=== PATIENT | male | born 1955 | race Caucasian/White ===

== ENCOUNTER 2017-05-16 15:41 | Inpatient (IN) | payer MEDICAID ==
[2017-05-16] MEDS ORDERED: Sodium Chloride 0.9% 1,000 ML IV ONE (16:08)
[2017-05-16] MEDS ORDERED: Enalaprilat 2.5 MG/2 ML IV ONE ×2 (16:10→17:12)
--- NOTE | 2017-05-16 16:18 | C.PDOC ---
History Of Present Illness 61-year-old male, PMHx includes Hypertension, presents to the emergency department with complaints of shortness of breath, cough, dizziness, generalized malaise and chest tightness for the past five days. Patient did not take any medication today. Denies fever, nausea/vomiting, symptoms, change in bowel habits or any other associated symptoms. No other complaints at this time. Time Seen by Provider: 05/16/17 15:48 Chief Complaint (Nursing): Flu-like Symptoms History Per: Patient History/Exam Limitations: no limitations Onset/Duration Of Symptoms: Days Current Symptoms Are (Timing): Still Present Past Medical History Reviewed: Historical Data, Nursing Documentation, Vital Signs Vital Signs: Last Vital Signs Temp 99.7 F H 05/16/17 15:57 Pulse 104 H 05/16/17 15:57 Resp 25 H 05/16/17 15:57 BP 229/132 H 05/16/17 15:57 Pulse Ox 93 L 05/16/17 17:05 - Medical History PMH: HTN - [facility] FOR SUBSTANCE [facility]BUSE TREATMENT (02/21/15) [facility] SUBSTANCE [facility]BUSE [facility]REAT[facility], METHADONE MAINT (02/21/15) Family History: States: No Known Family Hx - Social History Hx Tobacco Use: No Hx Alcohol Use: No Hx Substance Use: Yes (also on methadone) - Immunization History Hx Tetanus Toxoid Vaccination: No Hx Influenza Vaccination: Yes Hx Pneumococcal Vaccination: No Review Of Systems Except As Marked, All Systems Reviewed And Found Negative. Constitutional: Positive for: Malaise. Negative for: Fever, Chills Cardiovascular: Negative for: Chest Pain, Palpitations Respiratory: Positive for: Cough, Shortness of Breath Gastrointestinal: Negative for: Nausea, Vomiting, Abdominal Pain, Diarrhea Musculoskeletal: Negative for: Back Pain Neurological: Positive for: Dizziness. Negative for: Weakness, Numbness Physical Exam - Physical Exam Appears: Toxic (mild), Other (Mild respiratory distress) Skin: Warm, Dry, No Rash Head: Atraumatic, Normacephalic Eye(s): bilateral: Normal Inspection, PERRL Nose: Normal Oral Mucosa: Moist Lips: Normal Appearing Neck: Normal ROM Chest: Symmetrical Cardiovascular: Rhythm Regular (Tachycardic) Respiratory: No Accessory Muscle Use, Wheezing (occasional expiratory) Extremity: Normal ROM Neurological/Psych: Oriented x3, Normal Speech ED Course And Treatment - Laboratory Results Result Diagrams: 05/16/17 16:40 05/16/17 16:40 ECG: Interpreted By Me, Viewed By Me ECG Rhythm: Sinus Rhythm, Atrial Flutter (new, compared 2014) Rate From EC O2 Sat by Pulse Oximetry: 93 (2L O2) Pulse Ox Interpretation: Normal Progress - Re-Evaluation Re-evaluation Note: 05/16/17 17:10 92% RA. NO SIG CHANGE SINCE PRIOR EXAM. PMD DR CORADO 05/16/17 17:13 D/W DR PITTS [employer] AWARE OF ER FINDINGS WILL ADMIT. CONSULT YONATHAN ANNA 05/16/17 17:14 ADVISED BY RN CONNIE CASTILLO AVAILABLE IN HOSPITAL - Data Reviewed Data Reviewed: Lab, Diagnostic imaging, EKG, Old records - Critical Care Citical Care: Excluding Proc Time Critical Care Time: 90 minutes - Continuity of Care Discussed patient case with:: On-call PMD-pt unassigned Disposition Counseled Patient/Family Regarding: Studies Performed, Diagnosis, Need For Followup - Disposition Disposition: HOSPITALIZED Disposition Time: 17:15 Condition: STABLE Forms: [facility] ([place]) - POA Present On Arrival: None - Clinical Impression Clinical Impression: Uncontrolled hypertension, Pneumonia, Hypoxia - Scribe Statement The provider has reviewed the documentation as recorded by the Scribe (Gianna Palacios) All medical record entries made by the Scribe were at my direction and personally dictated by me. I have reviewed the chart and agree that the record accurately reflects my personal performance of the history, physical exam, medical decision making, and the department course for this patient. I have also personally directed, reviewed, and agree with the discharge instructions and disposition. Decision To Admit - Pt Status Changed To: Hospital Disposition Of: Inpatient - Admit Certification Admit to Inpatient:: After my assessment, the patient will require hospitalization for at least two midnights. This is because of the severity of symptoms shown, intensity of services needed, and/or the medical risk in this patient being treated as an outpatient. - InPatient: Physician Admission Certification: I certify that this patient requires 2 or more midnights of care for the following reason:: SEE NOTE - . Bed Request Type: Telemetry Admitting Physician: Kristina Pitts Patient Diagnosis: Uncontrolled hypertension, Pneumonia, Hypoxia
[2017-05-16 16:45] LABS: BASO % 0.2 % (0.0-2.0); EOS % 0.1 % (0.0-4.0); HEMOGLOBIN 14.4 g/dL (12.0-18.0); LYMPH # 1.2 K/uL (1.0-4.3); LYMPH % 5.4 % (20.0-40.0); MEAN CORPUSCULAR HEMOGLOBIN 23.3 pg (27.0-31.0); MEAN CORPUSCULAR HGB CONC 32.4 g/dL (33.0-37.0); MEAN PLATELET VOLUME 10.1 fL (7.2-11.7); MONO % 9.1 % (0.0-10.0); NEUT # 18.8 K/uL (1.8-7.0); NEUT % 85.2 % (50.0-75.0); NRBC % 0.2 % (0.0-2.0); PLATELET COUNT 282 K/uL (130-400); RBC 6.19 Mil/uL (4.40-5.90); RED CELL DISTRIBUTION WIDTH 18.2 % (11.5-14.5)
[2017-05-16 16:53] LABS: VENOUS BLOOD GAS BASE EXCESS 9.2 mmol/L (0.0-2.0); VENOUS BLOOD GAS PCO2 50 mmHg (40-60); VENOUS BLOOD GAS PO2 35 mm/Hg (30-55); VENOUS BLOOD PH 7.45 (7.32-7.43)
[2017-05-16 16:55] LABS: CALCIUM 8.9 mg/dl (8.6-10.4); GFR AFRICAN-AMERICAN > 60; GFR NON-AFRICAN AMERICAN > 60
[2017-05-16 16:58] LABS: ALB/GLOB RATIO 0.8 (1.0-2.1); ALBUMIN 3.8 g/dL (3.5-5.0); ALT/SGPT 51 U/L (21-72); AST/SGOT 69 U/L (17-59); BLOOD UREA NITROGEN 29 mg/dL (9-20)
[2017-05-16] MEDS ORDERED: Sodium Chloride 0.9% 1,000 ML ONE (17:01)
[2017-05-16] MEDS ORDERED: Azithromycin 500 MG in Sodium Chloride 0.9% 250 ML IV STA (17:06)
[2017-05-16] MEDS ORDERED: cefTRIAXone IV 1 gm in Dextros 50 ML IV STA (17:06)
[2017-05-16 17:08] LABS: BANDS 1 % (0-2); LYMPHOCYTE 7 % (20-40); MONOCYTE 8 % (0-10); NEUTROPHIL 84 % (50-75); PLATELET ESTIMATE NORMAL (NORMAL); TOTAL CELLS COUNTED 100
[2017-05-16 17:09] LABS: ANISOCYTOSIS SLIGHT; LARGE PLATELETS PRESENT; OVALOCYTES SLIGHT; POIKILOCYTOSIS SLIGHT
[2017-05-16] MEDS ORDERED: Albuterol-Ipratrop 3 mg / 0.5 (3 ml) UD ONE (17:13)
[2017-05-16] MEDS: Albuterol-Ipratrop 3 mg / 0.5 (3 ml) UD IH SCH (17:16)
[2017-05-16 20:05] LABS: VENOUS BLOOD GAS BASE EXCESS -0.5 mmol/L (0.0-2.0); VENOUS BLOOD GAS PCO2 39 mmHg (40-60); VENOUS BLOOD GAS PO2 36 mm/Hg (30-55)
[2017-05-16 20:43] LABS: BLOOD UREA NITROGEN 33 mg/dL (9-20); CALCIUM 8.4 mg/dl (8.6-10.4); GFR AFRICAN-AMERICAN > 60; GFR NON-AFRICAN AMERICAN > 60
[2017-05-16] MEDS: Piperacill/Tazo 3.375gm in Dex 3.375 GM/50 ML BAG IVPB SCH (22:21)
[2017-05-16] MEDS ORDERED: Piperacillin/Tazobact 3.375 GM in Sodium Chloride 100 ML IVPB SCH (22:45)
[2017-05-16] MEDS: Vancomycin 1 gm/NS 200 ml 1 GM/200 ML BAG IVPB SCH (23:45)
[2017-05-17] MEDS: Albuterol-Ipratrop 3 mg / 0.5 (3 ml) UD IH SCH ×4 (02:37→19:20)
[2017-05-17] MEDS: Piperacill/Tazo 3.375gm in Dex 3.375 GM/50 ML BAG IVPB SCH ×3 (05:21→22:12)
[2017-05-17 06:08] LABS: SQUAMOUS EPITHIAL < 1 /hpf (0-5)
[2017-05-17 06:09] LABS: URINE BILIRUBIN SMALL (NEGATIVE); URINE CLARITY Clear (Clear); URINE COLOR YELLOW (YELLOW); URINE GLUCOSE (UA) NEGATIVE (Normal)
[2017-05-17 06:10] LABS: URINE BLOOD TRACE (NEGATIVE); URINE LEUKOCYTE ESTERASE TRACE Leu/uL (Negative); URINE NITRATE NEGATIVE (NEGATIVE); URINE PROTEIN > 300 mg/dL (NEGATIVE)
--- NOTE | 2017-05-17 08:40 | RAD ---
PROCEDURE: CHEST RADIOGRAPH, 1 VIEW HISTORY: SOB COMPARISON: 02/21/2015 FINDINGS: LUNGS: Clear. PLEURA: No pneumothorax or pleural fluid seen. CARDIOVASCULAR: Normal. OSSEOUS STRUCTURES: No significant abnormalities. VISUALIZED UPPER ABDOMEN: Normal. OTHER FINDINGS: None. IMPRESSION: No active disease.
[2017-05-17] MEDS ORDERED: GlipiZIDE 2.5 mg Tab PO SCH (10:00)
[2017-05-17] MEDS: Enoxaparin 40 mg Syringe SC SCH (10:07)
[2017-05-17] MEDS: Vancomycin 1 gm/NS 200 ml 1 GM/200 ML BAG IVPB SCH ×2 (10:07→23:03)
[2017-05-17] MEDS: Methadone 40 mg Tab PO SCH (10:14)
--- NOTE | 2017-05-17 12:42 | CP.PCM.CON ---
History of Present Illness - History of Present Illness History of Present Illness: infectious disease consultation; Consult dictated. Dictation number. # [id number]. See order sheet and reports. Past Patient History - Past Medical History & Family History Past Medical History?: Yes - Past Social History Smoking Status: Heavy Smoker > 10 Cigarettes Daily - CARDIAC Hx Hypertension: Yes - PULMONARY Hx Respiratory Disorders: No - NEUROLOGICAL Hx Neurological Disorder: No - HEENT Hx HEENT Problems: No - RENAL Hx Chronic Kidney Disease: No - ENDOCRINE/METABOLIC Hx Endocrine Disorders: No - HEMATOLOGICAL/ONCOLOGICAL Hx Blood Disorders: No - INTEGUMENTARY Hx Dermatological Problems: No - MUSCULOSKELETAL/RHEUMATOLOGICAL Hx Falls: No - GASTROINTESTINAL Hx Nausea: Yes - GENITOURINARY/GYNECOLOGICAL Hx Genitourinary Disorders: No - PSYCHIATRIC Hx Substance Use: Yes (heroin) - SURGICAL HISTORY Hx Surgeries: No - ANESTHESIA Hx Anesthesia: No Hx Anesthesia Reactions: No Meds Allergies/Adverse Reactions: Allergies Allergy/AdvReac Type Severity Reaction Status Date / Time No Known Allergies Allergy Verified 05/16/17 16:02 - Medications Medications: Current Medications Albuterol/Ipratropium (Duoneb 3 Mg/0.5 Mg (3 Ml) Ud) 3 ml IH RQ6 [facility] Last Admin: 05/17/17 08:56 Dose: Not Given Aspirin (Aspirin Chewable) 81 mg PO DAILY [facility] Last Admin: 05/17/17 10:08 Dose: 81 mg Enoxaparin Sodium (Lovenox) 40 mg SC DAILY [facility] Last Admin: 05/17/17 10:07 Dose: 40 mg Glipizide (Glucotrol) 10 mg PO DAILY [facility] Last Admin: 05/17/17 11:00 Dose: 10 mg Hydralazine HCl (Apresoline) 10 mg IVP STAT [facility] Hydralazine HCl (Apresoline) 25 mg PO Q8 [facility] Last Admin: 05/17/17 10:06 Dose: 25 mg Piperacillin Sod/Tazobactam Sod (Zosyn 3.375 Gm Iv Premix) 3.375 gm in 50 mls @ 100 mls/hr IVPB Q8H [facility] Last Admin: 05/17/17 12:06 Dose: 100 mls/hr Vancomycin/Sodium Chloride (Vancomycin 1 Gm/Ns 200 Ml) 1 gm in 200 mls @ 133 mls/hr IVPB Q12H [facility] Stop: 05/21/17 21:01 Last Admin: 05/17/17 10:07 Dose: 133 mls/hr Methadone HCl (Methadose) 40 mg PO DAILY [facility] Last Admin: 05/17/17 10:14 Dose: 40 mg Nifedipine (Procardia) 10 mg PO DAILY [facility] Last Admin: 05/17/17 10:13 Dose: 10 mg Terazosin HCl (Hytrin) 2 mg PO [facility] Results - Vital Signs Recent Vital Signs: Last Vital Signs Temp 98.1 F 05/17/17 08:05 Pulse 78 05/17/17 08:05 Resp 20 05/17/17 08:05 BP 170/90 H 05/17/17 08:05 Pulse Ox 96 05/17/17 08:05 - Labs Result Diagrams: 05/16/17 16:40 05/16/17 20:19 Labs: Laboratory Results - last 24 hr 05/16/17 05/16/17 05/16/17 16:08 16:40 16:40 WBC 22.0 H D RBC 6.19 H Hgb 14.4 Hct 44.6 MCV 72.0 L D MCH 23.3 L MCHC 32.4 L RDW 18.2 H Plt Count 282 MPV 10.1 Neut % (Auto) 85.2 H Lymph % (Auto) 5.4 L [place] % (Auto) 9.1 Eos % (Auto) 0.1 Baso % (Auto) 0.2 Neut # (Auto) 18.8 H Lymph # (Auto) 1.2 [place] # (Auto) 2.0 H Eos # (Auto) 0.0 Baso # (Auto) 0.0 Neutrophils % (Manual) 84 H Band Neutrophils % 1 Lymphocytes % (Manual) 7 L Monocytes % (Manual) 8 Platelet Estimate Normal Large Platelets Present Poikilocytosis (manual Slight Anisocytosis (manual) Slight Ovalocytes Slight pO2 VBG pH VBG pCO2 VBG HCO3 VBG Total CO2 VBG O2 Sat (Calc) VBG Base Excess VBG Potassium Glucose Lactate FiO2 Crit Value Called To Crit Value Called By Crit Value Read Back Blood Gas Notified Time Sodium 133 Potassium 5.1 Chloride 93 L Carbon Dioxide 26 Anion Gap 18 BUN 29 H Creatinine 1.1 Est GFR ( Amer) > 60 Est GFR (Non-Af Amer) > 60 POC Glucose (mg/dL) Random Glucose 121 H Calcium 8.9 Total Bilirubin 1.7 H AST 69 H ALT 51 Alkaline Phosphatase 140 H Total Protein 8.3 Albumin 3.8 Globulin 4.6 H Albumin/Globulin Ratio 0.8 L Venous Blood Potassium Urine Color Urine Clarity Urine pH Ur Specific [place] Urine Protein Urine Glucose (UA) Urine Ketones Urine Blood Urine Nitrate Urine Bilirubin Urine Urobilinogen Ur Leukocyte Esterase Urine WBC (Auto) Urine RBC (Auto) Ur Squamous Epith Cells Hyaline Casts Influenza Typ A,B (EIA) Negative for flu a/b 05/16/17 05/16/17 05/16/17 16:48 20:00 20:19 WBC RBC Hgb Hct MCV MCH MCHC RDW Plt Count MPV Neut % (Auto) Lymph % (Auto) [place] % (Auto) Eos % (Auto) Baso % (Auto) Neut # (Auto) Lymph # (Auto) [place] # (Auto) Eos # (Auto) Baso # (Auto) Neutrophils % (Manual) Band Neutrophils % Lymphocytes % (Manual) Monocytes % (Manual) Platelet Estimate Large Platelets Poikilocytosis (manual Anisocytosis (manual) Ovalocytes pO2 35 36 VBG pH 7.45 H 7.40 VBG pCO2 50 39 L VBG HCO3 31.4 23.8 VBG Total CO2 36.3 H 25.4 VBG O2 Sat (Calc) 69.9 H 70.1 H VBG Base Excess 9.2 H -0.5 L VBG Potassium 4.1 9.8 H* Glucose 122 H 117 H Lactate 2.0 1.7 FiO2 21.0 Crit Value Called To Dr olguin Crit Value Called By [facility] Crit Value Read Back Y Blood Gas Notified Time 2004 Sodium 139.0 137.0 136 Potassium 3.7 Chloride 102.0 111.0 H 94 L Carbon Dioxide 30 Anion Gap 16 BUN 33 H Creatinine 1.2 Est GFR ( Amer) > 60 Est GFR (Non-Af Amer) > 60 POC Glucose (mg/dL) Random Glucose 131 H Calcium 8.4 L Total Bilirubin AST ALT Alkaline Phosphatase Total Protein Albumin Globulin Albumin/Globulin Ratio Venous Blood Potassium 4.1 9.8 H* Urine Color Urine Clarity Urine pH Ur Specific [place] Urine Protein Urine Glucose (UA) Urine Ketones Urine Blood Urine Nitrate Urine Bilirubin Urine Urobilinogen Ur Leukocyte Esterase Urine WBC (Auto) Urine RBC (Auto) Ur Squamous Epith Cells Hyaline Casts Influenza Typ A,B (EIA) 05/17/17 05/17/17 05:39 10:05 WBC RBC Hgb Hct MCV MCH MCHC RDW Plt Count MPV Neut % (Auto) Lymph % (Auto) [place] % (Auto) Eos % (Auto) Baso % (Auto) Neut # (Auto) Lymph # (Auto) [place] # (Auto) Eos # (Auto) Baso # (Auto) Neutrophils % (Manual) Band Neutrophils % Lymphocytes % (Manual) Monocytes % (Manual) Platelet Estimate Large Platelets Poikilocytosis (manual Anisocytosis (manual) Ovalocytes pO2 VBG pH VBG pCO2 VBG HCO3 VBG Total CO2 VBG O2 Sat (Calc) VBG Base Excess VBG Potassium Glucose Lactate FiO2 Crit Value Called To Crit Value Called By Crit Value Read Back Blood Gas Notified Time Sodium Potassium Chloride Carbon Dioxide Anion Gap BUN Creatinine Est GFR ( Amer) Est GFR (Non-Af Amer) POC Glucose (mg/dL) 152 H Random Glucose Calcium Total Bilirubin AST ALT Alkaline Phosphatase Total Protein Albumin Globulin Albumin/Globulin Ratio Venous Blood Potassium Urine Color Yellow Urine Clarity Clear Urine pH 6.0 Ur Specific [place] 1.030 Urine Protein > 300 Urine Glucose (UA) Negative Urine Ketones Negative Urine Blood Trace Urine Nitrate Negative Urine Bilirubin Small Urine Urobilinogen 1.0 Ur Leukocyte Esterase Trace H Urine WBC (Auto) 8 H Urine RBC (Auto) 4 H Ur Squamous Epith Cells < 1 Hyaline Casts 6-10 H Influenza Typ A,B (EIA)
--- NOTE | 2017-05-17 13:10 | CP.PCM.CON ---
<Phillip Larios - Last Filed: 05/17/17 13:26> History of Present Illness - History of Present Illness History of Present Illness: 61 y/o M with PMHx of hypertension and heroin use presents after 5 days of worsening shortness of breath and fevers. He also reports a non-productive cough, fevers, and chest tightness. Patient reports smoking a half pack daily for 15 years. The patient reports relief with breathing treatments. He reports using heroin 8 days ago. Patient was seen and examined while lying in bed, resting comfortably. He reports his breathing has slightly improved but remained diaphoretic and fatigued. Past Patient History - Past Medical History & Family History Past Medical History?: Yes - Past Social History Smoking Status: Heavy Smoker > 10 Cigarettes Daily - CARDIAC Hx Hypertension: Yes - PULMONARY Hx Respiratory Disorders: No - NEUROLOGICAL Hx Neurological Disorder: No - HEENT Hx HEENT Problems: No - RENAL Hx Chronic Kidney Disease: No - ENDOCRINE/METABOLIC Hx Endocrine Disorders: No - HEMATOLOGICAL/ONCOLOGICAL Hx Blood Disorders: No - INTEGUMENTARY Hx Dermatological Problems: No - MUSCULOSKELETAL/RHEUMATOLOGICAL Hx Falls: No - GASTROINTESTINAL Hx Nausea: Yes - GENITOURINARY/GYNECOLOGICAL Hx Genitourinary Disorders: No - PSYCHIATRIC Hx Substance Use: Yes (heroin) - SURGICAL HISTORY Hx Surgeries: No - ANESTHESIA Hx Anesthesia: No Hx Anesthesia Reactions: No Meds Allergies/Adverse Reactions: Allergies Allergy/AdvReac Type Severity Reaction Status Date / Time No Known Allergies Allergy Verified 05/16/17 16:02 - Medications Medications: Current Medications Albuterol/Ipratropium (Duoneb 3 Mg/0.5 Mg (3 Ml) Ud) 3 ml IH RQ6 [facility] Last Admin: 05/17/17 08:56 Dose: Not Given Aspirin (Aspirin Chewable) 81 mg PO DAILY [facility] Last Admin: 05/17/17 10:08 Dose: 81 mg Enoxaparin Sodium (Lovenox) 40 mg SC DAILY [facility] Last Admin: 05/17/17 10:07 Dose: 40 mg Glipizide (Glucotrol) 10 mg PO DAILY [facility] Last Admin: 05/17/17 11:00 Dose: 10 mg Hydralazine HCl (Apresoline) 10 mg IVP STAT [facility] Hydralazine HCl (Apresoline) 25 mg PO Q8 [facility] Last Admin: 05/17/17 10:06 Dose: 25 mg Piperacillin Sod/Tazobactam Sod (Zosyn 3.375 Gm Iv Premix) 3.375 gm in 50 mls @ 100 mls/hr IVPB Q8H [facility] Last Admin: 05/17/17 12:06 Dose: 100 mls/hr Vancomycin/Sodium Chloride (Vancomycin 1 Gm/Ns 200 Ml) 1 gm in 200 mls @ 133 mls/hr IVPB Q12H [facility] Stop: 05/21/17 21:01 Last Admin: 05/17/17 10:07 Dose: 133 mls/hr Methadone HCl (Methadose) 40 mg PO DAILY [facility] Last Admin: 05/17/17 10:14 Dose: 40 mg Nifedipine (Procardia) 10 mg PO DAILY [facility] Last Admin: 05/17/17 10:13 Dose: 10 mg Terazosin HCl (Hytrin) 2 mg PO [facility] Physical Exam - Head Exam Head Exam: ATRAUMATIC, NORMOCEPHALIC - Eye Exam Eye Exam: Normal appearance - ENT Exam ENT Exam: Mucous Membranes Moist - Neck Exam Neck exam: Positive for: Normal Inspection - Respiratory Exam Respiratory Exam: Clear to Auscultation Bilateral Results - Vital Signs Recent Vital Signs: Last Vital Signs Temp 98.1 F 05/17/17 08:05 Pulse 78 05/17/17 08:05 Resp 20 05/17/17 08:05 BP 170/90 H 05/17/17 08:05 Pulse Ox 96 05/17/17 08:05 - Labs Result Diagrams: 05/16/17 16:40 05/16/17 20:19 Labs: Laboratory Results - last 24 hr 05/16/17 05/16/17 05/16/17 16:08 16:40 16:40 WBC 22.0 H D RBC 6.19 H Hgb 14.4 Hct 44.6 MCV 72.0 L D MCH 23.3 L MCHC 32.4 L RDW 18.2 H Plt Count 282 MPV 10.1 Neut % (Auto) 85.2 H Lymph % (Auto) 5.4 L [place] % (Auto) 9.1 Eos % (Auto) 0.1 Baso % (Auto) 0.2 Neut # (Auto) 18.8 H Lymph # (Auto) 1.2 [place] # (Auto) 2.0 H Eos # (Auto) 0.0 Baso # (Auto) 0.0 Neutrophils % (Manual) 84 H Band Neutrophils % 1 Lymphocytes % (Manual) 7 L Monocytes % (Manual) 8 Platelet Estimate Normal Large Platelets Present Poikilocytosis (manual Slight Anisocytosis (manual) Slight Ovalocytes Slight pO2 VBG pH VBG pCO2 VBG HCO3 VBG Total CO2 VBG O2 Sat (Calc) VBG Base Excess VBG Potassium Glucose Lactate FiO2 Crit Value Called To Crit Value Called By Crit Value Read Back Blood Gas Notified Time Sodium 133 Potassium 5.1 Chloride 93 L Carbon Dioxide 26 Anion Gap 18 BUN 29 H Creatinine 1.1 Est GFR ( Amer) > 60 Est GFR (Non-Af Amer) > 60 POC Glucose (mg/dL) Random Glucose 121 H Calcium 8.9 Total Bilirubin 1.7 H AST 69 H ALT 51 Alkaline Phosphatase 140 H Total Protein 8.3 Albumin 3.8 Globulin 4.6 H Albumin/Globulin Ratio 0.8 L Venous Blood Potassium Urine Color Urine Clarity Urine pH Ur Specific [place] Urine Protein Urine Glucose (UA) Urine Ketones Urine Blood Urine Nitrate Urine Bilirubin Urine Urobilinogen Ur Leukocyte Esterase Urine WBC (Auto) Urine RBC (Auto) Ur Squamous Epith Cells Hyaline Casts Influenza Typ A,B (EIA) Negative for flu a/b 05/16/17 05/16/17 05/16/17 16:48 20:00 20:19 WBC RBC Hgb Hct MCV MCH MCHC RDW Plt Count MPV Neut % (Auto) Lymph % (Auto) [place] % (Auto) Eos % (Auto) Baso % (Auto) Neut # (Auto) Lymph # (Auto) [place] # (Auto) Eos # (Auto) Baso # (Auto) Neutrophils % (Manual) Band Neutrophils % Lymphocytes % (Manual) Monocytes % (Manual) Platelet Estimate Large Platelets Poikilocytosis (manual Anisocytosis (manual) Ovalocytes pO2 35 36 VBG pH 7.45 H 7.40 VBG pCO2 50 39 L VBG HCO3 31.4 23.8 VBG Total CO2 36.3 H 25.4 VBG O2 Sat (Calc) 69.9 H 70.1 H VBG Base Excess 9.2 H -0.5 L VBG Potassium 4.1 9.8 H* Glucose 122 H 117 H Lactate 2.0 1.7 FiO2 21.0 Crit Value Called To Dr olguin Crit Value Called By [facility] Crit Value Read Back Y Blood Gas Notified Time 2004 Sodium 139.0 137.0 136 Potassium 3.7 Chloride 102.0 111.0 H 94 L Carbon Dioxide 30 Anion Gap 16 BUN 33 H Creatinine 1.2 Est GFR ( Amer) > 60 Est GFR (Non-Af Amer) > 60 POC Glucose (mg/dL) Random Glucose 131 H Calcium 8.4 L Total Bilirubin AST ALT Alkaline Phosphatase Total Protein Albumin Globulin Albumin/Globulin Ratio Venous Blood Potassium 4.1 9.8 H* Urine Color Urine Clarity Urine pH Ur Specific [place] Urine Protein Urine Glucose (UA) Urine Ketones Urine Blood Urine Nitrate Urine Bilirubin Urine Urobilinogen Ur Leukocyte Esterase Urine WBC (Auto) Urine RBC (Auto) Ur Squamous Epith Cells Hyaline Casts Influenza Typ A,B (EIA) 05/17/17 05/17/17 05/17/17 05:39 10:05 12:09 WBC RBC Hgb Hct MCV MCH MCHC RDW Plt Count MPV Neut % (Auto) Lymph % (Auto) [place] % (Auto) Eos % (Auto) Baso % (Auto) Neut # (Auto) Lymph # (Auto) [place] # (Auto) Eos # (Auto) Baso # (Auto) Neutrophils % (Manual) Band Neutrophils % Lymphocytes % (Manual) Monocytes % (Manual) Platelet Estimate Large Platelets Poikilocytosis (manual Anisocytosis (manual) Ovalocytes pO2 VBG pH VBG pCO2 VBG HCO3 VBG Total CO2 VBG O2 Sat (Calc) VBG Base Excess VBG Potassium Glucose Lactate FiO2 Crit Value Called To Crit Value Called By Crit Value Read Back Blood Gas Notified Time Sodium Potassium Chloride Carbon Dioxide Anion Gap BUN Creatinine Est GFR ( Amer) Est GFR (Non-Af Amer) POC Glucose (mg/dL) 152 H 91 Random Glucose Calcium Total Bilirubin AST ALT Alkaline Phosphatase Total Protein Albumin Globulin Albumin/Globulin Ratio Venous Blood Potassium Urine Color Yellow Urine Clarity Clear Urine pH 6.0 Ur Specific [place] 1.030 Urine Protein > 300 Urine Glucose (UA) Negative Urine Ketones Negative Urine Blood Trace Urine Nitrate Negative Urine Bilirubin Small Urine Urobilinogen 1.0 Ur Leukocyte Esterase Trace H Urine WBC (Auto) 8 H Urine RBC (Auto) 4 H Ur Squamous Epith Cells < 1 Hyaline Casts 6-10 H Influenza Typ A,B (EIA) Assessment & Plan (1) Dyspnea Status: Acute Comment: 61-year-old male with long history of smoking presented with shortness of breath.. Chest x-ray showed no infiltrate. Elevated white count. Check pro calcitonin level. d dimer. patient very comfortable in no respiratory distress. On antibiotics as per infectious disease. nebulizers treatment <Khloe Tuttlemichelle Judith - Last Filed: 05/17/17 20:53> Meds - Medications Medications: Current Medications Albuterol/Ipratropium (Duoneb 3 Mg/0.5 Mg (3 Ml) Ud) 3 ml IH RQ6 [facility] Last Admin: 05/17/17 19:20 Dose: Not Given Aspirin (Aspirin Chewable) 81 mg PO DAILY [facility] Last Admin: 05/17/17 10:08 Dose: 81 mg Enoxaparin Sodium (Lovenox) 40 mg SC DAILY [facility] Last Admin: 05/17/17 10:07 Dose: 40 mg Glipizide (Glucotrol) 10 mg PO DAILY [facility] Last Admin: 05/17/17 11:00 Dose: 10 mg Hydralazine HCl (Apresoline) 10 mg IVP STAT [facility] Hydralazine HCl (Apresoline) 25 mg PO Q8 [facility] Last Admin: 05/17/17 13:42 Dose: 25 mg Piperacillin Sod/Tazobactam Sod (Zosyn 3.375 Gm Iv Premix) 3.375 gm in 50 mls @ 100 mls/hr IVPB Q8H [facility] Last Admin: 05/17/17 12:06 Dose: 100 mls/hr Vancomycin/Sodium Chloride (Vancomycin 1 Gm/Ns 200 Ml) 1 gm in 200 mls @ 133 mls/hr IVPB Q12H [facility] Stop: 05/21/17 21:01 Last Admin: 05/17/17 10:07 Dose: 133 mls/hr Methadone HCl (Methadose) 40 mg PO DAILY [facility] Last Admin: 05/17/17 10:14 Dose: 40 mg Metoprolol Tartrate (Lopressor) 25 mg PO BID [facility] Nifedipine (Procardia) 10 mg PO DAILY [facility] Last Admin: 05/17/17 10:13 Dose: 10 mg Terazosin HCl (Hytrin) 2 mg PO HS [facility] Results - Vital Signs Recent Vital Signs: Last Vital Signs Temp 98.5 F 05/17/17 15:20 Pulse 88 05/17/17 15:20 Resp 20 05/17/17 15:20 BP 177/91 H 05/17/17 15:20 Pulse Ox 95 05/17/17 15:20 - Labs Result Diagrams: 05/16/17 16:40 05/16/17 20:19 Labs: Laboratory Results - last 24 hr 05/17/17 05/17/17 05/17/17 05:39 10:05 12:09 POC Glucose (mg/dL) 152 H 91 Urine Color Yellow Urine Clarity Clear Urine pH 6.0 Ur Specific [place] 1.030 Urine Protein > 300 Urine Glucose (UA) Negative Urine Ketones Negative Urine Blood Trace Urine Nitrate Negative Urine Bilirubin Small Urine Urobilinogen 1.0 Ur Leukocyte Esterase Trace H Urine WBC (Auto) 8 H Urine RBC (Auto) 4 H Ur Squamous Epith Cells < 1 Hyaline Casts 6-10 H 05/17/17 16:42 POC Glucose (mg/dL) 102 Urine Color Urine Clarity Urine pH Ur Specific [place] Urine Protein Urine Glucose (UA) Urine Ketones Urine Blood Urine Nitrate Urine Bilirubin Urine Urobilinogen Ur Leukocyte Esterase Urine WBC (Auto) Urine RBC (Auto) Ur Squamous Epith Cells Hyaline Casts
--- NOTE | 2017-05-17 17:05 | CP.PCM.CON ---
<Nir Coelho - Last Filed: 05/17/17 18:20> History of Present Illness - History of Present Illness History of Present Illness: Cardiology Consult Note for Dr. Carranza CC: CP and SOB Pt is a 61 yo M with PMH of HTN and heroin abuse presents to for shortness of breath and chest pain for the past 5 days. Pt states that chest pain was midsternal and felt as if it was pulsating. Pt denies any radiation or reproducible chest pain. Pt states that exertion and deep inspiration worsens the pain. Pt states that the pain remained constant and worsened over the past 5 days. Pt states that SOB coincided with his CP. Pt admits to a dry cough and increased shortness of breath on exertion. Pt states that he has been in close contact with his sister who was diagnosed with the flu. Pt admits to sniffing and injecting heroin, last use was 2 weeks ago. Overall, patient has been using heroin for over 15 years, but is currently on Methadone provided by [facility]. Pt denies n/v/d, abdominal pain, palpitations, fever, chills, MACIAS, dizziness, or LE extremity pain/swelling. Of note, pt had echocardiogram on 02/21 that showed EF 50-55%, moderate LVH, mild hypokinesis, mild to moderate MR/ TR, and severe pulmonary HTN. PMH: HTN Surg: Denied All: NKDA FHx: Father side (OK, CAD), Mother side (unspecified CA) SH: Admits to 6-8 cig/day for 15 yrs, Heroin use (sniff/inject for 15 yrs); Denied EtOH use Review of Systems - Review of Systems Review of Systems: 12 point ROS reviewed and is negative other than what is stated in HPI. Past Patient History - Past Medical History & Family History Past Medical History?: Yes - Past Social History Smoking Status: Heavy Smoker > 10 Cigarettes Daily - CARDIAC Hx Hypertension: Yes - PULMONARY Hx Respiratory Disorders: No - NEUROLOGICAL Hx Neurological Disorder: No - HEENT Hx HEENT Problems: No - RENAL Hx Chronic Kidney Disease: No - ENDOCRINE/METABOLIC Hx Endocrine Disorders: No - HEMATOLOGICAL/ONCOLOGICAL Hx Blood Disorders: No - INTEGUMENTARY Hx Dermatological Problems: No - MUSCULOSKELETAL/RHEUMATOLOGICAL Hx Falls: No - GASTROINTESTINAL Hx Nausea: Yes - GENITOURINARY/GYNECOLOGICAL Hx Genitourinary Disorders: No - PSYCHIATRIC Hx Substance Use: Yes (heroin) - SURGICAL HISTORY Hx Surgeries: No - ANESTHESIA Hx Anesthesia: No Hx Anesthesia Reactions: No Meds Allergies/Adverse Reactions: Allergies Allergy/AdvReac Type Severity Reaction Status Date / Time No Known Allergies Allergy Verified 05/16/17 16:02 - Medications Medications: Current Medications Albuterol/Ipratropium (Duoneb 3 Mg/0.5 Mg (3 Ml) Ud) 3 ml IH RQ6 [facility] Last Admin: 05/17/17 14:15 Dose: Not Given Aspirin (Aspirin Chewable) 81 mg PO DAILY [facility] Last Admin: 05/17/17 10:08 Dose: 81 mg Enoxaparin Sodium (Lovenox) 40 mg SC DAILY [facility] Last Admin: 05/17/17 10:07 Dose: 40 mg Glipizide (Glucotrol) 10 mg PO DAILY [facility] Last Admin: 05/17/17 11:00 Dose: 10 mg Hydralazine HCl (Apresoline) 10 mg IVP STAT [facility] Hydralazine HCl (Apresoline) 25 mg PO Q8 [facility] Last Admin: 05/17/17 13:42 Dose: 25 mg Piperacillin Sod/Tazobactam Sod (Zosyn 3.375 Gm Iv Premix) 3.375 gm in 50 mls @ 100 mls/hr IVPB Q8H [facility] Last Admin: 05/17/17 12:06 Dose: 100 mls/hr Vancomycin/Sodium Chloride (Vancomycin 1 Gm/Ns 200 Ml) 1 gm in 200 mls @ 133 mls/hr IVPB Q12H [facility] Stop: 05/21/17 21:01 Last Admin: 05/17/17 10:07 Dose: 133 mls/hr Methadone HCl (Methadose) 40 mg PO DAILY [facility] Last Admin: 05/17/17 10:14 Dose: 40 mg Nifedipine (Procardia) 10 mg PO DAILY [facility] Last Admin: 05/17/17 10:13 Dose: 10 mg Terazosin HCl (Hytrin) 2 mg PO [facility] Physical Exam - Head Exam Head Exam: NORMAL INSPECTION - Eye Exam Eye Exam: Normal appearance - ENT Exam ENT Exam: Normal Exam - Neck Exam Neck exam: Positive for: Normal Inspection - Respiratory Exam Respiratory Exam: Wheezes (b/l expiratory). absent: Accessory Muscle Use, Rales , Rhonchi, Respiratory Distress - Cardiovascular Exam Cardiovascular Exam: Irregular Rhythm, +S1, +S2. absent: Clicks, Diastolic murmur, Gallop, Rubs, Systolic Murmur - GI/Abdominal Exam GI & Abdominal Exam: Soft. absent: Distended, Guarding, Rebound, Tenderness - Extremities Exam Extremities exam: Positive for: normal inspection - Neurological Exam Neurological exam: Alert - Skin Additional comments: healing wound on right forearm Results - Vital Signs Recent Vital Signs: Last Vital Signs Temp 98.5 F 05/17/17 15:20 Pulse 88 05/17/17 15:20 Resp 20 05/17/17 15:20 BP 177/91 H 05/17/17 15:20 Pulse Ox 95 05/17/17 15:20 - Labs Result Diagrams: 05/16/17 16:40 05/16/17 20:19 Labs: Laboratory Results - last 24 hr 05/16/17 05/16/17 05/16/17 16:08 16:40 16:40 Neutrophils % (Manual) 84 H Band Neutrophils % 1 Lymphocytes % (Manual) 7 L Monocytes % (Manual) 8 Platelet Estimate Normal Large Platelets Present Poikilocytosis (manual Slight Anisocytosis (manual) Slight Ovalocytes Slight pO2 VBG pH VBG pCO2 VBG HCO3 VBG Total CO2 VBG O2 Sat (Calc) VBG Base Excess VBG Potassium Glucose Lactate FiO2 Crit Value Called To Crit Value Called By Crit Value Read Back Blood Gas Notified Time Sodium 133 Potassium 5.1 Chloride 93 L Carbon Dioxide 26 Anion Gap 18 BUN 29 H Creatinine 1.1 Est GFR ( Amer) > 60 Est GFR (Non-Af Amer) > 60 POC Glucose (mg/dL) Random Glucose 121 H Calcium 8.9 Total Bilirubin 1.7 H AST 69 H ALT 51 Alkaline Phosphatase 140 H Total Protein 8.3 Albumin 3.8 Globulin 4.6 H Albumin/Globulin Ratio 0.8 L Venous Blood Potassium Urine Color Urine Clarity Urine pH Ur Specific [place] Urine Protein Urine Glucose (UA) Urine Ketones Urine Blood Urine Nitrate Urine Bilirubin Urine Urobilinogen Ur Leukocyte Esterase Urine WBC (Auto) Urine RBC (Auto) Ur Squamous Epith Cells Hyaline Casts Influenza Typ A,B (EIA) Negative for flu a/b 05/16/17 05/16/17 05/17/17 20:00 20:19 05:39 Neutrophils % (Manual) Band Neutrophils % Lymphocytes % (Manual) Monocytes % (Manual) Platelet Estimate Large Platelets Poikilocytosis (manual Anisocytosis (manual) Ovalocytes pO2 36 VBG pH 7.40 VBG pCO2 39 L VBG HCO3 23.8 VBG Total CO2 25.4 VBG O2 Sat (Calc) 70.1 H VBG Base Excess -0.5 L VBG Potassium 9.8 H* Glucose 117 H Lactate 1.7 FiO2 21.0 Crit Value Called To Dr olguin Crit Value Called By [facility] Crit Value Read Back Y Blood Gas Notified Time 2004 Sodium 137.0 136 Potassium 3.7 Chloride 111.0 H 94 L Carbon Dioxide 30 Anion Gap 16 BUN 33 H Creatinine 1.2 Est GFR ( Amer) > 60 Est GFR (Non-Af Amer) > 60 POC Glucose (mg/dL) Random Glucose 131 H Calcium 8.4 L Total Bilirubin AST ALT Alkaline Phosphatase Total Protein Albumin Globulin Albumin/Globulin Ratio Venous Blood Potassium 9.8 H* Urine Color Yellow Urine Clarity Clear Urine pH 6.0 Ur Specific [place] 1.030 Urine Protein > 300 Urine Glucose (UA) Negative Urine Ketones Negative Urine Blood Trace Urine Nitrate Negative Urine Bilirubin Small Urine Urobilinogen 1.0 Ur Leukocyte Esterase Trace H Urine WBC (Auto) 8 H Urine RBC (Auto) 4 H Ur Squamous Epith Cells < 1 Hyaline Casts 6-10 H Influenza Typ A,B (EIA) 05/17/17 05/17/17 05/17/17 10:05 12:09 16:42 Neutrophils % (Manual) Band Neutrophils % Lymphocytes % (Manual) Monocytes % (Manual) Platelet Estimate Large Platelets Poikilocytosis (manual Anisocytosis (manual) Ovalocytes pO2 VBG pH VBG pCO2 VBG HCO3 VBG Total CO2 VBG O2 Sat (Calc) VBG Base Excess VBG Potassium Glucose Lactate FiO2 Crit Value Called To Crit Value Called By Crit Value Read Back Blood Gas Notified Time Sodium Potassium Chloride Carbon Dioxide Anion Gap BUN Creatinine Est GFR ( Amer) Est GFR (Non-Af Amer) POC Glucose (mg/dL) 152 H 91 102 Random Glucose Calcium Total Bilirubin AST ALT Alkaline Phosphatase Total Protein Albumin Globulin Albumin/Globulin Ratio Venous Blood Potassium Urine Color Urine Clarity Urine pH Ur Specific [place] Urine Protein Urine Glucose (UA) Urine Ketones Urine Blood Urine Nitrate Urine Bilirubin Urine Urobilinogen Ur Leukocyte Esterase Urine WBC (Auto) Urine RBC (Auto) Ur Squamous Epith Cells Hyaline Casts Influenza Typ A,B (EIA) Assessment & Plan - Assessment and Plan (Free Text) Assessment: 61 yo M with PMH of HTN and heroin abuse presents with CP and SOB. Cardiology consulted due to new-onset a-fib. Plan: 1. New-onset Atrial Fibrillation - EKG showed sinus rhythm with AV dissociation and junctional rhythm, LVH - CHADSVASC 1 - F/u lipid panel, A1C, TSH - F/u Echo - Lopressor 25 mg PO BID - Plan for stress test 2. Dyspnea - Possibly 2/2 pneumonia - CXR negative - Leukocytosis, febrile - Flu negative - Vanc/Zosyn - Duoneb - F/u procal, d-dimer, cultures - Management per primary 3. HTN - Cont Nifedipine, Hydralazine 4. H/o Heroin Abuse - Management per primary GI/DVT PPx - Per primary Pt seen and discussed in detail with Dr. Carranza. Bernard Coelho, PGY1 <Gabi Tuttle - Last Filed: 05/17/17 22:48> Meds - Medications Medications: Current Medications Albuterol/Ipratropium (Duoneb 3 Mg/0.5 Mg (3 Ml) Ud) 3 ml IH RQ6 [facility] Last Admin: 05/17/17 19:20 Dose: Not Given Amlodipine Besylate (Norvasc) 10 mg PO DAILY [facility] Aspirin (Aspirin Chewable) 81 mg PO DAILY [facility] Last Admin: 05/17/17 10:08 Dose: 81 mg Enalapril Maleate (Vasotec) 20 mg PO DAILY [facility] Enoxaparin Sodium (Lovenox) 40 mg SC DAILY [facility] Last Admin: 05/17/17 10:07 Dose: 40 mg Glipizide (Glucotrol) 10 mg PO DAILY [facility] Last Admin: 05/17/17 11:00 Dose: 10 mg Hydralazine HCl (Apresoline) 10 mg IVP STAT [facility] Hydralazine HCl (Apresoline) 25 mg PO Q8 [facility] Last Admin: 05/17/17 22:12 Dose: 25 mg Piperacillin Sod/Tazobactam Sod (Zosyn 3.375 Gm Iv Premix) 3.375 gm in 50 mls @ 100 mls/hr IVPB Q8H [facility] Last Admin: 05/17/17 22:12 Dose: 100 mls/hr Vancomycin/Sodium Chloride (Vancomycin 1 Gm/Ns 200 Ml) 1 gm in 200 mls @ 133 mls/hr IVPB Q12H [facility] Stop: 05/21/17 21:01 Last Admin: 05/17/17 10:07 Dose: 133 mls/hr Methadone HCl (Methadose) 40 mg PO DAILY [facility] Last Admin: 05/17/17 10:14 Dose: 40 mg Metoprolol Tartrate (Lopressor) 25 mg PO BID [facility] Terazosin HCl (Hytrin) 2 mg PO HS [facility] Last Admin: 05/17/17 22:18 Dose: 2 mg Results - Vital Signs Recent Vital Signs: Last Vital Signs Temp 98.5 F 05/17/17 15:20 Pulse 88 05/17/17 15:20 Resp 20 05/17/17 15:20 BP 177/91 H 05/17/17 15:20 Pulse Ox 95 05/17/17 15:20 - Labs Result Diagrams: 05/16/17 16:40 05/16/17 20:19 Labs: Laboratory Results - last 24 hr 05/17/17 05/17/17 05/17/17 05:39 10:05 12:09 POC Glucose (mg/dL) 152 H 91 Urine Color Yellow Urine Clarity Clear Urine pH 6.0 Ur Specific [place] 1.030 Urine Protein > 300 Urine Glucose (UA) Negative Urine Ketones Negative Urine Blood Trace Urine Nitrate Negative Urine Bilirubin Small Urine Urobilinogen 1.0 Ur Leukocyte Esterase Trace H Urine WBC (Auto) 8 H Urine RBC (Auto) 4 H Ur Squamous Epith Cells < 1 Hyaline Casts 6-10 H 05/17/17 05/17/17 05/17/17 16:42 21:20 21:24 POC Glucose (mg/dL) 102 67 72 Urine Color Urine Clarity Urine pH Ur Specific [place] Urine Protein Urine Glucose (UA) Urine Ketones Urine Blood Urine Nitrate Urine Bilirubin Urine Urobilinogen Ur Leukocyte Esterase Urine WBC (Auto) Urine RBC (Auto) Ur Squamous Epith Cells Hyaline Casts <Jakob Carranza - Last Filed: 05/17/17 23:57> Meds - Medications Medications: Current Medications Albuterol/Ipratropium (Duoneb 3 Mg/0.5 Mg (3 Ml) Ud) 3 ml IH RQ6 [facility] Last Admin: 05/17/17 19:20 Dose: Not Given Amlodipine Besylate (Norvasc) 10 mg PO DAILY [facility] Aspirin (Aspirin Chewable) 81 mg PO DAILY [facility] Last Admin: 05/17/17 10:08 Dose: 81 mg Enalapril Maleate (Vasotec) 20 mg PO DAILY [facility] Enoxaparin Sodium (Lovenox) 40 mg SC DAILY [facility] Last Admin: 05/17/17 10:07 Dose: 40 mg Glipizide (Glucotrol) 10 mg PO DAILY [facility] Last Admin: 05/17/17 11:00 Dose: 10 mg Hydralazine HCl (Apresoline) 10 mg IVP STAT [facility] Hydralazine HCl (Apresoline) 25 mg PO Q8 [facility] Last Admin: 05/17/17 22:12 Dose: 25 mg Piperacillin Sod/Tazobactam Sod (Zosyn 3.375 Gm Iv Premix) 3.375 gm in 50 mls @ 100 mls/hr IVPB Q8H [facility] Last Admin: 05/17/17 22:12 Dose: 100 mls/hr Vancomycin/Sodium Chloride (Vancomycin 1 Gm/Ns 200 Ml) 1 gm in 200 mls @ 133 mls/hr IVPB Q12H [facility] Stop: 05/21/17 21:01 Last Admin: 05/17/17 23:03 Dose: 133 mls/hr Methadone HCl (Methadose) 40 mg PO DAILY [facility] Last Admin: 05/17/17 10:14 Dose: 40 mg Metoprolol Tartrate (Lopressor) 25 mg PO BID [facility] Oseltamivir Phosphate (Tamiflu Cap) 75 mg PO BID [facility] Stop: 05/22/17 22:51 Terazosin HCl (Hytrin) 2 mg PO HS [facility] Last Admin: 05/17/17 22:18 Dose: 2 mg Results - Vital Signs Recent Vital Signs: Last Vital Signs Temp 98.5 F 05/17/17 15:20 Pulse 88 05/17/17 15:20 Resp 20 05/17/17 15:20 BP 177/91 H 05/17/17 15:20 Pulse Ox 95 05/17/17 15:20 - Labs Result Diagrams: 05/16/17 16:40 05/16/17 20:19 Labs: Laboratory Results - last 24 hr 05/17/17 05/17/17 05/17/17 05:39 10:05 12:09 POC Glucose (mg/dL) 152 H 91 Urine Color Yellow Urine Clarity Clear Urine pH 6.0 Ur Specific [place] 1.030 Urine Protein > 300 Urine Glucose (UA) Negative Urine Ketones Negative Urine Blood Trace Urine Nitrate Negative Urine Bilirubin Small Urine Urobilinogen 1.0 Ur Leukocyte Esterase Trace H Urine WBC (Auto) 8 H Urine RBC (Auto) 4 H Ur Squamous Epith Cells < 1 Hyaline Casts 6-10 H 05/17/17 05/17/17 05/17/17 16:42 21:20 21:24 POC Glucose (mg/dL) 102 67 72 Urine Color Urine Clarity Urine pH Ur Specific [place] Urine Protein Urine Glucose (UA) Urine Ketones Urine Blood Urine Nitrate Urine Bilirubin Urine Urobilinogen Ur Leukocyte Esterase Urine WBC (Auto) Urine RBC (Auto) Ur Squamous Epith Cells Hyaline Casts Attending/Attestation - Attestation I have personally seen and examined this patient.: Yes I have fully participated in the care of the patient.: Yes I have reviewed all pertinent clinical information: Yes Notes (Text): 05/17/17 23:57 plan for stress test on saturday
--- NOTE | 2017-05-17 19:23 | CARD ---
APPROVED REPORT EKG Measurement Heart [id number] <Conclusion> Atrial fibrilation with occasional premature ventricular complexes, or abbarancy Minimal voltage criteria for LVH, may be normal variant ST & T wave abnormality, consider lateral ischemia Abnormal ECG
[2017-05-18] MEDS: Albuterol-Ipratrop 3 mg / 0.5 (3 ml) UD IH SCH ×4 (01:19→19:28)
[2017-05-18] MEDS: Piperacill/Tazo 3.375gm in Dex 3.375 GM/50 ML BAG IVPB SCH ×3 (05:38→21:38)
--- NOTE | 2017-05-18 06:34 | CON ---
DATE: INFECTIOUS DISEASE CONSULTATION REQUESTED BY: Dr. Maguire DICTATION DONE BY: Dr. Gabi Tuttle REASON FOR CONSULTATION: Pneumonia, hypoxia, and uncontrolled hypertension. HISTORY OF PRESENT ILLNESS: The patient is a 61-year-old male with past medical history of hypertension, heroin abuse, who presented to [facility] ER for shortness of breath and chest pain for the past 5 days. The patient also has been complaining of a productive cough and increased shortness of breath on exertion. The patient also states he was in close contact with his sister who was diagnosed with a flu. The patient is a known IV heroin drug abuser, presently on methadone program, 40 mg daily by clinic, who admits that he has been injecting heroin, last use was about 2 to 3 weeks ago as reported by him. The patient also states he has been using heroin for over 15 years, and he has currently multiple ulcerations on the right hand with multiple needle stephenson on both the upper extremities. The patient presently denies any nausea, vomiting or diarrhea. Denies any abdominal pain. Denies any lower extremity pain or swelling. Infectious Disease consultation was requested because the patient was found to have elevated WBC count of 22,000. Chest x-ray on admission was reported to be unremarkable with no active disease. The patient denies any history of hemoptysis or seizure disorder. Denies any previous history of HIV, hepatitis C, or hepatitis B. He states he was tested about 6 months ago and he was negative. PAST MEDICAL HISTORY: As above, history of hypertension. SURGICAL HISTORY: Denies any surgical history. ALLERGIES: NONE KNOWN. FAMILY HISTORY: History of AR and coronary artery disease on the father's side. Mother's side, unspecified CA. SOCIAL HISTORY: He admits to smoking 6 to 8 cigarettes a day for 15 years, heroin use sniffing and injecting for the past 15 years. Last shot of heroin about 2 to 3 days ago as reported by the patient. Denies alcohol use. REVIEW OF SYSTEMS: As above, twelve points reviewed and is negative other than what is stated in the history of present illness. MEDICATIONS: As per chart reviewed. See MARS. PHYSICAL EXAMINATION: GENERAL: The patient is awake, alert, not in any acute distress.. VITAL SIGNS: On admission, patient was afebrile, blood pressure was elevated to 177/91, respirations 20, pulse ox presently 95%. On admission, ABG done on room air showed pH of 7.40, pCO2 of 31, pO2 of 36, and oxygen saturation FiO2 of 21%. Infectious Disease consultation requested as above. HEENT: Pupils equal and reactive to light and accommodation. Extraocular movements full. Fundus negative. Sclerae nonicteric. Conjunctivae normal. JVP not elevated. NECK: Appears to be supple. LUNGS: Fair air entry. CARDIOVASCULAR SYSTEM: S1, S2. No murmur or gallop. ABDOMEN: Soft. Bowel sounds are present. EXTREMITIES: Bilateral tattoo stephenson on both upper extremities noted. The patient has multiple ulcerations, some of which are open on the right upper forearm with areas of erythema and redness around them. Serosanguineous drainage also noted, but mainly dry ulcers, also multiple needle stephenson noted on both upper extremities. No cyanosis, clubbing, or edema. No calf tenderness. No Kate's sign. CENTRAL NERVOUS SYSTEM: Awake and alert. Moves all extremities. LABORATORY DATA: WBC is 22.0, H and H of 14.4 and 44.6, platelets 282, creatinine 1.2, BUN of 33. Urinalysis was wbc's 8, rbc's 4, hyaline casts 6 to 10. Liver function tests total bilirubin 1.7, AST of 69, ALT is normal, alkaline phosphatase 140. Influenza A and B was initially done, which was negative. IMPRESSION: 1. Leukocytosis with dyspnea, hypoxia, rule out atypical pneumonia versus flu-like syndrome. 2. Elevated hypertension, on admission. 3. History of heroin use, rule out endocarditis. 4. Oral thrush noted, rule out immunodeficiency syndrome. 5. New onset of atrial fibrillation. PLAN: Suggest blanchard cultures. The patient was started on IV Zosyn 3.375 q.6 hourly and vancomycin 1 gm q.12 hourly empirically to rule out septicemia while awaiting cultures. We will add Tamiflu 75 mg p.o. b.i.d. for 5 days for now as recent history of contacted a flu patient. Consider V/Q scan, rule out PE. We will also check for HIV-1 and 2 antigen antibody fourth generation test, and HIV, RNA PCR quantitative levels, sputum gram stain and culture, 2D echo to rule out any vegetations. We will also get sed rate and C-reactive proteins. We will follow along with you and make recommendations as needed. Thank you very much for allowing me to participate in the care of your patient. We will follow. Gabi Tuttle MD
--- NOTE | 2017-05-18 07:00 | HP ---
CHIEF COMPLAINT: Flu-like symptoms. HISTORY OF PRESENT ILLNESS: Mr. Raymundo Rowland is a 61-year-old male with past medical history of hypertension, came to the emergency department with complaints of shortness of breath, coughing, dizziness, generalized malaise and chest tightness for the past five days with coughing. The patient did not take any medications. He denies any nausea, vomiting, diarrhea, hematuria or hematochezia, but having flu-like symptoms. PAST MEDICAL HISTORY: Hypertension. FAMILY HISTORY: Father and mother, noncontributory. HABITS: Smoking, no. Alcohol, no. Substance abuse, yes. Also on methadone. ALLERGIES: THE PATIENT IS NOT ALLERGIC WITH ANY MEDICATIONS. HOME MEDICATIONS: Aspirin, Procardia, methadone, glipizide, REVIEW OF SYSTEMS: The patient is seen and examined at the bedside, looking comfortable. No nausea, vomiting, or diarrhea. No hematuria or hematochezia.. No headache or dizziness. No chest pain. No palpitations, but still coughing. Having shortness of breath. No fever. No chills. PHYSICAL EXAMINATION: VITAL SIGNS: Temperature 98.5, pulse 88, blood pressure 177/91, respiratory rate 20. HEENT: Head, normocephalic and atraumatic. Eyes: PERRLA. Extraocular muscles intact. Conjunctivae clear. Nose patent. NECK: Supple. No carotid bruit. No JVD or thyromegaly. CHEST: Bilaterally symmetrical. HEART: S1 and S2 positive. LUNGS: Clear to auscultation. ABDOMEN: Soft. Bowel sounds positive. No organomegaly. EXTREMITIES: No edema. No cyanosis. NEUROLOGICAL: The patient is awake, alert, moving all four extremities. No focal deficits. LABORATORY DATA: White blood cell 23, hemoglobin 14.4, hematocrit 44.6, and platelets 282. Sodium 136, potassium 3.4, BUN 33, creatinine 1.2, glucose 152, calcium 8.4 ASSESSMENT AND PLAN: Mr. Raymundo Rowland is a 61-year-old male with a leukocytosis, hypochloremia, increased BUN, dehydrated, hyperglycemia, hypocalcemia, urinary tract infection, influenza type A and B is negative, came in with flu-like symptoms, history of hypertension and heroin use, now on methadone. Chest x-ray done showed no active disease. Infectious Disease and Pulmonary are on the case. history of heroin abuse, Cardiology consult was called also. The patient had new onset atrial fibrillation. EKG shows sinus rhythm with atrioventricular dissociation and junctional rhythm and left ventricular hypertrophy. Lopressor started b.i.d. Dyspnea. Chest x-ray negative. The patient started on vancomycin and Zosyn from Infectious Disease. Hypertension, continue felodipine and hydralazine. Gastrointestinal and deep venous thrombosis prophylaxes. Repeat labs. Kristina Maguire MD MTDD
--- NOTE | 2017-05-18 07:53 | CP.PCM.PN ---
<Nir Coelho - Last Filed: 05/18/17 07:51> Subjective - Date & Time of Evaluation Date of Evaluation: 05/18/17 Time of Evaluation: 07:51 - Subjective Subjective: Cardiology Progress Note for Dr. Carranza Pt seen and examined at bedside. No acute overnight events. Pt states that CP and SOB are improving. Pt denied n/v/d, abdominal pain, palpitations, fever, chills, MACIAS, or dizziness. Objective - Vital Signs/Intake and Output Vital Signs (last 24 hours): Temp Pulse Resp BP Pulse Ox 98.4 F 90 20 138/77 95 05/17/17 23:45 05/17/17 23:45 05/17/17 23:45 05/17/17 23:45 05/17/17 23:45 - Medications Medications: Current Medications Albuterol/Ipratropium (Duoneb 3 Mg/0.5 Mg (3 Ml) Ud) 3 ml IH RQ6 [facility] Last Admin: 05/18/17 01:19 Dose: Not Given Amlodipine Besylate (Norvasc) 10 mg PO DAILY [facility] Aspirin (Aspirin Chewable) 81 mg PO DAILY [facility] Last Admin: 05/17/17 10:08 Dose: 81 mg Enalapril Maleate (Vasotec) 20 mg PO DAILY [facility] Enoxaparin Sodium (Lovenox) 40 mg SC DAILY [facility] Last Admin: 05/17/17 10:07 Dose: 40 mg Glipizide (Glucotrol) 10 mg PO DAILY [facility] Last Admin: 05/17/17 11:00 Dose: 10 mg Hydralazine HCl (Apresoline) 10 mg IVP STAT [facility] Hydralazine HCl (Apresoline) 25 mg PO Q8 [facility] Last Admin: 05/18/17 05:38 Dose: 25 mg Piperacillin Sod/Tazobactam Sod (Zosyn 3.375 Gm Iv Premix) 3.375 gm in 50 mls @ 100 mls/hr IVPB Q8H [facility] Last Admin: 05/18/17 05:38 Dose: 100 mls/hr Vancomycin/Sodium Chloride (Vancomycin 1 Gm/Ns 200 Ml) 1 gm in 200 mls @ 133 mls/hr IVPB Q12H [facility] Stop: 05/21/17 21:01 Last Admin: 05/17/17 23:03 Dose: 133 mls/hr Methadone HCl (Methadose) 40 mg PO DAILY [facility] Last Admin: 05/17/17 10:14 Dose: 40 mg Metoprolol Tartrate (Lopressor) 25 mg PO BID [facility] Oseltamivir Phosphate (Tamiflu Cap) 75 mg PO BID [facility] Stop: 05/22/17 22:51 Last Admin: 05/18/17 00:30 Dose: 75 mg Terazosin HCl (Hytrin) 2 mg PO HS [facility] Last Admin: 05/17/17 22:18 Dose: 2 mg - Labs Labs: 05/16/17 16:40 05/16/17 20:19 - Constitutional Appears: No Acute Distress - Head Exam Head Exam: NORMAL INSPECTION - Eye Exam Eye Exam: Normal appearance - ENT Exam ENT Exam: Normal Exam - Neck Exam Neck Exam: Normal Inspection - Respiratory Exam Respiratory Exam: Wheezes (b/l). absent: Accessory Muscle Use, Rales, Rhonchi, Respiratory Distress - Cardiovascular Exam Cardiovascular Exam: Irregular Rhythm, +S1, +S2. absent: Clicks, Diastolic murmur, Rubs, Murmur - GI/Abdominal Exam GI & Abdominal Exam: Soft. absent: Distended, Guarding, Tenderness, Rebound - Extremities Exam Extremities Exam: Normal Inspection - Back Exam Back Exam: NORMAL INSPECTION - Neurological Exam Neurological Exam: Alert, Awake, Oriented x3 - Skin Skin Exam: Dry, Intact, Normal Color, Warm Assessment and Plan - Assessment and Plan (Free Text) Assessment: 61 yo M with PMH of HTN and heroin abuse presents with CP and SOB. Cardiology consulted due to new-onset a-fib. Plan: 1. New-onset Atrial Fibrillation - EKG showed sinus rhythm with AV dissociation and junctional rhythm, LVH - CHADSVASC 1 - F/u lipid panel, A1C, TSH - F/u Echo - Lopressor 25 mg PO BID - Plan for stress test on Saturday 2. Dyspnea - Possibly 2/2 pneumonia - CXR negative - Leukocytosis, febrile - Flu negative - Vanc/Zosyn, Tamiflu - Duoneb - F/u procal, d-dimer, cultures, flu, HIV - Management per primary 3. HTN - Cont Nifedipine, Enalapril, Hydralazine 4. H/o Heroin Abuse - Management per primary GI/DVT PPx - Per primary Pt seen and discussed in detail with Dr. Carranza. Bernard Coeloh, PGY1 <Jakob Carranza - Last Filed: 05/18/17 10:43> Objective - Vital Signs/Intake and Output Vital Signs (last 24 hours): Temp Pulse Resp BP Pulse Ox 98.2 F 109 H 20 178/92 H 98 05/18/17 07:00 05/18/17 07:00 05/18/17 07:00 05/18/17 09:07 05/18/17 07:00 - Medications Medications: Current Medications Albuterol/Ipratropium (Duoneb 3 Mg/0.5 Mg (3 Ml) Ud) 3 ml IH RQ6 [facility] Last Admin: 05/18/17 08:34 Dose: 3 ml Amlodipine Besylate (Norvasc) 10 mg PO DAILY [facility] Last Admin: 05/18/17 09:07 Dose: 10 mg Aspirin (Aspirin Chewable) 81 mg PO DAILY [facility] Last Admin: 05/18/17 09:00 Dose: 81 mg Enalapril Maleate (Vasotec) 20 mg PO DAILY [facility] Last Admin: 05/18/17 09:07 Dose: 20 mg Enoxaparin Sodium (Lovenox) 40 mg SC DAILY [facility] Last Admin: 05/18/17 09:01 Dose: 40 mg Glipizide (Glucotrol) 10 mg PO DAILY [facility] Last Admin: 05/18/17 09:00 Dose: 10 mg Hydralazine HCl (Apresoline) 10 mg IVP STAT [facility] Hydralazine HCl (Apresoline) 25 mg PO Q8 [facility] Last Admin: 05/18/17 05:38 Dose: 25 mg Piperacillin Sod/Tazobactam Sod (Zosyn 3.375 Gm Iv Premix) 3.375 gm in 50 mls @ 100 mls/hr IVPB Q8H [facility] Last Admin: 05/18/17 05:38 Dose: 100 mls/hr Vancomycin/Sodium Chloride (Vancomycin 1 Gm/Ns 200 Ml) 1 gm in 200 mls @ 133 mls/hr IVPB Q12H [facility] Stop: 05/21/17 21:01 Last Admin: 05/18/17 09:08 Dose: 133 mls/hr Methadone HCl (Methadose) 40 mg PO DAILY [facility] Last Admin: 05/18/17 09:01 Dose: 40 mg Metoprolol Tartrate (Lopressor) 25 mg PO BID [facility] Last Admin: 05/18/17 08:56 Dose: 25 mg Oseltamivir Phosphate (Tamiflu Cap) 75 mg PO BID [facility] Stop: 05/22/17 22:51 Last Admin: 05/18/17 09:01 Dose: 75 mg Terazosin HCl (Hytrin) 2 mg PO [facility] Last Admin: 05/17/17 22:18 Dose: 2 mg - Labs Labs: 05/16/17 16:40 05/16/17 20:19 Attending/Attestation - Attestation I have personally seen and examined this patient.: Yes I have fully participated in the care of the patient.: Yes I have reviewed all pertinent clinical information, including history, physical exam and plan: Yes
[2017-05-18] MEDS: Methadone 40 mg Tab PO SCH (09:01)
[2017-05-18] MEDS: Enoxaparin 40 mg Syringe SC SCH (09:01)
[2017-05-18] MEDS: Vancomycin 1 gm/NS 200 ml 1 GM/200 ML BAG IVPB SCH ×2 (09:08→21:38)
[2017-05-18] MEDS ORDERED: Pneumococcal 23-Valent Vaccine IM ONE (10:00)
[2017-05-18 11:57] LABS: BASO # 0.2 K/uL (0.0-0.2); BASO % 0.9 % (0.0-2.0); EOS # 0.1 K/uL (0.0-0.7); EOS % 0.4 % (0.0-4.0); HEMOGLOBIN 13.1 g/dL (12.0-18.0); LYMPH # 2.2 K/uL (1.0-4.3); LYMPH % 11.3 % (20.0-40.0); MEAN CELL VOLUME 71.7 fL (80.0-94.0); MEAN CORPUSCULAR HEMOGLOBIN 24.2 pg (27.0-31.0); MEAN CORPUSCULAR HGB CONC 33.8 g/dL (33.0-37.0); MEAN PLATELET VOLUME 10.1 fL (7.2-11.7); MONO # 2.4 K/uL (0.0-0.8); MONO % 12.2 % (0.0-10.0); NEUT # 14.5 K/uL (1.8-7.0); NEUT % 75.2 % (50.0-75.0); RBC 5.4 Mil/uL (4.40-5.90); RED CELL DISTRIBUTION WIDTH 17.9 % (11.5-14.5); WHITE BLOOD COUNT 19.3 K/uL (4.8-10.8)
[2017-05-18] MEDS ORDERED: Influenza Vaccine 60 mcg/0.5 mL SYR (4YR UP) IM ONE (12:00)
[2017-05-18 12:25] LABS: ALB/GLOB RATIO 0.8 (1.0-2.1); ALBUMIN 3.3 g/dL (3.5-5.0); BILIRUBIN,DIRECT 0.6 mg/dL (0.0-0.4)
[2017-05-18 12:41] LABS: ALB/GLOB RATIO 0.8 (1.0-2.1); ALBUMIN 3.3 g/dL (3.5-5.0); ALT/SGPT 56 U/L (21-72); AST/SGOT 51 U/L (17-59); BLOOD UREA NITROGEN 22 mg/dL (9-20); CALCIUM 8.6 mg/dl (8.6-10.4); GFR AFRICAN-AMERICAN > 60; GFR NON-AFRICAN AMERICAN 57
--- NOTE | 2017-05-18 23:05 | PN ---
DATE: SUBJECTIVE: The patient was seen and examined on the bedside, looking comfortable, cough is better, shortness of breath is better. No chest pain. No nausea, vomiting, or diarrhea. No hematuria. No hematochezia. No swelling of the leg. No headache. No dizziness. No acute event overnight happened. PHYSICAL EXAMINATION VITAL SIGNS: Temperature 98.4, pulse 90, respiratory rate 20, blood pressure 138/77, and pulse oximetry 95%. HEENT: Head: Normocephalic, atraumatic. Eyes: PERRLA, extraocular muscles intact, conjunctivae clear. Nose patent. Mucous membranes moist. NECK: Supple. No carotid bruits. No JVD or thyromegaly. CHEST: Bilaterally symmetrical. HEART: S1 and S2 positive. LUNGS: Clear to auscultation. ABDOMEN: Soft. Bowel sounds positive. No organomegaly. EXTREMITIES: No edema, no cyanosis. NEUROLOGIC: The patient is awake, alert, moving all four extremities. No focal deficit. MEDICATIONS: Albuterol, Norvasc, aspirin, Vasotec, Lovenox, Glucotrol, hydralazine, Zosyn, vancomycin, methadone, Lopressor, Tamiflu, Hytrin. LABORATORY DATA: White blood cell 22.0, hemoglobin 14.4, hematocrit 44.6, and platelets 282. Sodium 136, potassium 3.7, BUN 33, creatinine 1.2, glucose 131. ASSESSMENT AND PLAN: Mr. Raymundo Rowland is a 61-year-old male with leukocytosis, improving; hyperglycemia, past medical history of hypertension and heroin abuse. He came with chest pain and shortness of breath. Cardiology consulted due to new onset atrial fibrillation. EKG shows sinus rhythm with atrioventricular dissociation and junctional rhythm and left ventricular hypertrophy. Followup echo, Lopressor started. Plan for stress test on Saturday as per Cardiology. This is not possibly due to pneumonia. Chest x-ray negative. The patient had leukocytosis, improving, on Zosyn, Tamiflu, and vancomycin. For hypertension, patient is getting nifedipine, enalapril, and hydralazine. Gastrointestinal and deep venous thrombosis prophylaxes. Seen by Dr. Parag Ashley, infectious disease; demand inspector ____ HIV PCR quantitative level, sputum gram-stain and culture. Ordered 2D echo to rule out vegetation. Repeat labs. We will follow up. Kristina Maguire MD [facility] # [id number]
[2017-05-19] MEDS: Albuterol-Ipratrop 3 mg / 0.5 (3 ml) UD IH SCH ×4 (02:03→19:39)
--- NOTE | 2017-05-19 02:23 | CP.PCM.PN ---
Subjective - Date & Time of Evaluation Date of Evaluation: 05/18/17 Time of Evaluation: 20:40 - Subjective Subjective: CHIEF COMPLAINTS TODAY : 05/18/17 AFEBRILE, Comfortable, states SOB /CHEST PAIN IMPROVING. ROS. HEENT : N. Resp : No cough, wheezing ,pleuritic CP ,or hemoptysis Cardio : +VE CP, -VE PND, orthopnea, palpitation GI : No abd.pain, n/v ,diarrhea or GI bleeding . [employer]ER : No headache, vertigo, focal deficit. Musculoskel : No joint swelling , Derm : No rash Psych : Normal affect. Ext : No swelling ,calf pain PE. Pt. is alert awake in no distress. V.S As noted in the chart Head ,ear nose,throat and eyes : Normal. Neck : Supple with normal carotids. Lungs: B/L EXPIRATORY WHEEZE Heart : S1 & S2 IRREGULAR. NO S4. No murmur. Abd : Soft non tender with normal bowel sounds. Neuro : Moves all ext. with no localized deficit. Ext : B/L UPPER EXT .TATTOO/AND NEEDLE CHERY+VE WITH SUPERFICIAL ULCERATIONS ON RT FOREARM SEC. TO NEEDLE PUNCTURES/AND ERYTHEMA. Non tender calves Derm : No rashes or decubitus ulcer. LABS/RADIOLOGY: REVIEWED. HEPATITIS C +VE IN FEB 2017. (PT MADE AWARE ) Objective - Vital Signs/Intake and Output Vital Signs (last 24 hours): Temp Pulse Resp BP Pulse Ox 98.3 F 77 20 172/93 H 97 05/18/17 15:00 05/19/17 00:00 05/18/17 15:00 05/18/17 21:37 05/18/17 15:00 Intake and Output: 05/18/17 05/19/17 18:59 06:59 Output Total 400 Balance -400 - Medications Medications: Current Medications Albuterol/Ipratropium (Duoneb 3 Mg/0.5 Mg (3 Ml) Ud) 3 ml IH RQ6 [facility] Last Admin: 05/19/17 02:03 Dose: Not Given Amlodipine Besylate (Norvasc) 10 mg PO DAILY [facility] Last Admin: 05/18/17 09:07 Dose: 10 mg Aspirin (Aspirin Chewable) 81 mg PO DAILY [facility] Last Admin: 05/18/17 09:00 Dose: 81 mg Enalapril Maleate (Vasotec) 20 mg PO DAILY [facility] Last Admin: 05/18/17 09:07 Dose: 20 mg Enoxaparin Sodium (Lovenox) 40 mg SC DAILY [facility] Last Admin: 05/18/17 09:01 Dose: 40 mg Glipizide (Glucotrol) 10 mg PO DAILY [facility] Last Admin: 05/18/17 09:00 Dose: 10 mg Hydralazine HCl (Apresoline) 10 mg IVP STAT [facility] Hydralazine HCl (Apresoline) 25 mg PO Q8 [facility] Last Admin: 05/18/17 21:37 Dose: 25 mg Piperacillin Sod/Tazobactam Sod (Zosyn 3.375 Gm Iv Premix) 3.375 gm in 50 mls @ 100 mls/hr IVPB Q8H [facility] Last Admin: 05/18/17 21:38 Dose: 100 mls/hr Vancomycin/Sodium Chloride (Vancomycin 1 Gm/Ns 200 Ml) 1 gm in 200 mls @ 133 mls/hr IVPB Q12H [facility] Stop: 05/21/17 21:01 Last Admin: 05/18/17 21:38 Dose: 133 mls/hr Methadone HCl (Methadose) 40 mg PO DAILY [facility] Last Admin: 05/18/17 09:01 Dose: 40 mg Metoprolol Tartrate (Lopressor) 25 mg PO BID [facility] Last Admin: 05/18/17 17:41 Dose: 25 mg Oseltamivir Phosphate (Tamiflu Cap) 75 mg PO BID [facility] Stop: 05/22/17 22:51 Last Admin: 05/18/17 17:42 Dose: 75 mg Terazosin HCl (Hytrin) 2 mg PO [facility] Last Admin: 05/18/17 21:37 Dose: 2 mg - Labs Labs: 05/18/17 11:45 05/18/17 11:45 Assessment and Plan (1) Leukocytosis Status: Acute (2) Dyspnea Status: Acute (3) Hypoxia Status: Acute (4) Uncontrolled hypertension Status: Acute (5) Cellulitis Status: Acute (6) Chest pain Status: Acute (7) IV drug abuse Status: Acute (8) Hepatitis C Status: Acute - Assessment and Plan (Free Text) Plan: IMPRESSION; -LEUKOCYTOSIS R/O SEPSIS -DYSPNEA/HYPOXIA R/O INFLUENZA VS ATYPICAL PNEUMONIA -CHEST PAIN R/O IHD. - NEW ONSET OF ATRIAL FIBRILLATION. -ACCELERATED HYPERTENSION. - ORAL THRUSH R/O HIV -HX IV HEROIN USE. - HX HEPATITIS C +VE FEB 2017. -CELLULITIS RT. FOREARM WITH ULCERATIONS /AND NEEDLE CHERY. -HX OF [place] B/L UE. PLAN; CONTINUE iv zOSYN 3.375-6 HOURLY 05/16/17. cONTINUE iv VANCOMYCIN 1 G EVERY 12 HOURLY 05/16/17. ON PO tAMIFLU 75 MG TWICE A DAY. 05/17/17. HIV 1/2 AG/AB -FOURTH-GENERATION TEST PENDING pATIENT MADE AWARE OF HEP C AND ENCOURAGED TO ABSTAIN FROM HEROIN ABUSE aND TO FOLLOW-UP AT HEPATOLOGY CLINIC FOR FURTHER MANAGEMENT. F/U VANC-TROUGH LEVEL AND KEEP BETWEEN 10 AND 20. fOLLOW-UP CULTURES TO ADJUST ANTIBIOTICS.. cARDIOLOGY WORKUP IN PROGRESS.
[2017-05-19] MEDS: Piperacill/Tazo 3.375gm in Dex 3.375 GM/50 ML BAG IVPB SCH ×2 (05:16→06:00)
[2017-05-19] MEDS ORDERED: Piperacillin/Tazobact 3.375 GM in Sodium Chloride 0.9% 100 ML IVPB SCH (08:45)
[2017-05-19] MEDS ORDERED: Amoxicillin-Clav 875-125 mg Tab PO SCH (09:30)
[2017-05-19] MEDS: Vancomycin 1 gm/NS 200 ml 1 GM/200 ML BAG IVPB SCH ×2 (09:56→21:01)
[2017-05-19] MEDS: Methadone 40 mg Tab PO SCH (10:13)
[2017-05-19] MEDS: Enoxaparin 40 mg Syringe SC SCH (10:14)
[2017-05-19] MEDS: Amoxicillin-Clav 875-125 mg Tab PO SCH ×2 (10:27→21:00)
[2017-05-19] MEDS: Piperacillin/Tazobact 3.375 GM in Sodium Chloride 0.9% 100 ML IVPB SCH ×2 (12:14→21:01)
[2017-05-20] MEDS: Albuterol-Ipratrop 3 mg / 0.5 (3 ml) UD IH SCH ×4 (01:30→20:41)
[2017-05-20] MEDS: Piperacillin/Tazobact 3.375 GM in Sodium Chloride 0.9% 100 ML IVPB SCH ×3 (05:38→21:34)
[2017-05-20] MEDS: MethylPREDNISolone 40 mg Vial IVP SCH ×4 (08:22→21:33)
--- NOTE | 2017-05-20 09:22 | PN ---
DATE: 05/19/2017 SUBJECTIVE: The patient was seen and examined at the bedside, looking comfortable. Cough is better. Shortness of breath is better. No nausea, vomiting, or diarrhea. No hematuria or hematochezia. No swelling of the legs. Still has track stephenson of drug abuse on the extremities but as per the patient, now he is not doing IV drug abuse. He is sniffing heroin. PHYSICAL EXAMINATION: VITAL SIGNS: Temperature 98.3, pulse 77, respiratory rate 20, blood pressure 172/93, pulse oximetry 97%. HEENT: Head, normocephalic and atraumatic. Eyes, PERRLA. Extraocular muscles intact. Conjunctivae clear. Nose patent. NECK: Supple. No carotid bruit, JVD, or thyromegaly. CHEST: Bilaterally symmetrical. HEART: S1 and S2 positive. LUNGS: Clear to auscultation. ABDOMEN: Soft. Bowel sounds present. No organomegaly. EXTREMITIES: No edema. No cyanosis. Has track stephenson. NEUROLOGIC: Awake, alert. Moving all four extremities. No focal deficits. MEDICATIONS: DuoNeb, Norvasc, aspirin, Vasotec, Lovenox, Glucotrol, hydralazine, Zosyn, vancomycin, methadone, Lopressor, Tamiflu, Hytrin. LABORATORY DATA: White blood cell is 19.3, hemoglobin 13.1, hematocrit 38.7, platelets 285. Sodium 137, potassium 3.0, BUN 22, creatinine 1.3, glucose 75. ASSESSMENT AND PLAN: Mr. Raymundo Rowland is a 61-year-old male with leukocytosis; hypokalemia, replaced; hypochloremia; increased BUN; dyspnea, improving; hypoxemia; uncontrolled hypertension, getting better; cellulitis; chest pain; IV drug abuser, now as per the patient, he is sniffing heroin; hepatitis C positive; rule out sepsis, rule out flu or atypical pneumonia; new onset atrial fibrillation; accelerated hypertension; oral thrush; rule out human immunodeficiency virus; history of IV heroin use; hepatitis C , positive on 02/2017; needle stephenson on the extremities; history of tattoos to bilateral upper extremities. We will continue Zosyn, vancomycin, Tamiflu. HIV test ordered. Results are pending. Gastrointestinal and deep venous thrombosis prophylaxis. Repeat labs. We will follow. Kristina Maguire MD [facility] # [id number] [facility]
[2017-05-20] MEDS: Methadone 40 mg Tab PO SCH (10:07)
[2017-05-20] MEDS: Enoxaparin 40 mg Syringe SC SCH (10:07)
[2017-05-20] MEDS: Amoxicillin-Clav 875-125 mg Tab PO SCH (10:10)
[2017-05-20 10:15] LABS: HEPATITIS B SURFACE AG Negative (NEGATIVE)
[2017-05-20 10:21] LABS: HEPATITIS A IGM NEGATIVE (NEGATIVE); HEPATITIS B CORE AB NEGATIVE (NEGATIVE)
[2017-05-20] MEDS: Vancomycin 1 gm/NS 200 ml 1 GM/200 ML BAG IVPB SCH ×2 (11:07→21:35)
--- NOTE | 2017-05-20 11:33 | CP.PCM.PN ---
<LaquitaNir - Last Filed: 05/20/17 16:19> Subjective - Date & Time of Evaluation Date of Evaluation: 05/20/17 Time of Evaluation: 11:30 - Subjective Subjective: Cardiology Progress Note for Dr. Carranza Pt seen and examined at bedside. No acute overnight events. Pt states that he feels more short of breath today and does not think he will be able to do exercise stress test. Pt denied CP, n/v/d, abdominal pain, fever, chills, MACIAS, or dizziness. Objective - Vital Signs/Intake and Output Vital Signs (last 24 hours): Temp Pulse Resp BP Pulse Ox 98.1 F 74 18 193/104 H 97 05/20/17 07:55 05/20/17 07:55 05/20/17 07:55 05/20/17 10:09 05/20/17 07:55 Intake and Output: 05/20/17 05/20/17 06:59 18:59 Intake Total 50 Balance 50 - Medications Medications: Current Medications Albuterol/Ipratropium (Duoneb 3 Mg/0.5 Mg (3 Ml) Ud) 3 ml IH RQ6 [facility] Last Admin: 05/20/17 07:15 Dose: 3 ml Amlodipine Besylate (Norvasc) 10 mg PO DAILY [facility] Last Admin: 05/20/17 11:07 Dose: 10 mg Aspirin (Aspirin Chewable) 81 mg PO DAILY [facility] Last Admin: 05/20/17 10:07 Dose: 81 mg Budesonide (Pulmicort Respules) 0.25 mg INH RQ12 [facility] Enalapril Maleate (Vasotec) 20 mg PO DAILY [facility] Last Admin: 05/20/17 10:09 Dose: 20 mg Enoxaparin Sodium (Lovenox) 40 mg SC DAILY [facility] Last Admin: 05/20/17 10:07 Dose: 40 mg Glipizide (Glucotrol) 10 mg PO DAILY [facility] Last Admin: 05/20/17 10:07 Dose: 10 mg Hydralazine HCl (Apresoline) 10 mg IVP STAT [facility] Hydralazine HCl (Apresoline) 50 mg PO Q8 [facility] Last Admin: 05/20/17 05:58 Dose: 50 mg Vancomycin/Sodium Chloride (Vancomycin 1 Gm/Ns 200 Ml) 1 gm in 200 mls @ 133 mls/hr IVPB Q12H [facility] Stop: 05/21/17 21:01 Last Admin: 05/20/17 11:07 Dose: 133 mls/hr Piperacillin Sod/Tazobactam (Sod 3.375 gm/ Sodium Chloride) 100 mls @ 100 mls/ hr IVPB Q8H [facility] Last Admin: 05/20/17 05:38 Dose: Not Given Methadone HCl (Methadose) 40 mg PO DAILY [facility] Last Admin: 05/20/17 10:07 Dose: 40 mg Methylprednisolone (Solu-Medrol) 40 mg IVP Q6H [facility] Last Admin: 05/20/17 11:03 Dose: Not Given Metoprolol Tartrate (Lopressor) 25 mg PO BID [facility] Last Admin: 05/20/17 10:09 Dose: 25 mg Oseltamivir Phosphate (Tamiflu Cap) 75 mg PO BID [facility] Stop: 05/22/17 22:51 Last Admin: 05/20/17 10:07 Dose: 75 mg Terazosin HCl (Hytrin) 2 mg PO HS [facility] Last Admin: 05/19/17 21:00 Dose: 2 mg - Labs Labs: 05/18/17 11:45 05/18/17 11:45 - Constitutional Appears: No Acute Distress - Head Exam Head Exam: NORMAL INSPECTION - Eye Exam Eye Exam: Normal appearance - ENT Exam ENT Exam: Normal Exam - Neck Exam Neck Exam: Normal Inspection - Respiratory Exam Respiratory Exam: Clear to Ausculation Bilateral, Wheezes (b/l). absent: Accessory Muscle Use, Rales, Rhonchi, Respiratory Distress - Cardiovascular Exam Cardiovascular Exam: RRR, +S1, +S2. absent: Clicks, Gallop, Rubs, Murmur - GI/Abdominal Exam GI & Abdominal Exam: Soft. absent: Distended, Guarding, Tenderness, Rebound - Extremities Exam Extremities Exam: Normal Capillary Refill - Back Exam Back Exam: NORMAL INSPECTION - Neurological Exam Neurological Exam: Alert, Awake, Oriented x3 - Skin Skin Exam: Dry, Intact, Normal Color, Warm Assessment and Plan - Assessment and Plan (Free Text) Assessment: 61 yo M with PMH of HTN and heroin abuse presents with CP and SOB. Cardiology consulted due to new-onset a-fib. Plan: 1. New-onset Atrial Fibrillation - EKG showed sinus rhythm with AV dissociation and junctional rhythm, LVH - CHADSVASC 1 - TSH low, f/u free T4 - F/u lipid panel, A1C - F/u Echo - Lopressor 25 mg PO BID - Plan for pharmacologic stress test due to SOB in AM NPO after midnight 2. Dyspnea - Possibly 2/2 pneumonia - CXR negative - Leukocytosis, febrile - Flu negative - Vanc/Zosyn, Tamiflu, Duoneb - Elevated d-dimer - F/u procal, cultures, flu, HIV - Management per primary 3. HTN - Cont Nifedipine, Enalapril, Hydralazine 4. H/o Heroin Abuse - Management per primary 5. Hypokalemia - KCl 40 mEQ PO given - Cont to monitor, replete as needed GI/DVT PPx - Per primary Pt seen and discussed in detail with Dr. Carranza. Bernard Coelho, PGY1 <Jakob Carranza - Last Filed: 05/22/17 01:45> Objective - Vital Signs/Intake and Output Vital Signs (last 24 hours): Temp Pulse Resp BP Pulse Ox 97.3 F L 74 20 129/69 98 05/21/17 23:45 05/21/17 23:45 05/21/17 23:45 05/21/17 23:45 05/21/17 23:45 Intake and Output: 05/21/17 05/22/17 18:59 06:59 Output Total 200 Balance -200 - Medications Medications: Current Medications Albuterol/Ipratropium (Duoneb 3 Mg/0.5 Mg (3 Ml) Ud) 3 ml IH RQ6 [facility] Last Admin: 05/22/17 01:18 Dose: 3 ml Amlodipine Besylate (Norvasc) 10 mg PO DAILY [facility] Last Admin: 05/21/17 11:50 Dose: 10 mg Aspirin (Aspirin Chewable) 81 mg PO DAILY [facility] Last Admin: 05/21/17 11:51 Dose: 81 mg Budesonide (Pulmicort Respules) 0.25 mg INH RQ12 [facility] Last Admin: 05/21/17 20:45 Dose: 0.25 mg Enalapril Maleate (Vasotec) 20 mg PO DAILY [facility] Last Admin: 05/21/17 11:50 Dose: 20 mg Enoxaparin Sodium (Lovenox) 40 mg SC DAILY [facility] Last Admin: 05/21/17 11:49 Dose: 40 mg Glipizide (Glucotrol) 10 mg PO DAILY [facility] Last Admin: 05/21/17 11:50 Dose: 10 mg Hydralazine HCl (Apresoline) 50 mg PO Q8 [facility] Last Admin: 05/21/17 21:45 Dose: 50 mg Piperacillin Sod/Tazobactam (Sod 3.375 gm/ Sodium Chloride) 100 mls @ 100 mls/ hr IVPB Q8H [facility] Last Admin: 05/21/17 21:47 Dose: 100 mls/hr Methadone HCl (Methadose) 40 mg PO DAILY [facility] Last Admin: 05/21/17 11:49 Dose: 40 mg Methylprednisolone (Solu-Medrol) 30 mg IVP Q6H [facility] Last Admin: 05/22/17 01:07 Dose: 30 mg Metoprolol Tartrate (Lopressor) 25 mg PO BID [facility] Last Admin: 05/21/17 18:53 Dose: 25 mg Nystatin (Nystatin Oral Susp) 5 ml PO QID [facility] Last Admin: 05/21/17 21:45 Dose: 5 ml Oseltamivir Phosphate (Tamiflu Cap) 75 mg PO BID [facility] Stop: 05/22/17 22:51 Last Admin: 05/21/17 18:54 Dose: 75 mg Terazosin HCl (Hytrin) 2 mg PO HS [facility] Last Admin: 05/21/17 21:45 Dose: 2 mg - Labs Labs: 05/22/17 01:17 05/20/17 11:37 Attending/Attestation - Attestation I have personally seen and examined this patient.: Yes I have fully participated in the care of the patient.: Yes I have reviewed all pertinent clinical information, including history, physical exam and plan: Yes
[2017-05-20 11:50] LABS: HEMOGLOBIN 12.6 g/dL (12.0-18.0); MEAN CELL VOLUME 72.3 fL (80.0-94.0); MEAN CORPUSCULAR HEMOGLOBIN 24.2 pg (27.0-31.0); MEAN CORPUSCULAR HGB CONC 33.4 g/dL (33.0-37.0); MEAN PLATELET VOLUME 9.8 fL (7.2-11.7); RBC 5.22 Mil/uL (4.40-5.90); RED CELL DISTRIBUTION WIDTH 17.7 % (11.5-14.5); WHITE BLOOD COUNT 15.9 K/uL (4.8-10.8)
[2017-05-20 12:07] LABS: HEPATITIS C ANTIBODY REACTIVE (NEGATIVE)
[2017-05-20 12:33] LABS: BLOOD UREA NITROGEN 14 mg/dL (9-20); CALCIUM 8.7 mg/dl (8.6-10.4); GFR AFRICAN-AMERICAN > 60; GFR NON-AFRICAN AMERICAN > 60
[2017-05-20] MEDS ORDERED: Potassium Chloride 20 mEq ER Tab PO ONE (12:37)
--- NOTE | 2017-05-20 14:17 | CP.PCM.PN ---
Subjective - Date & Time of Evaluation Date of Evaluation: 05/20/17 Time of Evaluation: 14:16 - Subjective Subjective: CHIEF COMPLAINTS TODAY : 05/20/17 AFEBRILE, Comfortable, DENIES SOB/CHEST PAIN +VE ERYTHEMA AND PUNCUTURE CHERY B/L UPPER EXT. S/P MIDLINE LT.ARM 05/20/17 ON IV ABX NOW ROS. HEENT : N. Resp : No cough, wheezing ,pleuritic CP ,or hemoptysis Cardio : +VE CP, -VE PND, orthopnea, palpitation GI : No abd.pain, n/v ,diarrhea or GI bleeding . 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 Musculoskel : No joint swelling , Derm : No rash Psych : Normal affect. Ext : No swelling ,calf pain PE. Pt. is alert awake in no distress. V.S As noted in the chart Head ,ear nose,throat and eyes : Normal. Neck : Supple with normal carotids. Lungs: B/L EXPIRATORY WHEEZE Heart : S1 & S2 IRREGULAR. NO S4. No murmur. Abd : Soft non tender with normal bowel sounds. Neuro : Moves all ext. with no localized deficit. Ext : B/L UPPER EXT .TATTOO/AND NEEDLE CHERY+VE WITH SUPERFICIAL ULCERATIONS ON RT FOREARM SEC. TO NEEDLE PUNCTURES/AND ERYTHEMA. Non tender calves Derm : No rashes or decubitus ulcer. LABS/RADIOLOGY: REVIEWED. creatinine 1.2/BUN 14 k 3.0 low WBC 15.9 improving HEPATITIS C +VE IN FEB 2017. (PT MADE AWARE ) Repeat hepatitis C reactive. Objective - Vital Signs/Intake and Output Vital Signs (last 24 hours): Temp Pulse Resp BP Pulse Ox 98.1 F 76 18 165/79 H 97 05/20/17 07:55 05/20/17 13:17 05/20/17 07:55 05/20/17 12:56 05/20/17 07:55 Intake and Output: 05/20/17 05/20/17 06:59 18:59 Intake Total 50 Balance 50 - Medications Medications: Current Medications Albuterol/Ipratropium (Duoneb 3 Mg/0.5 Mg (3 Ml) Ud) 3 ml IH RQ6 [facility] Last Admin: 05/20/17 07:15 Dose: 3 ml Amlodipine Besylate (Norvasc) 10 mg PO DAILY [facility] Last Admin: 05/20/17 11:07 Dose: 10 mg Aspirin (Aspirin Chewable) 81 mg PO DAILY [facility] Last Admin: 05/20/17 10:07 Dose: 81 mg Budesonide (Pulmicort Respules) 0.25 mg INH RQ12 [facility] Enalapril Maleate (Vasotec) 20 mg PO DAILY [facility] Last Admin: 05/20/17 10:09 Dose: 20 mg Enoxaparin Sodium (Lovenox) 40 mg SC DAILY [facility] Last Admin: 05/20/17 10:07 Dose: 40 mg Glipizide (Glucotrol) 10 mg PO DAILY [facility] Last Admin: 05/20/17 10:07 Dose: 10 mg Hydralazine HCl (Apresoline) 10 mg IVP STAT [facility] Hydralazine HCl (Apresoline) 50 mg PO Q8 [facility] Last Admin: 05/20/17 13:43 Dose: 50 mg Vancomycin/Sodium Chloride (Vancomycin 1 Gm/Ns 200 Ml) 1 gm in 200 mls @ 133 mls/hr IVPB Q12H [facility] Stop: 05/21/17 21:01 Last Admin: 05/20/17 11:07 Dose: 133 mls/hr Piperacillin Sod/Tazobactam (Sod 3.375 gm/ Sodium Chloride) 100 mls @ 100 mls/ hr IVPB Q8H [facility] Last Admin: 05/20/17 12:48 Dose: 100 mls/hr Methadone HCl (Methadose) 40 mg PO DAILY [facility] Last Admin: 05/20/17 10:07 Dose: 40 mg Methylprednisolone (Solu-Medrol) 40 mg IVP Q6H [facility] Last Admin: 05/20/17 13:43 Dose: 40 mg Metoprolol Tartrate (Lopressor) 25 mg PO BID [facility] Last Admin: 05/20/17 10:09 Dose: 25 mg Nystatin (Nystatin Oral Susp) 5 ml PO QID [facility] Oseltamivir Phosphate (Tamiflu Cap) 75 mg PO BID [facility] Stop: 05/22/17 22:51 Last Admin: 05/20/17 10:07 Dose: 75 mg Terazosin HCl (Hytrin) 2 mg PO HS [facility] - Labs Labs: 05/20/17 11:37 05/20/17 11:37 Assessment and Plan (1) Leukocytosis Status: Acute (2) Dyspnea Status: Acute (3) Hypoxia Status: Acute (4) Uncontrolled hypertension Status: Acute (5) Cellulitis Status: Acute (6) Chest pain Status: Acute (7) IV drug abuse Status: Acute (8) Hepatitis C Status: Acute - Assessment and Plan (Free Text) Assessment: IMPRESSION; -LEUKOCYTOSIS R/O SEPSIS -DYSPNEA/HYPOXIA R/O INFLUENZA VS ATYPICAL PNEUMONIA -CHEST PAIN R/O IHD. - NEW ONSET OF ATRIAL FIBRILLATION. -ACCELERATED HYPERTENSION. - ORAL THRUSH R/O HIV -HX IV HEROIN USE. - HX HEPATITIS C +VE FEB 2017. -CELLULITIS RT. FOREARM WITH ULCERATIONS /AND NEEDLE CHERY. -HX OF [place] B/L UE. PLAN; CONTINUE iv zOSYN 3.375-6 HOURLY 05/16/17. cONTINUE iv VANCOMYCIN 1 G EVERY 12 HOURLY 05/16/17. ON PO tAMIFLU 75 MG TWICE A DAY. 05/17/17. HIV 1/2 AG/AB -FOURTH-GENERATION TEST PENDING pATIENT MADE AWARE OF HEP C AND ENCOURAGED TO ABSTAIN FROM HEROIN ABUSE aND TO FOLLOW-UP AT HEPATOLOGY CLINIC FOR FURTHER MANAGEMENT. F/U VANC-TROUGH LEVEL AND KEEP BETWEEN 10 AND 20. K -SUPPLEMENTATION PER pmd CARDIOLOGYO BOARD FOR NEW ONSET ATRIAL FIBRILLATION.
[2017-05-20] MEDS: Budesonide 0.25 mg/2 ml Inhal Susp UD INH SCH ×2 (14:18→20:41)
[2017-05-20] MEDS: Nystatin 100,000 Units/ml Oral Susp 5 ml UD PO SCH ×2 (18:39→21:40)
--- NOTE | 2017-05-20 20:03 | CARD ---
APPROVED REPORT EXAM: Two-dimensional and M-mode echocardiogram with Doppler and color Doppler. Other Information Quality : GoodRhythm : INDICATION Dyspnea Chest Pain DRUG ABUSE, NEW ONSET AF RISK FACTORS Hypertension M-Mode DIMENSIONS RVDd1.99 (2.1-3.2cm)Left Atrium (MM)4.37 (2.5-4.0cm) IVSd1.51 (0.7-1.1cm)Aortic Root3.46 (2.2-3.7cm) LVDd5.02 (4.0-5.6cm)Aortic Cusp Exc.1.81 (1.5-2.0cm) PWd1.33 (0.7-1.1cm)FS (%) 29 % LVDs3.58 (2.0-3.8cm)LVEF (%)55 (>50%) Mitral Valve MV E Bdmewiky59.3cm/sMV A Cvlwbolh47.3cm/sE/A ratio3.9 TDI E/Lateral E'0.0E/Medial E'0.0 Tricuspid Valve TR Peak Jomwwddm227qw/sTR Peak Gr.[id number] LEFT VENTRICLE The left ventricle is normal size. There is mild to moderate concentric left ventricular hypertrophy. The left ventricular function is normal. The left ventricular ejection fraction is within the normal range. No regional wall motion abnormalities noted. No left ventricle thrombus noted on this study. There is no ventricular septal defect visualized. There is no left ventricular aneurysm. There is no mass noted in the left ventricle. RIGHT VENTRICLE The right ventricle is normal size. There is normal right ventricular wall thickness. The right ventricular systolic function is normal. ATRIA The left atrium is mildly dilated. The right atrium size is normal. The interatrial septum is intact with no evidence for an atrial septal defect. AORTIC VALVE The aortic valve is normal in structure and function. No aortic regurgitation is present. There is no aortic valvular stenosis. There is no aortic valvular vegetation. MITRAL VALVE The mitral valve is normal in structure and function. There is no evidence of mitral valve prolapse. There is no mitral valve stenosis. Mitral regurgitation is mild. TRICUSPID VALVE The tricuspid valve is normal in structure and function. There is moderate tricuspid regurgitation. Right ventricular systolic pressure is estimated at 40-50 mmHg. There is no tricuspid valve prolapse or vegetation. There is no tricuspid valve stenosis. PULMONIC VALVE The pulmonary valve is normal in structure and function. There is no pulmonic valvular regurgitation. There is no pulmonic valvular stenosis. GREAT VESSELS The aortic root is normal in size. The ascending aorta is normal in size. The pulmonary artery is normal. The IVC is normal in size and collapses >50% with inspiration. PERICARDIAL EFFUSION The pericardium appears normal. There is no pleural effusion. <Conclusion> There is mild to moderate concentric left ventricular hypertrophy. The left ventricular function is normal. The left ventricular ejection fraction is within the normal range. No regional wall motion abnormalities noted. The left atrium is mildly dilated. Mitral regurgitation is mild. There is moderate tricuspid regurgitation. Right ventricular systolic pressure is estimated at 40-50 mmHg.
[2017-05-21] MEDS: Albuterol-Ipratrop 3 mg / 0.5 (3 ml) UD IH SCH ×4 (01:17→20:45)
--- NOTE | 2017-05-21 02:26 | PN ---
DATE: SUBJECTIVE: The patient is seen and examined at the bedside looking comfortable except that according to the patient is still coughing, having shortness of breath, and he is supposed to do physical therapy and he is supposed to go for stress test, but according to him, he is thinking he is not able to do exercise stress test, but no chest pain. No nausea, vomiting, diarrhea. No abdominal pain. No fever, chills, headache or dizziness. PHYSICAL EXAMINATION: VITAL SIGNS: Temperature 98.1, pulse 74, respiratory 18, blood pressure 192/104, pulse oximetry 97. HEENT: Head normocephalic, atraumatic. Eyes, PERRLA. Extraocular muscles intact. Conjunctivae clear. Nose patent. Mucous membrane moist. NECK: Supple. No carotid bruit, JVD or thyromegaly. CHEST: Bilaterally symmetrical. HEART: S1 and S2 positive. LUNGS: Clear to auscultation. ABDOMEN: Soft. Bowel sounds positive. No organomegaly. EXTREMITIES: No edema. No cyanosis. NEUROLOGIC: The patient is awake and alert. Moving all 4 extremities. No focal deficit. MEDICATIONS: DuoNeb, Norvasc, aspirin, Pulmicort, Vasotec, Lovenox, Glucotrol, hydralazine, vancomycin, piperacillin, methadone, metoprolol, Tamiflu, Hytrin. LABORATORY DATA: White blood cell is 19.3, hemoglobin 13.1, hematocrit 38.7, platelets 285. Sodium 137, potassium 3.0, BUN 22, creatinine 1.3, glucose 75. ASSESSMENT AND PLAN: Mr. Raymundo Rowland is a 61-year-old male with leukocytosis, hypokalemia replaced; hypochloremia; increased BUN, history of hypertension, heroin abuse; came with chest pain, shortness of breath. Cardiac consult was called. New onset of atrial fibrillation with atrioventricular dissociation and junctional rhythm and left ventricular hypertrophy. Checking of the labs especially TSH need echo. Lopressor started. Need pharmaceutical stress test due to shortness of breath in a.m., n.p.o. after midnight. Dyspnea, possibly pneumonia. Chest x-ray. Leukocytosis, patient is afebrile. Flu negative. Elevated D-dimers. Hypertension, continue nifedipine, enalapril, hydralazine. History of heroin abuse. Hypokalemia, replaced. Gastrointestinal and deep venous thrombosis prophylaxis. Repeat labs. We will follow up. Kristina Maguire MD [facility]
[2017-05-21] MEDS: MethylPREDNISolone 40 mg Vial IVP SCH ×4 (03:05→21:46)
[2017-05-21] MEDS: Piperacillin/Tazobact 3.375 GM in Sodium Chloride 0.9% 100 ML IVPB SCH ×3 (04:56→21:47)
[2017-05-21] MEDS: Budesonide 0.25 mg/2 ml Inhal Susp UD INH SCH ×2 (07:00→20:45)
[2017-05-21] MEDS ORDERED: Aminophylline 25 mg/ml Inj ONE (07:52)
--- NOTE | 2017-05-21 09:52 | CP.PCM.PN ---
<Nir Coelho - Last Filed: 05/21/17 10:40> Subjective - Date & Time of Evaluation Date of Evaluation: 05/21/17 Time of Evaluation: 09:50 - Subjective Subjective: Cardiology Progress Note for Dr. Carranza Pt seen and examined at bedside. No acute overnight events. Pt going for stress test today. Pt states CP is improving. Pt complaining of SOB. Pt denied n/v/d, abdominal pain, fever, chills, MACIAS, or dizziness. Objective - Vital Signs/Intake and Output Vital Signs (last 24 hours): Temp Pulse Resp BP Pulse Ox 98.4 F 66 20 108/72 100 05/21/17 07:35 05/21/17 08:00 05/21/17 07:35 05/21/17 07:35 05/21/17 07:35 Intake and Output: 05/21/17 05/21/17 06:59 18:59 Intake Total 100 Balance 100 - Medications Medications: Current Medications Albuterol/Ipratropium (Duoneb 3 Mg/0.5 Mg (3 Ml) Ud) 3 ml IH RQ6 [facility] Last Admin: 05/21/17 07:00 Dose: 3 ml Amlodipine Besylate (Norvasc) 10 mg PO DAILY [facility] Last Admin: 05/20/17 11:07 Dose: 10 mg Aspirin (Aspirin Chewable) 81 mg PO DAILY [facility] Last Admin: 05/20/17 10:07 Dose: 81 mg Budesonide (Pulmicort Respules) 0.25 mg INH RQ12 [facility] Last Admin: 05/21/17 07:00 Dose: 0.25 mg Enalapril Maleate (Vasotec) 20 mg PO DAILY [facility] Last Admin: 05/20/17 10:09 Dose: 20 mg Enoxaparin Sodium (Lovenox) 40 mg SC DAILY [facility] Last Admin: 05/20/17 10:07 Dose: 40 mg Glipizide (Glucotrol) 10 mg PO DAILY [facility] Last Admin: 05/20/17 10:07 Dose: 10 mg Hydralazine HCl (Apresoline) 10 mg IVP STAT [facility] Hydralazine HCl (Apresoline) 50 mg PO Q8 [facility] Last Admin: 05/21/17 06:21 Dose: 50 mg Vancomycin/Sodium Chloride (Vancomycin 1 Gm/Ns 200 Ml) 1 gm in 200 mls @ 133 mls/hr IVPB Q12H [facility] Stop: 05/21/17 21:01 Last Admin: 05/20/17 21:35 Dose: 133 mls/hr Piperacillin Sod/Tazobactam (Sod 3.375 gm/ Sodium Chloride) 100 mls @ 100 mls/ hr IVPB Q8H [facility] Last Admin: 05/21/17 04:56 Dose: 100 mls/hr Methadone HCl (Methadose) 40 mg PO DAILY [facility] Last Admin: 05/20/17 10:07 Dose: 40 mg Methylprednisolone (Solu-Medrol) 40 mg IVP Q6H [facility] Last Admin: 05/21/17 08:01 Dose: 40 mg Metoprolol Tartrate (Lopressor) 25 mg PO BID [facility] Last Admin: 05/20/17 18:39 Dose: 25 mg Nystatin (Nystatin Oral Susp) 5 ml PO QID [facility] Last Admin: 05/20/17 21:40 Dose: 5 ml Oseltamivir Phosphate (Tamiflu Cap) 75 mg PO BID [facility] Stop: 05/22/17 22:51 Last Admin: 05/20/17 21:34 Dose: 75 mg Terazosin HCl (Hytrin) 2 mg PO HS [facility] Last Admin: 05/20/17 21:33 Dose: 2 mg - Labs Labs: 05/20/17 11:37 05/20/17 11:37 - Constitutional Appears: No Acute Distress - Head Exam Head Exam: NORMAL INSPECTION - Eye Exam Eye Exam: Normal appearance - ENT Exam ENT Exam: Normal Exam - Neck Exam Neck Exam: Normal Inspection - Respiratory Exam Respiratory Exam: Wheezes. absent: Accessory Muscle Use, Rales, Rhonchi, Respiratory Distress - Cardiovascular Exam Cardiovascular Exam: RRR, +S1, +S2. absent: Gallop, Rubs, Murmur - GI/Abdominal Exam GI & Abdominal Exam: Soft. absent: Distended, Guarding, Tenderness, Rebound - Extremities Exam Additional comments: track stephenson b/l arms, right forearm with healing cellulitic lesion - Back Exam Back Exam: NORMAL INSPECTION - Neurological Exam Neurological Exam: Alert, Awake, Oriented x3 - Skin Skin Exam: Dry, Intact, Normal Color, Warm Assessment and Plan - Assessment and Plan (Free Text) Assessment: 61 yo M with PMH of HTN and heroin abuse presents with CP and SOB. Cardiology consulted due to new-onset a-fib. Plan: 1. New-onset Atrial Fibrillation - EKG showed sinus rhythm with AV dissociation and junctional rhythm, LVH - CHADSVASC 1 - TSH low, f/u free T4 - F/u lipid panel, A1C - F/u Echo - Lopressor 25 mg PO BID - Pharmacologic stress test today, will f/u results 2. Dyspnea - Possibly 2/2 pneumonia - CXR negative - Leukocytosis, febrile - Flu negative - Vanc/Zosyn, Tamiflu, Duoneb - Elevated d-dimer - F/u procal, cultures, flu, HIV - Management per primary 3. HTN - Cont Nifedipine, Enalapril, Hydralazine 4. H/o Heroin Abuse - Management per primary 5. Hypokalemia - KCl 40 mEQ PO given - Cont to monitor, replete as needed GI/DVT PPx - Per primary Pt seen and discussed in detail with Dr. Carranza. Bernard Coelho, PGY1 <Jakob Carranza - Last Filed: 05/22/17 01:45> Objective - Vital Signs/Intake and Output Vital Signs (last 24 hours): Temp Pulse Resp BP Pulse Ox 97.3 F L 74 20 129/69 98 05/21/17 23:45 05/21/17 23:45 05/21/17 23:45 05/21/17 23:45 05/21/17 23:45 Intake and Output: 05/21/17 05/22/17 18:59 06:59 Output Total 200 Balance -200 - Medications Medications: Current Medications Albuterol/Ipratropium (Duoneb 3 Mg/0.5 Mg (3 Ml) Ud) 3 ml IH RQ6 [facility] Last Admin: 05/22/17 01:18 Dose: 3 ml Amlodipine Besylate (Norvasc) 10 mg PO DAILY [facility] Last Admin: 05/21/17 11:50 Dose: 10 mg Aspirin (Aspirin Chewable) 81 mg PO DAILY [facility] Last Admin: 05/21/17 11:51 Dose: 81 mg Budesonide (Pulmicort Respules) 0.25 mg INH RQ12 [facility] Last Admin: 05/21/17 20:45 Dose: 0.25 mg Enalapril Maleate (Vasotec) 20 mg PO DAILY [facility] Last Admin: 05/21/17 11:50 Dose: 20 mg Enoxaparin Sodium (Lovenox) 40 mg SC DAILY [facility] Last Admin: 05/21/17 11:49 Dose: 40 mg Glipizide (Glucotrol) 10 mg PO DAILY [facility] Last Admin: 05/21/17 11:50 Dose: 10 mg Hydralazine HCl (Apresoline) 50 mg PO Q8 [facility] Last Admin: 05/21/17 21:45 Dose: 50 mg Piperacillin Sod/Tazobactam (Sod 3.375 gm/ Sodium Chloride) 100 mls @ 100 mls/ hr IVPB Q8H [facility] Last Admin: 05/21/17 21:47 Dose: 100 mls/hr Methadone HCl (Methadose) 40 mg PO DAILY [facility] Last Admin: 05/21/17 11:49 Dose: 40 mg Methylprednisolone (Solu-Medrol) 30 mg IVP Q6H [facility] Last Admin: 05/22/17 01:07 Dose: 30 mg Metoprolol Tartrate (Lopressor) 25 mg PO BID [facility] Last Admin: 05/21/17 18:53 Dose: 25 mg Nystatin (Nystatin Oral Susp) 5 ml PO QID [facility] Last Admin: 05/21/17 21:45 Dose: 5 ml Oseltamivir Phosphate (Tamiflu Cap) 75 mg PO BID [facility] Stop: 05/22/17 22:51 Last Admin: 05/21/17 18:54 Dose: 75 mg Terazosin HCl (Hytrin) 2 mg PO HS [facility] Last Admin: 05/21/17 21:45 Dose: 2 mg - Labs Labs: 05/22/17 01:17 05/20/17 11:37 Attending/Attestation - Attestation I have personally seen and examined this patient.: Yes I have fully participated in the care of the patient.: Yes I have reviewed all pertinent clinical information, including history, physical exam and plan: Yes Notes (Text): 05/22/17 01:45 s/p stress test further titration based on results of stress testing
[2017-05-21] MEDS: Methadone 40 mg Tab PO SCH (11:49)
[2017-05-21] MEDS: Enoxaparin 40 mg Syringe SC SCH (11:49)
[2017-05-21] MEDS: Nystatin 100,000 Units/ml Oral Susp 5 ml UD PO SCH ×4 (11:49→21:45)
[2017-05-21] MEDS: Vancomycin 1 gm/NS 200 ml 1 GM/200 ML BAG IVPB SCH (11:51)
[2017-05-21 12:38] LABS: % CD4 (T HELPER CELL) 35 Percent (30-61); % CD8 (SUPPRESSOR T CELL) 24 Percent (12-42); ABSOLUTE CD4 CELLS 958 Cells/mcL (490-1740); ABSOLUTE CD8 CELLS 654 Cells/mcL (180-1170); ABSOLUTE LYMPHOCYTES 2732 Cells/mcL (850-3900); HELPER/SUPPRESSOR RATIO 1.46 Ratio (0.86-5.00)
--- NOTE | 2017-05-21 17:19 | CP.PCM.PN ---
Subjective - Date & Time of Evaluation Date of Evaluation: 05/21/17 Time of Evaluation: 13:30 - Subjective Subjective: Patient seen and examined at bedside; patient was recieving a nebulizer treatment. Patient reports that his chest pain has resolved and his shortness of breath is improving. Patient denies nausea, vomiting, fevers and chills. Objective - Vital Signs/Intake and Output Vital Signs (last 24 hours): Temp Pulse Resp BP Pulse Ox 98.0 F 70 20 172/81 H 96 05/21/17 07:35 05/21/17 14:18 05/21/17 07:35 05/21/17 11:57 05/21/17 07:35 Intake and Output: 05/21/17 05/21/17 06:59 18:59 Intake Total 100 Balance 100 - Medications Medications: Current Medications Albuterol/Ipratropium (Duoneb 3 Mg/0.5 Mg (3 Ml) Ud) 3 ml IH RQ6 [facility] Last Admin: 05/21/17 14:02 Dose: 3 ml Amlodipine Besylate (Norvasc) 10 mg PO DAILY [facility] Last Admin: 05/21/17 11:50 Dose: 10 mg Aspirin (Aspirin Chewable) 81 mg PO DAILY [facility] Last Admin: 05/21/17 11:51 Dose: 81 mg Budesonide (Pulmicort Respules) 0.25 mg INH RQ12 [facility] Last Admin: 05/21/17 07:00 Dose: 0.25 mg Enalapril Maleate (Vasotec) 20 mg PO DAILY [facility] Last Admin: 05/21/17 11:50 Dose: 20 mg Enoxaparin Sodium (Lovenox) 40 mg SC DAILY [facility] Last Admin: 05/21/17 11:49 Dose: 40 mg Glipizide (Glucotrol) 10 mg PO DAILY [facility] Last Admin: 05/21/17 11:50 Dose: 10 mg Hydralazine HCl (Apresoline) 50 mg PO Q8 [facility] Last Admin: 05/21/17 13:53 Dose: 50 mg Piperacillin Sod/Tazobactam (Sod 3.375 gm/ Sodium Chloride) 100 mls @ 100 mls/ hr IVPB Q8H [facility] Last Admin: 05/21/17 13:39 Dose: 100 mls/hr Vancomycin HCl 1 gm/ Sodium (Chloride) 250 mls @ 166.667 mls/hr IVPB Q12H [facility] Stop: 05/21/17 21:01 Methadone HCl (Methadose) 40 mg PO DAILY [facility] Last Admin: 05/21/17 11:49 Dose: 40 mg Methylprednisolone (Solu-Medrol) 40 mg IVP Q6H [facility] Last Admin: 05/21/17 13:53 Dose: 40 mg Metoprolol Tartrate (Lopressor) 25 mg PO BID [facility] Last Admin: 05/21/17 11:57 Dose: 25 mg Nystatin (Nystatin Oral Susp) 5 ml PO QID [facility] Last Admin: 05/21/17 13:53 Dose: 5 ml Oseltamivir Phosphate (Tamiflu Cap) 75 mg PO BID [facility] Stop: 05/22/17 22:51 Last Admin: 05/21/17 11:51 Dose: 75 mg Terazosin HCl (Hytrin) 2 mg PO HS [facility] Last Admin: 05/20/17 21:33 Dose: 2 mg - Labs Labs: 05/20/17 11:37 05/20/17 11:37 - Head Exam Head Exam: ATRAUMATIC, NORMOCEPHALIC - Eye Exam Eye Exam: Normal appearance - ENT Exam ENT Exam: Mucous Membranes Moist - Neck Exam Neck Exam: Normal Inspection - Respiratory Exam Respiratory Exam: Rhonchi - Cardiovascular Exam Cardiovascular Exam: REGULAR RHYTHM Assessment and Plan (1) Dyspnea Assessment & Plan: - Continue anitbiotics -Duonebs - Check pro-calcitonin level Status: Acute
--- NOTE | 2017-05-21 19:25 | CP.PCM.PN ---
Subjective - Date & Time of Evaluation Date of Evaluation: 05/21/17 Time of Evaluation: 19:25 - Subjective Subjective: CHIEF COMPLAINTS TODAY : 05/21/17 AFEBRILE, DENIES SOB/CHEST PAIN +VE ERYTHEMA AND PUNCUTURE CHERY B/L UPPER EXT. C/O LEAKING ULCERS SEROSANGUINEOUS DRAINAGE RIGHT FOREARM . S/P MIDLINE LT.ARM 05/20/17 ON IV ABX NOW ROS. HEENT : N. Resp : No cough, wheezing ,pleuritic CP ,or hemoptysis Cardio : +VE CP, -VE PND, orthopnea, palpitation GI : No abd.pain, n/v ,diarrhea or GI bleeding . 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 Musculoskel : No joint swelling , Derm : No rash Psych : Normal affect. Ext : No swelling ,calf pain PE. Pt. is alert awake in no distress. V.S As noted in the chart Head ,ear nose,throat and eyes : Normal. Neck : Supple with normal carotids. Lungs: B/L EXPIRATORY WHEEZE Heart : S1 & S2 IRREGULAR. NO S4. No murmur. Abd : Soft non tender with normal bowel sounds. Neuro : Moves all ext. with no localized deficit. Ext : B/L UPPER EXT .TATTOO/AND NEEDLE CHERY+VE WITH SUPERFICIAL ULCERATIONS ON RT FOREARM SEC. TO NEEDLE PUNCTURES/AND ERYTHEMA. Non tender calves Derm : No rashes or decubitus ulcer. LABS/RADIOLOGY: REVIEWED. creatinine 1.2/BUN 14 k 3.0 low WBC 15.9 improving HEPATITIS C +VE IN FEB 2017. (PT MADE AWARE ) Repeat hepatitis C reactive. Objective - Vital Signs/Intake and Output Vital Signs (last 24 hours): Temp Pulse Resp BP Pulse Ox 97.7 F 71 20 127/68 97 05/21/17 15:20 05/21/17 15:20 05/21/17 15:20 05/21/17 18:53 05/21/17 15:20 - Medications Medications: Current Medications Albuterol/Ipratropium (Duoneb 3 Mg/0.5 Mg (3 Ml) Ud) 3 ml IH RQ6 [facility] Last Admin: 05/21/17 14:02 Dose: 3 ml Amlodipine Besylate (Norvasc) 10 mg PO DAILY [facility] Last Admin: 05/21/17 11:50 Dose: 10 mg Aspirin (Aspirin Chewable) 81 mg PO DAILY [facility] Last Admin: 05/21/17 11:51 Dose: 81 mg Budesonide (Pulmicort Respules) 0.25 mg INH RQ12 [facility] Last Admin: 05/21/17 07:00 Dose: 0.25 mg Enalapril Maleate (Vasotec) 20 mg PO DAILY [facility] Last Admin: 05/21/17 11:50 Dose: 20 mg Enoxaparin Sodium (Lovenox) 40 mg SC DAILY [facility] Last Admin: 05/21/17 11:49 Dose: 40 mg Glipizide (Glucotrol) 10 mg PO DAILY [facility] Last Admin: 05/21/17 11:50 Dose: 10 mg Hydralazine HCl (Apresoline) 50 mg PO Q8 [facility] Last Admin: 05/21/17 13:53 Dose: 50 mg Piperacillin Sod/Tazobactam (Sod 3.375 gm/ Sodium Chloride) 100 mls @ 100 mls/ hr IVPB Q8H [facility] Last Admin: 05/21/17 13:39 Dose: 100 mls/hr Vancomycin HCl 1 gm/ Sodium (Chloride) 250 mls @ 166.667 mls/hr IVPB Q12H [facility] Stop: 05/21/17 21:01 Methadone HCl (Methadose) 40 mg PO DAILY [facility] Last Admin: 05/21/17 11:49 Dose: 40 mg Methylprednisolone (Solu-Medrol) 40 mg IVP Q6H [facility] Last Admin: 05/21/17 13:53 Dose: 40 mg Metoprolol Tartrate (Lopressor) 25 mg PO BID [facility] Last Admin: 05/21/17 18:53 Dose: 25 mg Nystatin (Nystatin Oral Susp) 5 ml PO QID [facility] Last Admin: 05/21/17 18:08 Dose: Not Given Oseltamivir Phosphate (Tamiflu Cap) 75 mg PO BID [facility] Stop: 05/22/17 22:51 Last Admin: 05/21/17 18:54 Dose: 75 mg Terazosin HCl (Hytrin) 2 mg PO HS [facility] Last Admin: 05/20/17 21:33 Dose: 2 mg - Labs Labs: 05/20/17 11:37 05/20/17 11:37 Assessment and Plan (1) Leukocytosis Status: Acute (2) Dyspnea Status: Acute (3) Hypoxia Status: Acute (4) Uncontrolled hypertension Status: Acute (5) Cellulitis Status: Acute (6) Chest pain Status: Acute (7) IV drug abuse Status: Acute (8) Hepatitis C Status: Acute - Assessment and Plan (Free Text) Assessment: MPRESSION; -LEUKOCYTOSIS R/O SEPSIS -DYSPNEA/HYPOXIA R/O INFLUENZA VS ATYPICAL PNEUMONIA -CHEST PAIN R/O IHD. - NEW ONSET OF ATRIAL FIBRILLATION. -ACCELERATED HYPERTENSION. - ORAL THRUSH R/O HIV -HX IV HEROIN USE. - HX HEPATITIS C +VE FEB 2017. -CELLULITIS RT. FOREARM WITH ULCERATIONS /AND NEEDLE CHERY. -HX OF [place] B/L UE. PLAN; CULTURE RIGHT FOREARM ULCER. wOUND CARE ORDERED. CONTINUE iv zOSYN 3.375-6 HOURLY 05/16/17. cONTINUE iv VANCOMYCIN 1 G EVERY 12 HOURLY 05/16/17. ON PO tAMIFLU 75 MG TWICE A DAY. 05/17/17. HIV 1/2 AG/AB -FOURTH-GENERATION TEST PENDING pATIENT MADE AWARE OF HEP C AND ENCOURAGED TO ABSTAIN FROM HEROIN ABUSE aND TO FOLLOW-UP AT HEPATOLOGY CLINIC FOR FURTHER MANAGEMENT. F/U VANC-TROUGH LEVEL AND KEEP BETWEEN 10 AND 20. K -SUPPLEMENTATION PER pmd
[2017-05-22] MEDS: MethylPREDNISolone 40 mg Vial IVP SCH ×4 (01:07→20:45)
--- NOTE | 2017-05-22 01:16 | PN ---
DATE: SUBJECTIVE: The patient is seen and examined on the bedside, looking comfortable, went for stress test today. No shortness of breath. Chest pain is better. No nausea, vomiting, or diarrhea. No hematuria or hematochezia. No swelling of the leg. No fever. No chills. No headaches. No dizziness. PHYSICAL EXAMINATION: VITAL SIGNS: Temperature 98.4, pulse 86, respiratory rate 20, blood pressure 108/72, and pulse oximetry 100%. HEENT: Head, normocephalic and atraumatic. Eyes, PERRLA. Extraocular muscles intact. Conjunctivae clear. Nose patent. Mucous membrane moist. NECK: Supple. No carotid bruits, JVD or thyromegaly. CHEST: Bilaterally symmetrical. HEART: S1 and S2 positive. LUNGS: Clear to auscultation. ABDOMEN: Soft. Bowel sounds present. No organomegaly. EXTREMITIES: No edema. No cyanosis. NEUROLOGIC: The patient is awake, alert, moving all four extremities. No focal deficits. MEDICATIONS: DuoNeb, Norvasc, Pulmicort, Lovenox, Glucotrol, hydralazine, vancomycin, tazobactam, methadone, Solu-Medrol, Lopressor, nystatin, Tamiflu, Hytrin. LABS: White blood cells 15.9, hemoglobin 12.6, hematocrit 37.7, platelets 326. Sodium 138, potassium 3.0, BUN 14, creatinine 1.2, glucose 205. ASSESSMENT AND PLAN: Mr. Raymundo Rowland is a 61-year-old male with hypokalemia, hypochloremia, hyperglycemia, anemia, history of hypertension, heroin abuse, came with chest pain and shortness of breath. The patient had new onset atrial fibrillation and now EKG shows sinus rhythm with AV dissociation and junctional rhythm, left ventricular hypertrophy. Lopressor 25 mg p.o. b.i.d. started. The patient went for stress test, results are still pending. Dyspnea, rule out pneumonia. Continue vancomycin, Zosyn, Tamiflu, and DuoNeb. Elevated D-dimer. Fire And Safety Helper is on the case. Hypertension, continue nifedipine, enalapril, hydralazine. History of heroin abuse, the patient is not in withdrawals, urged to quit heroin, used to be IV drug abuser, now he is sniffing heroin. Hypokalemia, replaced. Gastrointestinal and deep venous thrombosis prophylaxis. Reviewed Dr. Jakob Carranza, director franchise sales's note, we will follow up. Reviewed Dr. Larios and Dr. Gabi Tuttle notes. Kristina Maguire MD
[2017-05-22] MEDS: Albuterol-Ipratrop 3 mg / 0.5 (3 ml) UD IH SCH ×4 (01:18→19:12)
[2017-05-22 01:21] LABS: BASO % 0.1 % (0.0-2.0); HEMOGLOBIN 10.8 g/dL (12.0-18.0); LYMPH # 0.9 K/uL (1.0-4.3); LYMPH % 4.5 % (20.0-40.0); MEAN CELL VOLUME 72.8 fL (80.0-94.0); MEAN CORPUSCULAR HEMOGLOBIN 23.5 pg (27.0-31.0); MEAN CORPUSCULAR HGB CONC 32.4 g/dL (33.0-37.0); MEAN PLATELET VOLUME 9.4 fL (7.2-11.7); MONO # 0.8 K/uL (0.0-0.8); MONO % 3.9 % (0.0-10.0); NEUT # 17.6 K/uL (1.8-7.0); NEUT % 91.5 % (50.0-75.0); PLATELET COUNT 261 K/uL (130-400); RBC 4.61 Mil/uL (4.40-5.90); RED CELL DISTRIBUTION WIDTH 17.9 % (11.5-14.5); WHITE BLOOD COUNT 19.3 K/uL (4.8-10.8)
[2017-05-22 01:48] LABS: ALB/GLOB RATIO 0.9 (1.0-2.1); ALBUMIN 2.9 g/dL (3.5-5.0); BILIRUBIN,DIRECT 0.3 mg/dL (0.0-0.4)
[2017-05-22 02:30] LABS: BANDS 1 % (0-2); LYMPHOCYTE 4 % (20-40); MONOCYTE 5 % (0-10); NEUTROPHIL 90 % (50-75); PLATELET ESTIMATE NORMAL (NORMAL); TOTAL CELLS COUNTED 100
[2017-05-22] MEDS: Piperacillin/Tazobact 3.375 GM in Sodium Chloride 0.9% 100 ML IVPB SCH ×2 (06:00→12:10)
[2017-05-22] MEDS: Budesonide 0.25 mg/2 ml Inhal Susp UD INH SCH ×2 (07:30→19:12)
[2017-05-22] MEDS: Nystatin 100,000 Units/ml Oral Susp 5 ml UD PO SCH ×4 (09:40→21:51)
[2017-05-22] MEDS: Methadone 40 mg Tab PO SCH (09:41)
[2017-05-22] MEDS: Enoxaparin 40 mg Syringe SC SCH (09:41)
--- NOTE | 2017-05-22 10:13 | CP.PCM.PN ---
<Nir Coelho - Last Filed: 05/22/17 11:51> Subjective - Date & Time of Evaluation Date of Evaluation: 05/22/17 Time of Evaluation: 10:03 - Subjective Subjective: Cardiology Progress Note for Dr. Carranza Pt seen and examined at bedside. No acute overnight events. Pt still complaining of dry cough and SOB. Pt was started on IV solumedrol. Pt denied CP , n/v/d, abdominal pain, palpitations, fever, chills, MACIAS, or dizziness. Objective - Vital Signs/Intake and Output Vital Signs (last 24 hours): Temp Pulse Resp BP Pulse Ox 98.4 F 80 20 154/84 H 97 05/22/17 08:43 05/22/17 08:43 05/22/17 08:43 05/22/17 09:41 05/22/17 08:43 Intake and Output: 05/22/17 05/22/17 06:59 18:59 Intake Total 150 Output Total 200 Balance -50 - Medications Medications: Current Medications Albuterol/Ipratropium (Duoneb 3 Mg/0.5 Mg (3 Ml) Ud) 3 ml IH RQ6 [facility] Last Admin: 05/22/17 01:18 Dose: 3 ml Amlodipine Besylate (Norvasc) 10 mg PO DAILY [facility] Last Admin: 05/22/17 09:40 Dose: 10 mg Aspirin (Aspirin Chewable) 81 mg PO DAILY [facility] Last Admin: 05/22/17 09:41 Dose: 81 mg Budesonide (Pulmicort Respules) 0.25 mg INH RQ12 [facility] Last Admin: 05/21/17 20:45 Dose: 0.25 mg Enalapril Maleate (Vasotec) 20 mg PO DAILY [facility] Last Admin: 05/22/17 09:41 Dose: 20 mg Enoxaparin Sodium (Lovenox) 40 mg SC DAILY [facility] Last Admin: 05/22/17 09:41 Dose: 40 mg Glipizide (Glucotrol) 10 mg PO DAILY [facility] Last Admin: 05/22/17 09:41 Dose: 10 mg Hydralazine HCl (Apresoline) 50 mg PO Q8 [facility] Last Admin: 05/22/17 06:03 Dose: 50 mg Piperacillin Sod/Tazobactam (Sod 3.375 gm/ Sodium Chloride) 100 mls @ 100 mls/ hr IVPB Q8H [facility] Last Admin: 05/22/17 06:00 Dose: 100 mls/hr Methadone HCl (Methadose) 40 mg PO DAILY [facility] Last Admin: 05/22/17 09:41 Dose: 40 mg Methylprednisolone (Solu-Medrol) 30 mg IVP Q6H [facility] Last Admin: 05/22/17 08:48 Dose: 30 mg Metoprolol Tartrate (Lopressor) 25 mg PO BID [facility] Last Admin: 05/22/17 09:40 Dose: 25 mg Nystatin (Nystatin Oral Susp) 5 ml PO QID [facility] Last Admin: 05/22/17 09:40 Dose: 5 ml Oseltamivir Phosphate (Tamiflu Cap) 75 mg PO BID [facility] Stop: 05/22/17 22:51 Last Admin: 05/22/17 09:41 Dose: 75 mg Terazosin HCl (Hytrin) 2 mg PO HS [facility] Last Admin: 05/21/17 21:45 Dose: 2 mg - Labs Labs: 05/22/17 01:17 05/20/17 11:37 - Constitutional Appears: No Acute Distress - Head Exam Head Exam: NORMAL INSPECTION - Eye Exam Eye Exam: Normal appearance - ENT Exam ENT Exam: Normal Exam - Neck Exam Neck Exam: Normal Inspection - Respiratory Exam Respiratory Exam: Rhonchi (b/l bases), Wheezes (b/l bases). absent: Accessory Muscle Use, Rales, Respiratory Distress - Cardiovascular Exam Cardiovascular Exam: RRR, +S1, +S2. absent: Gallop, Rubs, Murmur - GI/Abdominal Exam GI & Abdominal Exam: Soft. absent: Distended, Guarding, Tenderness, Rebound - Extremities Exam Extremities Exam: Normal Inspection - Neurological Exam Neurological Exam: Alert, Awake, Oriented x3 - Skin Skin Exam: Dry, Intact, Normal Color, Warm Assessment and Plan - Assessment and Plan (Free Text) Assessment: 61 yo M with PMH of HTN and heroin abuse presents with CP and SOB. Cardiology consulted due to new-onset a-fib. 1 Plan: 1. New-onset Atrial Fibrillation - EKG showed sinus rhythm with AV dissociation and junctional rhythm, LVH - CHADSVASC 1 - TSH low, f/u free T4 - Echo revealed EF 55%, E/A 3.9, LVH, moderate TR, normal IVC - Lopressor 25 mg PO BID - Pharmacologic stress test unremarkable EF 67%, no evidence of reversible ischemia, normal LV 2. Dyspnea - Possibly 2/2 pneumonia - CXR negative - Flu negative - Tamiflu completed today - IV abx, Duoneb - Solumedrol - Elevated d-dimer - Management per primary 3. HTN - Cont Nifedipine, Enalapril, Hydralazine 4. H/o Heroin Abuse - Management per primary 5. Hypokalemia - KCl 40 mEQ PO given - Cont to monitor, replete as needed GI/DVT PPx - Per primary Dispo: Patient is clear from cardiology standpoint. At this time we will sign off. Please reconsult as needed. Thank you for allowing us to participate in the care of this patient. Pt seen and discussed in detail with Dr. Carranza. Bernard Coelho, PGY <Jakob Carranza - Last Filed: 05/22/17 17:57> Objective - Vital Signs/Intake and Output Vital Signs (last 24 hours): Temp Pulse Resp BP Pulse Ox 97.8 F 70 21 123/71 95 05/22/17 15:00 05/22/17 15:00 05/22/17 15:00 05/22/17 15:00 05/22/17 15:00 Intake and Output: 05/22/17 05/22/17 06:59 18:59 Intake Total 150 Output Total 200 Balance -50 - Medications Medications: Current Medications Albuterol/Ipratropium (Duoneb 3 Mg/0.5 Mg (3 Ml) Ud) 3 ml IH RQ6 [facility] Last Admin: 05/22/17 13:43 Dose: 3 ml Amlodipine Besylate (Norvasc) 10 mg PO DAILY [facility] Last Admin: 05/22/17 09:40 Dose: 10 mg Aspirin (Aspirin Chewable) 81 mg PO DAILY [facility] Last Admin: 05/22/17 09:41 Dose: 81 mg Budesonide (Pulmicort Respules) 0.25 mg INH RQ12 [facility] Last Admin: 05/22/17 07:30 Dose: 0.25 mg Enalapril Maleate (Vasotec) 20 mg PO DAILY [facility] Last Admin: 05/22/17 09:41 Dose: 20 mg Enoxaparin Sodium (Lovenox) 40 mg SC DAILY [facility] Last Admin: 05/22/17 09:41 Dose: 40 mg Glipizide (Glucotrol) 10 mg PO DAILY [facility] Last Admin: 05/22/17 09:41 Dose: 10 mg Hydralazine HCl (Apresoline) 50 mg PO Q8 [facility] Last Admin: 05/22/17 13:49 Dose: 50 mg Piperacillin Sod/Tazobactam Sod (Zosyn 3.375 Gm Iv Premix) 3.375 gm in 50 mls @ 100 mls/hr IVPB Q8H [facility] Methadone HCl (Methadose) 40 mg PO DAILY [facility] Last Admin: 05/22/17 09:41 Dose: 40 mg Methylprednisolone (Solu-Medrol) 30 mg IVP Q6H [facility] Last Admin: 05/22/17 13:49 Dose: 30 mg Metoprolol Tartrate (Lopressor) 25 mg PO BID [facility] Last Admin: 05/22/17 09:40 Dose: 25 mg Nystatin (Nystatin Oral Susp) 5 ml PO QID [facility] Last Admin: 05/22/17 13:49 Dose: 5 ml Oseltamivir Phosphate (Tamiflu Cap) 75 mg PO BID [facility] Stop: 05/22/17 22:51 Last Admin: 05/22/17 09:41 Dose: 75 mg Terazosin HCl (Hytrin) 2 mg PO HS [facility] Last Admin: 05/21/17 21:45 Dose: 2 mg - Labs Labs: 05/22/17 11:00 05/22/17 11:00 Attending/Attestation - Attestation I have personally seen and examined this patient.: Yes I have fully participated in the care of the patient.: Yes I have reviewed all pertinent clinical information, including history, physical exam and plan: Yes Notes (Text): 05/22/17 17:54 afib with low chads score stress test normal cont bp meds stable to dc from cardiac standpoint once pulmonary infection resolved will sign off for now
--- NOTE | 2017-05-22 10:54 | CARD ---
APPROVED REPORT Protocol: LEXISCAN Test Type: LEXISCAN STRESS Test Indications: SOB CP HTN Target HR: 161 bpm Resting ECG: normal Resting Heart Rate: 74 bpm Resting Blood Pressure: 150/80mmHg submaximum (85%): 137 bpm TEST SUMMARY [id number]:01..1.0./.0. PREINFSNHYPERV.49:190.00.01.650699/80.0. INFUSIONDOSE 100:300.00.01.057/.0. MMORSJTED68:[id number]/80.2. PROCEDURE Pharmacologic stress testing was performed using 0.4mg per 5ml of regadenoson given intravenously over 7-10 seconds. POST EXERCISE Reason for Termination: Protocol Completed Target HR: No Max HR: 57 bpm 77% of Maximum Predicted HR: 161 bpm Exercise duration: 00:30 min:sec, 0 Stage Exercise capacity: 1.0METs Max Blood Pressure: 158/80mmHg Blood Pressure response to exercise: N/A Heart Rate response to exercise: N/A Chest Pain: Yes, non-limiting Angina index: 0 Arrhythmia: No, none ST Change: Yes, Depression horizontal Deviation: 0 mm EXAM: Myocardial Perfusion REST/STRESS Imaging Protocol The imaging protocol used to acquire images was Rest Tc-99m/stress Tc-99m 1 day Rest Spect myocardial perfusion imaging was performed in supine position 41 minutes following the injection of 13.2 mCi of Tc-99 Myoview. Gated Stress Spect was performed 40 minutes after intravenous 32.6 mCi Tc-99 Myoview injection. The images were gated to evaluate regional wall motion and calculate ventricular ejection fraction.Images were reconstructed using backfilter projection method in short horizontal and verticle long axis. Spect slices were generated. RESTING DATA VNA668.30qjIM2.10L/min ESV41.00mlMyocardial Bvbv325.00g Av. Heart Rate74.00bpm EF67.00% STRESS DATA FFW723.43gkPH1.60L/min ESV43.00mlMyocardial Tzsf119.00g EF67.00% Regional WT score at stress:0.00 Regional WM score at stress:0.00 Summed WT score at stress:0.00 Av. Heart Rate87.00bpmSummed WM score at stress:4.00 Study quality was fair. Left Ventricular size was Normal at Rest and Stress. Lung uptake was Normal. Left Ventricular ejection fraction is 67%. LV Perfusion 2 The rest and stress images show normal perfusion. LV Perf. Quant 17 Seg. SSS0.00 17 Seg. SRS1.00 17 Seg. SDS0.00 Stress Defect Extent (% LAD)0.00Rest Defect Extent (% LAD)0.00Rev. Defect Extent (% LAD)0.00 Stress Defect Extent (% LCX)0.00Rest Defect Extent (% LCX)26.30Rev. Defect Extent (% LCX)0.00 Stress Defect Extent (% RCA)0.00Rest Defect Extent (% RCA)0.00Rev. Defect Extent (% RCA)0.00 Stress Defect Extent (% ELADIO)0.00Rest Defect Extent (% ELADIO)4.60Rev. Defect Extent (% ELADIO)0.00 Other Information Quality:Average Overall Exercise Capacity: n/a IMPRESSION Normal Myocardial Perfusion exercise stress study Metabolism/Perfusion There are no perfusion/metabolism defects. Conclusion 1. - No evidence of reversible ischemia noted 2. - Motion artifact with attenuation correction giving false TID 3. - Normal LVEF
[2017-05-22 11:19] LABS: HEMOGLOBIN 11.4 g/dL (12.0-18.0); MEAN CELL VOLUME 72.2 fL (80.0-94.0); MEAN CORPUSCULAR HEMOGLOBIN 24.3 pg (27.0-31.0); MEAN CORPUSCULAR HGB CONC 33.6 g/dL (33.0-37.0); MEAN PLATELET VOLUME 9.5 fL (7.2-11.7); RBC 4.68 Mil/uL (4.40-5.90); RED CELL DISTRIBUTION WIDTH 17.9 % (11.5-14.5); WHITE BLOOD COUNT 17.3 K/uL (4.8-10.8)
[2017-05-22 11:49] LABS: BLOOD UREA NITROGEN 33 mg/dL (9-20); CALCIUM 8.7 mg/dl (8.6-10.4); GFR AFRICAN-AMERICAN > 60; GFR NON-AFRICAN AMERICAN 52
--- NOTE | 2017-05-22 18:05 | CP.PCM.PN ---
Subjective - Date & Time of Evaluation Date of Evaluation: 05/22/17 Time of Evaluation: 18:04 - Subjective Subjective: CHIEF COMPLAINTS TODAY : 05/22/17 AFEBRILE, DENIES SOB/CHEST PAIN +VE ERYTHEMA AND PUNCUTURE CHERY B/L UPPER EXT. C/O LEAKING ULCERS SEROSANGUINEOUS DRAINAGE RIGHT FOREARM . TODAY DRESSING DONE S/P MIDLINE LT.ARM 05/20/17 ON IV ABX NOW ROS. HEENT : N. Resp : No cough, wheezing ,pleuritic CP ,or hemoptysis Cardio : +VE CP, -VE PND, orthopnea, palpitation GI : No abd.pain, n/v ,diarrhea or GI bleeding . ABSTRACT MANAGER : No headache, vertigo, focal deficit. Musculoskel : No joint swelling , Derm : No rash Psych : Normal affect. Ext : No swelling ,calf pain PE. Pt. is alert awake in no distress. V.S As noted in the chart Head ,ear nose,throat and eyes : Normal. Neck : Supple with normal carotids. Lungs: B/L EXPIRATORY WHEEZE Heart : S1 & S2 IRREGULAR. NO S4. No murmur. Abd : Soft non tender with normal bowel sounds. Neuro : Moves all ext. with no localized deficit. Ext : B/L UPPER EXT .TATTOO/AND NEEDLE CHREY+VE WITH SUPERFICIAL ULCERATIONS ON RT FOREARM SEC. TO NEEDLE PUNCTURES/AND ERYTHEMA. Non tender calves Derm : No rashes or decubitus ulcer. LABS/RADIOLOGY: REVIEWED. creatinine 1.4/BUN33 LFTS ast 82, alt 78, ALKALINE PHOSPHATASE 134. k 3.0 low WBC 17.3 INCREASING ? STEROIDS. HEPATITIS C +VE IN FEB 2017. (PT MADE AWARE ) Repeat hepatitis C reactive. Objective - Vital Signs/Intake and Output Vital Signs (last 24 hours): Temp Pulse Resp BP Pulse Ox 97.8 F 70 21 123/71 95 05/22/17 15:00 05/22/17 15:00 05/22/17 15:00 05/22/17 15:00 05/22/17 15:00 Intake and Output: 05/22/17 05/22/17 06:59 18:59 Intake Total 150 Output Total 200 Balance -50 - Medications Medications: Current Medications Albuterol/Ipratropium (Duoneb 3 Mg/0.5 Mg (3 Ml) Ud) 3 ml IH RQ6 [facility] Last Admin: 05/22/17 13:43 Dose: 3 ml Amlodipine Besylate (Norvasc) 10 mg PO DAILY [facility] Last Admin: 05/22/17 09:40 Dose: 10 mg Aspirin (Aspirin Chewable) 81 mg PO DAILY [facility] Last Admin: 05/22/17 09:41 Dose: 81 mg Budesonide (Pulmicort Respules) 0.25 mg INH RQ12 [facility] Last Admin: 05/22/17 07:30 Dose: 0.25 mg Enalapril Maleate (Vasotec) 20 mg PO DAILY [facility] Last Admin: 05/22/17 09:41 Dose: 20 mg Enoxaparin Sodium (Lovenox) 40 mg SC DAILY [facility] Last Admin: 05/22/17 09:41 Dose: 40 mg Glipizide (Glucotrol) 10 mg PO DAILY [facility] Last Admin: 05/22/17 09:41 Dose: 10 mg Hydralazine HCl (Apresoline) 50 mg PO Q8 [facility] Last Admin: 05/22/17 13:49 Dose: 50 mg Piperacillin Sod/Tazobactam Sod (Zosyn 3.375 Gm Iv Premix) 3.375 gm in 50 mls @ 100 mls/hr IVPB Q8H [facility] Methadone HCl (Methadose) 40 mg PO DAILY [facility] Last Admin: 05/22/17 09:41 Dose: 40 mg Methylprednisolone (Solu-Medrol) 30 mg IVP Q6H [facility] Last Admin: 05/22/17 13:49 Dose: 30 mg Metoprolol Tartrate (Lopressor) 25 mg PO BID [facility] Last Admin: 05/22/17 09:40 Dose: 25 mg Nystatin (Nystatin Oral Susp) 5 ml PO QID [facility] Last Admin: 05/22/17 13:49 Dose: 5 ml Oseltamivir Phosphate (Tamiflu Cap) 75 mg PO BID [facility] Stop: 05/22/17 22:51 Last Admin: 05/22/17 09:41 Dose: 75 mg Terazosin HCl (Hytrin) 2 mg PO HS [facility] Last Admin: 05/21/17 21:45 Dose: 2 mg - Labs Labs: 05/22/17 11:00 05/22/17 11:00 Assessment and Plan (1) Leukocytosis Status: Acute (2) Dyspnea Status: Acute (3) Hypoxia Status: Acute (4) Uncontrolled hypertension Status: Acute (5) Cellulitis Status: Acute (6) Chest pain Status: Acute (7) IV drug abuse Status: Acute (8) Hepatitis C Status: Acute - Assessment and Plan (Free Text) Assessment: IMPRESSION; -LEUKOCYTOSIS -DYSPNEA/HYPOXIA ? PNEUMONIA -CHEST PAIN R/O IHD. - NEW ONSET OF ATRIAL FIBRILLATION. -ACCELERATED HYPERTENSION. - ORAL THRUSH R/O HIV -HX IV HEROIN USE. - HX HEPATITIS C +VE FEB 2017. -CELLULITIS RT. FOREARM WITH ULCERATIONS /AND NEEDLE CHERY. -HX OF [place] B/L UE. PLAN; CARDIOLOGY FOLLOW-UP NOTED CULTURE RIGHT FOREARM ULCER P. wOUND CARE ORDERED. CONTINUE iv zOSYN 3.375-6 HOURLY 05/16/17. CONTINUE iv VANCOMYCIN 1 G EVERY 12 HOURLY 05/16/17. DC PO TAMIFLU 75 MG TWICE A DAY. 05/17/17. INCREASING TRANSAMINASES. aND 5 DAYS COMPLETED. HIV 1/2 AG/AB -FOURTH-GENERATION TEST PENDING. REPEAT CHEST X-RAY IN A.M.
[2017-05-22] MEDS: Piperacill/Tazo 3.375gm in Dex 3.375 GM/50 ML BAG IVPB SCH (21:51)
--- NOTE | 2017-05-22 22:36 | CARD ---
APPROVED REPORT EKG Measurement Heart [id number] <Conclusion> Atrial fibrillation Moderate voltage criteria for LVH, may be normal variant ST & T wave abnormality, consider inferior ischemia ST & T wave abnormality, consider anterolateral ischemia Prolonged QT Abnormal ECG
[2017-05-23] MEDS: Albuterol-Ipratrop 3 mg / 0.5 (3 ml) UD IH SCH ×4 (01:41→19:35)
[2017-05-23] MEDS: MethylPREDNISolone 40 mg Vial IVP SCH ×5 (03:05→22:22)
[2017-05-23] MEDS: Piperacill/Tazo 3.375gm in Dex 3.375 GM/50 ML BAG IVPB SCH ×3 (04:46→21:38)
--- NOTE | 2017-05-23 04:56 | PN ---
DATE: SUBJECTIVE: The patient is seen and examined on the bedside, looking comfortable, sitting on the chair, went for stress test yesterday. The patient is afebrile. No acute overnight event happened. Still complaining of coughing and shortness of breath, but getting Solu-Medrol tapering doses. Denies chest pain, nausea, vomiting, or diarrhea. No hematuria or hematochezia. No swelling of legs. No palpitations. No fever. No chills. No headache or dizziness. PHYSICAL EXAMINATION: VITAL SIGNS: Temperature 98.4, pulse 80, respiratory rate 20, blood pressure 154/84, and pulse oximetry 97. HEENT: Head, normocephalic and atraumatic. Eyes, PERRLA. Extraocular muscles intact. Conjunctivae clear. Nose patent. Mucous membrane moist. NECK: Supple. No carotid bruit, JVD, or thyromegaly. CHEST: Bilaterally symmetrical. HEART: S1, S2 positive. LUNGS: Clear to auscultation. ABDOMEN: Soft. Bowel sounds present. No organomegaly. EXTREMITIES: No edema. No cyanosis. NEUROLOGIC: The patient is awake, alert, moving all four extremities. No focal deficits. MEDICATIONS: DuoNeb, Norvasc, chewable Pulmicort, Vasotec, Lovenox, Glucotrol, tazobactam, methadone, Solu-Medrol tapering doses, Lopressor oral suspension, Tamiflu, and prazosin. LABORATORY DATA: White blood cell 19.3, hemoglobin 10.8, hematocrit 32.5, platelets 261. Sodium 138, potassium 3.0, BUN 14, creatinine 1.2, glucose 205. ASSESSMENT AND PLAN: Mr. Raymundo Rowland is a 61-year-old male with hypokalemia, replaced; hypochloremia, hyperglycemia, leukocytosis, anemia, came with atrial fibrillation with low cardiac score. Stress test normal. Continue blood pressure medication. Stable for discharge from cardiac point of view. Chronic obstructive pulmonary disease, now being on tapering dose of steroids, seen by Dr. Ric Fisher, mechanical maintenance engineer. Discussion with nurse practitioner and social workers about the patient's discharge planning. The patient's history of dyspnea and nausea stable. Continue antibiotics. Check procalcitonin level. We will follow up. Kristina Maguire MD MTDFrancisca
[2017-05-23] MEDS: Budesonide 0.25 mg/2 ml Inhal Susp UD INH SCH ×2 (07:00→19:35)
[2017-05-23] MEDS: Enoxaparin 40 mg Syringe SC SCH (08:59)
[2017-05-23] MEDS: Methadone 40 mg Tab PO SCH (08:59)
[2017-05-23] MEDS: Nystatin 100,000 Units/ml Oral Susp 5 ml UD PO SCH ×4 (08:59→21:36)
--- NOTE | 2017-05-23 09:04 | RAD ---
Chest x-ray single frontal view History: Pneumonia. Comparison: 05/16/2017 Findings Mild venous congestion. Bilateral hilar prominence. Patchy increased markings in the bilateral perihilar regions may represent superimposed infiltrate. Clinical correlation. Tortuous aorta. Mild cardiomegaly. Degenerative changes in the spine and shoulders. Impression: Mild venous congestion. Bilateral hilar prominence. Patchy increased markings in the bilateral perihilar regions may represent superimposed infiltrate. Clinical correlation. Tortuous aorta. Mild cardiomegaly.
[2017-05-23] MEDS: Bacitracin/Neomycin/Polymyxin Oint(30GM) TOP SCH (17:51)
--- NOTE | 2017-05-23 22:31 | CP.PCM.PN ---
Subjective - Date & Time of Evaluation Date of Evaluation: 05/23/17 Time of Evaluation: 22:31 - Subjective Subjective: CHIEF COMPLAINTS TODAY : 05/22/17 AFEBRILE, DENIES SOB/CHEST PAIN PUNCUTURE CHERY B/L UPPER EXT HEALING WELL S/P MIDLINE LT.ARM 05/20/17 ON IV ABX NOW ROS. HEENT : N. Resp : No cough, wheezing ,pleuritic CP ,or hemoptysis Cardio : NO CP, -VE PND, orthopnea, palpitation GI : No abd.pain, n/v ,diarrhea or GI bleeding . RN POOL : No headache, vertigo, focal deficit. Musculoskel : No joint swelling , Derm : No rash Psych : Normal affect. Ext : No swelling ,calf pain PE. Pt. is alert awake in no distress. V.S As noted in the chart Head ,ear nose,throat and eyes : Normal. Neck : Supple with normal carotids. Lungs: CLEAR BREATH SOUNDS BILATERALLY Heart : S1 & S2 IRREGULAR. NO S4. No murmur. Abd : Soft non tender with normal bowel sounds. Neuro : Moves all ext. with no localized deficit. Ext : B/L UPPER EXT .TATTOO/AND NEEDLE CHERY+VE WITH SUPERFICIAL ULCERATIONS ON RT FOREARM SEC. TO NEEDLE PUNCTURES/AND ERYTHEMA IMPROVING. Non tender calves Derm : No rashes or decubitus ulcer. LABS/RADIOLOGY: REVIEWED. WOUND CULTURE RIGHT UPPER EXTREMITY NEGATIVE GROWTH. CXR NOTED MILD VENOUS CONGESTION IMPROVING INFILTRATES CARDIOMEGALY creatinine 1.4/BUN33 influenza A and B+ve WBC 17.3 INCREASING ? STEROIDS. HEPATITIS C +VE IN FEB 2017. (PT MADE AWARE ) Repeat hepatitis C reactive. HIV-1 RNA quantitative levels <1.3 not detected. Objective - Vital Signs/Intake and Output Vital Signs (last 24 hours): Temp Pulse Resp BP Pulse Ox 98 F 83 20 197/104 H 97 05/23/17 15:00 05/23/17 16:00 05/23/17 15:00 05/23/17 18:37 05/23/17 15:00 - Medications Medications: Current Medications Albuterol/Ipratropium (Duoneb 3 Mg/0.5 Mg (3 Ml) Ud) 3 ml IH RQ6 [facility] Last Admin: 05/23/17 19:35 Dose: 3 ml Amlodipine Besylate (Norvasc) 10 mg PO DAILY [facility] Last Admin: 05/23/17 08:59 Dose: 10 mg Aspirin (Aspirin Chewable) 81 mg PO DAILY [facility] Last Admin: 05/23/17 08:59 Dose: 81 mg Budesonide (Pulmicort Respules) 0.25 mg INH RQ12 [facility] Last Admin: 05/23/17 19:35 Dose: 0.25 mg Enalapril Maleate (Vasotec) 20 mg PO BID [facility] Enoxaparin Sodium (Lovenox) 40 mg SC DAILY [facility] Last Admin: 05/23/17 08:59 Dose: 40 mg Glipizide (Glucotrol) 10 mg PO DAILY [facility] Last Admin: 05/23/17 08:59 Dose: 10 mg Hydralazine HCl (Apresoline) 100 mg PO Q8 [facility] Hydrochlorothiazide (Hydrodiuril) 25 mg PO DAILY [facility] Piperacillin Sod/Tazobactam Sod (Zosyn 3.375 Gm Iv Premix) 3.375 gm in 50 mls @ 100 mls/hr IVPB Q8H [facility] Last Admin: 05/23/17 21:38 Dose: 100 mls/hr Methadone HCl (Methadose) 40 mg PO DAILY [facility] Last Admin: 05/23/17 08:59 Dose: 40 mg Methylprednisolone (Solu-Medrol) 20 mg IVP Q6H [facility] Last Admin: 05/23/17 22:22 Dose: Not Given Metoprolol Tartrate (Lopressor) 50 mg PO BID [facility] Neomycin/Polymyxin/Bacitracin (Neosporin Triple Antibiotic Oint) 0 gm TOP DAILY [facility] Last Admin: 05/23/17 17:51 Dose: 1 in Nystatin (Nystatin Oral Susp) 5 ml PO QID [facility] Last Admin: 05/23/17 21:36 Dose: 5 ml Terazosin HCl (Hytrin) 2 mg PO HS [facility] Last Admin: 05/23/17 21:36 Dose: 2 mg - Labs Labs: 05/22/17 11:00 05/22/17 11:00 Assessment and Plan (1) Leukocytosis Status: Acute (2) Dyspnea Status: Acute (3) Hypoxia Status: Acute (4) Uncontrolled hypertension Status: Acute (5) Cellulitis Status: Acute (6) Chest pain Status: Acute (7) IV drug abuse Status: Acute (8) Hepatitis C Status: Acute - Assessment and Plan (Free Text) Assessment: IMPRESSION; -influenza A and B +ve - NEW ONSET OF ATRIAL FIBRILLATION. -ACCELERATED HYPERTENSION. - ORAL THRUSH sec to steroids -HX IV HEROIN USE. - HX HEPATITIS C +VE FEB 2017. -CELLULITIS RT. FOREARM WITH ULCERATIONS /AND NEEDLE CHERY improving -HX OF [place] B/L UE. PLAN; CARDIOLOGY FOLLOW-UP NOTED CULTURE RIGHT FOREARM ULCER NEGATIVE GROWTH. wOUND CARE ORDERED. DC IV ABX IN AM . START BY MOUTH VANTIN 200 MG BY MOUTH TWICE A DAY X 5DAYS STEROIDS PER PULMONARY. F/U PMD NEXT WEEK. DISCONTINUE iv zOSYN 3.375-6 HOURLY 05/16/17.IN AM DC iv VANCOMYCIN 1 G EVERY 12 HOURLY 05/16/17.IN AM
[2017-05-24] MEDS: Albuterol-Ipratrop 3 mg / 0.5 (3 ml) UD IH SCH ×3 (01:35→13:05)
--- NOTE | 2017-05-24 02:25 | PN ---
DATE: SUBJECTIVE: The patient is a 61 years old male. The patient is seen and examined on the bedside, looking comfortable. No nausea, vomiting, or diarrhea. No hematuria or hematochezia. No swelling of the legs. No chest pain. No palpitations. No headache or dizziness. No fever. No chills. PHYSICAL EXAMINATION: VITAL SIGNS: Blood pressure 197/110 and 179/88, temperature 98.1, respiratory rate 18, pulse is 69, repeat blood pressure was 166/71. HEENT: Head, normocephalic and atraumatic. Eyes, PERRLA. Extraocular muscles intact. Conjunctivae clear. Nose patent. Mucous membrane moist. NECK: Supple. No carotid bruit, JVD, or thyromegaly. CHEST: Bilaterally symmetrical. HEART: S1 and S2 positive. LUNGS: Clear to auscultation. ABDOMEN: Soft. Bowel sounds positive. No organomegaly. EXTREMITIES: No edema. No cyanosis. NEUROLOGIC: The patient is awake and alert. Moving all 4 extremities. No focal deficits. MEDICATIONS: Hydralazine, aspirin, glipizide, Hytrin, Lopressor, Lovenox, methadone, Norvasc, Solu-Medrol at tapering doses, Vasotec, and Zosyn. LABORATORY DATA: White blood cell 17.3; on admission, it was 22.0; hemoglobin 11.4; hematocrit 33.8; platelets 281. Glucose 174. ASSESSMENT AND PLAN: Ms. Kashif Fonseca is a 61 years old lady with leukocytosis, anemia, history of hypokalemia replaced, uncontrolled diabetes mellitus, influenza type A and B was positive. chest x-ray reviewed by me. Seen by the Cardiology Dr. Carranza, Dr. Tuttle, and Dr. Ric Fisher. He was hepatitis C positive in 02/2017. The patient was made aware of that. Leukocytosis improving. Liver function test improving. increasing, history of dyspnea, hypoxia, uncontrolled hypertension. I started enalapril, increased hydralazine and added hydrochlorothiazide. Cellulitis of the extremities, chest pain, seen by knitting machine fixer head, IV drug abuse, urged to quit drugs, hepatitis C, sent to Infectious Disease. Urged to get treatment. Discussion done with the nursing staff and Dr. Gabi Ttutle. Rehab offered to the patient, the patient refused and wants to go home. May be over the weekend, we will discharge home. We will follow up with you. Kristina Maguire MD [facility]
[2017-05-24] MEDS: Piperacill/Tazo 3.375gm in Dex 3.375 GM/50 ML BAG IVPB SCH ×2 (05:17→12:59)
[2017-05-24] MEDS: MethylPREDNISolone 40 mg Vial IVP SCH ×2 (05:17→10:18)
[2017-05-24] MEDS: Budesonide 0.25 mg/2 ml Inhal Susp UD INH SCH (07:05)
[2017-05-24] MEDS ORDERED: Iohexol 240 (50 ml) PO ONE (09:45)
--- NOTE | 2017-05-24 09:52 | CP.PCM.CON ---
<Evelio Gould - Last Filed: 05/24/17 09:58> History of Present Illness - History of Present Illness History of Present Illness: PGY5 GI Fellow Consult Note Patient is a 61yo male with PMHx significant for IVDU, sober 1 year, HCV infection (unknown GT, treatment naive), HTN who presented to the ED on May 16 with shortness of breath. Our service has been consulted for the development of interval abdominal pain. The patient was admitted and has been diagnosed with pneumonia and what appears to be acute/recent influenza infection given high Ab titers. He continues to complain of cough, SOB and feels dyspneic on exertion. He developed periumbilical abdominal pain in the last two days with symptoms worsening during bouts of dyspnea. He admits to 2-3 loose BM per day and has some relief in symptoms after defecation. The patient is on methadone replacement therapy given his history of IV drug abuse but has never used a bowel regimen. Since admission he has been on Lovenox for DVT prophylaxis. In the last 2-3 days he has noted a bruise developing in the same area where he has abdominal discomfort. Denies any nausea, vomiting, recent weight loss, hematochezia/melena. PMHx: See HPI PSHx: Denies any surgical history FHx: Father - CAD; Mother - unknown malignancy Social: +tobacco use, 1/2 ppd x15 years, prior IVDU, sober 1 year; denies EtOH use Endo: Denies prior endoscopic evaluation 12 system ROS performed and negative except where stated. Past Patient History - Past Medical History & Family History Past Medical History?: Yes - Past Social History Smoking Status: Heavy Smoker > 10 Cigarettes Daily - CARDIAC Hx Hypertension: Yes - PULMONARY Hx Respiratory Disorders: No - NEUROLOGICAL Hx Neurological Disorder: No - HEENT Hx HEENT Problems: No - RENAL Hx Chronic Kidney Disease: No - ENDOCRINE/METABOLIC Hx Endocrine Disorders: No - HEMATOLOGICAL/ONCOLOGICAL Hx Blood Disorders: No - INTEGUMENTARY Hx Dermatological Problems: No - MUSCULOSKELETAL/RHEUMATOLOGICAL Hx Falls: No - GASTROINTESTINAL Hx Nausea: Yes - GENITOURINARY/GYNECOLOGICAL Hx Genitourinary Disorders: No - PSYCHIATRIC Hx Substance Use: Yes (heroin) - SURGICAL HISTORY Hx Surgeries: No - ANESTHESIA Hx Anesthesia: No Hx Anesthesia Reactions: No Meds Allergies/Adverse Reactions: Allergies Allergy/AdvReac Type Severity Reaction Status Date / Time No Known Allergies Allergy Verified 05/16/17 16:02 - Medications Medications: Current Medications Albuterol/Ipratropium (Duoneb 3 Mg/0.5 Mg (3 Ml) Ud) 3 ml IH RQ6 [facility] Last Admin: 05/24/17 07:05 Dose: 3 ml Amlodipine Besylate (Norvasc) 10 mg PO DAILY [facility] Last Admin: 05/23/17 08:59 Dose: 10 mg Aspirin (Aspirin Chewable) 81 mg PO DAILY [facility] Last Admin: 05/23/17 08:59 Dose: 81 mg Budesonide (Pulmicort Respules) 0.25 mg INH RQ12 [facility] Last Admin: 05/24/17 07:05 Dose: 0.25 mg Enalapril Maleate (Vasotec) 20 mg PO BID [facility] Enoxaparin Sodium (Lovenox) 40 mg SC DAILY [facility] Last Admin: 05/23/17 08:59 Dose: 40 mg Glipizide (Glucotrol) 10 mg PO DAILY [facility] Last Admin: 05/23/17 08:59 Dose: 10 mg Hydralazine HCl (Apresoline) 100 mg PO Q8 [facility] Last Admin: 05/24/17 05:18 Dose: 100 mg Hydrochlorothiazide (Hydrodiuril) 25 mg PO DAILY [facility] Piperacillin Sod/Tazobactam Sod (Zosyn 3.375 Gm Iv Premix) 3.375 gm in 50 mls @ 100 mls/hr IVPB Q8H [facility] Last Admin: 05/24/17 05:17 Dose: 100 mls/hr Methadone HCl (Methadose) 40 mg PO DAILY [facility] Last Admin: 05/23/17 08:59 Dose: 40 mg Methylprednisolone (Solu-Medrol) 20 mg IVP Q6H [facility] Last Admin: 05/24/17 05:17 Dose: 20 mg Metoprolol Tartrate (Lopressor) 50 mg PO BID [facility] Neomycin/Polymyxin/Bacitracin (Neosporin Triple Antibiotic Oint) 0 gm TOP DAILY [facility] Last Admin: 05/23/17 17:51 Dose: 1 in Nystatin (Nystatin Oral Susp) 5 ml PO QID [facility] Last Admin: 05/23/17 21:36 Dose: 5 ml Polyethylene Glycol (Miralax) 17 gm PO BID [facility] Terazosin HCl (Hytrin) 2 mg PO HS [facility] Last Admin: 05/23/17 21:36 Dose: 2 mg Physical Exam - Constitutional Appears: Non-toxic, No Acute Distress - Eye Exam Eye Exam: EOMI, PERRL - ENT Exam ENT Exam: Mucous Membranes Moist - Respiratory Exam Respiratory Exam: Decreased Breath Sounds, Rales. absent: Clear to Auscultation Bilateral, Rhonchi, Wheezes - Cardiovascular Exam Cardiovascular Exam: RRR, +S1, +S2 - GI/Abdominal Exam GI & Abdominal Exam: Distended (softly), Normal Bowel Sounds, Soft, Tenderness ( epigastric). absent: Firm, Guarding, Hernia, Organomegaly, Rigid Additional comments: 1 inch prupura noted in periumbilical area - tender on palpation - Extremities Exam Extremities exam: Positive for: normal inspection. Negative for: pedal edema - Neurological Exam Neurological exam: Alert, Oriented x3 - Psychiatric Exam Psychiatric exam: Normal Affect, Normal Mood - Skin Skin Exam: Dry, Warm Results - Vital Signs Recent Vital Signs: Last Vital Signs Temp 97.6 F 05/23/17 23:00 Pulse 72 05/24/17 07:50 Resp 20 05/23/17 23:00 BP 156/91 H 05/23/17 23:00 Pulse Ox 96 05/23/17 23:00 - Labs Result Diagrams: 05/22/17 11:00 05/22/17 11:00 Labs: Laboratory Results - last 24 hr 05/23/17 05/23/17 05/23/17 11:12 17:07 21:11 POC Glucose (mg/dL) 194 H 145 H 174 H 05/24/17 06:30 POC Glucose (mg/dL) 134 H Assessment & Plan - Assessment and Plan (Free Text) Assessment: Patient is a 61yo male with PMHx significant for IVDU, sober 1 year, HCV infection (unknown GT, treatment naive), HTN who presented to the ED on May 16 with shortness of breath. Our service has been consulted for the development of interval abdominal pain. -URI, penumonia -? recent/acute influenza infection given high titer -Abdominal discomfort -Chronic HCV infection Plan: -Patient to have CT today; recommend changing exam to WITH PO and IV contrast for more accurate evaluation of the GI tract -Pain consistently reproduced over purpura - possible small hematoma formation - local supportive care -Please avoid injection of Lovenox in to this site -Recommend daily bowel regimen given chronic opioid use with Methadone replacement -Start Miralax 17g PO BID -Management of URI/? influenza per primary and ID team - will discuss case with business transformation consultant -No plan for endoscopic interventions at this time -Recommend outpatient work up and treatment of chronic HCV infection - pt states he has a GI physician who he plans to follow up with as outpatient -Further plan per findings on CT scan - Date & Time Date: 05/24/17 Time: 09:00 <Nila Hernandez MD - Last Filed: 05/24/17 21:08> Results - Vital Signs Recent Vital Signs: Last Vital Signs Temp 97.6 F 05/24/17 15:00 Pulse 67 05/24/17 15:00 Resp 20 05/24/17 15:00 BP 143/89 05/24/17 15:00 Pulse Ox 96 05/24/17 15:00 - Labs Result Diagrams: 05/22/17 11:00 05/22/17 11:00 Labs: Laboratory Results - last 24 hr 05/23/17 05/24/17 05/24/17 21:11 06:30 11:42 POC Glucose (mg/dL) 174 H 134 H 229 H 05/24/17 16:28 POC Glucose (mg/dL) 144 H Attending/Attestation - Attestation I have personally seen and examined this patient.: Yes I have fully participated in the care of the patient.: Yes I have reviewed all pertinent clinical information: Yes Notes (Text): 05/24/17 21:07 This is a 61 yo male with PMHx significant for IVDU, sober 1 year, HCV infection (unknown GT, treatment naive), HTN who presented to the ED on May 16 with shortness of breath. Our service has been consulted for the development of interval abdominal pain which is likely due to constipation. He had two Bm after which his symptoms have resolved. Recommend daily bowel regimen given chronic opioid use with Methadone replacement Start Miralax 17g PO BID. No plan for endoscopic interventions at this time. Recommend outpatient work up and treatment of chronic HCV infection - pt states he has a GI physician who he plans to follow up with as outpatient
[2017-05-24] MEDS ORDERED: POLYETHYLENE GLYCOL 3350 17 GM/Dose PACKET PO SCH (10:00)
[2017-05-24] MEDS: Methadone 40 mg Tab PO SCH (10:17)
[2017-05-24] MEDS: Nystatin 100,000 Units/ml Oral Susp 5 ml UD PO SCH ×2 (10:18→12:59)
[2017-05-24] MEDS: Enoxaparin 40 mg Syringe SC SCH (10:18)
[2017-05-24] MEDS: Bacitracin/Neomycin/Polymyxin Oint(30GM) TOP SCH (10:23)
[2017-05-24] MEDS ORDERED: Iodixanol 320 MG/ML 100 ML BOTTLE IV ONE (13:02)
--- NOTE | 2017-05-24 14:12 | CT ---
PROCEDURE: CT Abdomen and Pelvis with contrast HISTORY: abdominal pain COMPARISON: None. TECHNIQUE: Contrast dose: 100 mL Visipaque 320 Radiation dose: Total exam DLP = 854.41 mGy-cm. This CT exam was performed using one or more of the following dose reduction techniques: Automated exposure control, adjustment of the mA and/or kV according to patient size, and/or use of iterative reconstruction technique. FINDINGS: LOWER THORAX: Bilateral lower lobe subsegmental atelectasis, left greater than right. LIVER: Unremarkable. No gross lesion or ductal dilatation. GALLBLADDER AND BILE DUCTS: Cholelithiasis. Mild thickening of gallbladder wall, nonspecific. No pericholecystic fluid. PANCREAS: Unremarkable. No gross lesion or ductal dilatation. SPLEEN: Unremarkable. ADRENALS: Unremarkable. No mass. KIDNEYS AND URETERS: Two adjacent nonobstructing calculi in mid left kidney, 9 mm and 6 mm greatest dimension, respectively. . No right renal calculus. No hydronephrosis. No perinephric fluid VASCULATURE: Unremarkable. No aortic aneurysm. BOWEL: Unremarkable. No obstruction. No gross mural thickening. APPENDIX: Normal appendix. PERITONEUM: Unremarkable. No free fluid. No free air. LYMPH NODES: Unremarkable. No enlarged lymph nodes. BLADDER: Poorly distended. REPRODUCTIVE: Unremarkable prostate BONES: No acute fracture. OTHER FINDINGS: None. IMPRESSION: Two nonobstructing mid left renal calculi, largest 9 mm. No hydronephrosis. No evidence of urinary tract obstruction. Bilateral lower lobe subsegmental atelectasis, left greater than right.
[2017-05-24] MEDS ORDERED: Influenza Vaccine 60 mcg/0.5 mL SYR (4YR UP) IM ONE (16:00)
[2017-05-24 16:08] VITALS: BP 143/89; PULSE 67; RESP 20; TEMP 97.6; O2SAT 96
--- NOTE | 2017-05-24 16:45 | CP.PCM.PN ---
Subjective - Date & Time of Evaluation Date of Evaluation: 05/24/17 Time of Evaluation: 16:45 - Subjective Subjective: PT CLEARED FOR D/C BY CONSULTS. PO ABX RECOMMENDATIONS DISCUSSED WITH DR. Callum MCMANUS. PT CLEARED BY DR. UNDERWOOD. SEEN BY GI THIS EARLY AFTERNOON; CT ABD AND PEL DONE AND RESULTS NOTED. PT INSTRUCTED TO F/U WITH PULM, GI AND PRIMARY CARE OP. ALL RX, D/C INFORMATION AND F/U RECS DISCUSSED AT LENGTH WITH THE PT. SEE BELOW FOR FURTHER INSTRUCTIONS. NO FURTHER ORDERS. -FOLLOW UP WITH DR. PITTS IN HER OFFICE WITHIN 5-7 DAYS----CALL THE OFFICE TO MAKE AN APPT. -FOLLOW UP WITH DR. ROBLES--THE STOMACH DOCTOR--IN THE OFFICE WITHIN 10-14 DAYS-- -CALL FOR APPT TIME. -FOLLOW UP WITH DR. ULRICH--THE HEARTY DOCTOR--IN THE OFFICE WITHIN 10-14 DAYS--- CALL FOR APPT TIME. -CONTINUE YOUR HOME MEDICATIONS. STOP TAKING PROCARDIA. -NEW PRESCRIPTIONS INCLUDE: 1) VENTOLIN INHALER NEEDED FOR SHORTNESS OF BREATH OR WHEEZING. 2) NORVASC (FOR BLOOD PRESSURE AND HEART) TAKE ONCE A DAY. 3) VANTIN (ANTIBIOTIC) TAKE TWICE A DAY FOR 5 DAYS. 4) VASOTEC (FOR BLOOD PRESSURE AND HEART) TAKE TWICE A DAY. 5) HYDRALAZINE (FOR BLOOD PRESSURE AND HEART) TAKE THREE TIMES A DAY. 6) HYDRODRIURIL (FOR BLOOD PRESSURE AND HEART) TAKE ONCE A DAY. 7) MEDROL DOSE PACK FOR YOUR BREATHING (STEROIDS) 8) LOPRESSOR (FOR BLOOD PRESSURE AND HEART) TAKE TWICE A DAY. 9) MIRALAX FOR YOUR STOMACH. -IF YOU HAVE ANY FURTHER CONCERNS OR QUESTIONS, CONTACT DR. PITTS'S OFFICE. Objective - Vital Signs/Intake and Output Vital Signs (last 24 hours): Temp Pulse Resp BP Pulse Ox 97.6 F 67 20 143/89 96 05/24/17 15:00 05/24/17 15:00 05/24/17 15:00 05/24/17 15:00 05/24/17 15:00 - Medications Medications: Current Medications Albuterol/Ipratropium (Duoneb 3 Mg/0.5 Mg (3 Ml) Ud) 3 ml IH RQ6 [facility] Last Admin: 05/24/17 13:05 Dose: 3 ml Amlodipine Besylate (Norvasc) 10 mg PO DAILY [facility] Last Admin: 05/24/17 10:18 Dose: 10 mg Aspirin (Aspirin Chewable) 81 mg PO DAILY [facility] Last Admin: 05/24/17 10:17 Dose: 81 mg Budesonide (Pulmicort Respules) 0.25 mg INH RQ12 [facility] Last Admin: 05/24/17 07:05 Dose: 0.25 mg Enalapril Maleate (Vasotec) 20 mg PO BID [facility] Last Admin: 05/24/17 10:17 Dose: 20 mg Glipizide (Glucotrol) 10 mg PO DAILY [facility] Last Admin: 05/24/17 10:18 Dose: 10 mg Hydralazine HCl (Apresoline) 100 mg PO Q8 [facility] Last Admin: 05/24/17 12:59 Dose: 100 mg Hydrochlorothiazide (Hydrodiuril) 25 mg PO DAILY [facility] Last Admin: 05/24/17 10:23 Dose: 25 mg Piperacillin Sod/Tazobactam Sod (Zosyn 3.375 Gm Iv Premix) 3.375 gm in 50 mls @ 100 mls/hr IVPB Q8H [facility] Last Admin: 05/24/17 12:59 Dose: 100 mls/hr Methadone HCl (Methadose) 40 mg PO DAILY [facility] Last Admin: 05/24/17 10:17 Dose: 40 mg Methylprednisolone (Solu-Medrol) 20 mg IVP Q6H [facility] Last Admin: 05/24/17 10:18 Dose: 20 mg Metoprolol Tartrate (Lopressor) 50 mg PO BID [facility] Last Admin: 05/24/17 10:18 Dose: 50 mg Neomycin/Polymyxin/Bacitracin (Neosporin Triple Antibiotic Oint) 0 gm TOP DAILY [facility] Last Admin: 05/24/17 10:23 Dose: 1 in Nystatin (Nystatin Oral Susp) 5 ml PO QID [facility] Last Admin: 05/24/17 12:59 Dose: 5 ml Polyethylene Glycol (Miralax) 17 gm PO BID [facility] Last Admin: 05/24/17 10:18 Dose: 17 gm Terazosin HCl (Hytrin) 2 mg PO HS [facility] Last Admin: 05/23/17 21:36 Dose: 2 mg - Labs Labs: 05/22/17 11:00 05/22/17 11:00
== END 2017-05-24 18:10 | disposition home or self-care (01) | DRG 541 ==
LOC: C.ER 15:41 → C.9E 17:17 → C.6T 19:12
PROVIDERS: ADMIT Internal Medicine; ATTEND Internal Medicine
PROC: 02HV33Z Insertion of Infusion Device into Superior Vena Cava, Percutaneous Approach (ICD-10-PCS; principal; 2017-05-20)
DX: J10.00 Influenza due to other identified influenza virus with unspecified type of pneumonia (principal); B20 Human immunodeficiency virus [HIV] disease; B37.0 Candidal stomatitis; E87.8 Other disorders of electrolyte and fluid balance, not elsewhere classified; E11.65 Type 2 diabetes mellitus with hyperglycemia; J44.0 Chronic obstructive pulmonary disease with (acute) lower respiratory infection; F11.10 Opioid abuse, uncomplicated; B18.2 Chronic viral hepatitis C; E87.6 Hypokalemia; L03.113 Cellulitis of right upper limb; R09.02 Hypoxemia; I27.20 Pulmonary hypertension, unspecified; I45.89 Other specified conduction disorders; I48.91 Unspecified atrial fibrillation; I25.2 Old myocardial infarction; I10 Essential (primary) hypertension; I25.10 Atherosclerotic heart disease of native coronary artery without angina pectoris; F17.200 Nicotine dependence, unspecified, uncomplicated; D64.9 Anemia, unspecified

== ENCOUNTER 2017-05-31 21:16 | Inpatient (IN) | payer MEDICAID ==
[2017-05-31 22:08] LABS: ABG ALLEN TEST P; ARTERIAL BLOOD GAS HCO3 24.6 mmol/L (21-28); ARTERIAL BLOOD GAS O2 SAT 100.2 % (95-98); ARTERIAL BLOOD GAS PCO2 39 mm/Hg (35-45); ARTERIAL BLOOD GAS PO2 190 mm/Hg (80-100); ARTERIAL BLOOD GAS TCO2 25.4 mmol/L (22-28)
[2017-05-31 22:11] LABS: VENOUS BLOOD GAS BASE EXCESS -1.8 mmol/L (0.0-2.0); VENOUS BLOOD GAS PCO2 42 mmHg (40-60); VENOUS BLOOD GAS PO2 60 mm/Hg (30-55); VENOUS BLOOD PH 7.36 (7.32-7.43)
--- NOTE | 2017-05-31 22:18 | C.PDOC ---
History Of Present Illness <Angi Ngo - Last Filed: 05/31/17 22:15> <Bruno Valadez DO - Last Filed: 06/01/17 00:51> CC: "shortness of breath" HPI: 61 year old male with past medical history of DM, HTN, afib comes to the ED for shortness of breath. Patient states he has also had chest pain located in the mid sternal region for the past 2 days that comes and goes. ROS was difficult to attain due to patient having difficulty breathing. (Angi Ngo) <Angi Ngo - Last Filed: 05/31/17 22:15> <Bruno Valadez DO - Last Filed: 06/01/17 00:51> Chief Complaint (Nursing): Shortness Of Breath Past Medical History - Medical History PMH: HTN Denies: Chronic Kidney Disease - Social History Hx Tobacco Use: No Hx Alcohol Use: No Hx Substance Use: Yes (heroin) - Immunization History Hx Tetanus Toxoid Vaccination: No Hx Influenza Vaccination: Yes Hx Pneumococcal Vaccination: No <Angi Ngo - Last Filed: 05/31/17 22:15> Family History: States: No Known Family Hx <Bruno Valadez DO - Last Filed: 06/01/17 00:51> Vital Signs: Last Vital Signs Temp Pulse 64 06/01/17 00:28 Resp 12 06/01/17 00:28 BP 110/62 06/01/17 00:28 Pulse Ox 95 06/01/17 00:28 - [facility] Procedures DETOXIFICATION SERVICES FOR SUBSTANCE ABUSE TREATMENT (02/21/15) INSERTION OF INFUSION DEV INTO SUP VENA CAVA, PERC APPROACH (05/16/17) MEDS MGMT FOR SUBSTANCE ABUSE TREATMENT, METHADONE MAINT (02/21/15) Review Of Systems Review Of Systems: ROS cannot be obtained secondary to pt's inabilty to answer questions. Cardiovascular: Positive for: Chest Pain Respiratory: Positive for: Shortness of Breath <Angi Ngo - Last Filed: 05/31/17 22:15> Physical Exam - Physical Exam Appears: In Acute Distress Skin: Normal Color Head: Atraumatic Oral Mucosa: Dry Cardiovascular: Other (distant heart sounds) Respiratory: Accessory Muscle Use, Wheezing (bilateral lobe wheezing) Gastrointestinal/Abdominal: No Tenderness, Distention Extremity: Pedal Edema Neurological/Psych: Oriented x3 <Angi Ngo - Last Filed: 05/31/17 22:15> ED Course And Treatment O2 Sat by Pulse Oximetry: 100 <Angi Ngo - Last Filed: 05/31/17 22:15> - Laboratory Results Result Diagrams: 05/31/17 22:29 05/31/17 22:29 <Bruno Valadez DO - Last Filed: 06/01/17 00:51> Critical Care Time - Critical Care Note Total Time (in mins): 90 Documented critical care: time excludes all time spent performing seperately billable procedures. <Bruno Valadez DO - Last Filed: 06/01/17 00:51> Medical Decision Making <Angi Ngo - Last Filed: 05/31/17 22:15> <Bruno Valadez DO - Last Filed: 06/01/17 00:51> Medical Decision Making: Patient was placed on bipap Spoke with Dr. Razo due to EKG changes. Dr. Razo stated to admit patient to tele for an NSTEMI. Dr. Razo's recommendations are to start heparin drip, aspirin, fluids. Dr. Razo recommends possible future cardiac cath. Placed Dr. Razo for cardiology consult. ECHO (05/20/17): EF 55%; left ventricular function is normal; no regional wall motion abnormalities; there is mild to moderate concentric left ventricular hypertrophy. f/u BNP; troponin f/u cbc, cmp, blood culture f/u chest xray (Angi Ngo) Dr. Vera, medicine on-call, aware of case. Dr. Askew, ICU physician, examined patient and accepted patient to ICU. (Bruno Valadez DO) Disposition <Angi Ngo - Last Filed: 05/31/17 22:15> - Disposition Disposition Time: 23:00 <Bruno Valadez DO - Last Filed: 06/01/17 00:51> - Disposition Condition: GUARDED Forms: [facility] (Vietnamese) - Clinical Impression Clinical Impression: Hypoxia, Acute renal failure, Hypotension, Leukocytosis, Respiratory distress
[2017-05-31 22:38] LABS: BASO # 0.1 K/uL (0.0-0.2); BASO % 0.4 % (0.0-2.0); EOS % 0.2 % (0.0-4.0); HEMOGLOBIN 12.1 g/dL (12.0-18.0); LYMPH # 1.7 K/uL (1.0-4.3); LYMPH % 8.5 % (20.0-40.0); MEAN CORPUSCULAR HEMOGLOBIN 23.4 pg (27.0-31.0); MEAN CORPUSCULAR HGB CONC 31.7 g/dL (33.0-37.0); MEAN PLATELET VOLUME 9.6 fL (7.2-11.7); MONO # 1.8 K/uL (0.0-0.8); MONO % 8.8 % (0.0-10.0); NEUT # 16.8 K/uL (1.8-7.0); NEUT % 82.1 % (50.0-75.0); PLATELET COUNT 241 K/uL (130-400); RBC 5.17 Mil/uL (4.40-5.90); RED CELL DISTRIBUTION WIDTH 18.7 % (11.5-14.5); WHITE BLOOD COUNT 20.4 K/uL (4.8-10.8)
[2017-05-31] MEDS ORDERED: Sodium Chloride 0.9% 1,000 ML ONE (22:40)
[2017-05-31 22:44] LABS: PROTHROMBIN TIME 11.7 SECONDS (9.7-12.2)
[2017-05-31] MEDS ORDERED: Sodium Chloride 0.9% 1,000 ML IV ONE (22:51)
[2017-05-31 22:59] LABS: BANDS 1 % (0-2); EOSINOPHIL 1 % (0-4); LYMPHOCYTE 7 % (20-40); MONOCYTE 7 % (0-10); NEUTROPHIL 84 % (50-75); TOTAL CELLS COUNTED 100
[2017-05-31 23:00] LABS: ANISOCYTOSIS SLIGHT; HYPOCHROMIC SLIGHT; MICROCYTOSIS SLIGHT; PLATELET ESTIMATE NORMAL (NORMAL)
[2017-05-31 23:01] LABS: OVALOCYTES SLIGHT; POLYCHROMIC SLIGHT
[2017-05-31 23:03] LABS: TROPONIN I 0.071 ng/mL (0.00-0.120)
[2017-05-31 23:06] LABS: ALB/GLOB RATIO 1.3 (1.0-2.1); ALBUMIN 3.3 g/dL (3.5-5.0); CALCIUM 8.8 mg/dl (8.6-10.4)
[2017-06-01] MEDS ORDERED: Heparin25000 units/250ml 1/2NS 25,000 UNITS/250 ML BAG IV ONE (00:01)
[2017-06-01] MEDS ORDERED: Sodium Chloride 0.9% 500 ML IV ONE ×2 (00:01→00:05)
[2017-06-01] MEDS: Albuterol-Ipratrop 3 mg / 0.5 (3 ml) UD INH SCH ×4 (02:24→21:20)
[2017-06-01 02:28] LABS: GRANULAR CAST 179 /lpf (0-1); SQUAMOUS EPITHIAL 1 /hpf (0-5); URINE AMORPHOUS SEDIMENT OCC /ul (<OCC); URINE BACTERIA RARE (<OCC); URINE BILIRUBIN NEGATIVE (NEGATIVE); URINE BLOOD NEGATIVE (NEGATIVE); URINE CLARITY Hazy (Clear); URINE COLOR Amber (YELLOW); URINE GLUCOSE (UA) NORMAL (Normal); URINE LEUKOCYTE ESTERASE NEG Leu/uL (Negative); URINE PROTEIN NEGATIVE (NEGATIVE); URINE UROBILINOGEN NORMAL mg/dL (0.2-1.0)
[2017-06-01 02:39] LABS: BARBITURATES, UR NEGATIVE (NEGATIVE); BENZODIAZEPINES, UR POSITIVE (NEGATIVE); PHENCYCLIDINE, UR NEGATIVE (NEGATIVE)
[2017-06-01 02:40] LABS: OPIATES, UR POSITIVE (NEGATIVE)
[2017-06-01 02:50] LABS: CREATININE, RANDOM URINE 359.2 mg/dL
[2017-06-01] MEDS ORDERED: Heparin25000 units/250ml 1/2NS 25,000 UNITS/250 ML BAG IV PRN (03:39)
--- NOTE | 2017-06-01 03:47 | CT ---
EXAM: CT Chest Without Intravenous Contrast CLINICAL HISTORY: 61 years old, male; Pain; Abdominal pain; Chest pain; Patient HX: 05-24-17; Additional info: SOB, abdominal fullness TECHNIQUE: Axial computed tomography images of the chest without intravenous contrast. All CT scans at this facility use one or more dose reduction techniques, viz.: automated exposure control; ma/kV adjustment per patient size (including targeted exams where dose is matched to indication; i.e. head); or iterative reconstruction technique. Coronal and sagittal reformatted images were created and reviewed. COMPARISON: No relevant prior studies available. FINDINGS: Limitations: Lack of intravenous contrast. Motion artifact - mild to moderate. Lungs: Mild linear atelectasis/scarring. Mild patchy airspace disease posterior periphery right lower lobe. Scattered mild patchy and nodular groundglass opacities, predominantly right upper lobe. Minimal interlobular septal thickening. Pleural space: No pneumothorax. No significant effusion. Heart: Mild cardiomegaly. No significant pericardial effusion. Mediastinum: Mild air and fluid distention of esophagus. Bones/joints: Degenerative changes of spine. No acute fracture. Soft tissues: Mild gynecomastia. Vasculature: Mild atherosclerotic disease. No aneurysm. Lymph nodes: No pathologically enlarged lymph nodes. IMPRESSION: 1. Groundglass opacities, nonspecific. DDX: Pneumonia, pulmonary edema, interstitial lung disease, pneumonitis. Clinical correlation and follow up are recommended. 2. Right lower lobe atelectasis versus pneumonia. 3. Incidental/non-acute findings are described above. EXAM: CT Abdomen and Pelvis Without Intravenous Contrast CLINICAL HISTORY: 61 years old, male; Pain; Abdominal pain; Chest pain; Patient HX: 05-24-17; Additional info: SOB, abdominal fullness TECHNIQUE: Axial computed tomography images of the abdomen and pelvis without intravenous contrast. All CT scans at this facility use one or more dose reduction techniques, viz.: automated exposure control; ma/kV adjustment per patient size (including targeted exams where dose is matched to indication; i.e. head); or iterative reconstruction technique. Coronal and sagittal reformatted images were created and reviewed. COMPARISON: No relevant prior studies available. FINDINGS: Limitations: Lack of intravenous contrast. Motion artifact - mild. ABDOMEN: Liver: Unremarkable. Gallbladder and bile ducts: Gallstones. No significant ductal dilation. Pancreas: Unremarkable. No ductal dilation. Spleen: No splenomegaly. Adrenals: No mass. Kidneys and ureters: Few calculi within LEFT kidney. No hydronephrosis. Stomach and bowel: Fluid within small bowel. Fluid/loose stool within large bowel. No definite mural thickening. No obstruction. Appendix: Normal caliber. No inflammation. PELVIS: Bladder: Unremarkable. No stones. Reproductive: Unremarkable as visualized. ABDOMEN and PELVIS: Intraperitoneal space: No significant fluid collection. No free air. Bones/joints: Degenerative changes of spine. No acute fracture. Soft tissues: Tiny umbilical hernia containing fat. Small LEFT inguinal hernia containing fat. Vasculature: Mild atherosclerotic disease. No aneurysm. Lymph nodes: No pathologically enlarged lymph nodes. IMPRESSION: 1. Fluid/loose stool within bowel may suggest diarrhea illness. 2. Cholelithiasis. 3. Incidental/non-acute findings are described above.
[2017-06-01] MEDS: (Novolog) Insulin Aspart, Recombinant 100 u/ml 10 ml vial SC SCH ×2 (04:50→22:05)
[2017-06-01] MEDS: Pantoprazole 40 mg Susp UD PO SCH ×2 (06:15→10:02)
[2017-06-01 06:31] LABS: BASO % 0.1 % (0.0-2.0); EOS # 0.1 K/uL (0.0-0.7); EOS % 0.4 % (0.0-4.0); HEMOGLOBIN 10.8 g/dL (12.0-18.0); LYMPH # 2.2 K/uL (1.0-4.3); LYMPH % 11.1 % (20.0-40.0); MEAN CELL VOLUME 73.9 fL (80.0-94.0); MEAN CORPUSCULAR HEMOGLOBIN 23.9 pg (27.0-31.0); MEAN CORPUSCULAR HGB CONC 32.3 g/dL (33.0-37.0); MEAN PLATELET VOLUME 9.4 fL (7.2-11.7); MONO # 1.4 K/uL (0.0-0.8); NEUT # 16.2 K/uL (1.8-7.0); NEUT % 81.4 % (50.0-75.0); RBC 4.53 Mil/uL (4.40-5.90); RED CELL DISTRIBUTION WIDTH 18.2 % (11.5-14.5); WHITE BLOOD COUNT 19.9 K/uL (4.8-10.8)
[2017-06-01] MEDS ORDERED: Sodium Chloride 0.9% 1,000 ML IV ONE (06:54)
[2017-06-01 07:10] LABS: ALB/GLOB RATIO 1.2 (1.0-2.1); ALBUMIN 2.6 g/dL (3.5-5.0); CALCIUM 8.2 mg/dl (8.6-10.4)
--- NOTE | 2017-06-01 07:58 | CP.PCM.CON ---
History of Present Illness - History of Present Illness History of Present Illness: PGY5 GI Fellow Consult Note Patient is a 61yo male with PMHx significant for DM, HTN, Afib not on anticoaguation, recent pna, IVDA, sober 1 year, HCV infection untreated, was on methadone program volantarily stopped since , who presented to the ED on May 16 with shortness of breath, was found to have small pna on the left side and discharged on 05/24/17 with oral abx. Patient during the stay had EKG which showed t wave inversions multiple leads, normal ef, had mayocardial perfusion scan which didn't show any ischemic areas and patient upon discharge didn't needed o2, also on 05/[address] abd/pelvis with iv contrast. He lives on the [address] and has to climb a flight of stairs to reach his apt. As per the patient post discharge he was still sob, which gradually got worse and hence he came to the hospital. He also mentions of having chills at home and having difficulties in holding stuff, denies fever. In Hospital he needed about 50-60% fio2, on bipap, bp was in 80's systolic, cait noticed creat 4.6, some scattered wheezing, no orthopnea, EKG changes of normalization of t waves, with come changes in qrs complexes. Denied any pain. BP easily responded to 500ml of iv bolus. Chest/abd/pelvis ct done overnight showed interstitial infiltrates more on right then left, Fena calculated was 0.1% with granular cast, even thought patient didn't c/o diarrhea but stool was liquid, IJ viewed on the USG was collapsible >50% on deep inspiration. PMHx: See HPI PSHx: Denies any surgical history FHx: Father - CAD; Mother - unknown malignancy Social: +tobacco use, 1/2 ppd x15 years, prior IVDU, sober 1 year; denies EtOH use Endo: Denies prior endoscopic evaluation 12 system ROS performed and negative except where stated. Review of Systems - Review of Systems All systems: reviewed and no additional remarkable complaints except (HPI) 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) Home Situation {Lives}: Alone Domestic Violence: Negative - CARDIAC Hx Atrial Fibrillation: Yes Hx Hypertension: Yes - PULMONARY Hx Respiratory Disorders: No Hx Pneumonia: Yes - NEUROLOGICAL Hx Neurological Disorder: No - HEENT Hx HEENT Problems: No - RENAL Hx Chronic Kidney Disease: No - ENDOCRINE/METABOLIC Hx Endocrine Disorders: No Hx Diabetes Mellitus Type 2: Yes - HEMATOLOGICAL/ONCOLOGICAL Hx Blood Disorders: No - INTEGUMENTARY Hx Dermatological Problems: No - MUSCULOSKELETAL/RHEUMATOLOGICAL Hx Falls: No - GASTROINTESTINAL Hx Nausea: Yes - GENITOURINARY/GYNECOLOGICAL Hx Genitourinary Disorders: No - PSYCHIATRIC Hx Substance Use: Yes (heroin) - SURGICAL HISTORY Hx Surgeries: No - ANESTHESIA Hx Anesthesia: No Hx Anesthesia Reactions: No Meds Allergies/Adverse Reactions: Allergies Allergy/AdvReac Type Severity Reaction Status Date / Time No Known Allergies Allergy Verified 05/31/17 21:31 - Medications Medications: Current Medications Albuterol/Ipratropium (Duoneb 3 Mg/0.5 Mg (3 Ml) Ud) 3 ml INH RQ6 [facility] Last Admin: 06/01/17 02:24 Dose: Not Given Doxycycline Hyclate 100 mg/ (Sodium Chloride) 100 mls @ 100 mls/hr IVPB Q12H [facility] Last Admin: 06/01/17 01:40 Dose: 100 mls/hr Ceftriaxone Sodium 1 gm/ (Sodium Chloride) 100 mls @ 100 mls/hr IVPB DAILY [facility] Heparin Sodium/Sodium Chloride (Heparin 32607 Units/250ml 1/2 Normal Saline) 25 ,000 units in 250 mls @ 10.886 mls/hr IV .[id number] PRN; Protocol; 12 UNITS/KG/HR PRN Reason: PROTOCOL Last Admin: 06/01/17 03:43 Dose: 12 units/kg/hr, 10.886 mls/hr Sodium Chloride (Sodium Chloride 0.9%) 1,000 mls @ 250 mls/hr IV .Q4H ONE Stop: 06/01/17 10:53 Methylprednisolone (Solu-Medrol) 40 mg IV Q12 [facility] Pantoprazole Sodium (Protonix Susp) 40 mg PO 0600 [facility] Physical Exam - Additional Findings Additional findings: * HEENT FLOWER * Neck No JVD * Chest scattered ronchi multiple lung zones * CVS Irregular, no murmur * Ext 1+ edema * Skin turgor normal * [employer]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 Results - Vital Signs Recent Vital Signs: Last Vital Signs Temp Pulse 67 06/01/17 05:04 Resp 16 06/01/17 01:40 BP 103/60 06/01/17 01:40 Pulse Ox 97 06/01/17 01:40 - Labs Result Diagrams: 06/01/17 06:21 06/01/17 06:22 Labs: Laboratory Results - last 24 hr 05/31/17 05/31/17 05/31/17 22:00 22:05 22:29 WBC 20.4 H RBC 5.17 Hgb 12.1 Hct 38.2 MCV 74.0 L MCH 23.4 L MCHC 31.7 L RDW 18.7 H Plt Count 241 MPV 9.6 Neut % (Auto) 82.1 H Lymph % (Auto) 8.5 L [place] % (Auto) 8.8 Eos % (Auto) 0.2 Baso % (Auto) 0.4 Neut # (Auto) 16.8 H Lymph # (Auto) 1.7 [place] # (Auto) 1.8 H Eos # (Auto) 0.0 Baso # (Auto) 0.1 Neutrophils % (Manual) 84 H Band Neutrophils % 1 Lymphocytes % (Manual) 7 L Monocytes % (Manual) 7 Eosinophils % (Manual) 1 Platelet Estimate Normal Polychromasia Slight Hypochromasia (manual) Slight Anisocytosis (manual) Slight Microcytosis (manual) Slight Ovalocytes Slight PT INR APTT Puncture Site Rr pCO2 39 pO2 60 H 190 H HCO3 24.6 ABG pH 7.40 ABG Total CO2 25.4 ABG O2 Saturation 100.2 H ABG Base Excess -0.5 Marty Test P ABG Potassium 3.3 L VBG pH 7.36 VBG pCO2 42 VBG HCO3 23.3 VBG Total CO2 25.0 VBG O2 Sat (Calc) 93.5 H VBG Base Excess -1.8 L VBG Potassium 3.4 L A-a O2 Difference 474.0 Respiratory Index 2.5 Sodium 138.0 134.0 Chloride 100.0 103.0 Glucose 218 H 212 H Lactate 1.6 1.2 Vent Mode Bipap FiO2 100.0 Inspiratory BiPAP 12 Expiratory BiPAP 6 Potassium Carbon Dioxide Anion Gap BUN Creatinine Est GFR ( Amer) Est GFR (Non-Af Amer) POC Glucose (mg/dL) Random Glucose Calcium Total Bilirubin AST ALT Alkaline Phosphatase Troponin I NT-Pro-B Natriuret Pep Total Protein Albumin Globulin Albumin/Globulin Ratio Arterial Blood Potassium 3.3 L Venous Blood Potassium 3.4 L Urine Color Urine Clarity Urine pH Ur Specific Adrian Urine Protein Urine Glucose (UA) Urine Ketones Urine Blood Urine Nitrate Urine Bilirubin Urine Urobilinogen Ur Leukocyte Esterase Urine WBC (Auto) Ur Squamous Epith Cells Amorphous Sediment Urine Bacteria Granular Casts (Auto) Ur Random Creatinine Ur Random Sodium Urine Opiates Screen Urine Methadone Screen Ur Barbiturates Screen Ur Phencyclidine Scrn Ur Amphetamines Screen U Benzodiazepines Scrn U Oth Cocaine Metabols U Cannabinoids Screen Influenza Typ A,B (EIA) 05/31/17 05/31/17 05/31/17 22:29 22:29 23:48 WBC RBC Hgb Hct MCV MCH MCHC RDW Plt Count MPV Neut % (Auto) Lymph % (Auto) [place] % (Auto) Eos % (Auto) Baso % (Auto) Neut # (Auto) Lymph # (Auto) [place] # (Auto) Eos # (Auto) Baso # (Auto) Neutrophils % (Manual) Band Neutrophils % Lymphocytes % (Manual) Monocytes % (Manual) Eosinophils % (Manual) Platelet Estimate Polychromasia Hypochromasia (manual) Anisocytosis (manual) Microcytosis (manual) Ovalocytes PT 11.7 INR 1.0 APTT 27 Puncture Site pCO2 pO2 HCO3 ABG pH ABG Total CO2 ABG O2 Saturation ABG Base Excess Marty Test ABG Potassium VBG pH VBG pCO2 VBG HCO3 VBG Total CO2 VBG O2 Sat (Calc) VBG Base Excess VBG Potassium A-a O2 Difference Respiratory Index Sodium 133 Chloride 96 L Glucose Lactate Vent Mode FiO2 Inspiratory BiPAP Expiratory BiPAP Potassium 3.6 Carbon Dioxide 23 Anion Gap 18 BUN 85 H Creatinine 4.6 H Est GFR ( Amer) 16 Est GFR (Non-Af Amer) 13 POC Glucose (mg/dL) Random Glucose 200 H Calcium 8.8 Total Bilirubin 0.6 AST 26 ALT 49 Alkaline Phosphatase 70 Troponin I 0.0710 NT-Pro-B Natriuret Pep 3840 H Total Protein 6.0 L Albumin 3.3 L Globulin 2.6 Albumin/Globulin Ratio 1.3 Arterial Blood Potassium Venous Blood Potassium Urine Color Urine Clarity Urine pH Ur Specific Adrian Urine Protein Urine Glucose (UA) Urine Ketones Urine Blood Urine Nitrate Urine Bilirubin Urine Urobilinogen Ur Leukocyte Esterase Urine WBC (Auto) Ur Squamous Epith Cells Amorphous Sediment Urine Bacteria Granular Casts (Auto) Ur Random Creatinine Ur Random Sodium Urine Opiates Screen Urine Methadone Screen Ur Barbiturates Screen Ur Phencyclidine Scrn Ur Amphetamines Screen U Benzodiazepines Scrn U Oth Cocaine Metabols U Cannabinoids Screen Influenza Typ A,B (EIA) Negative for flu a/b 06/01/17 06/01/17 06/01/17 01:25 02:16 02:16 WBC RBC Hgb Hct MCV MCH MCHC RDW Plt Count MPV Neut % (Auto) Lymph % (Auto) [place] % (Auto) Eos % (Auto) Baso % (Auto) Neut # (Auto) Lymph # (Auto) [place] # (Auto) Eos # (Auto) Baso # (Auto) Neutrophils % (Manual) Band Neutrophils % Lymphocytes % (Manual) Monocytes % (Manual) Eosinophils % (Manual) Platelet Estimate Polychromasia Hypochromasia (manual) Anisocytosis (manual) Microcytosis (manual) Ovalocytes PT INR APTT Puncture Site pCO2 pO2 HCO3 ABG pH ABG Total CO2 ABG O2 Saturation ABG Base Excess Marty Test ABG Potassium VBG pH VBG pCO2 VBG HCO3 VBG Total CO2 VBG O2 Sat (Calc) VBG Base Excess VBG Potassium A-a O2 Difference Respiratory Index Sodium Chloride Glucose Lactate Vent Mode FiO2 Inspiratory BiPAP Expiratory BiPAP Potassium Carbon Dioxide Anion Gap BUN Creatinine Est GFR ( Amer) Est GFR (Non-Af Amer) POC Glucose (mg/dL) 166 H Random Glucose Calcium Total Bilirubin AST ALT Alkaline Phosphatase Troponin I NT-Pro-B Natriuret Pep Total Protein Albumin Globulin Albumin/Globulin Ratio Arterial Blood Potassium Venous Blood Potassium Urine Color Radha Urine Clarity Hazy Urine pH 5.0 Ur Specific Adrian 1.020 Urine Protein Negative Urine Glucose (UA) Normal Urine Ketones Negative Urine Blood Negative Urine Nitrate Negative Urine Bilirubin Negative Urine Urobilinogen Normal Ur Leukocyte Esterase Neg Urine WBC (Auto) 6 H Ur Squamous Epith Cells 1 Amorphous Sediment Occ H Urine Bacteria Rare Granular Casts (Auto) 179 Ur Random Creatinine 359.2 Ur Random Sodium 11 Urine Opiates Screen Positive H Urine Methadone Screen Positive H Ur Barbiturates Screen Negative Ur Phencyclidine Scrn Negative Ur Amphetamines Screen Negative U Benzodiazepines Scrn Positive U Oth Cocaine Metabols Negative U Cannabinoids Screen Negative Influenza Typ A,B (EIA) 06/01/17 06/01/17 06:21 06:22 WBC 19.9 H RBC 4.53 Hgb 10.8 L Hct 33.5 L MCV 73.9 L MCH 23.9 L MCHC 32.3 L RDW 18.2 H Plt Count 177 MPV 9.4 Neut % (Auto) 81.4 H Lymph % (Auto) 11.1 L [place] % (Auto) 7.0 Eos % (Auto) 0.4 Baso % (Auto) 0.1 Neut # (Auto) 16.2 H Lymph # (Auto) 2.2 [place] # (Auto) 1.4 H Eos # (Auto) 0.1 Baso # (Auto) 0.0 Neutrophils % (Manual) Band Neutrophils % Lymphocytes % (Manual) Monocytes % (Manual) Eosinophils % (Manual) Platelet Estimate Polychromasia Hypochromasia (manual) Anisocytosis (manual) Microcytosis (manual) Ovalocytes PT INR APTT 42 H D Puncture Site pCO2 pO2 HCO3 ABG pH ABG Total CO2 ABG O2 Saturation ABG Base Excess Marty Test ABG Potassium VBG pH VBG pCO2 VBG HCO3 VBG Total CO2 VBG O2 Sat (Calc) VBG Base Excess VBG Potassium A-a O2 Difference Respiratory Index Sodium Chloride Glucose Lactate Vent Mode FiO2 Inspiratory BiPAP Expiratory BiPAP Potassium Carbon Dioxide Anion Gap BUN Creatinine Est GFR ( Amer) Est GFR (Non-Af Amer) POC Glucose (mg/dL) Random Glucose Calcium Total Bilirubin AST ALT Alkaline Phosphatase Troponin I NT-Pro-B Natriuret Pep Total Protein Albumin Globulin Albumin/Globulin Ratio Arterial Blood Potassium Venous Blood Potassium Urine Color Urine Clarity Urine pH Ur Specific Adrian Urine Protein Urine Glucose (UA) Urine Ketones Urine Blood Urine Nitrate Urine Bilirubin Urine Urobilinogen Ur Leukocyte Esterase Urine WBC (Auto) Ur Squamous Epith Cells Amorphous Sediment Urine Bacteria Granular Casts (Auto) Ur Random Creatinine Ur Random Sodium Urine Opiates Screen Urine Methadone Screen Ur Barbiturates Screen Ur Phencyclidine Scrn Ur Amphetamines Screen U Benzodiazepines Scrn U Oth Cocaine Metabols U Cannabinoids Screen Influenza Typ A,B (EIA) Assessment & Plan - Assessment and Plan (Free Text) Assessment: * SOB presentation dd of PNA vs PE, due to hypoxia and hypotension, but collapsible IJ on inspiration reduced probability of PE * Hypotension DD of newer bp meds, PE less likely, sepsis less likely responded to ivf, with probably low intravascular vol but patient clinically not dry * CAIT due to 2, acei, likely ATN developed as fena < 0.1% * Afib rate control, * EKG changes non specific in view of recent neg perfusion study * H/o DM on oha * Ex ivda, was on methadone program, fluid stool in the CT abd could secondary diarrhea * Fluid stool from above but w/u sent * Tobacco abuse Plan: * Rocephin, doxy * Stool w/u * Procalcitonin * Urine eosinophils * Empiric heparin, mean while venous doppler upper and lower ext, if need may do v/q scan * Hold all bp meds * See response to iv hydration, monitor urine output * Accuchecks, sliding scale as needed. * See orders for detail.
[2017-06-01] MEDS: Heparin25000 units/250ml 1/2NS 25,000 UNITS/250 ML BAG IV PRN ×2 (08:00→22:00)
[2017-06-01] MEDS ORDERED: Potassium Chloride 20 mEq ER Tab PO ONE (08:03)
--- NOTE | 2017-06-01 09:52 | RAD ---
PROCEDURE: CHEST RADIOGRAPH, 1 VIEW HISTORY: SOB COMPARISON: Comparison is made with 05/23/2017. FINDINGS: LUNGS: No significant interval change in the lungs noted since the previous exam. PLEURA: No pneumothorax or pleural fluid seen. CARDIOVASCULAR: Normal. OSSEOUS STRUCTURES: No significant abnormalities. VISUALIZED UPPER ABDOMEN: Normal. OTHER FINDINGS: None. IMPRESSION: No significant interval changes.
--- NOTE | 2017-06-01 20:45 | CP.PCM.CON ---
History of Present Illness - History of Present Illness History of Present Illness: Initial Nephrology Consultation: Assessment: critical non-oliguric Acute Kidney Injury (N17.9) likely due to ATN due to low BP/pre- renal state pneumonia chronic Hep C moderate TR with elevated RVSP Hypokalemia, Anemia, hyperphosphatemia Plan No acute need for renal replacement therapy at this time. Maintain hemodynamics stable Patient not on ACEI/ARB due to CAIT Monitor Input/Output, daily weights and renal function with basic metabolic panel recommend IVF as NS @ 100 ml/hr supplement electrolytes as needed will start on phos binders Check urine analysis, spot protein/creatinine and albumin/creatinine ratio Check C3, C4, ANCA (MPO and [place]-3), rheumatoid factor and serum cryoglobulin levels Dose meds/antibiotics for reduced GFR. Avoid fleets enema/magnesium based laxatives. Avoid nephrotoxins/NSAIDs/ iodinated contrast (unless needed emergently) Glycemic control Further work up/management as per primary team Thanks for allowing me to participate in care of your patient. Will follow patient with you. Please call if any Qs. d/w team Dr Dimitris Perez Office: [phone] Chief Complaint; SOB HPI: Pt is a61 M with hx of diabetes Mellitus ( years), hypertension (years), obesity, Ex drug abuse, chronic Hep C presented with complaints of SOB and being managed for pneumonia. renal consult for CAIT. his s.creat 1.1-1.4 when d/ c from hospital recently for similiar pulm presentation Denies OTC/herbal meds or NSAIDs No recent iodinated contrast exposure. obvious episodes of low BP (86/60) c/o cough and phlegm (non bloody). SOB better. ROS: Cardiovascular: No chest pain. Pulmonary: improved shortness of breath Gastrointestinal: denies abdominal pain No nausea. No vomiting. Genitourinary: No pain while urinating. Denies blood in urine. All other negative Physical Examination: General Appearance: Obese, Comfortable, in no acute respiratory distress, co- operative . on BiPAP Vitals reviewed and noted as below Head; Atraumatic, normocephalic ENT: no ulcers no thrush. Tongue is midline. Oropharynx: no rash or ulcers. EYES: Pupils are equal, round and reactive to light accommodation. Eye muscles and extraocular movement intact. Sclera is anicteric. Neck; supple no lymphadenopathy, no thyromegaly or bruit Lungs: Normal respiratory rate/effort. Breath sounds left base decreased with crackles Heart: Normal rate. s1s2 normal. No rub or gallop. Extremities: no edema. No varicose veins. upper extremities old scar noted Neurological: Patient is alert, awake and oriented to person, place and time. No focal deficit. Strength bilateral appropriate and equal Skin: Warm and dry. Normal turgor. No rash. Palpitation: Normal elasticity for age Abdomen: Abdomen is soft. Bowel sounds +. There is no abdominal tenderness, no guarding/rigidity no organomegaly Psych: normal insight and normal affect/mood MSK: no joint tenderness or swelling. Digits and nails normal, no deformity : kidney or bladder not palpable Labs/imaging reviewed. Past medical history, past surgical history, family history, social history, allergy reviewed and noted as below Family hx: no hx of CKD. Rest non-contributory echo normal LVEF. 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) Home Situation {Lives}: Alone Domestic Violence: Negative - CARDIAC Hx Atrial Fibrillation: Yes Hx Hypertension: Yes - PULMONARY Hx Respiratory Disorders: No Hx Pneumonia: Yes - NEUROLOGICAL Hx Neurological Disorder: No - HEENT Hx HEENT Problems: No - RENAL Hx Chronic Kidney Disease: No - ENDOCRINE/METABOLIC Hx Endocrine Disorders: No Hx Diabetes Mellitus Type 2: Yes - HEMATOLOGICAL/ONCOLOGICAL Hx Blood Disorders: No - INTEGUMENTARY Hx Dermatological Problems: No - MUSCULOSKELETAL/RHEUMATOLOGICAL Hx Falls: No - GASTROINTESTINAL Hx Nausea: Yes - GENITOURINARY/GYNECOLOGICAL Hx Genitourinary Disorders: No - PSYCHIATRIC Hx Substance Use: Yes (heroin) - SURGICAL HISTORY Hx Surgeries: No - ANESTHESIA Hx Anesthesia: No Hx Anesthesia Reactions: No Meds Allergies/Adverse Reactions: Allergies Allergy/AdvReac Type Severity Reaction Status Date / Time No Known Allergies Allergy Verified 05/31/17 21:31 - Medications Medications: Current Medications Albuterol/Ipratropium (Duoneb 3 Mg/0.5 Mg (3 Ml) Ud) 3 ml INH RQ6 SUAD Last Admin: 06/01/17 14:01 Dose: 3 ml Doxycycline Hyclate 100 mg/ (Sodium Chloride) 100 mls @ 100 mls/hr IVPB Q12H [facility] Last Admin: 06/01/17 13:35 Dose: 100 mls/hr Ceftriaxone Sodium 1 gm/ (Sodium Chloride) 100 mls @ 100 mls/hr IVPB DAILY [facility] Last Admin: 06/01/17 10:07 Dose: 100 mls/hr Heparin Sodium/Sodium Chloride (Heparin 09373 Units/250ml 1/2 Normal Saline) 25 ,000 units in 250 mls @ 12.701 mls/hr IV .[id number] PRN; Protocol; 14 UNITS/KG/HR PRN Reason: PROTOCOL Last Titration: 06/01/17 14:39 Dose: 13.99 units/kg/hr, 12.7 mls/hr Sodium Chloride (Sodium Chloride 0.9%) 1,000 mls @ 100 mls/hr IV .Q10H [facility] Insulin Aspart (Novolog) 0 unit SC ACHS [facility] PRN Reason: Protocol Last Admin: 06/01/17 04:50 Dose: 3 unit Methylprednisolone (Solu-Medrol) 40 mg IV Q12 [facility] Last Admin: 06/01/17 10:00 Dose: 40 mg Pantoprazole Sodium (Protonix Susp) 40 mg PO 0600 [facility] Last Admin: 06/01/17 06:15 Dose: 40 mg Results - Vital Signs Recent Vital Signs: Last Vital Signs Temp 98.4 F 06/01/17 16:00 Pulse 89 06/01/17 16:00 Resp 22 06/01/17 16:00 BP 103/60 06/01/17 01:40 Pulse Ox 99 06/01/17 16:00 - Labs Result Diagrams: 06/01/17 06:21 06/01/17 06:22 Labs: Laboratory Results - last 24 hr 05/31/17 05/31/17 05/31/17 22:00 22:05 22:29 WBC 20.4 H RBC 5.17 Hgb 12.1 Hct 38.2 MCV 74.0 L MCH 23.4 L MCHC 31.7 L RDW 18.7 H Plt Count 241 MPV 9.6 Neut % (Auto) 82.1 H Lymph % (Auto) 8.5 L [place] % (Auto) 8.8 Eos % (Auto) 0.2 Baso % (Auto) 0.4 Neut # (Auto) 16.8 H Lymph # (Auto) 1.7 [place] # (Auto) 1.8 H Eos # (Auto) 0.0 Baso # (Auto) 0.1 Neutrophils % (Manual) 84 H Band Neutrophils % 1 Lymphocytes % (Manual) 7 L Monocytes % (Manual) 7 Eosinophils % (Manual) 1 Platelet Estimate Normal Polychromasia Slight Hypochromasia (manual) Slight Anisocytosis (manual) Slight Microcytosis (manual) Slight Ovalocytes Slight PT INR APTT Puncture Site Rr pCO2 39 pO2 60 H 190 H HCO3 24.6 ABG pH 7.40 ABG Total CO2 25.4 ABG O2 Saturation 100.2 H ABG Base Excess -0.5 Marty Test P ABG Potassium 3.3 L VBG pH 7.36 VBG pCO2 42 VBG HCO3 23.3 VBG Total CO2 25.0 VBG O2 Sat (Calc) 93.5 H VBG Base Excess -1.8 L VBG Potassium 3.4 L A-a O2 Difference 474.0 Respiratory Index 2.5 Sodium 138.0 134.0 Chloride 100.0 103.0 Glucose 218 H 212 H Lactate 1.6 1.2 Vent Mode Bipap FiO2 100.0 Inspiratory BiPAP 12 Expiratory BiPAP 6 Potassium Carbon Dioxide Anion Gap BUN Creatinine Est GFR ( Amer) Est GFR (Non-Af Amer) POC Glucose (mg/dL) Random Glucose Calcium Phosphorus Magnesium Total Bilirubin AST ALT Alkaline Phosphatase Troponin I NT-Pro-B Natriuret Pep Total Protein Albumin Globulin Albumin/Globulin Ratio Arterial Blood Potassium 3.3 L Venous Blood Potassium 3.4 L Urine Color Urine Clarity Urine pH Ur Specific [place] Urine Protein Urine Glucose (UA) Urine Ketones Urine Blood Urine Nitrate Urine Bilirubin Urine Urobilinogen Ur Leukocyte Esterase Urine WBC (Auto) Ur Squamous Epith Cells Amorphous Sediment Urine Bacteria Granular Casts (Auto) Ur Random Creatinine Ur Random Sodium Urine Opiates Screen Urine Methadone Screen Ur Barbiturates Screen Ur Phencyclidine Scrn Ur Amphetamines Screen U Benzodiazepines Scrn U Oth Cocaine Metabols U Cannabinoids Screen Influenza Typ A,B (EIA) 05/31/17 05/31/17 05/31/17 22:29 22:29 23:48 WBC RBC Hgb Hct MCV MCH MCHC RDW Plt Count MPV Neut % (Auto) Lymph % (Auto) [place] % (Auto) Eos % (Auto) Baso % (Auto) Neut # (Auto) Lymph # (Auto) [place] # (Auto) Eos # (Auto) Baso # (Auto) Neutrophils % (Manual) Band Neutrophils % Lymphocytes % (Manual) Monocytes % (Manual) Eosinophils % (Manual) Platelet Estimate Polychromasia Hypochromasia (manual) Anisocytosis (manual) Microcytosis (manual) Ovalocytes PT 11.7 INR 1.0 APTT 27 Puncture Site pCO2 pO2 HCO3 ABG pH ABG Total CO2 ABG O2 Saturation ABG Base Excess Marty Test ABG Potassium VBG pH VBG pCO2 VBG HCO3 VBG Total CO2 VBG O2 Sat (Calc) VBG Base Excess VBG Potassium A-a O2 Difference Respiratory Index Sodium 133 Chloride 96 L Glucose Lactate Vent Mode FiO2 Inspiratory BiPAP Expiratory BiPAP Potassium 3.6 Carbon Dioxide 23 Anion Gap 18 BUN 85 H Creatinine 4.6 H Est GFR ( Amer) 16 Est GFR (Non-Af Amer) 13 POC Glucose (mg/dL) Random Glucose 200 H Calcium 8.8 Phosphorus Magnesium Total Bilirubin 0.6 AST 26 ALT 49 Alkaline Phosphatase 70 Troponin I 0.0710 NT-Pro-B Natriuret Pep 3840 H Total Protein 6.0 L Albumin 3.3 L Globulin 2.6 Albumin/Globulin Ratio 1.3 Arterial Blood Potassium Venous Blood Potassium Urine Color Urine Clarity Urine pH Ur Specific [place] Urine Protein Urine Glucose (UA) Urine Ketones Urine Blood Urine Nitrate Urine Bilirubin Urine Urobilinogen Ur Leukocyte Esterase Urine WBC (Auto) Ur Squamous Epith Cells Amorphous Sediment Urine Bacteria Granular Casts (Auto) Ur Random Creatinine Ur Random Sodium Urine Opiates Screen Urine Methadone Screen Ur Barbiturates Screen Ur Phencyclidine Scrn Ur Amphetamines Screen U Benzodiazepines Scrn U Oth Cocaine Metabols U Cannabinoids Screen Influenza Typ A,B (EIA) Negative for flu a/b 06/01/17 06/01/17 06/01/17 01:25 02:16 02:16 WBC RBC Hgb Hct MCV MCH MCHC RDW Plt Count MPV Neut % (Auto) Lymph % (Auto) [place] % (Auto) Eos % (Auto) Baso % (Auto) Neut # (Auto) Lymph # (Auto) [place] # (Auto) Eos # (Auto) Baso # (Auto) Neutrophils % (Manual) Band Neutrophils % Lymphocytes % (Manual) Monocytes % (Manual) Eosinophils % (Manual) Platelet Estimate Polychromasia Hypochromasia (manual) Anisocytosis (manual) Microcytosis (manual) Ovalocytes PT INR APTT Puncture Site pCO2 pO2 HCO3 ABG pH ABG Total CO2 ABG O2 Saturation ABG Base Excess Marty Test ABG Potassium VBG pH VBG pCO2 VBG HCO3 VBG Total CO2 VBG O2 Sat (Calc) VBG Base Excess VBG Potassium A-a O2 Difference Respiratory Index Sodium Chloride Glucose Lactate Vent Mode FiO2 Inspiratory BiPAP Expiratory BiPAP Potassium Carbon Dioxide Anion Gap BUN Creatinine Est GFR ( Amer) Est GFR (Non-Af Amer) POC Glucose (mg/dL) 166 H Random Glucose Calcium Phosphorus Magnesium Total Bilirubin AST ALT Alkaline Phosphatase Troponin I NT-Pro-B Natriuret Pep Total Protein Albumin Globulin Albumin/Globulin Ratio Arterial Blood Potassium Venous Blood Potassium Urine Color Radha Urine Clarity Hazy Urine pH 5.0 Ur Specific [place] 1.020 Urine Protein Negative Urine Glucose (UA) Normal Urine Ketones Negative Urine Blood Negative Urine Nitrate Negative Urine Bilirubin Negative Urine Urobilinogen Normal Ur Leukocyte Esterase Neg Urine WBC (Auto) 6 H Ur Squamous Epith Cells 1 Amorphous Sediment Occ H Urine Bacteria Rare Granular Casts (Auto) 179 Ur Random Creatinine 359.2 Ur Random Sodium 11 Urine Opiates Screen Positive H Urine Methadone Screen Positive H Ur Barbiturates Screen Negative Ur Phencyclidine Scrn Negative Ur Amphetamines Screen Negative U Benzodiazepines Scrn Positive U Oth Cocaine Metabols Negative U Cannabinoids Screen Negative Influenza Typ A,B (EIA) 06/01/17 06/01/17 06/01/17 06:21 06:22 06:22 WBC 19.9 H RBC 4.53 Hgb 10.8 L Hct 33.5 L MCV 73.9 L MCH 23.9 L MCHC 32.3 L RDW 18.2 H Plt Count 177 MPV 9.4 Neut % (Auto) 81.4 H Lymph % (Auto) 11.1 L [place] % (Auto) 7.0 Eos % (Auto) 0.4 Baso % (Auto) 0.1 Neut # (Auto) 16.2 H Lymph # (Auto) 2.2 [place] # (Auto) 1.4 H Eos # (Auto) 0.1 Baso # (Auto) 0.0 Neutrophils % (Manual) Band Neutrophils % Lymphocytes % (Manual) Monocytes % (Manual) Eosinophils % (Manual) Platelet Estimate Polychromasia Hypochromasia (manual) Anisocytosis (manual) Microcytosis (manual) Ovalocytes PT INR APTT 42 H D Puncture Site pCO2 pO2 HCO3 ABG pH ABG Total CO2 ABG O2 Saturation ABG Base Excess Marty Test ABG Potassium VBG pH VBG pCO2 VBG HCO3 VBG Total CO2 VBG O2 Sat (Calc) VBG Base Excess VBG Potassium A-a O2 Difference Respiratory Index Sodium 136 Chloride 103 Glucose Lactate Vent Mode FiO2 Inspiratory BiPAP Expiratory BiPAP Potassium 3.1 L Carbon Dioxide 22 Anion Gap 15 BUN 83 H Creatinine 4.6 H Est GFR ( Amer) 16 Est GFR (Non-Af Amer) 13 POC Glucose (mg/dL) Random Glucose 119 H Calcium 8.2 L Phosphorus 7.3 H Magnesium 2.4 H Total Bilirubin 0.5 AST 19 ALT 42 Alkaline Phosphatase 65 Troponin I NT-Pro-B Natriuret Pep Total Protein 4.9 L Albumin 2.6 L D Globulin 2.3 Albumin/Globulin Ratio 1.2 Arterial Blood Potassium Venous Blood Potassium Urine Color Urine Clarity Urine pH Ur Specific [place] Urine Protein Urine Glucose (UA) Urine Ketones Urine Blood Urine Nitrate Urine Bilirubin Urine Urobilinogen Ur Leukocyte Esterase Urine WBC (Auto) Ur Squamous Epith Cells Amorphous Sediment Urine Bacteria Granular Casts (Auto) Ur Random Creatinine Ur Random Sodium Urine Opiates Screen Urine Methadone Screen Ur Barbiturates Screen Ur Phencyclidine Scrn Ur Amphetamines Screen U Benzodiazepines Scrn U Oth Cocaine Metabols U Cannabinoids Screen Influenza Typ A,B (EIA) 06/01/17 06/01/17 16:23 19:58 WBC RBC Hgb Hct MCV MCH MCHC RDW Plt Count MPV Neut % (Auto) Lymph % (Auto) [place] % (Auto) Eos % (Auto) Baso % (Auto) Neut # (Auto) Lymph # (Auto) [place] # (Auto) Eos # (Auto) Baso # (Auto) Neutrophils % (Manual) Band Neutrophils % Lymphocytes % (Manual) Monocytes % (Manual) Eosinophils % (Manual) Platelet Estimate Polychromasia Hypochromasia (manual) Anisocytosis (manual) Microcytosis (manual) Ovalocytes PT INR APTT 46 H Puncture Site pCO2 pO2 HCO3 ABG pH ABG Total CO2 ABG O2 Saturation ABG Base Excess Marty Test ABG Potassium VBG pH VBG pCO2 VBG HCO3 VBG Total CO2 VBG O2 Sat (Calc) VBG Base Excess VBG Potassium A-a O2 Difference Respiratory Index Sodium Chloride Glucose Lactate Vent Mode FiO2 Inspiratory BiPAP Expiratory BiPAP Potassium Carbon Dioxide Anion Gap BUN Creatinine Est GFR ( Amer) Est GFR (Non-Af Amer) POC Glucose (mg/dL) 207 H Random Glucose Calcium Phosphorus Magnesium Total Bilirubin AST ALT Alkaline Phosphatase Troponin I NT-Pro-B Natriuret Pep Total Protein Albumin Globulin Albumin/Globulin Ratio Arterial Blood Potassium Venous Blood Potassium Urine Color Urine Clarity Urine pH Ur Specific [place] Urine Protein Urine Glucose (UA) Urine Ketones Urine Blood Urine Nitrate Urine Bilirubin Urine Urobilinogen Ur Leukocyte Esterase Urine WBC (Auto) Ur Squamous Epith Cells Amorphous Sediment Urine Bacteria Granular Casts (Auto) Ur Random Creatinine Ur Random Sodium Urine Opiates Screen Urine Methadone Screen Ur Barbiturates Screen Ur Phencyclidine Scrn Ur Amphetamines Screen U Benzodiazepines Scrn U Oth Cocaine Metabols U Cannabinoids Screen Influenza Typ A,B (EIA)
[2017-06-01] MEDS: Sodium Chloride 0.9% 1,000 ML IV SCH (20:59)
--- NOTE | 2017-06-02 01:13 | CP.PCM.HP ---
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) Home Situation {Lives}: Alone Domestic Violence: Negative - CARDIAC Hx Atrial Fibrillation: Yes Hx Hypertension: Yes - PULMONARY Hx Respiratory Disorders: No Hx Pneumonia: Yes - NEUROLOGICAL Hx Neurological Disorder: No - HEENT Hx HEENT Problems: No - RENAL Hx Chronic Kidney Disease: No - ENDOCRINE/METABOLIC Hx Endocrine Disorders: No Hx Diabetes Mellitus Type 2: Yes - HEMATOLOGICAL/ONCOLOGICAL Hx Blood Disorders: No - INTEGUMENTARY Hx Dermatological Problems: No - MUSCULOSKELETAL/RHEUMATOLOGICAL Hx Falls: No - GASTROINTESTINAL Hx Nausea: Yes - GENITOURINARY/GYNECOLOGICAL Hx Genitourinary Disorders: No - PSYCHIATRIC Hx Substance Use: Yes (heroin) - SURGICAL HISTORY Hx Surgeries: No - ANESTHESIA Hx Anesthesia: No Hx Anesthesia Reactions: No Meds Allergies/Adverse Reactions: Allergies Allergy/AdvReac Type Severity Reaction Status Date / Time No Known Allergies Allergy Verified 05/31/17 21:31 Results - Vital Signs Recent Vital Signs: Last Vital Signs Temp 98.3 F 06/02/17 00:00 Pulse 61 06/02/17 00:00 Resp 18 06/02/17 00:00 BP 110/59 L 06/02/17 00:00 Pulse Ox 95 06/02/17 00:00 - Labs Result Diagrams: 06/01/17 06:21 06/01/17 06:22 Labs: Laboratory Results - last 24 hr 06/01/17 06/01/17 06/01/17 01:25 02:16 02:16 WBC RBC Hgb Hct MCV MCH MCHC RDW Plt Count MPV Neut % (Auto) Lymph % (Auto) [place] % (Auto) Eos % (Auto) Baso % (Auto) Neut # (Auto) Lymph # (Auto) [place] # (Auto) Eos # (Auto) Baso # (Auto) APTT Sodium Potassium Chloride Carbon Dioxide Anion Gap BUN Creatinine Est GFR ( Amer) Est GFR (Non-Af Amer) POC Glucose (mg/dL) 166 H Random Glucose Calcium Phosphorus Magnesium Total Bilirubin AST ALT Alkaline Phosphatase Total Protein Albumin Globulin Albumin/Globulin Ratio Procalcitonin Urine Color Radha Urine Clarity Hazy Urine pH 5.0 Ur Specific [place] 1.020 Urine Protein Negative Urine Glucose (UA) Normal Urine Ketones Negative Urine Blood Negative Urine Nitrate Negative Urine Bilirubin Negative Urine Urobilinogen Normal Ur Leukocyte Esterase Neg Urine WBC (Auto) 6 H Ur Squamous Epith Cells 1 Amorphous Sediment Occ H Urine Bacteria Rare Granular Casts (Auto) 179 Ur Random Creatinine 359.2 Ur Random Sodium 11 Urine Opiates Screen Positive H Urine Methadone Screen Positive H Ur Barbiturates Screen Negative Ur Phencyclidine Scrn Negative Ur Amphetamines Screen Negative U Benzodiazepines Scrn Positive U Oth Cocaine Metabols Negative U Cannabinoids Screen Negative 06/01/17 06/01/17 06/01/17 06:21 06:22 06:22 WBC 19.9 H RBC 4.53 Hgb 10.8 L Hct 33.5 L MCV 73.9 L MCH 23.9 L MCHC 32.3 L RDW 18.2 H Plt Count 177 MPV 9.4 Neut % (Auto) 81.4 H Lymph % (Auto) 11.1 L [place] % (Auto) 7.0 Eos % (Auto) 0.4 Baso % (Auto) 0.1 Neut # (Auto) 16.2 H Lymph # (Auto) 2.2 [place] # (Auto) 1.4 H Eos # (Auto) 0.1 Baso # (Auto) 0.0 APTT 42 H D Sodium 136 Potassium 3.1 L Chloride 103 Carbon Dioxide 22 Anion Gap 15 BUN 83 H Creatinine 4.6 H Est GFR ( Amer) 16 Est GFR (Non-Af Amer) 13 POC Glucose (mg/dL) Random Glucose 119 H Calcium 8.2 L Phosphorus 7.3 H Magnesium 2.4 H Total Bilirubin 0.5 AST 19 ALT 42 Alkaline Phosphatase 65 Total Protein 4.9 L Albumin 2.6 L D Globulin 2.3 Albumin/Globulin Ratio 1.2 Procalcitonin Urine Color Urine Clarity Urine pH Ur Specific [place] Urine Protein Urine Glucose (UA) Urine Ketones Urine Blood Urine Nitrate Urine Bilirubin Urine Urobilinogen Ur Leukocyte Esterase Urine WBC (Auto) Ur Squamous Epith Cells Amorphous Sediment Urine Bacteria Granular Casts (Auto) Ur Random Creatinine Ur Random Sodium Urine Opiates Screen Urine Methadone Screen Ur Barbiturates Screen Ur Phencyclidine Scrn Ur Amphetamines Screen U Benzodiazepines Scrn U Oth Cocaine Metabols U Cannabinoids Screen 06/01/17 06/01/17 06/01/17 16:23 19:58 19:58 WBC RBC Hgb Hct MCV MCH MCHC RDW Plt Count MPV Neut % (Auto) Lymph % (Auto) [place] % (Auto) Eos % (Auto) Baso % (Auto) Neut # (Auto) Lymph # (Auto) [place] # (Auto) Eos # (Auto) Baso # (Auto) APTT 46 H Sodium Potassium Chloride Carbon Dioxide Anion Gap BUN Creatinine Est GFR ( Amer) Est GFR (Non-Af Amer) POC Glucose (mg/dL) 207 H Random Glucose Calcium Phosphorus Magnesium Total Bilirubin AST ALT Alkaline Phosphatase Total Protein Albumin Globulin Albumin/Globulin Ratio Procalcitonin 0.30 Urine Color Urine Clarity Urine pH Ur Specific [place] Urine Protein Urine Glucose (UA) Urine Ketones Urine Blood Urine Nitrate Urine Bilirubin Urine Urobilinogen Ur Leukocyte Esterase Urine WBC (Auto) Ur Squamous Epith Cells Amorphous Sediment Urine Bacteria Granular Casts (Auto) Ur Random Creatinine Ur Random Sodium Urine Opiates Screen Urine Methadone Screen Ur Barbiturates Screen Ur Phencyclidine Scrn Ur Amphetamines Screen U Benzodiazepines Scrn U Oth Cocaine Metabols U Cannabinoids Screen 06/01/17 21:21 WBC RBC Hgb Hct MCV MCH MCHC RDW Plt Count MPV Neut % (Auto) Lymph % (Auto) [place] % (Auto) Eos % (Auto) Baso % (Auto) Neut # (Auto) Lymph # (Auto) [place] # (Auto) Eos # (Auto) Baso # (Auto) APTT Sodium Potassium Chloride Carbon Dioxide Anion Gap BUN Creatinine Est GFR ( Amer) Est GFR (Non-Af Amer) POC Glucose (mg/dL) 238 H Random Glucose Calcium Phosphorus Magnesium Total Bilirubin AST ALT Alkaline Phosphatase Total Protein Albumin Globulin Albumin/Globulin Ratio Procalcitonin Urine Color Urine Clarity Urine pH Ur Specific [place] Urine Protein Urine Glucose (UA) Urine Ketones Urine Blood Urine Nitrate Urine Bilirubin Urine Urobilinogen Ur Leukocyte Esterase Urine WBC (Auto) Ur Squamous Epith Cells Amorphous Sediment Urine Bacteria Granular Casts (Auto) Ur Random Creatinine Ur Random Sodium Urine Opiates Screen Urine Methadone Screen Ur Barbiturates Screen Ur Phencyclidine Scrn Ur Amphetamines Screen U Benzodiazepines Scrn U Oth Cocaine Metabols U Cannabinoids Screen
[2017-06-02] MEDS: Albuterol-Ipratrop 3 mg / 0.5 (3 ml) UD INH SCH ×3 (02:00→13:28)
[2017-06-02] MEDS: Sodium Chloride 0.9% 1,000 ML IV SCH ×3 (03:45→18:56)
[2017-06-02 06:28] LABS: BASO % 0.1 % (0.0-2.0); HEMOGLOBIN 11.9 g/dL (12.0-18.0); LYMPH # 0.9 K/uL (1.0-4.3); LYMPH % 6.2 % (20.0-40.0); MEAN CELL VOLUME 73.5 fL (80.0-94.0); MEAN CORPUSCULAR HEMOGLOBIN 24.3 pg (27.0-31.0); MONO # 0.3 K/uL (0.0-0.8); MONO % 2.3 % (0.0-10.0); NEUT # 13.5 K/uL (1.8-7.0); NEUT % 91.4 % (50.0-75.0); PLATELET COUNT 160 K/uL (130-400); RED CELL DISTRIBUTION WIDTH 18.7 % (11.5-14.5); WHITE BLOOD COUNT 14.7 K/uL (4.8-10.8)
[2017-06-02 06:32] LABS: SQUAMOUS EPITHIAL 4 /hpf (0-5); URINE AMORPHOUS SEDIMENT OCC /ul (<OCC); URINE BILIRUBIN NEGATIVE (NEGATIVE); URINE BLOOD NEGATIVE (NEGATIVE); URINE CLARITY Hazy (Clear); URINE COLOR Yellow (YELLOW); URINE GLUCOSE (UA) NORMAL (Normal); URINE LEUKOCYTE ESTERASE TRACE Leu/uL (Negative); URINE PROTEIN NEGATIVE (NEGATIVE); URINE UROBILINOGEN NORMAL mg/dL (0.2-1.0)
[2017-06-02 06:46] LABS: CALCIUM 8.6 mg/dl (8.6-10.4)
[2017-06-02] MEDS: Pantoprazole 40 mg Susp UD PO SCH (06:54)
[2017-06-02 06:57] LABS: COMPLEMENT C4 32.6 mg/dL (14.0-44.0)
[2017-06-02 08:12] LABS: LYMPHOCYTE 6 % (20-40); MONOCYTE 2 % (0-10); NEUTROPHIL 92 % (50-75); TOTAL CELLS COUNTED 100
[2017-06-02 08:13] LABS: PLATELET ESTIMATE NORMAL (NORMAL)
[2017-06-02 08:14] LABS: ANISOCYTOSIS SLIGHT
[2017-06-02 08:15] LABS: BURR CELLS SLIGHT; OVALOCYTES SLIGHT; POIKILOCYTOSIS SLIGHT
[2017-06-02 08:16] LABS: SPHEROCYTES SLIGHT
--- NOTE | 2017-06-02 08:38 | CP.PCM.CON ---
History of Present Illness - History of Present Illness History of Present Illness: Covering for Dr. Carranza 61 M hx of DM2, HTN, A fib admitted for dyspnea and new T inversions in anterior leads Patient denies chest pain Recently worked up by Dr. Carranza (Normal EF and stress test) Review of Systems - Constitutional Constitutional: absent: As Per HPI, Anorexia, Chills, Daytime Sleepiness, Excessive Sweating, Fatigue, Fever, Frequent Falls, Headache, Increased Appetite , Lethargy, Malaise, Night Sweats, Snoring, Sleep Apnea, Weight Gain, Weight Loss, Weakness, Other - EENT Eyes: absent: As Per HPI, Blind Spots, Blurred Vision, Change in Vision, Decreased Night Vision, Diplopia, Discharge, Dry Eye, Exophthalmos, Floaters, Irritation, Itchy Eyes, Loss of Peripheral Vision, Pain, Photophobia, Requires Corrective Lenses, Sees Flashes, Spots in Vision, Tunnel Vision, Other Visual Disturbances, Loss of Vision, Other Ears: absent: As Per HPI, Decreased Hearing, Ear Discharge, Ear Pain, Tinnitus, Abnormal Hearing, Disequilibrium, Dizziness, Other Nose/Mouth/Throat: absent: As Per HPI, Epistaxis, Nasal Congestion, Nasal Discharge, Nasal Obstruction, Nasal Trauma, Nose Pain, Post Nasal Drip, Sinus Pain, Sinus Pressure, Bleeding Gums, Change in Voice, Dental Pain, Dry Mouth, Dysphagia, Halitosis, Hoarsness, Lip Swelling, Mouth Lesions, Mouth Pain, Odynophagia, Sore Throat, Throat Swelling, Tongue Swelling, Facial Pain, Neck Pain, Neck Mass, Other - Cardiovascular Cardiovascular: absent: Chest Pain - Respiratory Respiratory: Dyspnea - Gastrointestinal Gastrointestinal: absent: As Per HPI, Abdominal Pain, Belching, Bloating, Change in Bowel Habits, Change in Stool Character, Coffee Ground Emesis, Constipation, Cramping, Diarrhea, Dyspepsia, Dysphagia, Early Satiety, Excessive Flatus, Fecal Incontinence, Heartburn, Hematemesis, Hematochezia, Loose Stools, Melena, Nausea, Odynophagia, Temesmus, Vomiting, Other - Musculoskeletal Musculoskeletal: absent: As Per HPI, Abnormal Gait, Arthralgias, Atrophy, Back Pain, Deformity, Joint Swelling, Limited Range of Motion, Loss of Height, Muscle Cramps, Muscle Weakness, Myalgias, Neck Pain, Numbness, Radiating Pain into Limb, Stiffness, Tingling, Other - Integumentary Integumentary: absent: As Per HPI, Acne, Alopecia, Bleeding Lesions, Change in Hair, Change in Nails, Change in Pigmentation, Changing Lesions, Dry Skin, Erythema, Furuncle, Hirsutism, Lesions, New Lesions, Non-Healing Lesions, Photosensitivity, Pruritus, Rash, Skin Pain, Skin Ulcer, Sores, Striae, Swelling , Unusual Bruising, Wounds, Jaundice, Other - Neurological Neurological: absent: As Per HPI, Abnormal Gait, Abnormal Hearing, Abnormal Movements, Abnormal Speech, Behavioral Changes, Burning Sensations, Confusion, Convulsions, Disequilibrium, Dizziness, Numbness, Focal Weakness, Frequent Falls , Headaches, Lack of Coordination, Loss of Vision, Memory Loss, Paresthesias, Radicular Pain, Restless Legs, Sensory Deficit, Syncope, Tingling, Tremor, Vertigo, Weakness, Other Visual Disturbances, Other - Psychiatric Psychiatric: absent: As Per HPI, Abnormal Sleep Pattern, Anhedonia, Anxiety, Auditory Hallucinations, Behavioral Changes, Change in Appetite, Change in Libido, Confusion, Depression, Difficulty Concentrating, Hallucinations, Homicidal Ideation, Hopelessness, Irritability, Memory Loss, Mood Swings, Panic Attacks, Paranoia, Suicidal Ideation, Visual Hallucinations, Tactile Hallucinations, Other - Hematologic/Lymphatic Hematologic: absent: As Per HPI, Easy Bleeding, Easy Bruising, Lymphadenopathy, Other 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) Home Situation {Lives}: Alone Domestic Violence: Negative - CARDIAC Hx Atrial Fibrillation: Yes Hx Hypertension: Yes - PULMONARY Hx Respiratory Disorders: No Hx Pneumonia: Yes - NEUROLOGICAL Hx Neurological Disorder: No - HEENT Hx HEENT Problems: No - RENAL Hx Chronic Kidney Disease: No - ENDOCRINE/METABOLIC Hx Endocrine Disorders: No Hx Diabetes Mellitus Type 2: Yes - HEMATOLOGICAL/ONCOLOGICAL Hx Blood Disorders: No - INTEGUMENTARY Hx Dermatological Problems: No - MUSCULOSKELETAL/RHEUMATOLOGICAL Hx Falls: No - GASTROINTESTINAL Hx Nausea: Yes - GENITOURINARY/GYNECOLOGICAL Hx Genitourinary Disorders: No - PSYCHIATRIC Hx Substance Use: Yes (heroin) - SURGICAL HISTORY Hx Surgeries: No - ANESTHESIA Hx Anesthesia: No Hx Anesthesia Reactions: No Meds Allergies/Adverse Reactions: Allergies Allergy/AdvReac Type Severity Reaction Status Date / Time No Known Allergies Allergy Verified 05/31/17 21:31 - Medications Medications: Current Medications Albuterol/Ipratropium (Duoneb 3 Mg/0.5 Mg (3 Ml) Ud) 3 ml INH RQ6 [facility] Last Admin: 06/02/17 08:10 Dose: 3 ml Doxycycline Hyclate 100 mg/ (Sodium Chloride) 100 mls @ 100 mls/hr IVPB Q12H [facility] Last Admin: 06/02/17 01:15 Dose: 100 mls/hr Ceftriaxone Sodium 1 gm/ (Sodium Chloride) 100 mls @ 100 mls/hr IVPB DAILY [facility] Last Admin: 06/01/17 10:07 Dose: 100 mls/hr Heparin Sodium/Sodium Chloride (Heparin 63508 Units/250ml 1/2 Normal Saline) 25 ,000 units in 250 mls @ 12.701 mls/hr IV .[id number] PRN; Protocol; 14 UNITS/KG/HR PRN Reason: PROTOCOL Last Admin: 06/01/17 22:00 Dose: 13.99 units/kg/hr, 12.7 mls/hr Sodium Chloride (Sodium Chloride 0.9%) 1,000 mls @ 100 mls/hr IV .Q10H [facility] Last Admin: 06/02/17 07:03 Dose: 100 mls/hr Insulin Aspart (Novolog) 0 unit SC ACHS [facility] PRN Reason: Protocol Last Admin: 06/01/17 22:05 Dose: Not Given Methylprednisolone (Solu-Medrol) 40 mg IV Q12 [facility] Last Admin: 06/01/17 21:07 Dose: 40 mg Pantoprazole Sodium (Protonix Susp) 40 mg PO 0600 [facility] Last Admin: 06/02/17 06:54 Dose: 40 mg Sevelamer Carbonate (Renvela) 800 mg PO TIDCC [facility] Physical Exam - Head Exam Head Exam: ATRAUMATIC, NORMAL INSPECTION - Eye Exam Eye Exam: EOMI, Normal appearance, PERRL Pupil Exam: NORMAL ACCOMODATION - ENT Exam ENT Exam: Mucous Membranes Moist, Normal Exam - Neck Exam Neck exam: Positive for: Normal Inspection - Respiratory Exam Respiratory Exam: NORMAL BREATHING PATTERN - Cardiovascular Exam Cardiovascular Exam: Irregular Rhythm, +S1, +S2 - GI/Abdominal Exam GI & Abdominal Exam: Normal Bowel Sounds, Soft - Extremities Exam Extremities exam: Positive for: normal inspection - Neurological Exam Neurological exam: Alert, CN II-XII Intact - Psychiatric Exam Psychiatric exam: Normal Mood - Skin Skin Exam: Warm Results - Vital Signs Recent Vital Signs: Last Vital Signs Temp 98.7 F 06/02/17 04:00 Pulse 66 06/02/17 04:00 Resp 18 06/02/17 04:00 BP 112/59 L 06/02/17 04:00 Pulse Ox 95 06/02/17 04:00 - Labs Result Diagrams: 06/02/17 06:21 06/02/17 06:21 Labs: Laboratory Results - last 24 hr 06/01/17 06/01/17 06/01/17 16:23 19:58 19:58 WBC RBC Hgb Hct MCV MCH MCHC RDW Plt Count MPV Neut % (Auto) Lymph % (Auto) [place] % (Auto) Eos % (Auto) Baso % (Auto) Neut # (Auto) Lymph # (Auto) [place] # (Auto) Eos # (Auto) Baso # (Auto) Neutrophils % (Manual) Lymphocytes % (Manual) Monocytes % (Manual) Platelet Estimate Poikilocytosis (manual Anisocytosis (manual) Spherocytes Ovalocytes [place] Cells APTT 46 H Sodium Potassium Chloride Carbon Dioxide Anion Gap BUN Creatinine Est GFR ( Amer) Est GFR (Non-Af Amer) POC Glucose (mg/dL) 207 H Random Glucose Calcium Phosphorus Procalcitonin 0.30 Urine Color Urine Clarity Urine pH Ur Specific [place] Urine Protein Urine Glucose (UA) Urine Ketones Urine Blood Urine Nitrate Urine Bilirubin Urine Urobilinogen Ur Leukocyte Esterase Urine WBC (Auto) Ur Squamous Epith Cells Amorphous Sediment Complement C3 Complement C4 06/01/17 06/02/17 06/02/17 21:21 06:21 06:21 WBC 14.7 H RBC 4.90 Hgb 11.9 L Hct 36.0 MCV 73.5 L MCH 24.3 L MCHC 33.0 RDW 18.7 H Plt Count 160 MPV 10.0 Neut % (Auto) 91.4 H Lymph % (Auto) 6.2 L [place] % (Auto) 2.3 Eos % (Auto) 0.0 Baso % (Auto) 0.1 Neut # (Auto) 13.5 H Lymph # (Auto) 0.9 L [place] # (Auto) 0.3 Eos # (Auto) 0.0 Baso # (Auto) 0.0 Neutrophils % (Manual) 92 H Lymphocytes % (Manual) 6 L Monocytes % (Manual) 2 Platelet Estimate Normal Poikilocytosis (manual Slight Anisocytosis (manual) Slight Spherocytes Slight Ovalocytes Slight [place] Cells Slight APTT Sodium Potassium Chloride Carbon Dioxide Anion Gap BUN Creatinine Est GFR ( Amer) Est GFR (Non-Af Amer) POC Glucose (mg/dL) 238 H Random Glucose Calcium Phosphorus Procalcitonin Urine Color Urine Clarity Urine pH Ur Specific [place] Urine Protein Urine Glucose (UA) Urine Ketones Urine Blood Urine Nitrate Urine Bilirubin Urine Urobilinogen Ur Leukocyte Esterase Urine WBC (Auto) Ur Squamous Epith Cells Amorphous Sediment Complement C3 66.0 L Complement C4 32.6 06/02/17 06/02/17 06/02/17 06:21 06:26 08:32 WBC RBC Hgb Hct MCV MCH MCHC RDW Plt Count MPV Neut % (Auto) Lymph % (Auto) [place] % (Auto) Eos % (Auto) Baso % (Auto) Neut # (Auto) Lymph # (Auto) [place] # (Auto) Eos # (Auto) Baso # (Auto) Neutrophils % (Manual) Lymphocytes % (Manual) Monocytes % (Manual) Platelet Estimate Poikilocytosis (manual Anisocytosis (manual) Spherocytes Ovalocytes [place] Cells APTT Sodium 134 Potassium 4.9 Chloride 108 H Carbon Dioxide 16 L Anion Gap 16 BUN 78 H Creatinine 3.3 H Est GFR ( Amer) 23 Est GFR (Non-Af Amer) 19 POC Glucose (mg/dL) 189 H Random Glucose 163 H Calcium 8.6 Phosphorus 5.2 H Procalcitonin Urine Color Yellow Urine Clarity Hazy Urine pH 5.0 Ur Specific [place] 1.017 Urine Protein Negative Urine Glucose (UA) Normal Urine Ketones Negative Urine Blood Negative Urine Nitrate Negative Urine Bilirubin Negative Urine Urobilinogen Normal Ur Leukocyte Esterase Trace Urine WBC (Auto) 11 H Ur Squamous Epith Cells 4 Amorphous Sediment Occ H Complement C3 Complement C4 Assessment & Plan - Assessment and Plan (Free Text) Assessment: 61 Male admitted with dyspnea New EKG changes likely secondary to Hypertensive heart disease Check Troponin Anticoagulation for A Fib Treat peumonia If questions consider VQ r/o PE CAIT renal on the case
--- NOTE | 2017-06-02 09:05 | CP.PCM.PN ---
Subjective - Date & Time of Evaluation Date of Evaluation: 06/02/17 Time of Evaluation: 09:02 - Subjective Subjective: Patient seen and examined at bedside. Patient has no acute events overnight. Eating breaskfast off bipap. denies any complaint. Patient stated that he does not need methadone anymore b/c he missed many outpatient methadone clinic and was titrated down from 170 mg to 40 mg and today he stated that he does not need any methadone. Objective - Vital Signs/Intake and Output Vital Signs (last 24 hours): Temp Pulse Resp BP Pulse Ox 98.7 F 66 18 112/59 L 95 06/02/17 04:00 06/02/17 04:00 06/02/17 04:00 06/02/17 04:00 06/02/17 04:00 Intake and Output: 06/02/17 06/02/17 06:59 18:59 Intake Total 1852.4 112.7 Output Total 1100 300 Balance 752.4 -187.3 - Medications Medications: Current Medications Albuterol/Ipratropium (Duoneb 3 Mg/0.5 Mg (3 Ml) Ud) 3 ml INH RQ6 [facility] Last Admin: 06/02/17 08:10 Dose: 3 ml Doxycycline Hyclate 100 mg/ (Sodium Chloride) 100 mls @ 100 mls/hr IVPB Q12H [facility] Last Admin: 06/02/17 01:15 Dose: 100 mls/hr Ceftriaxone Sodium 1 gm/ (Sodium Chloride) 100 mls @ 100 mls/hr IVPB DAILY [facility] Last Admin: 06/01/17 10:07 Dose: 100 mls/hr Heparin Sodium/Sodium Chloride (Heparin 10646 Units/250ml 1/2 Normal Saline) 25 ,000 units in 250 mls @ 12.701 mls/hr IV .[id number] PRN; Protocol; 14 UNITS/KG/HR PRN Reason: PROTOCOL Last Admin: 06/01/17 22:00 Dose: 13.99 units/kg/hr, 12.7 mls/hr Sodium Chloride (Sodium Chloride 0.9%) 1,000 mls @ 100 mls/hr IV .Q10H [facility] Last Admin: 06/02/17 07:03 Dose: 100 mls/hr Insulin Aspart (Novolog) 0 unit SC ACHS [facility] PRN Reason: Protocol Last Admin: 06/01/17 22:05 Dose: Not Given Methylprednisolone (Solu-Medrol) 40 mg IV Q12 [facility] Last Admin: 06/01/17 21:07 Dose: 40 mg Pantoprazole Sodium (Protonix Susp) 40 mg PO 0600 [facility] Last Admin: 06/02/17 06:54 Dose: 40 mg Sevelamer Carbonate (Renvela) 800 mg PO TIDCC [facility] - Labs Labs: 06/02/17 06:21 06/02/17 06:21 PT 11.7 SECONDS (9.7-12.2) 05/31/17 22:29 INR 1.0 05/31/17 22:29 APTT 46 SECONDS (21-34) H 06/01/17 19:58 - Constitutional Appears: Well, Non-toxic, No Acute Distress - Head Exam Head Exam: ATRAUMATIC, NORMAL INSPECTION, NORMOCEPHALIC - Eye Exam Pupil Exam: NORMAL ACCOMODATION, PERRL - ENT Exam ENT Exam: Mucous Membranes Moist - Respiratory Exam Respiratory Exam: Rales, NORMAL BREATHING PATTERN - Cardiovascular Exam Cardiovascular Exam: REGULAR RHYTHM, +S1, +S2, +S4 - GI/Abdominal Exam GI & Abdominal Exam: Normal Bowel Sounds - Extremities Exam Additional comments: multiple tatoos with left arm scar from previous scarring c/w IV injection site soft tissue infection which has healed, no redness, no pain, no swelling Assessment and Plan - Assessment and Plan (Free Text) Plan: -CAIT: 2nd pre-renal phase, continue low dose NS at 100 ml, creatinine improving -Hypoxic respiratory failure: NC during the day and bi-pap PRN -h/o DM: continue ISS, check HBA1c -avoid any sedatoin (utox positive) -sepsis: lactic decreasing, no fevers, tolerating ctx and doxy -CHronic diatolic heart failure: continue rx as per cardiology, continu negative balance, will benefit from asa, statin, AV forrest lblocker, not a candidate for ACEi 2nd CAIT, currently on IV heparin -continue dvt/pud ppx: heparin/protonix Patient remains hemodynamically stable. d/w ICu team
--- NOTE | 2017-06-02 09:25 | CP.PCM.PN ---
Subjective - Date & Time of Evaluation Date of Evaluation: 06/02/17 Time of Evaluation: 09:10 Objective - Vital Signs/Intake and Output Vital Signs (last 24 hours): Temp Pulse Resp BP Pulse Ox 98.7 F 66 18 112/59 L 95 06/02/17 04:00 06/02/17 04:00 06/02/17 04:00 06/02/17 04:00 06/02/17 04:00 Intake and Output: 06/02/17 06/02/17 06:59 18:59 Intake Total 1852.4 112.7 Output Total 1100 300 Balance 752.4 -187.3 - Medications Medications: Current Medications Albuterol/Ipratropium (Duoneb 3 Mg/0.5 Mg (3 Ml) Ud) 3 ml INH RQ6 [facility] Last Admin: 06/02/17 08:10 Dose: 3 ml Doxycycline Hyclate 100 mg/ (Sodium Chloride) 100 mls @ 100 mls/hr IVPB Q12H [facility] Last Admin: 06/02/17 01:15 Dose: 100 mls/hr Ceftriaxone Sodium 1 gm/ (Sodium Chloride) 100 mls @ 100 mls/hr IVPB DAILY [facility] Last Admin: 06/01/17 10:07 Dose: 100 mls/hr Heparin Sodium/Sodium Chloride (Heparin 02577 Units/250ml 1/2 Normal Saline) 25 ,000 units in 250 mls @ 12.701 mls/hr IV .[id number] PRN; Protocol; 14 UNITS/KG/HR PRN Reason: PROTOCOL Last Admin: 06/01/17 22:00 Dose: 13.99 units/kg/hr, 12.7 mls/hr Sodium Chloride (Sodium Chloride 0.9%) 1,000 mls @ 100 mls/hr IV .Q10H [facility] Last Admin: 06/02/17 07:03 Dose: 100 mls/hr Insulin Aspart (Novolog) 0 unit SC ACHS [facility] PRN Reason: Protocol Last Admin: 06/01/17 22:05 Dose: Not Given Methylprednisolone (Solu-Medrol) 40 mg IV Q12 [facility] Last Admin: 06/02/17 09:23 Dose: 40 mg Pantoprazole Sodium (Protonix Susp) 40 mg PO 0600 [facility] Last Admin: 06/02/17 06:54 Dose: 40 mg Sevelamer Carbonate (Renvela) 800 mg PO TIDCC [facility] Last Admin: 06/02/17 09:22 Dose: 800 mg - Labs Labs: 06/02/17 06:21 06/02/17 06:21 PT 11.7 SECONDS (9.7-12.2) 05/31/17 22:29 INR 1.0 05/31/17 22:29 APTT 38 SECONDS (21-34) H D 06/02/17 08:34
[2017-06-02] MEDS: (Novolog) Insulin Aspart, Recombinant 100 u/ml 10 ml vial SC SCH ×4 (09:35→22:08)
--- NOTE | 2017-06-02 10:08 | RAD ---
HISTORY: eval effusion COMPARISON: Comparison is made with 05/31/2017 FINDINGS: LUNGS: Mild haziness is again noted in the lungs more prominent in the right. No evidence of new infiltrate or consolidation. PLEURA: No evidence of significant pleural effusion or pneumothorax. CARDIOVASCULAR: Normal. OSSEOUS STRUCTURES: No significant abnormalities. VISUALIZED UPPER ABDOMEN: Normal. OTHER FINDINGS: None. IMPRESSION: No significant interval change noted since the previous exam. No evidence of significant pleural effusion.
[2017-06-02 10:31] LABS: C DIFF TOXIN A B NEGATIVE (NEGATIVE)
[2017-06-02 10:55] LABS: CK-MB 0.94 ng/mL (0.0-3.38)
--- NOTE | 2017-06-02 11:15 | CP.PCM.PN ---
Subjective - Date & Time of Evaluation Date of Evaluation: 06/02/17 Time of Evaluation: 11:12 - Subjective Subjective: Follow up Nephrology Consultation: Assessment: stable non-oliguric Acute Kidney Injury (N17.9) likely due to ATN due to low BP/pre- renal state: improved pneumonia chronic Hep C moderate TR with elevated RVSP Hypokalemia, Anemia, hyperphosphatemia Plan No acute need for renal replacement therapy at this time. Maintain hemodynamics stable Patient not on ACEI/ARB due to CAIT Monitor Input/Output, daily weights and renal function with basic metabolic panel continue with IVF as NS @ 75-100 ml/hr supplement electrolytes as needed will start on phos binders as phoslo also add sodium bicarb 1300 mg bid Check urine analysis, spot protein/creatinine and albumin/creatinine ratio Check C3, C4, ANCA (MPO and [place]-3), rheumatoid factor and serum cryoglobulin levels Dose meds/antibiotics for reduced GFR. Avoid fleets enema/magnesium based laxatives. Avoid nephrotoxins/NSAIDs/ iodinated contrast (unless needed emergently) Glycemic control Further work up/management as per primary team Thanks for allowing me to participate in care of your patient. Will follow patient with you. Please call if any Qs. d/w team Dr Dimitris Perez Office: [phone] Chief Complaint; feels better HPI: Pt is a61 M with hx of diabetes Mellitus ( years), hypertension (years), obesity, Ex drug abuse, chronic Hep C presented with complaints of SOB and being managed for pneumonia. renal consult for CAIT. his s.creat 1.1-1.4 when d/ c from hospital recently for similiar pulm presentation Denies OTC/herbal meds or NSAIDs No recent iodinated contrast exposure. obvious episodes of low BP (86/60) c/o cough and phlegm (non bloody). SOB better. ROS: Cardiovascular: No chest pain. Pulmonary: improved shortness of breath Gastrointestinal: denies abdominal pain No nausea. No vomiting. Genitourinary: No pain while urinating. Denies blood in urine. All other negative Physical Examination: General Appearance: Obese, Comfortable, in no acute respiratory distress, co- operative . Vitals reviewed and noted as below Head; Atraumatic, normocephalic ENT: no ulcers no thrush. Tongue is midline. Oropharynx: no rash or ulcers. EYES: Pupils are equal, round and reactive to light accommodation. Eye muscles and extraocular movement intact. Sclera is anicteric. Neck; supple no lymphadenopathy, no thyromegaly or bruit Lungs: Normal respiratory rate/effort. Breath sounds left base decreased with crackles Heart: Normal rate. s1s2 normal. No rub or gallop. Extremities: no edema. No varicose veins. upper extremities old scar noted Neurological: Patient is alert, awake and oriented to person, place and time. No focal deficit. Strength bilateral appropriate and equal Skin: Warm and dry. Normal turgor. No rash. Palpitation: Normal elasticity for age Abdomen: Abdomen is soft. Bowel sounds +. There is no abdominal tenderness, no guarding/rigidity no organomegaly Psych: normal insight and normal affect/mood MSK: no joint tenderness or swelling. Digits and nails normal, no deformity : kidney or bladder not palpable Labs/imaging reviewed. Past medical history, past surgical history, family history, social history, allergy reviewed and noted as below Family hx: no hx of CKD. Rest non-contributory echo normal LVEF. has moderate TR with RVSP 40-50 Urine Na 11 Objective - Vital Signs/Intake and Output Vital Signs (last 24 hours): Temp Pulse Resp BP Pulse Ox 98.7 F 66 18 112/59 L 95 06/02/17 04:00 06/02/17 04:00 06/02/17 04:00 06/02/17 04:00 06/02/17 04:00 Intake and Output: 06/02/17 06/02/17 06:59 18:59 Intake Total 1852.4 272.7 Output Total 1100 300 Balance 752.4 -27.3 - Medications Medications: Current Medications Albuterol/Ipratropium (Duoneb 3 Mg/0.5 Mg (3 Ml) Ud) 3 ml INH RQ6 [facility] Last Admin: 06/02/17 08:10 Dose: 3 ml Doxycycline Hyclate 100 mg/ (Sodium Chloride) 100 mls @ 100 mls/hr IVPB Q12H [facility] Last Admin: 06/02/17 01:15 Dose: 100 mls/hr Ceftriaxone Sodium 1 gm/ (Sodium Chloride) 100 mls @ 100 mls/hr IVPB DAILY [facility] Last Admin: 06/02/17 09:26 Dose: 100 mls/hr Heparin Sodium/Sodium Chloride (Heparin 53945 Units/250ml 1/2 Normal Saline) 25 ,000 units in 250 mls @ 12.701 mls/hr IV .[id number] PRN; Protocol; 14 UNITS/KG/HR PRN Reason: PROTOCOL Last Titration: 06/02/17 10:00 Dose: 16.2 units/kg/hr, 14.7 mls/hr Sodium Chloride (Sodium Chloride 0.9%) 1,000 mls @ 100 mls/hr IV .Q10H [facility] Last Admin: 06/02/17 07:03 Dose: 100 mls/hr Insulin Aspart (Novolog) 0 unit SC ACHS [facility] PRN Reason: Protocol Last Admin: 06/02/17 09:35 Dose: 2 unit Methylprednisolone (Solu-Medrol) 40 mg IV Q12 [facility] Last Admin: 06/02/17 09:23 Dose: 40 mg Pantoprazole Sodium (Protonix Susp) 40 mg PO 0600 [facility] Last Admin: 06/02/17 06:54 Dose: 40 mg Sevelamer Carbonate (Renvela) 800 mg PO TIDCC [facility] Last Admin: 06/02/17 09:22 Dose: 800 mg Sodium Bicarbonate (Sodium Bicarbonate Tab) 1,300 mg PO BID [facility] Last Admin: 06/02/17 10:42 Dose: 1,300 mg - Labs Labs: 06/02/17 06:21 06/02/17 06:21 PT 11.7 SECONDS (9.7-12.2) 05/31/17 22:29 INR 1.0 05/31/17 22:29 APTT 38 SECONDS (21-34) H D 06/02/17 08:34
[2017-06-02 14:52] LABS: FECAL LEUKOCYTES NEGATIVE (NEGATIVE)
[2017-06-02] MEDS: Heparin25000 units/250ml 1/2NS 25,000 UNITS/250 ML BAG IV PRN (17:41)
[2017-06-03] MEDS: Albuterol-Ipratrop 3 mg / 0.5 (3 ml) UD INH SCH ×4 (02:01→19:52)
[2017-06-03] MEDS ORDERED: Heparin25000 units/250ml 1/2NS 25,000 UNITS/250 ML BAG IV PRN (03:00)
[2017-06-03] MEDS: Sodium Chloride 0.9% 1,000 ML IV SCH ×2 (06:57→09:47)
[2017-06-03] MEDS: Pantoprazole 40 mg Susp UD PO SCH (06:57)
--- NOTE | 2017-06-03 08:45 | CP.PCM.PN ---
Subjective - Date & Time of Evaluation Date of Evaluation: 05/27/17 Time of Evaluation: 10:00 - Subjective Subjective: Subjective: Patient seen and examined at bedside. No acute overnight events. States his upper extremity swelling has improved since baseline. States chest pain has resolved. Offers no new complaints at this time. Denies fever, chills, SOB, palpitations. ROS negative except as indicated in the HPI Physical Examination: - Head Exam Head Exam: ATRAUMATIC, NORMAL INSPECTION - Eye Exam Eye Exam: EOMI, Normal appearance, PERRL Pupil Exam: NORMAL ACCOMODATION - ENT Exam ENT Exam: Mucous Membranes Moist, Normal Exam - Neck Exam Neck exam: Positive for: Normal Inspection - Respiratory Exam Respiratory Exam: NORMAL BREATHING PATTERN - Cardiovascular Exam Cardiovascular Exam: Irregular Rhythm, +S1, +S2 - GI/Abdominal Exam GI & Abdominal Exam: Normal Bowel Sounds, Soft - Extremities Exam Extremities exam: Positive for: bilateral upper extremity edema - Neurological Exam Neurological exam: Awake, alert, responds to verbal stimuli, answers questions appropriately, follows commands, and moves extremities past midline - Psychiatric Exam Psychiatric exam: Normal Mood, normal affect - Skin Skin Exam: Warm, dry, right upper extremity scar tissue Assessment and Plan: Patient is a 61 year old male with PMHx of DM, HTN, Afib not on anticoaguation, recent pna, IVDA, 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 EKG Abnormality - EKG reviewed and appreciated- Atrial Fibrillation HR 69 bpm, QTc- 486ms, lateral leads marked ST abnormalities - likely 2/2 to hypertensive heart disease - troponin less than 0.120 x 1 - no acute intervention at this time Atrial Fibrillation - rate controlled without pharmaceutical agent - [id number] is 2, discontinue heparin drip with 3 hour overlap with eliquis 5mg PO BID Pneumonial; SOB - continue with ceftriaxone and doxycycline - continue with duonebs and solumedrol Hx of HTN - BP was 90s/60s on admission- home antihypertensive medications held - BP reviewed, trended, and appreciated- BP 150s/ 80s, recommend starting home hydralazine goal SBP 90-150mmHg, goal DBP 90-100mmHg Non-Oliguric CAIT, Hyperphosphatemia - likely pre-renal in nature - continue with IVF and sodium bicarb tablets - nephrology consulted- appreciate recommendations Prophylaxis - DVT ppx eliquis - GI ppx protonix Patient case discussed with and plan approved by attending physician, Dr. Carranza. Objective - Vital Signs/Intake and Output Vital Signs (last 24 hours): Temp Pulse Resp BP Pulse Ox 97.5 F L 82 20 153/84 H 96 06/03/17 07:10 06/03/17 07:10 06/03/17 07:10 06/03/17 07:10 06/03/17 07:10 - Medications Medications: Current Medications Albuterol/Ipratropium (Duoneb 3 Mg/0.5 Mg (3 Ml) Ud) 3 ml INH RQ6 [facility] Last Admin: 06/03/17 07:22 Dose: 3 ml Calcium Acetate (Phoslo) 667 mg PO TIDCC [facility] Last Admin: 06/02/17 16:42 Dose: 667 mg Doxycycline Hyclate 100 mg/ (Sodium Chloride) 100 mls @ 100 mls/hr IVPB Q12H [facility] Last Admin: 06/03/17 02:39 Dose: 100 mls/hr Ceftriaxone Sodium 1 gm/ (Sodium Chloride) 100 mls @ 100 mls/hr IVPB DAILY [facility] Last Admin: 06/02/17 09:26 Dose: 100 mls/hr Sodium Chloride (Sodium Chloride 0.9%) 1,000 mls @ 100 mls/hr IV .Q10H [facility] Last Admin: 06/03/17 06:57 Dose: 100 mls/hr Heparin Sodium/Sodium Chloride (Heparin 93458 Units/250ml 1/2 Normal Saline) 25 ,000 units in 250 mls @ 14.515 mls/hr IV .[id number] PRN; Protocol; 16 UNITS/KG/HR PRN Reason: PROTOCOL Last Admin: 06/03/17 02:15 Dose: 16 units/kg/hr, 14.515 mls/hr Insulin Aspart (Novolog) 0 unit SC ACHS [facility] PRN Reason: Protocol Last Admin: 06/02/17 22:08 Dose: Not Given Methylprednisolone (Solu-Medrol) 40 mg IV Q12 [facility] Last Admin: 06/02/17 22:16 Dose: 40 mg Pantoprazole Sodium (Protonix Susp) 40 mg PO 0600 [facility] Last Admin: 06/03/17 06:57 Dose: 40 mg Sodium Bicarbonate (Sodium Bicarbonate Tab) 1,300 mg PO BID [facility] Last Admin: 06/02/17 17:49 Dose: 1,300 mg - Labs Labs: 06/02/17 06:21 06/02/17 06:21 PT 11.7 SECONDS (9.7-12.2) 05/31/17 22:29 INR 1.0 05/31/17 22:29 APTT 37 SECONDS (21-34) H D 06/03/17 02:15
[2017-06-03 09:14] LABS: INR 1.1; PROTHROMBIN TIME 11.9 SECONDS (9.7-12.2)
[2017-06-03] MEDS: (Novolog) Insulin Aspart, Recombinant 100 u/ml 10 ml vial SC SCH ×4 (09:37→22:45)
--- NOTE | 2017-06-03 11:37 | CP.PCM.PN ---
Subjective - Date & Time of Evaluation Date of Evaluation: 06/03/17 Time of Evaluation: 11:36 - Subjective Subjective: Follow up Nephrology Consultation: Assessment: stable non-oliguric Acute Kidney Injury (N17.9) likely due to ATN due to low BP/pre- renal state: improved pneumonia chronic Hep C moderate TR with elevated RVSP Hypokalemia, Anemia, hyperphosphatemia Plan No acute need for renal replacement therapy at this time. Maintain hemodynamics stable Patient not on ACEI/ARB due to CAIT Monitor Input/Output, daily weights and renal function with basic metabolic panel d/c IVF supplement electrolytes as needed will start on phos binders as phoslo also add sodium bicarb 1300 mg bid Check urine analysis, spot protein/creatinine and albumin/creatinine ratio Check C3, C4, ANCA (MPO and VA-3), rheumatoid factor and serum cryoglobulin levels Dose meds/antibiotics for reduced GFR. Avoid fleets enema/magnesium based laxatives. Avoid nephrotoxins/NSAIDs/ iodinated contrast (unless needed emergently) Glycemic control Further work up/management as per primary team Thanks for allowing me to participate in care of your patient. Will follow patient with you. Please call if any Qs. d/w team Dr Dimitris Perez Office: [phone] Chief Complaint; feels better HPI: Pt is a61 M with hx of diabetes Mellitus ( years), hypertension (years), obesity, Ex drug abuse, chronic Hep C presented with complaints of SOB and being managed for pneumonia. renal consult for CAIT. his s.creat 1.1-1.4 when d/ c from hospital recently for similiar pulm presentation Denies OTC/herbal meds or NSAIDs No recent iodinated contrast exposure. obvious episodes of low BP (86/60) c/o cough and phlegm (non bloody). SOB better. ROS: Cardiovascular: No chest pain. Pulmonary: improved shortness of breath Gastrointestinal: denies abdominal pain No nausea. No vomiting. Genitourinary: No pain while urinating. Denies blood in urine. All other negative Physical Examination: General Appearance: Obese, Comfortable, in no acute respiratory distress, co- operative . Vitals reviewed and noted as below Head; Atraumatic, normocephalic ENT: no ulcers no thrush. Tongue is midline. Oropharynx: no rash or ulcers. EYES: Pupils are equal, round and reactive to light accommodation. Eye muscles and extraocular movement intact. Sclera is anicteric. Neck; supple no lymphadenopathy, no thyromegaly or bruit Lungs: Normal respiratory rate/effort. Breath sounds bases + with crackles Heart: Normal rate. s1s2 normal. No rub or gallop. Extremities: trace edema. No varicose veins. upper extremities old scar noted Neurological: Patient is alert, awake and oriented to person, place and time. No focal deficit. Strength bilateral appropriate and equal Skin: Warm and dry. Normal turgor. No rash. Palpitation: Normal elasticity for age Abdomen: Abdomen is soft. Bowel sounds +. There is no abdominal tenderness, no guarding/rigidity no organomegaly Psych: normal insight and normal affect/mood MSK: no joint tenderness or swelling. Digits and nails normal, no deformity : kidney or bladder not palpable Labs/imaging reviewed. Past medical history, past surgical history, family history, social history, allergy reviewed and noted as below Family hx: no hx of CKD. Rest non-contributory echo normal LVEF. has moderate TR with RVSP 40-50 Urine Na 11 Objective - Vital Signs/Intake and Output Vital Signs (last 24 hours): Temp Pulse Resp BP Pulse Ox 97.5 F L 82 20 153/84 H 96 06/03/17 07:10 06/03/17 07:10 06/03/17 07:10 06/03/17 07:10 06/03/17 07:10 - Medications Medications: Current Medications Albuterol/Ipratropium (Duoneb 3 Mg/0.5 Mg (3 Ml) Ud) 3 ml INH RQ6 [facility] Last Admin: 06/03/17 07:22 Dose: 3 ml Calcium Acetate (Phoslo) 667 mg PO TIDCC [facility] Last Admin: 06/03/17 09:36 Dose: 667 mg Doxycycline Hyclate 100 mg/ (Sodium Chloride) 100 mls @ 100 mls/hr IVPB Q12H [facility] Last Admin: 06/03/17 02:39 Dose: 100 mls/hr Ceftriaxone Sodium 1 gm/ (Sodium Chloride) 100 mls @ 100 mls/hr IVPB DAILY [facility] Last Admin: 06/03/17 09:47 Dose: 100 mls/hr Heparin Sodium/Sodium Chloride (Heparin 12453 Units/250ml 1/2 Normal Saline) 25 ,000 units in 250 mls @ 14.515 mls/hr IV .[id number] PRN; Protocol; 16 UNITS/KG/HR PRN Reason: PROTOCOL Last Admin: 06/03/17 02:15 Dose: 16 units/kg/hr, 14.515 mls/hr Insulin Aspart (Novolog) 0 unit SC ACHS [facility] PRN Reason: Protocol Last Admin: 06/03/17 09:37 Dose: 2 unit Methylprednisolone (Solu-Medrol) 40 mg IV Q12 [facility] Last Admin: 06/03/17 09:36 Dose: 40 mg Pantoprazole Sodium (Protonix Susp) 40 mg PO 0600 [facility] Last Admin: 06/03/17 06:57 Dose: 40 mg Sodium Bicarbonate (Sodium Bicarbonate Tab) 1,300 mg PO BID [facility] Last Admin: 06/03/17 09:43 Dose: 1,300 mg - Labs Labs: 06/02/17 06:21 06/02/17 06:21 PT 11.9 SECONDS (9.7-12.2) 06/03/17 08:48 INR 1.1 06/03/17 08:48 APTT 64 SECONDS (21-34) H D 06/03/17 08:48
[2017-06-03 12:04] LABS: BASO % 0.2 % (0.0-2.0); HEMOGLOBIN 10.9 g/dL (12.0-18.0); LYMPH # 0.6 K/uL (1.0-4.3); MEAN CELL VOLUME 72.4 fL (80.0-94.0); MEAN CORPUSCULAR HEMOGLOBIN 24.2 pg (27.0-31.0); MEAN CORPUSCULAR HGB CONC 33.4 g/dL (33.0-37.0); MEAN PLATELET VOLUME 9.5 fL (7.2-11.7); MONO # 0.3 K/uL (0.0-0.8); MONO % 2.6 % (0.0-10.0); NEUT # 11.8 K/uL (1.8-7.0); NEUT % 92.2 % (50.0-75.0); PLATELET COUNT 154 K/uL (130-400); RBC 4.49 Mil/uL (4.40-5.90); WHITE BLOOD COUNT 12.8 K/uL (4.8-10.8)
--- NOTE | 2017-06-03 12:36 | CARD ---
APPROVED REPORT EKG Measurement Heart [id number] <Conclusion> Atrial fibrillation Possible Anterior infarct, age undetermined Marked ST abnormality, possible lateral subendocardial injury Abnormal ECG
[2017-06-03 12:44] LABS: ANISOCYTOSIS SLIGHT; BANDS 1 % (0-2); HYPOCHROMIC SLIGHT; LYMPHOCYTE 5 % (20-40); MONOCYTE 3 % (0-10); NEUTROPHIL 91 % (50-75); OVALOCYTES MODERATE; PLATELET ESTIMATE NORMAL (NORMAL); TOTAL CELLS COUNTED 100
[2017-06-03 12:45] LABS: BURR CELLS SLIGHT
--- NOTE | 2017-06-03 14:48 | VASCLAB ---
PROCEDURE: Upper Extremity Venous Duplex Exam HISTORY: Hypoxia, hypotension PRIORS: 02/21/2015, normal. TECHNIQUE: Bilateral upper extremity, internal jugular, subclavian, axillary, brachial, ulnar, radial, basilic and upper cephalic veins were evaluated. Flow was assessed with color Doppler, compressibility, assessment of phasic flow and augmentation response. Report prepared by MELISSA Vargas FINDINGS: RIGHT: 1. Internal Jugular: 1.1. Compressibility - Fully compressible: Thrombus - None : Flow - Phasic: Augmentation -Normal: Reflux - None. 2. Subclavian: 2.1. Compressibility - Fully compressible: Thrombus - None : Flow - Phasic: Augmentation -Normal: Reflux - None. 3. Axillary: 3.1. Compressibility - Fully compressible: Thrombus - None : Flow - Phasic: Augmentation -Normal: Reflux - None. 4. Brachial: 4.1. Compressibility - Fully compressible: Thrombus - None: Flow - Phasic: Augmentation -Normal: Reflux - None. 5. Ulnar: 5.1. Compressibility - Fully compressible: Thrombus - None: Flow - Phasic: Augmentation -Normal: Reflux - None. 6. Radial: 6.1. Compressibility - Fully compressible: Thrombus - None: Flow - Phasic: Augmentation - Normal: Reflux - None. 7. Cephalic: Upper arm only 7.1. Compressibility - Fully compressible: Thrombus - None: Flow - Phasic: Augmentation -Normal: Reflux - None. 8. Basilic: 8.1. Compressibility - Fully compressible: Thrombus - None: Flow - Phasic: Augmentation -Normal: Reflux - None. LEFT: 1. Internal Jugular: 1.1. Compressibility - Fully compressible: Thrombus - None : Flow - Phasic: Augmentation -Normal: Reflux - None. 2. Subclavian: 2.1. Compressibility - Fully compressible: Thrombus - None : Flow - Phasic: Augmentation -Normal: Reflux - None. 3. Axillary: 3.1. Compressibility - Fully compressible: Thrombus - None : Flow - Phasic: Augmentation -Normal: Reflux - None. 4. Brachial: 4.1. Compressibility - Fully compressible: Thrombus - None: Flow - Phasic: Augmentation -Normal: Reflux - None. 5. Ulnar: 5.1. Compressibility - Fully compressible: Thrombus - None: Flow - Phasic: Augmentation -Normal: Reflux - None. 6. Radial: 6.1. Compressibility - Fully compressible: Thrombus - None: Flow - Phasic: Augmentation - Normal: Reflux - None. 7. Cephalic: Upper arm only 7.1. Compressibility - Fully compressible: Thrombus - None: Flow - Phasic: Augmentation -Normal: Reflux - None. 8. Basilic: 8.1. Compressibility - Fully compressible: Thrombus - None: Flow - Phasic: Augmentation -Normal: Reflux - None. OTHER FINDINGS: Right: None. Left: None. IMPRESSION: Right: No evidence of vein thrombosis of the right upper extremity with excellent venous flow. Normal valve function noted of the right side. Left: No evidence of vein thrombosis of the left upper extremity with excellent venous flow. Normal valve function noted of the left side.
--- NOTE | 2017-06-03 14:49 | VASCLAB ---
PROCEDURE: Lower Extremity Venous Duplex Exam. HISTORY: Hypoxia, hypotension PRIORS: None. TECHNIQUE: Bilateral common femoral, femoral, popliteal and posterior tibial, peroneal and great saphenous veins were evaluated. Flow was assessed with color Doppler, compressibility, assessment of phasic flow and augmentation response. Report prepared by MELISSA Vargas FINDINGS: RIGHT: 1. Common Femoral Vein: 1.1. Compressibility - Fully compressible: Thrombus - None : Flow - Phasic: Augmentation -Normal: Reflux - None. 2. Femoral Vein: 2.1. Compressibility - Fully compressible: Thrombus - None : Flow - Phasic: Augmentation -Normal: Reflux - None. 3. Popliteal Vein: 3.1. Compressibility - Fully compressible: Thrombus - None : Flow - Phasic: Augmentation -Normal: Reflux - None. 4. Posterior Tibial Vein: 4.1. Compressibility - Fully compressible: Thrombus - None: Flow - Phasic: Augmentation -Normal: Reflux - None. 5. Peroneal Vein: 5.1. Compressibility - Incompressible: Thrombus - Acute: Flow - Phasic: Augmentation -None: Reflux - None. 6. Great Saphenous Vein: 6.1. Compressibility - Fully compressible: Thrombus - None: Flow - Phasic: Augmentation - Normal: Reflux - None. LEFT: 1. Common Femoral Vein: 1.1. Compressibility - Fully compressible: Thrombus - None: Flow - Phasic: Augmentation -Normal: Reflux - None. 2. Femoral Vein: 2.1. Compressibility - Fully compressible: Thrombus - None: Flow - Phasic: Augmentation -Normal: Reflux - None. 3. Popliteal Vein: 3.1. Compressibility - Fully compressible: Thrombus - None : Flow - Phasic: Augmentation -Normal: Reflux - None. 4. Posterior Tibial Vein: 4.1. Compressibility - Fully compressible: Thrombus - None: Flow - Phasic: Augmentation -Normal: Reflux - None. 5. Peroneal Vein: 5.1. Compressibility - Fully compressible: Thrombus - None: Flow - Phasic: Augmentation -Normal: Reflux - None. 6. Great Saphenous Vein: 6.1. Compressibility - Fully compressible: Thrombus - None: Flow - Phasic: Augmentation - Normal: Reflux - None. OTHER FINDINGS: Findings were reported by the cytogenetics technologist, florin Jensen at 12:33 p.m. IMPRESSION: Right: Acute deep vein thrombosis of one right peroneal vein, with severe reduction of the venous return. Left: No evidence of deep or superficial vein thrombosis of the left lower extremity. Normal valve function noted of the left side.
[2017-06-03 23:04] LABS: BASO % 0.1 % (0.0-2.0); HEMOGLOBIN 10.8 g/dL (12.0-18.0); LYMPH # 0.5 K/uL (1.0-4.3); LYMPH % 4.4 % (20.0-40.0); MEAN CORPUSCULAR HEMOGLOBIN 23.9 pg (27.0-31.0); MEAN CORPUSCULAR HGB CONC 32.7 g/dL (33.0-37.0); MEAN PLATELET VOLUME 9.6 fL (7.2-11.7); MONO # 0.4 K/uL (0.0-0.8); MONO % 3.3 % (0.0-10.0); NEUT # 11.2 K/uL (1.8-7.0); NEUT % 92.2 % (50.0-75.0); NRBC % 0.1 % (0.0-2.0); PLATELET COUNT 138 K/uL (130-400); RBC 4.51 Mil/uL (4.40-5.90); RED CELL DISTRIBUTION WIDTH 18.2 % (11.5-14.5); WHITE BLOOD COUNT 12.2 K/uL (4.8-10.8)
[2017-06-03 23:05] LABS: CALCIUM 8.9 mg/dl (8.6-10.4)
[2017-06-03 23:42] LABS: LYMPHOCYTE 3 % (20-40); MONOCYTE 2 % (0-10); NEUTROPHIL 95 % (50-75); PLATELET ESTIMATE NORMAL (NORMAL); TOTAL CELLS COUNTED 100
[2017-06-03 23:43] LABS: HYPOCHROMIC SLIGHT; MICROCYTOSIS SLIGHT; OVALOCYTES MODERATE
[2017-06-03 23:44] LABS: BURR CELLS SLIGHT; SPHEROCYTES SLIGHT
[2017-06-04] MEDS: Albuterol-Ipratrop 3 mg / 0.5 (3 ml) UD INH SCH ×5 (01:05→20:28)
[2017-06-04] MEDS: Pantoprazole 40 mg Susp UD PO SCH (05:23)
[2017-06-04 08:43] LABS: BASO % 0.2 % (0.0-2.0); HEMOGLOBIN 10.7 g/dL (12.0-18.0); LYMPH # 0.5 K/uL (1.0-4.3); LYMPH % 5.4 % (20.0-40.0); MEAN CORPUSCULAR HEMOGLOBIN 24.1 pg (27.0-31.0); MEAN CORPUSCULAR HGB CONC 32.9 g/dL (33.0-37.0); MEAN PLATELET VOLUME 9.5 fL (7.2-11.7); MONO # 0.3 K/uL (0.0-0.8); MONO % 3.4 % (0.0-10.0); PLATELET COUNT 131 K/uL (130-400); RBC 4.46 Mil/uL (4.40-5.90); RED CELL DISTRIBUTION WIDTH 18.2 % (11.5-14.5); WHITE BLOOD COUNT 8.7 K/uL (4.8-10.8)
[2017-06-04] MEDS: (Novolog) Insulin Aspart, Recombinant 100 u/ml 10 ml vial SC SCH ×4 (08:53→23:17)
[2017-06-04 09:00] LABS: BLOOD UREA NITROGEN 48 mg/dL (9-20); CALCIUM 9.2 mg/dl (8.6-10.4); GFR AFRICAN-AMERICAN > 60; GFR NON-AFRICAN AMERICAN 52
--- NOTE | 2017-06-04 09:01 | CP.PCM.PN ---
Subjective - Date & Time of Evaluation Date of Evaluation: 06/04/17 Time of Evaluation: 08:20 - Subjective Subjective: Subjective: Patient seen and examined at bedside. No acute overnight events. States his upper extremity swelling has improved since baseline. Offers no new complaints at this time. Admits to SOB with exertion. Denies fever, chills, chest pain, palpitations. ROS negative except as indicated in the HPI Physical Examination: - Head Exam Head Exam: ATRAUMATIC, NORMAL INSPECTION - Eye Exam Eye Exam: EOMI, Normal appearance, PERRL Pupil Exam: NORMAL ACCOMODATION - ENT Exam ENT Exam: Mucous Membranes Moist, Normal Exam - Neck Exam Neck exam: Positive for: Normal Inspection - Respiratory Exam Respiratory Exam: NORMAL BREATHING PATTERN - Cardiovascular Exam Cardiovascular Exam: Irregular Rhythm, +S1, +S2 - GI/Abdominal Exam GI & Abdominal Exam: Normal Bowel Sounds, Soft - Extremities Exam Extremities exam: Positive for: bilateral upper extremity edema, right lower extremity +1 pitting edema - Neurological Exam Neurological exam: Awake, alert, responds to verbal stimuli, answers questions appropriately, follows commands, and moves extremities past midline - Psychiatric Exam Psychiatric exam: Normal Mood, normal affect - Skin Skin Exam: Warm, dry, right upper extremity scar tissue Assessment and Plan: Patient is a 61 year old male with PMHx of DM, HTN, Afib not on anticoaguation, recent pna, IVDA, 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 EKG Abnormality - EKG reviewed and appreciated- Atrial Fibrillation HR 69 bpm, QTc- 486ms, lateral leads marked ST abnormalities - likely 2/2 to hypertensive heart disease - troponin less than 0.120 x 1 - diagnostic cardiac catherization tentative for 06/05/17 Atrial Fibrillation - rate controlled without pharmaceutical agent - [id number] is 2, continue with eliquis 5mg PO BID- holding evening dose due to tentative cardiac cath on 06/05/17 Pneumonial; SOB - continue with ceftriaxone and doxycycline - continue with duonebs and solumedrol Hx of HTN - c/w norvasc, hydralazine, vasotec, and HCTZ - BP reviewed, trended, and appreciated- BP 180s/ 90s, goal SBP 90-150mmHg, goal DBP 90-100mmHg Non-Oliguric CAIT, Hyperphosphatemia - likely pre-renal in nature, creatinine improving - continue with IVF and sodium bicarb tablets - nephrology consulted- appreciate recommendations Prophylaxis - DVT ppx eliquis - GI ppx protonix Patient case discussed with and plan approved by attending physician, Dr. Carranza. Objective Objective - Vital Signs/Intake and Output Vital Signs (last 24 hours): Temp Pulse Resp BP Pulse Ox 97.4 F L 100 H 20 181/94 H 100 06/04/17 07:15 06/04/17 07:15 06/04/17 07:15 06/04/17 08:52 06/04/17 07:15 Intake and Output: 06/04/17 06/04/17 06:59 18:59 Intake Total 150 Balance 150 - Medications Medications: Current Medications Albuterol/Ipratropium (Duoneb 3 Mg/0.5 Mg (3 Ml) Ud) 3 ml INH RQ6 [facility] Last Admin: 06/04/17 07:20 Dose: 3 ml Amlodipine Besylate (Norvasc) 10 mg PO DAILY [facility] Last Admin: 06/04/17 08:52 Dose: 10 mg Apixaban (Eliquis) 5 mg PO BID [facility] Last Admin: 06/03/17 15:21 Dose: 5 mg Calcium Acetate (Phoslo) 667 mg PO TIDCC [facility] Last Admin: 06/04/17 08:52 Dose: 667 mg Enalapril Maleate (Vasotec) 20 mg PO BID [facility] Last Admin: 06/04/17 08:52 Dose: 20 mg Hydrochlorothiazide (Hydrodiuril) 25 mg PO DAILY [facility] Ceftriaxone Sodium 1 gm/ (Sodium Chloride) 100 mls @ 100 mls/hr IVPB DAILY [facility] Last Admin: 06/03/17 09:47 Dose: 100 mls/hr Doxycycline Hyclate 100 mg/ (Sodium Chloride) 100 mls @ 100 mls/hr IVPB Q12H [facility] Last Admin: 06/04/17 05:23 Dose: 100 mls/hr Insulin Aspart (Novolog) 0 unit SC ACHS [facility] PRN Reason: Protocol Last Admin: 06/04/17 08:53 Dose: 20 unit Methylprednisolone (Solu-Medrol) 40 mg IV Q12 [facility] Last Admin: 06/03/17 21:11 Dose: 40 mg Pantoprazole Sodium (Protonix Susp) 40 mg PO 0600 [facility] Last Admin: 06/04/17 05:23 Dose: 40 mg Sodium Bicarbonate (Sodium Bicarbonate Tab) 1,300 mg PO BID [facility] Last Admin: 06/03/17 18:23 Dose: 1,300 mg - Labs Labs: 06/04/17 08:28 06/03/17 22:46 PT 11.9 SECONDS (9.7-12.2) 06/03/17 08:48 INR 1.1 06/03/17 08:48 APTT 64 SECONDS (21-34) H D 06/03/17 08:48
[2017-06-04 10:05] LABS: ANISOCYTOSIS SLIGHT; BANDS 2 % (0-2); HYPOCHROMIC SLIGHT; LYMPHOCYTE 4 % (20-40); MONOCYTE 3 % (0-10); NEUTROPHIL 91 % (50-75); OVALOCYTES SLIGHT; PLATELET ESTIMATE NORMAL (NORMAL); POIKILOCYTOSIS SLIGHT; TOTAL CELLS COUNTED 100
[2017-06-04] MEDS ORDERED: Potassium Chloride 20 mEq ER Tab PO ONE (10:30)
--- NOTE | 2017-06-04 14:25 | CP.PCM.PN ---
Subjective - Date & Time of Evaluation Date of Evaluation: 06/04/17 Time of Evaluation: 14:24 - Subjective Subjective: dictated non-oliguric Acute Kidney Injury (N17.9) likely due to ATN due to low BP/pre- renal state: improved pneumonia chronic Hep C moderate TR with elevated RVSP Hypokalemia, Anemia, hyperphosphatemia Objective - Vital Signs/Intake and Output Vital Signs (last 24 hours): Temp Pulse Resp BP Pulse Ox 97.4 F L 94 H 20 159/84 H 100 06/04/17 07:15 06/04/17 10:11 06/04/17 07:15 06/04/17 10:11 06/04/17 07:15 Intake and Output: 06/04/17 06/04/17 06:59 18:59 Intake Total 150 Balance 150 - Medications Medications: Current Medications Albuterol/Ipratropium (Duoneb 3 Mg/0.5 Mg (3 Ml) Ud) 3 ml INH RQ6 [facility] Last Admin: 06/04/17 13:17 Dose: 3 ml Amlodipine Besylate (Norvasc) 10 mg PO DAILY [facility] Last Admin: 06/04/17 08:52 Dose: 10 mg Apixaban (Eliquis) 5 mg PO BID [facility] Last Admin: 06/04/17 09:56 Dose: 5 mg Calcium Acetate (Phoslo) 667 mg PO TIDCC [facility] Last Admin: 06/04/17 12:25 Dose: 667 mg Enalapril Maleate (Vasotec) 20 mg PO BID [facility] Last Admin: 06/04/17 08:52 Dose: 20 mg Hydrochlorothiazide (Hydrodiuril) 25 mg PO DAILY [facility] Last Admin: 06/04/17 09:56 Dose: 25 mg Ceftriaxone Sodium 1 gm/ (Sodium Chloride) 100 mls @ 100 mls/hr IVPB DAILY [facility] Last Admin: 06/04/17 09:57 Dose: 100 mls/hr Doxycycline Hyclate 100 mg/ (Sodium Chloride) 100 mls @ 100 mls/hr IVPB Q12H [facility] Last Admin: 06/04/17 05:23 Dose: 100 mls/hr Insulin Aspart (Novolog) 0 unit SC ACHS [facility] PRN Reason: Protocol Last Admin: 06/04/17 12:25 Dose: 3 unit Methylprednisolone (Solu-Medrol) 40 mg IV Q12 [facility] Last Admin: 06/04/17 10:01 Dose: 40 mg Pantoprazole Sodium (Protonix Susp) 40 mg PO 0600 [facility] Last Admin: 06/04/17 05:23 Dose: 40 mg Sodium Bicarbonate (Sodium Bicarbonate Tab) 1,300 mg PO BID [facility] Last Admin: 06/04/17 09:56 Dose: 1,300 mg - Labs Labs: 06/04/17 08:28 06/04/17 08:28 PT 11.9 SECONDS (9.7-12.2) 06/03/17 08:48 INR 1.1 06/03/17 08:48 APTT 64 SECONDS (21-34) H D 06/03/17 08:48
[2017-06-04] MEDS: Benzocaine/Menthol (Cepacol) Lozenge MT PRN ×2 (19:40→23:21)
[2017-06-05] MEDS ORDERED: Vancomycin 1 gm/NS 200 ml 1 GM/200 ML BAG IVPB ONE
[2017-06-05] MEDS: Albuterol-Ipratrop 3 mg / 0.5 (3 ml) UD INH SCH ×4 (01:46→19:48)
[2017-06-05] MEDS: Pantoprazole 40 mg Susp UD PO SCH (06:46)
--- NOTE | 2017-06-05 07:40 | CP.PCM.PN ---
Subjective - Date & Time of Evaluation Date of Evaluation: 06/05/17 Time of Evaluation: 09:25 - Subjective Subjective: Subjective: Patient seen and examined at bedside. States he is experiencing withdrawal symptoms including abdominal discomfort, nausea, and approximately one dozen bouts of nonbloody nonbilious emesis. States his upper extremity swelling and SOB with exertion are at baseline. Denies fever, chills, chest pain, palpitations. ROS negative except as indicated in the HPI Physical Examination: - Head Exam Head Exam: ATRAUMATIC, NORMAL INSPECTION - Eye Exam Eye Exam: EOMI, Normal appearance, PERRL Pupil Exam: NORMAL ACCOMODATION - ENT Exam ENT Exam: Mucous Membranes Moist, Normal Exam - Neck Exam Neck exam: Positive for: Normal Inspection - Respiratory Exam Respiratory Exam: NORMAL BREATHING PATTERN - Cardiovascular Exam Cardiovascular Exam: Irregular Rhythm, +S1, +S2 - GI/Abdominal Exam GI & Abdominal Exam: Normal Bowel Sounds - Extremities Exam Extremities exam: Positive for: bilateral upper extremity edema, right lower extremity +1 pitting edema - Neurological Exam Neurological exam: Awake, alert, responds to verbal stimuli, answers questions appropriately, follows commands, and moves extremities past midline - Psychiatric Exam Psychiatric exam: Normal Mood, normal affect - Skin Skin Exam: Warm, dry, bilateral upper extremity scar tissue Assessment and Plan: Patient is a 61 year old male with PMHx of DM, HTN, Afib not on anticoaguation, recent pna, IVDA, 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 EKG Abnormality - EKG reviewed and appreciated- Atrial Fibrillation HR 69 bpm, QTc- 486ms, lateral leads marked ST abnormalities - likely 2/2 to hypertensive heart disease - troponin less than 0.120 x 1 - diagnostic cardiac catherization tentative for 06/06/17 Atrial Fibrillation - rate controlled without pharmaceutical agent - [id number] is 2, hold eliquis 5mg PO BID- cardiac catherization tentative for 06/06/17; one dose of eliquis to be given now Pneumonial; SOB - continue with ceftriaxone and doxycycline - continue with duonebs and solumedrol Hx of HTN - c/w norvasc, hydralazine, vasotec, and HCTZ - BP reviewed, trended, and appreciated- BP 180s/ 90s--likely secondary to withdrawal symptoms, goal SBP 90-150mmHg, goal DBP 90-100mmHg Opiate Withdrawl - patient started on clonidine Non-Oliguric CAIT, Hyperphosphatemia - likely pre-renal in nature, creatinine improving - d/c IVF - c/w sodium bicarb tablets - nephrology consulted- appreciate recommendations Prophylaxis - DVT ppx eliquis - GI ppx protonix Patient case discussed with and plan approved by attending physician, Dr. Carranza. Objective - Vital Signs/Intake and Output Vital Signs (last 24 hours): Temp Pulse Resp BP Pulse Ox 98.3 F 100 H 20 169/89 H 95 06/04/17 15:00 06/04/17 15:00 06/04/17 15:00 06/04/17 21:02 06/04/17 15:00 - Medications Medications: Current Medications Acetaminophen (Tylenol 325mg Tab) 650 mg PO Q6 PRN PRN Reason: Pain, moderate (4-7) Last Admin: 06/05/17 01:36 Dose: 650 mg Albuterol/Ipratropium (Duoneb 3 Mg/0.5 Mg (3 Ml) Ud) 3 ml INH RQ6 [facility] Last Admin: 06/05/17 07:04 Dose: 3 ml Amlodipine Besylate (Norvasc) 10 mg PO DAILY [facility] Last Admin: 06/04/17 08:52 Dose: 10 mg Apixaban (Eliquis) 5 mg PO BID [facility] Last Admin: 06/04/17 09:56 Dose: 5 mg Benzocaine/Menthol (Cepacol Sore Throat) 1 sarkis MT Q4H PRN PRN Reason: Sore Throat Last Admin: 06/04/17 23:21 Dose: 1 sarkis Calcium Acetate (Phoslo) 667 mg PO TIDCC [facility] Last Admin: 06/04/17 17:03 Dose: 667 mg Enalapril Maleate (Vasotec) 20 mg PO BID [facility] Last Admin: 06/04/17 17:03 Dose: 20 mg Hydralazine HCl (Apresoline) 100 mg PO Q8 [facility] Last Admin: 06/05/17 06:46 Dose: Not Given Hydrochlorothiazide (Hydrodiuril) 25 mg PO DAILY [facility] Last Admin: 06/04/17 09:56 Dose: 25 mg Ceftriaxone Sodium 1 gm/ (Sodium Chloride) 100 mls @ 100 mls/hr IVPB DAILY [facility] Last Admin: 06/04/17 09:56 Dose: Not Given Doxycycline Hyclate 100 mg/ (Sodium Chloride) 100 mls @ 100 mls/hr IVPB Q12H [facility] Last Admin: 06/05/17 06:49 Dose: 100 mls/hr Insulin Aspart (Novolog) 0 unit SC ACHS [facility] PRN Reason: Protocol Last Admin: 06/04/17 23:17 Dose: Not Given Methylprednisolone (Solu-Medrol) 40 mg IV Q12 [facility] Last Admin: 06/04/17 21:05 Dose: 40 mg Pantoprazole Sodium (Protonix Susp) 40 mg PO 0600 [facility] Last Admin: 06/05/17 06:46 Dose: Not Given Sodium Bicarbonate (Sodium Bicarbonate Tab) 1,300 mg PO BID [facility] Last Admin: 06/04/17 17:03 Dose: 1,300 mg - Labs Labs: 06/04/17 08:28 06/04/17 08:28 PT 11.9 SECONDS (9.7-12.2) 06/03/17 08:48 INR 1.1 06/03/17 08:48 APTT 64 SECONDS (21-34) H D 06/03/17 08:48
[2017-06-05] MEDS: (Novolog) Insulin Aspart, Recombinant 100 u/ml 10 ml vial SC SCH ×4 (08:25→21:44)
--- NOTE | 2017-06-05 10:25 | PN ---
SUBJECTIVE: The patient is sitting up, with no specific complaint. He is having his lunch and eating. No nausea, no vomiting, no chest pain, and doing much better. PHYSICAL EXAMINATION: VITAL SIGNS: Normal temperature and pulse 94, blood pressure 159/84. NECK: Supple. CHEST: Clear. HEART: No rubs. ABDOMEN: Soft. EXTREMITIES: No edema. PSYCH: Appeared to be okay, normal response. LABORATORY DATA: Potassium 3.4, sodium 138, creatinine came down from as high at 3.3 to 1.4 and BUN 48. IMPRESSION: 1. The patient is recovering from acute kidney surgery. Serum creatinine came down to 1.4. 2. Hypokalemia. The patient needs some potassium supplement to be given by Pulmonary Team and the patient also noted that his hemoglobin A1c is 6.7 and phosphorus 5.2, came down to 4.0 which is corrected. Continue monitoring. He appeared to be improving. Vinod Limon MD
--- NOTE | 2017-06-05 11:55 | CARD ---
APPROVED REPORT EKG Measurement Heart [id number] OR 212P59 [id number] <Conclusion> Sinus rhythm with 1st degree AV block with blocked premature atrial complexes Nonspecific ST and T wave abnormality Prolonged QT Abnormal ECG
--- NOTE | 2017-06-05 12:01 | CARD ---
APPROVED REPORT EKG Measurement Heart [id number] CT 196P65 [id number] <Conclusion> Normal sinus rhythm ST & T wave abnormality, consider lateral ischemia Abnormal ECG
--- NOTE | 2017-06-05 14:42 | CP.PCM.PN ---
Subjective - Date & Time of Evaluation Date of Evaluation: 06/05/17 Time of Evaluation: 14:40 - Subjective Subjective: Follow up Nephrology Consultation: Assessment: stable non-oliguric Acute Kidney Injury (N17.9) likely due to ATN due to low BP/pre- renal state: improved pneumonia chronic Hep C moderate TR with elevated RVSP Hypokalemia, Anemia, hyperphosphatemia Plan No acute need for renal replacement therapy at this time. Maintain hemodynamics stable hold ACEI/ARB due to CAIT. BP high now, meds as ordered Monitor Input/Output, daily weights and renal function with basic metabolic panel hold diuretics in anticipation of planned cardiac cath tomorrow. supplement electrolytes as needed on phos binders as phoslo on sodium bicarb 1300 mg bid Check urine analysis, spot protein/creatinine and albumin/creatinine ratio Check C3, C4, ANCA (MPO and KY-3), rheumatoid factor and serum cryoglobulin levels Dose meds/antibiotics for reduced GFR. Avoid fleets enema/magnesium based laxatives. Avoid nephrotoxins/NSAIDs/ iodinated contrast (unless needed emergently) Glycemic control Further work up/management as per primary team Thanks for allowing me to participate in care of your patient. Will follow patient with you. Please call if any Qs. d/w team Dr Dimitris Perez Office: [phone] Chief Complaint; feels better HPI: Pt is a61 M with hx of diabetes Mellitus ( years), hypertension (years), obesity, Ex drug abuse, chronic Hep C presented with complaints of SOB and being managed for pneumonia. renal consult for CAIT. his s.creat 1.1-1.4 when d/ c from hospital recently for similiar pulm presentation Denies OTC/herbal meds or NSAIDs No recent iodinated contrast exposure. obvious episodes of low BP (86/60) c/o cough and phlegm (non bloody). SOB better. ROS: Cardiovascular: No chest pain. Pulmonary: improved shortness of breath Gastrointestinal: denies abdominal pain No nausea. No vomiting. Genitourinary: No pain while urinating. Denies blood in urine. All other negative Physical Examination: General Appearance: Obese, Comfortable, in no acute respiratory distress, co- operative . Vitals reviewed and noted as below Head; Atraumatic, normocephalic ENT: no ulcers no thrush. Tongue is midline. Oropharynx: no rash or ulcers. EYES: Pupils are equal, round and reactive to light accommodation. Eye muscles and extraocular movement intact. Sclera is anicteric. Neck; supple no lymphadenopathy, no thyromegaly or bruit Lungs: Normal respiratory rate/effort. Breath sounds bases clearer Heart: Normal rate. s1s2 normal. No rub or gallop. Extremities: trace edema. No varicose veins. upper extremities old scar noted Neurological: Patient is alert, awake and oriented to person, place and time. No focal deficit. Strength bilateral appropriate and equal Skin: Warm and dry. Normal turgor. No rash. Palpitation: Normal elasticity for age Abdomen: Abdomen is soft. Bowel sounds +. There is no abdominal tenderness, no guarding/rigidity no organomegaly Psych: normal insight and normal affect/mood MSK: no joint tenderness or swelling. Digits and nails normal, no deformity : kidney or bladder not palpable Labs/imaging reviewed. Past medical history, past surgical history, family history, social history, allergy reviewed and noted as below Family hx: no hx of CKD. Rest non-contributory echo normal LVEF. has moderate TR with RVSP 40-50 Urine Na 11 Objective - Vital Signs/Intake and Output Vital Signs (last 24 hours): Temp Pulse Resp BP Pulse Ox 98.2 F 98 H 22 153/81 H 97 06/05/17 07:05 06/05/17 13:47 06/05/17 07:05 06/05/17 13:47 06/05/17 07:05 - Medications Medications: Current Medications Acetaminophen (Tylenol 325mg Tab) 650 mg PO Q6 PRN PRN Reason: Pain, moderate (4-7) Last Admin: 06/05/17 01:36 Dose: 650 mg Albuterol/Ipratropium (Duoneb 3 Mg/0.5 Mg (3 Ml) Ud) 3 ml INH RQ6 [facility] Last Admin: 06/05/17 13:27 Dose: 3 ml Amlodipine Besylate (Norvasc) 10 mg PO DAILY [facility] Last Admin: 06/05/17 09:55 Dose: 10 mg Apixaban (Eliquis) 5 mg PO BID [facility] Last Admin: 06/04/17 09:56 Dose: 5 mg Benzocaine/Menthol (Cepacol Sore Throat) 1 sarkis MT Q4H PRN PRN Reason: Sore Throat Last Admin: 06/04/17 23:21 Dose: 1 sarkis Calcium Acetate (Phoslo) 667 mg PO TIDCC [facility] Last Admin: 06/05/17 12:45 Dose: 667 mg Clonidine HCl (Catapres) 0.1 mg PO BID [facility] Dicyclomine HCl (Bentyl) 10 mg PO Q6 PRN PRN Reason: STOMACH PAIN Furosemide (Lasix) 80 mg IVP BID [facility] Hydralazine HCl (Apresoline) 100 mg PO Q8 [facility] Last Admin: 06/05/17 13:31 Dose: 100 mg Ceftriaxone Sodium 1 gm/ (Sodium Chloride) 100 mls @ 100 mls/hr IVPB DAILY [facility] Last Admin: 06/05/17 09:51 Dose: 100 mls/hr Doxycycline Hyclate 100 mg/ (Sodium Chloride) 100 mls @ 100 mls/hr IVPB Q12H [facility] Last Admin: 06/05/17 06:49 Dose: 100 mls/hr Insulin Aspart (Novolog) 0 unit SC ACHS [facility] PRN Reason: Protocol Last Admin: 06/05/17 13:31 Dose: 2 unit Methylprednisolone (Solu-Medrol) 40 mg IV Q12 [facility] Last Admin: 06/05/17 09:52 Dose: 40 mg Pantoprazole Sodium (Protonix Susp) 40 mg PO 0600 [facility] Last Admin: 06/05/17 06:46 Dose: Not Given Sodium Bicarbonate (Sodium Bicarbonate Tab) 1,300 mg PO BID [facility] Last Admin: 06/05/17 09:52 Dose: 1,300 mg - Labs Labs: 06/04/17 08:28 06/04/17 08:28 PT 11.9 SECONDS (9.7-12.2) 06/03/17 08:48 INR 1.1 06/03/17 08:48 APTT 64 SECONDS (21-34) H D 06/03/17 08:48
[2017-06-05 16:44] VITALS: RESP 20
--- NOTE | 2017-06-05 18:43 | CP.PCM.CON ---
History of Present Illness - History of Present Illness History of Present Illness: 61yo male , was on methadone program volantarily stopped since , who presented to the ED on May 16 with shortness of breath, was found to have small pna on the left side and discharged on 05/24/17 with oral abx. Patient during the stay had EKG which showed t wave inversions multiple leads, normal ef , had myocardial perfusion scan which didn't show any ischemic areas As per the patient post discharge he was still sob, which gradually got worse and hence he came to the hospital. 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 Review of Systems - Constitutional Constitutional: As Per HPI - EENT Eyes: absent: As Per HPI, Blind Spots, Blurred Vision, Change in Vision, Decreased Night Vision, Diplopia, Discharge, Dry Eye, Exophthalmos, Floaters, Irritation, Itchy Eyes, Loss of Peripheral Vision, Pain, Photophobia, Requires Corrective Lenses, Sees Flashes, Spots in Vision, Tunnel Vision, Other Visual Disturbances, Loss of Vision, Other Ears: absent: As Per HPI, Decreased Hearing, Ear Discharge, Ear Pain, Tinnitus, Abnormal Hearing, Disequilibrium, Dizziness, Other Nose/Mouth/Throat: absent: As Per HPI, Epistaxis, Nasal Congestion, Nasal Discharge, Nasal Obstruction, Nasal Trauma, Nose Pain, Post Nasal Drip, Sinus Pain, Sinus Pressure, Bleeding Gums, Change in Voice, Dental Pain, Dry Mouth, Dysphagia, Halitosis, Hoarsness, Lip Swelling, Mouth Lesions, Mouth Pain, Odynophagia, Sore Throat, Throat Swelling, Tongue Swelling, Facial Pain, Neck Pain, Neck Mass, Other - Cardiovascular Cardiovascular: As Per HPI - Respiratory Respiratory: As Per HPI, Cough, Dyspnea - Gastrointestinal Gastrointestinal: absent: As Per HPI, Abdominal Pain, Belching, Bloating, Change in Bowel Habits, Change in Stool Character, Coffee Ground Emesis, Constipation, Cramping, Diarrhea, Dyspepsia, Dysphagia, Early Satiety, Excessive Flatus, Fecal Incontinence, Heartburn, Hematemesis, Hematochezia, Loose Stools, Melena, Nausea, Odynophagia, Temesmus, Vomiting, Other - Genitourinary Genitourinary: absent: As Per HPI, Change in Urinary Stream, Difficulty Urinating, Dysuria, Flank Pain, Hematuria, Pyuria, Nocturia, Urinary Incontinence, Urinary Frequency, Urinary Hesitance, Urinary Urgency, Voiding Freq/Small Amts, Freq UTI, Hx Renal/Bladder Calculi, Hx /Renal Surgery, Bladder Distension, Other - Musculoskeletal Musculoskeletal: absent: As Per HPI, Abnormal Gait, Arthralgias, Atrophy, Back Pain, Deformity, Joint Swelling, Limited Range of Motion, Loss of Height, Muscle Cramps, Muscle Weakness, Myalgias, Neck Pain, Numbness, Radiating Pain into Limb, Stiffness, Tingling, Other - Integumentary Integumentary: absent: As Per HPI, Acne, Alopecia, Bleeding Lesions, Change in Hair, Change in Nails, Change in Pigmentation, Changing Lesions, Dry Skin, Erythema, Furuncle, Hirsutism, Lesions, New Lesions, Non-Healing Lesions, Photosensitivity, Pruritus, Rash, Skin Pain, Skin Ulcer, Sores, Striae, Swelling , Unusual Bruising, Wounds, Jaundice, Other - Neurological Neurological: absent: As Per HPI, Abnormal Gait, Abnormal Hearing, Abnormal Movements, Abnormal Speech, Behavioral Changes, Burning Sensations, Confusion, Convulsions, Disequilibrium, Dizziness, Numbness, Focal Weakness, Frequent Falls , Headaches, Lack of Coordination, Loss of Vision, Memory Loss, Paresthesias, Radicular Pain, Restless Legs, Sensory Deficit, Syncope, Tingling, Tremor, Vertigo, Weakness, Other Visual Disturbances, Other - Psychiatric Psychiatric: absent: As Per HPI, Abnormal Sleep Pattern, Anhedonia, Anxiety, Auditory Hallucinations, Behavioral Changes, Change in Appetite, Change in Libido, Confusion, Depression, Difficulty Concentrating, Hallucinations, Homicidal Ideation, Hopelessness, Irritability, Memory Loss, Mood Swings, Panic Attacks, Paranoia, Suicidal Ideation, Visual Hallucinations, Tactile Hallucinations, Other - Endocrine Endocrine: absent: As Per HPI, Change in Body Appearance, Change in Libido, Cold Intolorance, Deepening of Voice, Excessive Sweating, Fatigue, Flushing, Heat Intolorance, Increase in Ring/Shoe/Hat Size, Palpitations, Polydipsia, Polyphagia, Polyuria, Other - Hematologic/Lymphatic Hematologic: absent: As Per HPI, Easy Bleeding, Easy Bruising, Lymphadenopathy, Other 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) Home Situation {Lives}: Alone Domestic Violence: Negative - CARDIAC Hx Atrial Fibrillation: Yes Hx Hypertension: Yes - PULMONARY Hx Respiratory Disorders: No Hx Pneumonia: Yes - NEUROLOGICAL Hx Neurological Disorder: No - HEENT Hx HEENT Problems: No - RENAL Hx Chronic Kidney Disease: No - ENDOCRINE/METABOLIC Hx Endocrine Disorders: No Hx Diabetes Mellitus Type 2: Yes - HEMATOLOGICAL/ONCOLOGICAL Hx Blood Disorders: No - INTEGUMENTARY Hx Dermatological Problems: No - MUSCULOSKELETAL/RHEUMATOLOGICAL Hx Falls: No - GASTROINTESTINAL Hx Nausea: Yes - GENITOURINARY/GYNECOLOGICAL Hx Genitourinary Disorders: No - PSYCHIATRIC Hx Substance Use: Yes (heroin) - SURGICAL HISTORY Hx Surgeries: No - ANESTHESIA Hx Anesthesia: No Hx Anesthesia Reactions: No Meds Allergies/Adverse Reactions: Allergies Allergy/AdvReac Type Severity Reaction Status Date / Time No Known Allergies Allergy Verified 05/31/17 21:31 - Medications Medications: Current Medications Acetaminophen (Tylenol 325mg Tab) 650 mg PO Q6 PRN PRN Reason: Pain, moderate (4-7) Last Admin: 06/05/17 01:36 Dose: 650 mg Albuterol/Ipratropium (Duoneb 3 Mg/0.5 Mg (3 Ml) Ud) 3 ml INH RQ6 [facility] Last Admin: 06/05/17 13:27 Dose: 3 ml Amlodipine Besylate (Norvasc) 10 mg PO DAILY [facility] Last Admin: 06/05/17 09:55 Dose: 10 mg Apixaban (Eliquis) 5 mg PO BID [facility] Last Admin: 06/04/17 09:56 Dose: 5 mg Benzocaine/Menthol (Cepacol Sore Throat) 1 sarkis MT Q4H PRN PRN Reason: Sore Throat Last Admin: 06/04/17 23:21 Dose: 1 sarkis Calcium Acetate (Phoslo) 667 mg PO TIDCC [facility] Last Admin: 06/05/17 18:29 Dose: 667 mg Clonidine HCl (Catapres) 0.1 mg PO BID [facility] Last Admin: 06/05/17 18:29 Dose: 0.1 mg Dicyclomine HCl (Bentyl) 10 mg PO Q6 PRN PRN Reason: STOMACH PAIN Hydralazine HCl (Apresoline) 100 mg PO Q8 [facility] Last Admin: 06/05/17 13:31 Dose: 100 mg Ceftriaxone Sodium 1 gm/ (Sodium Chloride) 100 mls @ 100 mls/hr IVPB DAILY [facility] Last Admin: 06/05/17 09:51 Dose: 100 mls/hr Doxycycline Hyclate 100 mg/ (Sodium Chloride) 100 mls @ 100 mls/hr IVPB Q12H [facility] Last Admin: 06/05/17 18:33 Dose: 100 mls/hr Insulin Aspart (Novolog) 0 unit SC ACHS [facility] PRN Reason: Protocol Last Admin: 06/05/17 18:30 Dose: 2 unit Methylprednisolone (Solu-Medrol) 40 mg IV Q12 [facility] Last Admin: 06/05/17 09:52 Dose: 40 mg Pantoprazole Sodium (Protonix Susp) 40 mg PO 0600 [facility] Last Admin: 06/05/17 06:46 Dose: Not Given Sodium Bicarbonate (Sodium Bicarbonate Tab) 1,300 mg PO BID [facility] Last Admin: 06/05/17 18:32 Dose: 1,300 mg Physical Exam - Constitutional Appears: Non-toxic, Chronically Ill - Head Exam Head Exam: NORMOCEPHALIC - Eye Exam Eye Exam: EOMI, PERRL. absent: Scleral icterus - ENT Exam ENT Exam: Mucous Membranes Dry, Normal External Ear Exam - Neck Exam Neck exam: Negative for: Lymphadenopathy - Respiratory Exam Respiratory Exam: Decreased Breath Sounds, Prolonged Expiratory Phase, Rales, Rhonchi - Cardiovascular Exam Cardiovascular Exam: REGULAR RHYTHM, +S1, +S2 - GI/Abdominal Exam GI & Abdominal Exam: Diminished Bowel Sounds, Soft. absent: Tenderness - Rectal Exam Rectal Exam: Deferred - Exam Exam: NORMAL INSPECTION - Extremities Exam Extremities exam: Positive for: pedal edema, pedal pulses present. Negative for : calf tenderness, tenderness - Back Exam Back exam: absent: CVA tenderness (L), CVA tenderness (R) - Neurological Exam Neurological exam: Alert, CN II-XII Intact, Oriented x3, Reflexes Normal - Psychiatric Exam Psychiatric exam: Depressed - Skin Skin Exam: Dry Results - Vital Signs Recent Vital Signs: Last Vital Signs Temp 98.2 F 06/05/17 16:43 Pulse 95 H 06/05/17 16:43 Resp 20 06/05/17 16:43 BP 167/86 H 06/05/17 16:43 Pulse Ox 95 06/05/17 16:43 - Labs Result Diagrams: 06/04/17 08:28 06/04/17 08:28 Labs: Laboratory Results - last 24 hr 06/02/17 06/04/17 06/04/17 06:21 21:20 22:14 POC Glucose (mg/dL) 237 H Cryoglobulin TNP Proteinase 3 (PR3) <1.0 Myeloperoxidase Ab <1.0 C. difficile Ag & Toxin Negative 06/05/17 06/05/17 06/05/17 06:09 11:08 16:53 POC Glucose (mg/dL) 221 H 177 H 178 H Cryoglobulin Proteinase 3 (PR3) Myeloperoxidase Ab C. difficile Ag & Toxin Assessment & Plan (1) Acute renal failure Status: Acute (2) Hypotension Status: Acute (3) Hypoxia Status: Acute (4) Leukocytosis Status: Acute (5) Respiratory distress Status: Acute (6) Hepatitis C Status: Acute (7) IV drug abuse Status: Acute (8) Pneumonia Status: Acute - Assessment and Plan (Free Text) Assessment: POSITIVE BLOOD C/S - 1/2 SETS R/O CONTAMINATION CONSIDER LOUISE CONT IV ANTIBIOTICS Plan: HEP C UNTREATED COPD DMII CKD /ARF SEPSI PNEUMONIA RESP FAILURE CONT IV RX DISCUSSED WITH DR COLVIN
[2017-06-05 20:34] LABS: ANCA SCREEN NEGATIVE (NEGATIVE)
--- NOTE | 2017-06-06 00:17 | CP.PCM.PN ---
Subjective - Date & Time of Evaluation Date of Evaluation: 06/03/17 Objective - Vital Signs/Intake and Output Vital Signs (last 24 hours): Temp Pulse Resp BP Pulse Ox 98.2 F 95 H 20 167/86 H 95 06/05/17 16:43 06/06/17 00:15 06/05/17 16:43 06/05/17 16:43 06/05/17 16:43 - Medications Medications: Current Medications Acetaminophen (Tylenol 325mg Tab) 650 mg PO Q6 PRN PRN Reason: Pain, moderate (4-7) Last Admin: 06/05/17 01:36 Dose: 650 mg Albuterol/Ipratropium (Duoneb 3 Mg/0.5 Mg (3 Ml) Ud) 3 ml INH RQ6 [facility] Last Admin: 06/05/17 19:48 Dose: 3 ml Amlodipine Besylate (Norvasc) 10 mg PO DAILY [facility] Last Admin: 06/05/17 09:55 Dose: 10 mg Apixaban (Eliquis) 5 mg PO BID [facility] Last Admin: 06/04/17 09:56 Dose: 5 mg Benzocaine/Menthol (Cepacol Sore Throat) 1 sarkis MT Q4H PRN PRN Reason: Sore Throat Last Admin: 06/04/17 23:21 Dose: 1 sarkis Calcium Acetate (Phoslo) 667 mg PO TIDCC [facility] Last Admin: 06/05/17 18:29 Dose: 667 mg Clonidine HCl (Catapres) 0.1 mg PO BID [facility] Last Admin: 06/05/17 18:29 Dose: 0.1 mg Dicyclomine HCl (Bentyl) 10 mg PO Q6 PRN PRN Reason: STOMACH PAIN Hydralazine HCl (Apresoline) 100 mg PO Q8 [facility] Last Admin: 06/05/17 22:03 Dose: 100 mg Ceftriaxone Sodium 1 gm/ (Sodium Chloride) 100 mls @ 100 mls/hr IVPB DAILY [facility] Last Admin: 06/05/17 09:51 Dose: 100 mls/hr Doxycycline Hyclate 100 mg/ (Sodium Chloride) 100 mls @ 100 mls/hr IVPB Q12H [facility] Last Admin: 06/05/17 18:33 Dose: 100 mls/hr Insulin Aspart (Novolog) 0 unit SC ACHS [facility] PRN Reason: Protocol Last Admin: 06/05/17 21:44 Dose: Not Given Methylprednisolone (Solu-Medrol) 40 mg IV Q12 [facility] Last Admin: 06/05/17 22:03 Dose: 40 mg Pantoprazole Sodium (Protonix Susp) 40 mg PO 0600 [facility] Last Admin: 06/05/17 06:46 Dose: Not Given Sodium Bicarbonate (Sodium Bicarbonate Tab) 1,300 mg PO BID [facility] Last Admin: 06/05/17 18:32 Dose: 1,300 mg - Labs Labs: 06/04/17 08:28 06/04/17 08:28 PT 11.9 SECONDS (9.7-12.2) 06/03/17 08:48 INR 1.1 06/03/17 08:48 APTT 64 SECONDS (21-34) H D 06/03/17 08:48
--- NOTE | 2017-06-06 00:18 | CP.PCM.PN ---
Subjective - Date & Time of Evaluation Date of Evaluation: 06/04/17 Objective - Vital Signs/Intake and Output Vital Signs (last 24 hours): Temp Pulse Resp BP Pulse Ox 98.2 F 95 H 20 167/86 H 95 06/05/17 16:43 06/06/17 00:15 06/05/17 16:43 06/05/17 16:43 06/05/17 16:43 - Medications Medications: Current Medications Acetaminophen (Tylenol 325mg Tab) 650 mg PO Q6 PRN PRN Reason: Pain, moderate (4-7) Last Admin: 06/05/17 01:36 Dose: 650 mg Albuterol/Ipratropium (Duoneb 3 Mg/0.5 Mg (3 Ml) Ud) 3 ml INH RQ6 [facility] Last Admin: 06/05/17 19:48 Dose: 3 ml Amlodipine Besylate (Norvasc) 10 mg PO DAILY [facility] Last Admin: 06/05/17 09:55 Dose: 10 mg Apixaban (Eliquis) 5 mg PO BID [facility] Last Admin: 06/04/17 09:56 Dose: 5 mg Benzocaine/Menthol (Cepacol Sore Throat) 1 sarksi MT Q4H PRN PRN Reason: Sore Throat Last Admin: 06/04/17 23:21 Dose: 1 sarkis Calcium Acetate (Phoslo) 667 mg PO TIDCC [facility] Last Admin: 06/05/17 18:29 Dose: 667 mg Clonidine HCl (Catapres) 0.1 mg PO BID [facility] Last Admin: 06/05/17 18:29 Dose: 0.1 mg Dicyclomine HCl (Bentyl) 10 mg PO Q6 PRN PRN Reason: STOMACH PAIN Hydralazine HCl (Apresoline) 100 mg PO Q8 [facility] Last Admin: 06/05/17 22:03 Dose: 100 mg Ceftriaxone Sodium 1 gm/ (Sodium Chloride) 100 mls @ 100 mls/hr IVPB DAILY [facility] Last Admin: 06/05/17 09:51 Dose: 100 mls/hr Doxycycline Hyclate 100 mg/ (Sodium Chloride) 100 mls @ 100 mls/hr IVPB Q12H [facility] Last Admin: 06/05/17 18:33 Dose: 100 mls/hr Insulin Aspart (Novolog) 0 unit SC ACHS [facility] PRN Reason: Protocol Last Admin: 06/05/17 21:44 Dose: Not Given Methylprednisolone (Solu-Medrol) 40 mg IV Q12 [facility] Last Admin: 06/05/17 22:03 Dose: 40 mg Pantoprazole Sodium (Protonix Susp) 40 mg PO 0600 [facility] Last Admin: 06/05/17 06:46 Dose: Not Given Sodium Bicarbonate (Sodium Bicarbonate Tab) 1,300 mg PO BID [facility] Last Admin: 06/05/17 18:32 Dose: 1,300 mg - Labs Labs: 06/04/17 08:28 06/04/17 08:28 PT 11.9 SECONDS (9.7-12.2) 06/03/17 08:48 INR 1.1 06/03/17 08:48 APTT 64 SECONDS (21-34) H D 06/03/17 08:48
--- NOTE | 2017-06-06 00:18 | CP.PCM.PN ---
Subjective - Date & Time of Evaluation Date of Evaluation: 06/05/17 Objective - Vital Signs/Intake and Output Vital Signs (last 24 hours): Temp Pulse Resp BP Pulse Ox 98.2 F 95 H 20 167/86 H 95 06/05/17 16:43 06/06/17 00:15 06/05/17 16:43 06/05/17 16:43 06/05/17 16:43 - Medications Medications: Current Medications Acetaminophen (Tylenol 325mg Tab) 650 mg PO Q6 PRN PRN Reason: Pain, moderate (4-7) Last Admin: 06/05/17 01:36 Dose: 650 mg Albuterol/Ipratropium (Duoneb 3 Mg/0.5 Mg (3 Ml) Ud) 3 ml INH RQ6 [facility] Last Admin: 06/05/17 19:48 Dose: 3 ml Amlodipine Besylate (Norvasc) 10 mg PO DAILY [facility] Last Admin: 06/05/17 09:55 Dose: 10 mg Apixaban (Eliquis) 5 mg PO BID [facility] Last Admin: 06/04/17 09:56 Dose: 5 mg Benzocaine/Menthol (Cepacol Sore Throat) 1 sarkis MT Q4H PRN PRN Reason: Sore Throat Last Admin: 06/04/17 23:21 Dose: 1 sarkis Calcium Acetate (Phoslo) 667 mg PO TIDCC [facility] Last Admin: 06/05/17 18:29 Dose: 667 mg Clonidine HCl (Catapres) 0.1 mg PO BID [facility] Last Admin: 06/05/17 18:29 Dose: 0.1 mg Dicyclomine HCl (Bentyl) 10 mg PO Q6 PRN PRN Reason: STOMACH PAIN Hydralazine HCl (Apresoline) 100 mg PO Q8 [facility] Last Admin: 06/05/17 22:03 Dose: 100 mg Ceftriaxone Sodium 1 gm/ (Sodium Chloride) 100 mls @ 100 mls/hr IVPB DAILY [facility] Last Admin: 06/05/17 09:51 Dose: 100 mls/hr Doxycycline Hyclate 100 mg/ (Sodium Chloride) 100 mls @ 100 mls/hr IVPB Q12H [facility] Last Admin: 06/05/17 18:33 Dose: 100 mls/hr Insulin Aspart (Novolog) 0 unit SC ACHS [facility] PRN Reason: Protocol Last Admin: 06/05/17 21:44 Dose: Not Given Methylprednisolone (Solu-Medrol) 40 mg IV Q12 [facility] Last Admin: 06/05/17 22:03 Dose: 40 mg Pantoprazole Sodium (Protonix Susp) 40 mg PO 0600 [facility] Last Admin: 06/05/17 06:46 Dose: Not Given Sodium Bicarbonate (Sodium Bicarbonate Tab) 1,300 mg PO BID [facility] Last Admin: 06/05/17 18:32 Dose: 1,300 mg - Labs Labs: 06/04/17 08:28 06/04/17 08:28 PT 11.9 SECONDS (9.7-12.2) 06/03/17 08:48 INR 1.1 06/03/17 08:48 APTT 64 SECONDS (21-34) H D 06/03/17 08:48
[2017-06-06] MEDS: Albuterol-Ipratrop 3 mg / 0.5 (3 ml) UD INH SCH (01:39)
[2017-06-06] MEDS: Pantoprazole 40 mg Susp UD PO SCH (05:08)
[2017-06-06] MEDS: (Novolog) Insulin Aspart, Recombinant 100 u/ml 10 ml vial SC SCH ×4 (07:25→22:12)
[2017-06-06 08:28] LABS: BASO % 0.1 % (0.0-2.0); HEMOGLOBIN 11.5 g/dL (12.0-18.0); LYMPH # 0.5 K/uL (1.0-4.3); LYMPH % 6.8 % (20.0-40.0); MEAN CELL VOLUME 72.9 fL (80.0-94.0); MEAN CORPUSCULAR HEMOGLOBIN 24.5 pg (27.0-31.0); MEAN CORPUSCULAR HGB CONC 33.5 g/dL (33.0-37.0); MEAN PLATELET VOLUME 9.1 fL (7.2-11.7); MONO # 0.4 K/uL (0.0-0.8); NEUT % 88.1 % (50.0-75.0); NRBC % 0.1 % (0.0-2.0); RBC 4.71 Mil/uL (4.40-5.90); RED CELL DISTRIBUTION WIDTH 17.8 % (11.5-14.5)
[2017-06-06 08:36] LABS: PLATELET COUNT 127 K/uL (130-400)
[2017-06-06 08:41] VITALS: O2SAT 95
[2017-06-06 09:14] LABS: LYMPHOCYTE 7 % (20-40); MONOCYTE 5 % (0-10); NEUTROPHIL 88 % (50-75); TOTAL CELLS COUNTED 100
[2017-06-06 09:15] LABS: ANISOCYTOSIS SLIGHT; HYPOCHROMIC SLIGHT; MICROCYTOSIS SLIGHT; OVALOCYTES SLIGHT; PLATELET ESTIMATE SLIGHTLY DECREASED (NORMAL); POLYCHROMIC SLIGHT
[2017-06-06 10:11] LABS: ALB/GLOB RATIO 1.3 (1.0-2.1); ALBUMIN 3.3 g/dL (3.5-5.0); ALT/SGPT 65 U/L (21-72); AST/SGOT 41 U/L (17-59); BLOOD UREA NITROGEN 30 mg/dL (9-20); CALCIUM 9.5 mg/dl (8.6-10.4); GFR AFRICAN-AMERICAN > 60; GFR NON-AFRICAN AMERICAN > 60
--- NOTE | 2017-06-06 11:49 | CP.PCM.PN ---
Subjective - Date & Time of Evaluation Date of Evaluation: 06/06/17 Time of Evaluation: 11:47 - Subjective Subjective: Follow up Nephrology Consultation: Assessment: stable non-oliguric Acute Kidney Injury (N17.9) likely due to ATN due to low BP/pre- renal state: improved pneumonia chronic Hep C moderate TR with elevated RVSP Hypokalemia, Anemia, hyperphosphatemia Plan No acute need for renal replacement therapy at this time. CAIT resolved. HTN: resume lopressor from today and enalapril/hctz from tomorrow Monitor Input/Output, daily weights and renal function with basic metabolic panel planned cardiac cath today. supplement electrolytes as needed phos binders as phoslo and sodium bicarb 1300 mg bid: will stop both due to resolved CAIT Dose meds/antibiotics for improved GFR. Avoid fleets enema/magnesium based laxatives. Avoid nephrotoxins/NSAIDs/ iodinated contrast (unless needed emergently) Glycemic control Further work up/management as per primary team Thanks for allowing me to participate in care of your patient. Will follow patient with you. Please call if any Qs. Dr Dimitris Perez Office: [phone] Chief Complaint; feels better HPI: Pt is a61 M with hx of diabetes Mellitus ( years), hypertension (years), obesity, Ex drug abuse, chronic Hep C presented with complaints of SOB and being managed for pneumonia. renal consult for CAIT. his s.creat 1.1-1.4 when d/ c from hospital recently for similiar pulm presentation Denies OTC/herbal meds or NSAIDs No recent iodinated contrast exposure. obvious episodes of low BP (86/60) c/o cough and phlegm (non bloody). SOB better. ROS: Cardiovascular: No chest pain. Pulmonary: improved shortness of breath Gastrointestinal: denies abdominal pain No nausea. No vomiting. Genitourinary: No pain while urinating. Denies blood in urine. All other negative Physical Examination: General Appearance: Obese, Comfortable, in no acute respiratory distress, co- operative . Vitals reviewed and noted as below Head; Atraumatic, normocephalic ENT: no ulcers no thrush. Tongue is midline. Oropharynx: no rash or ulcers. EYES: Pupils are equal, round and reactive to light accommodation. Eye muscles and extraocular movement intact. Sclera is anicteric. Neck; supple no lymphadenopathy, no thyromegaly or bruit Lungs: Normal respiratory rate/effort. Breath sounds bases clearer Heart: Normal rate. s1s2 normal. No rub or gallop. Extremities: trace edema. No varicose veins. upper extremities old scar noted Neurological: Patient is alert, awake and oriented to person, place and time. No focal deficit. Strength bilateral appropriate and equal Skin: Warm and dry. Normal turgor. No rash. Palpitation: Normal elasticity for age Abdomen: Abdomen is soft. Bowel sounds +. There is no abdominal tenderness, no guarding/rigidity no organomegaly Psych: normal insight and normal affect/mood MSK: no joint tenderness or swelling. Digits and nails normal, no deformity : kidney or bladder not palpable Labs/imaging reviewed. Past medical history, past surgical history, family history, social history, allergy reviewed and noted as below Family hx: no hx of CKD. Rest non-contributory echo normal LVEF. has moderate TR with RVSP 40-50 Urine Na 11 Objective - Vital Signs/Intake and Output Vital Signs (last 24 hours): Temp Pulse Resp BP Pulse Ox 98.0 F 83 20 179/89 H 95 06/06/17 07:35 06/06/17 07:35 06/06/17 07:35 06/06/17 07:35 06/06/17 07:35 - Medications Medications: Current Medications Acetaminophen (Tylenol 325mg Tab) 650 mg PO Q6 PRN PRN Reason: Pain, moderate (4-7) Last Admin: 06/05/17 01:36 Dose: 650 mg Amlodipine Besylate (Norvasc) 10 mg PO DAILY [facility] Last Admin: 06/06/17 10:48 Dose: 10 mg Apixaban (Eliquis) 5 mg PO BID [facility] Last Admin: 06/04/17 09:56 Dose: 5 mg Benzocaine/Menthol (Cepacol Sore Throat) 1 sarkis MT Q4H PRN PRN Reason: Sore Throat Last Admin: 06/04/17 23:21 Dose: 1 sarkis Clonidine HCl (Catapres) 0.1 mg PO BID [facility] Last Admin: 06/06/17 10:48 Dose: 0.1 mg Dicyclomine HCl (Bentyl) 10 mg PO Q6 PRN PRN Reason: STOMACH PAIN Enalapril Maleate (Vasotec) 20 mg PO BID [facility] Hydralazine HCl (Apresoline) 100 mg PO Q8 [facility] Last Admin: 06/06/17 05:07 Dose: Not Given Hydralazine HCl (Apresoline) 25 mg PO Q4 PRN PRN Reason: Other Hydrochlorothiazide (Hydrodiuril) 25 mg PO DAILY [facility] Doxycycline Hyclate 100 mg/ (Sodium Chloride) 100 mls @ 100 mls/hr IVPB Q12H [facility] Last Admin: 06/06/17 07:05 Dose: 100 mls/hr Insulin Aspart (Novolog) 0 unit SC ACHS [facility] PRN Reason: Protocol Last Admin: 06/06/17 07:25 Dose: Not Given Methylprednisolone (Solu-Medrol) 40 mg IV Q12 [facility] Last Admin: 06/06/17 10:48 Dose: 40 mg Metoprolol Tartrate (Lopressor) 50 mg PO BRKDIN [facility] Pantoprazole Sodium (Protonix Susp) 40 mg PO 0600 [facility] Last Admin: 06/06/17 05:08 Dose: Not Given - Labs Labs: 06/06/17 07:55 06/06/17 07:55 PT 11.9 SECONDS (9.7-12.2) 06/03/17 08:48 INR 1.1 06/03/17 08:48 APTT 64 SECONDS (21-34) H D 06/03/17 08:48
--- NOTE | 2017-06-06 12:18 | CARD ---
APPROVED REPORT EXAM: Two-dimensional and M-mode echocardiogram with Doppler and color Doppler. Other Information Quality : GoodRhythm : INDICATION Dyspnea Chest Pain R/O INFECTIVE ENDOCARDITIS, HEP. C RISK FACTORS Hypertension 2D DIMENSIONS IVSd1.9 (0.7-1.1cm)LVDd5.0 (3.9-5.9cm) PWd1.6 (0.7-1.1cm)LVDs3.2 (2.5-4.0cm) FS (%) 34.9 %LVEF (%)63.9 (>50%) M-Mode DIMENSIONS RVDd2.10 (2.1-3.2cm)Left Atrium (MM)5.59 (2.5-4.0cm) IVSd1.52 (0.7-1.1cm)Aortic Root3.06 (2.2-3.7cm) LVDd5.52 (4.0-5.6cm)Aortic Cusp Exc.2.13 (1.5-2.0cm) PWd1.24 (0.7-1.1cm)FS (%) 37 % LVDs3.46 (2.0-3.8cm)LVEF (%)67 (>50%) Mitral Valve MV E Niqvfuvs46.0cm/sMV A Eyckpwhx19.0cm/sE/A ratio1.1 TDI E/Lateral E'0.0E/Medial E'0.0 Tricuspid Valve TR Peak Ttaoicwt851bc/sTR Peak [id number] LEFT VENTRICLE The left ventricle is normal size. There is normal left ventricular wall thickness. The left ventricular function is normal. The left ventricular ejection fraction is within the normal range. No regional wall motion abnormalities noted. LV filling pressure is probably increased No left ventricle thrombus noted on this study. There is no ventricular septal defect visualized. There is no left ventricular aneurysm. There is no mass noted in the left ventricle. RIGHT VENTRICLE The right ventricle is normal size. There is normal right ventricular wall thickness. The right ventricular systolic function is normal. ATRIA The left atrium is moderately dilated. The right atrium size is normal. The interatrial septum is intact with no evidence for an atrial septal defect. AORTIC VALVE The aortic valve is normal in structure and function. No aortic regurgitation is present. There is no aortic valvular stenosis. There is no aortic valvular vegetation. MITRAL VALVE The mitral valve is normal in structure and function. There is no evidence of mitral valve prolapse. There is no mitral valve stenosis. Mitral regurgitation is mild. TRICUSPID VALVE The tricuspid valve is normal in structure and function. There is mild tricuspid regurgitation. Right ventricular systolic pressure is estimated at 40-50 mmHg. There is no tricuspid valve prolapse or vegetation. There is no tricuspid valve stenosis. PULMONIC VALVE The pulmonary valve is normal in structure and function. There is no pulmonic valvular regurgitation. There is no pulmonic valvular stenosis. GREAT VESSELS The aortic root is normal in size. The ascending aorta is normal in size. The pulmonary artery is normal. The IVC is normal in size and collapses >50% with inspiration. PERICARDIAL EFFUSION The pericardium appears normal. There is no pleural effusion. <Conclusion> The left ventricular function is normal. The left ventricular ejection fraction is within the normal range. No regional wall motion abnormalities noted. LV filling pressure is probably increased The left atrium is moderately dilated. Mitral regurgitation is mild. There is mild tricuspid regurgitation. Right ventricular systolic pressure is estimated at 40-50 mmHg.
[2017-06-06] MEDS ORDERED: Verapamil 2 ML ONE (13:32)
[2017-06-06] MEDS ORDERED: Nitroglycerin 50mg in D5W 50 MG/250 ML BOTTLE IV ONE (13:33)
[2017-06-06] MEDS ORDERED: Lidocaine 2% Inj (20ml) ONE (13:40)
[2017-06-06] MEDS ORDERED: Midazolam 2 MG/2 ML VIAL ONE ×3 (13:43→14:10)
[2017-06-06] MEDS ORDERED: DiphenhydrAMINE 50 mg/ml Inj ONE (14:07)
[2017-06-06] MEDS ORDERED: Sodium Chloride 0.9% 500 ML IV SCH (14:15)
--- NOTE | 2017-06-06 18:33 | CP.PCM.PN ---
Subjective - Date & Time of Evaluation Date of Evaluation: 06/06/17 Time of Evaluation: 07:00 - Subjective Subjective: ADMITTED WITH CAIT R/O SEPSIS ID CONSULTED FOR + BLOOD CULTURE PMHx: significant for DM, HTN, Afib not on anticoaguation, recent pna, IVDA, sober 1 year, HCV infection untreated, was on methadone program Objective - Vital Signs/Intake and Output Vital Signs (last 24 hours): Temp Pulse Resp BP Pulse Ox 98.0 F 98 H 20 195/100 H 95 06/06/17 07:35 06/06/17 18:12 06/06/17 07:35 06/06/17 18:12 06/06/17 07:35 - Medications Medications: Current Medications Acetaminophen (Tylenol 325mg Tab) 650 mg PO Q6 PRN PRN Reason: Pain, moderate (4-7) Last Admin: 06/05/17 01:36 Dose: 650 mg Amlodipine Besylate (Norvasc) 10 mg PO DAILY [facility] Last Admin: 06/06/17 10:48 Dose: 10 mg Apixaban (Eliquis) 5 mg PO BID [facility] Last Admin: 06/04/17 09:56 Dose: 5 mg Benzocaine/Menthol (Cepacol Sore Throat) 1 sarkis MT Q4H PRN PRN Reason: Sore Throat Last Admin: 06/04/17 23:21 Dose: 1 sarkis Clonidine HCl (Catapres) 0.1 mg PO BID [facility] Last Admin: 06/06/17 18:14 Dose: 0.1 mg Dicyclomine HCl (Bentyl) 10 mg PO Q6 PRN PRN Reason: STOMACH PAIN Enalapril Maleate (Vasotec) 20 mg PO BID [facility] Hydralazine HCl (Apresoline) 100 mg PO Q8 [facility] Last Admin: 06/06/17 14:30 Dose: Not Given Hydralazine HCl (Apresoline) 25 mg PO Q4 PRN PRN Reason: Other Hydrochlorothiazide (Hydrodiuril) 25 mg PO DAILY [facility] Doxycycline Hyclate 100 mg/ (Sodium Chloride) 100 mls @ 100 mls/hr IVPB Q12H [facility] Last Admin: 06/06/17 18:15 Dose: 100 mls/hr Insulin Aspart (Novolog) 0 unit SC ACHS [facility] PRN Reason: Protocol Last Admin: 06/06/17 16:30 Dose: Not Given Methylprednisolone (Solu-Medrol) 40 mg IV Q12 [facility] Last Admin: 06/06/17 10:48 Dose: 40 mg Metoprolol Tartrate (Lopressor) 50 mg PO BIDCC [facility] Last Admin: 06/06/17 18:13 Dose: 50 mg Pantoprazole Sodium (Protonix Susp) 40 mg PO 0600 [facility] Last Admin: 06/06/17 05:08 Dose: Not Given - Labs Labs: 06/06/17 07:55 06/06/17 07:55 PT 11.9 SECONDS (9.7-12.2) 06/03/17 08:48 INR 1.1 06/03/17 08:48 APTT 64 SECONDS (21-34) H D 06/03/17 08:48 - Constitutional Appears: Non-toxic, Chronically Ill - Eye Exam Eye Exam: PERRL - ENT Exam ENT Exam: Mucous Membranes Dry - Neck Exam Neck Exam: absent: Lymphadenopathy - Cardiovascular Exam Cardiovascular Exam: REGULAR RHYTHM - GI/Abdominal Exam GI & Abdominal Exam: Distended - Rectal Exam Rectal Exam: Deferred - Exam Exam: NORMAL INSPECTION Assessment and Plan (1) Acute renal failure Status: Acute (2) Hypotension Status: Acute (3) Hypoxia Status: Acute (4) Leukocytosis Status: Acute (5) Respiratory distress Status: Acute (6) Hepatitis C Status: Acute (7) IV drug abuse Status: Acute (8) Pneumonia Status: Acute - Assessment and Plan (Free Text) Assessment: ADMITTED WITH CAIT R/O SEPSIS ID CONSULTED FOR + BLOOD CULTURE PMHx: significant for DM, HTN, Afib not on anticoaguation, recent pna, IVDA, sober 1 year, HCV infection untreated, was on methadone program
[2017-06-06] MEDS ORDERED: Vancomycin 1 gm/NS 200 ml 1 GM/200 ML BAG IVPB SCH (20:00)
[2017-06-07] MEDS ORDERED: Oxycodone/Acetaminophen 5/325 mg Tab PO ONE (01:00)
[2017-06-07] MEDS: Pantoprazole 40 mg Susp UD PO SCH (06:11)
--- NOTE | 2017-06-07 08:12 | CP.PCM.PN ---
Subjective - Date & Time of Evaluation Date of Evaluation: 06/07/17 Time of Evaluation: 07:40 - Subjective Subjective: Subjective: Patient seen and examined at bedside. States he is experiencing withdrawal symptoms including abdominal discomfort and bilateral lower extremity pain. Denies fever, chills, chest pain, palpitations. ROS negative except as indicated in the HPI Physical Examination: - Head Exam Head Exam: ATRAUMATIC, NORMAL INSPECTION - Eye Exam Eye Exam: EOMI, Normal appearance, PERRL Pupil Exam: NORMAL ACCOMODATION - ENT Exam ENT Exam: Mucous Membranes Moist, Normal Exam - Neck Exam Neck exam: Positive for: Normal Inspection - Respiratory Exam Respiratory Exam: NORMAL BREATHING PATTERN - Cardiovascular Exam Cardiovascular Exam: Irregular Rhythm, +S1, +S2 - GI/Abdominal Exam GI & Abdominal Exam: Normal Bowel Sounds - Extremities Exam Extremities exam: Positive for: bilateral upper extremity edema, right lower extremity +1 pitting edema; catheter insertion site clean, dry, and intact - Neurological Exam Neurological exam: Awake, alert, responds to verbal stimuli, answers questions appropriately, follows commands, and moves extremities past midline - Psychiatric Exam Psychiatric exam: Normal Mood, normal affect - Skin Skin Exam: Warm, dry, bilateral upper extremity scar tissue Assessment and Plan: Patient is a 61 year old male with PMHx of DM, HTN, Afib not on anticoaguation, recent pna, IVDA, 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 EKG Abnormality - EKG reviewed and appreciated- Atrial Fibrillation HR 69 bpm, QTc- 486ms, lateral leads marked ST abnormalities - likely 2/2 to hypertensive heart disease - troponin less than 0.120 x 1 - diagnostic cardiac catherization performed on 06/06/2017- results reviewed and appreciated Atrial Fibrillation - rate controlled without pharmaceutical agent - [id number] is 2, resume eliquis 5mg PO BID Pneumonial; SOB - continue with ceftriaxone and doxycycline - continue with duonebs and solumedrol Hx of HTN - c/w norvasc, hydralazine, vasotec, and HCTZ - BP reviewed, trended, and appreciated- BP 160s/80s--likely secondary to withdrawal symptoms, goal SBP 90-150mmHg, goal DBP 90-100mmHg Opiate Withdrawl - c/w clonidine Non-Oliguric CAIT, Hyperphosphatemia - likely pre-renal in nature, BUN and creatinine improving - d/c IVF - c/w sodium bicarb tablets - nephrology consulted- appreciate recommendations Prophylaxis - DVT ppx eliquis - GI ppx protonix Patient case discussed with and plan approved by attending physician, Dr. Carranza. Objective - Vital Signs/Intake and Output Vital Signs (last 24 hours): Temp Pulse Resp BP Pulse Ox 98.0 F 80 20 162/82 H 95 06/07/17 01:06 06/07/17 01:06 06/07/17 01:06 06/07/17 01:06 06/07/17 01:06 Intake and Output: 06/07/17 06/07/17 06:59 18:59 Output Total 300 Balance -300 - Medications Medications: Current Medications Acetaminophen (Tylenol 325mg Tab) 650 mg PO Q6 PRN PRN Reason: Pain, moderate (4-7) Last Admin: 06/06/17 22:41 Dose: 650 mg Amlodipine Besylate (Norvasc) 10 mg PO DAILY [facility] Last Admin: 06/06/17 10:48 Dose: 10 mg Apixaban (Eliquis) 5 mg PO BID [facility] Last Admin: 06/04/17 09:56 Dose: 5 mg Benzocaine/Menthol (Cepacol Sore Throat) 1 sarkis MT Q4H PRN PRN Reason: Sore Throat Last Admin: 06/04/17 23:21 Dose: 1 sarkis Clonidine HCl (Catapres) 0.1 mg PO BID [facility] Last Admin: 06/06/17 18:14 Dose: 0.1 mg Dicyclomine HCl (Bentyl) 10 mg PO Q6 PRN PRN Reason: STOMACH PAIN Last Admin: 06/07/17 01:09 Dose: 10 mg Enalapril Maleate (Vasotec) 20 mg PO BID [facility] Hydralazine HCl (Apresoline) 100 mg PO Q8 [facility] Last Admin: 06/07/17 06:11 Dose: 100 mg Hydralazine HCl (Apresoline) 25 mg PO Q4 PRN PRN Reason: Other Hydrochlorothiazide (Hydrodiuril) 25 mg PO DAILY [facility] Doxycycline Hyclate 100 mg/ (Sodium Chloride) 100 mls @ 100 mls/hr IVPB Q12H [facility] Last Admin: 06/07/17 06:11 Dose: 100 mls/hr Ceftriaxone Sodium 1 gm/ (Sodium Chloride) 100 mls @ 100 mls/hr IVPB DAILY [facility] Insulin Aspart (Novolog) 0 unit SC ACHS [facility] PRN Reason: Protocol Last Admin: 06/06/17 22:12 Dose: Not Given Methylprednisolone (Solu-Medrol) 40 mg IV Q12 [facility] Last Admin: 06/06/17 22:38 Dose: 40 mg Metoprolol Tartrate (Lopressor) 50 mg PO BIDCC [facility] Last Admin: 06/06/17 18:13 Dose: 50 mg Pantoprazole Sodium (Protonix Susp) 40 mg PO 0600 [facility] Last Admin: 06/07/17 06:11 Dose: 40 mg - Labs Labs: 06/06/17 07:55 06/06/17 07:55 PT 11.9 SECONDS (9.7-12.2) 06/03/17 08:48 INR 1.1 06/03/17 08:48 APTT 64 SECONDS (21-34) H D 06/03/17 08:48
[2017-06-07] MEDS: (Novolog) Insulin Aspart, Recombinant 100 u/ml 10 ml vial SC SCH ×2 (08:30→12:49)
[2017-06-07 11:33] LABS: BASO % 0.1 % (0.0-2.0); HEMOGLOBIN 11.3 g/dL (12.0-18.0); LYMPH # 0.5 K/uL (1.0-4.3); LYMPH % 4.4 % (20.0-40.0); MEAN CELL VOLUME 73.4 fL (80.0-94.0); MEAN CORPUSCULAR HEMOGLOBIN 24.1 pg (27.0-31.0); MEAN CORPUSCULAR HGB CONC 32.9 g/dL (33.0-37.0); MEAN PLATELET VOLUME 9.3 fL (7.2-11.7); MONO # 0.9 K/uL (0.0-0.8); MONO % 7.3 % (0.0-10.0); NEUT # 10.5 K/uL (1.8-7.0); NEUT % 88.2 % (50.0-75.0); PLATELET COUNT 109 K/uL (130-400); RBC 4.66 Mil/uL (4.40-5.90); RED CELL DISTRIBUTION WIDTH 17.5 % (11.5-14.5); WHITE BLOOD COUNT 11.9 K/uL (4.8-10.8)
[2017-06-07 11:45] LABS: BLOOD UREA NITROGEN 36 mg/dL (9-20); GFR AFRICAN-AMERICAN > 60; GFR NON-AFRICAN AMERICAN > 60
[2017-06-07 11:55] LABS: ANISOCYTOSIS SLIGHT; LYMPHOCYTE 4 % (20-40); MONOCYTE 5 % (0-10); NEUTROPHIL 91 % (50-75); PLATELET ESTIMATE SLIGHTLY DECREASED (NORMAL); TOTAL CELLS COUNTED 100
[2017-06-07 11:56] LABS: HYPOCHROMIC SLIGHT; MICROCYTOSIS SLIGHT; OVALOCYTES SLIGHT; POLYCHROMIC SLIGHT
--- NOTE | 2017-06-07 12:30 | CP.PCM.PN ---
Subjective - Date & Time of Evaluation Date of Evaluation: 06/07/17 Time of Evaluation: 12:29 - Subjective Subjective: Follow up Nephrology Consultation: Assessment: stable non-oliguric Acute Kidney Injury (N17.9) likely due to ATN due to low BP/pre- renal state: improved pneumonia chronic Hep C moderate TR with elevated RVSP Hypokalemia, Anemia, hyperphosphatemia Plan No acute need for renal replacement therapy at this time. CAIT resolved. HTN: resume home meds as ordered Monitor Input/Output, daily weights and renal function with basic metabolic panel supplement electrolytes as needed Dose meds/antibiotics for improved GFR. Avoid nephrotoxins/NSAIDs Glycemic control Further work up/management as per primary team pt stable for d/c from renal perspective when planned Thanks for allowing me to participate in care of your patient. please call if any Qs. Dr Dimitris Perez Office: [phone] Chief Complaint; feels better HPI: Pt is a61 M with hx of diabetes Mellitus ( years), hypertension (years), obesity, Ex drug abuse, chronic Hep C presented with complaints of SOB and being managed for pneumonia. renal consult for CAIT. his s.creat 1.1-1.4 when d/ c from hospital recently for similiar pulm presentation Denies OTC/herbal meds or NSAIDs No recent iodinated contrast exposure. obvious episodes of low BP (86/60) c/o cough and phlegm (non bloody). SOB better. ROS: Cardiovascular: No chest pain. Pulmonary: improved shortness of breath Gastrointestinal: denies abdominal pain No nausea. No vomiting. Genitourinary: No pain while urinating. Denies blood in urine. All other negative Physical Examination: General Appearance: Obese, Comfortable, in no acute respiratory distress, co- operative . Vitals reviewed and noted as below Head; Atraumatic, normocephalic ENT: no ulcers no thrush. Tongue is midline. Oropharynx: no rash or ulcers. EYES: Pupils are equal, round and reactive to light accommodation. Eye muscles and extraocular movement intact. Sclera is anicteric. Neck; supple no lymphadenopathy, no thyromegaly or bruit Lungs: Normal respiratory rate/effort. Breath sounds bases clearer Heart: Normal rate. s1s2 normal. No rub or gallop. Extremities: no edema. No varicose veins. upper extremities old scar noted Neurological: Patient is alert, awake and oriented to person, place and time. No focal deficit. Strength bilateral appropriate and equal Skin: Warm and dry. Normal turgor. No rash. Palpitation: Normal elasticity for age Abdomen: Abdomen is soft. Bowel sounds +. There is no abdominal tenderness, no guarding/rigidity no organomegaly Psych: normal insight and normal affect/mood MSK: no joint tenderness or swelling. Digits and nails normal, no deformity : kidney or bladder not palpable Labs/imaging reviewed. Past medical history, past surgical history, family history, social history, allergy reviewed and noted as below Family hx: no hx of CKD. Rest non-contributory echo normal LVEF. has moderate TR with RVSP 40-50 Urine Na 11 Objective - Vital Signs/Intake and Output Vital Signs (last 24 hours): Temp Pulse Resp BP Pulse Ox 98.0 F 60 20 165/82 H 95 06/07/17 01:06 06/07/17 10:00 06/07/17 01:06 06/07/17 10:01 06/07/17 01:06 Intake and Output: 06/07/17 06/07/17 06:59 18:59 Output Total 300 Balance -300 - Medications Medications: Current Medications Acetaminophen (Tylenol 325mg Tab) 650 mg PO Q6 PRN PRN Reason: Pain, moderate (4-7) Last Admin: 06/06/17 22:41 Dose: 650 mg Amlodipine Besylate (Norvasc) 10 mg PO DAILY [facility] Last Admin: 06/07/17 10:02 Dose: 10 mg Apixaban (Eliquis) 5 mg PO BID [facility] Last Admin: 06/04/17 09:56 Dose: 5 mg Benzocaine/Menthol (Cepacol Sore Throat) 1 sarkis MT Q4H PRN PRN Reason: Sore Throat Last Admin: 06/04/17 23:21 Dose: 1 sarkis Clonidine HCl (Catapres) 0.1 mg PO BID [facility] Last Admin: 06/07/17 10:01 Dose: 0.1 mg Dicyclomine HCl (Bentyl) 10 mg PO Q6 PRN PRN Reason: STOMACH PAIN Last Admin: 06/07/17 01:09 Dose: 10 mg Enalapril Maleate (Vasotec) 20 mg PO BID [facility] Last Admin: 06/07/17 10:01 Dose: 20 mg Hydralazine HCl (Apresoline) 100 mg PO Q8 [facility] Last Admin: 06/07/17 06:11 Dose: 100 mg Hydralazine HCl (Apresoline) 25 mg PO Q4 PRN PRN Reason: Other Hydrochlorothiazide (Hydrodiuril) 25 mg PO DAILY [facility] Last Admin: 06/07/17 10:02 Dose: 25 mg Doxycycline Hyclate 100 mg/ (Sodium Chloride) 100 mls @ 100 mls/hr IVPB Q12H [facility] Last Admin: 06/07/17 06:11 Dose: 100 mls/hr Ceftriaxone Sodium 1 gm/ (Sodium Chloride) 100 mls @ 100 mls/hr IVPB DAILY [facility] Last Admin: 06/07/17 10:02 Dose: 100 mls/hr Insulin Aspart (Novolog) 0 unit SC ACHS [facility] PRN Reason: Protocol Last Admin: 06/07/17 08:30 Dose: 2 unit Methylprednisolone (Solu-Medrol) 40 mg IV Q12 [facility] Last Admin: 06/07/17 10:01 Dose: 40 mg Metoprolol Tartrate (Lopressor) 50 mg PO BIDCC [facility] Last Admin: 06/07/17 09:14 Dose: 50 mg Pantoprazole Sodium (Protonix Susp) 40 mg PO 0600 [facility] Last Admin: 06/07/17 06:11 Dose: 40 mg - Labs Labs: 06/07/17 11:29 06/07/17 11:29 PT 11.9 SECONDS (9.7-12.2) 06/03/17 08:48 INR 1.1 06/03/17 08:48 APTT 64 SECONDS (21-34) H D 06/03/17 08:48
--- NOTE | 2017-06-07 13:11 | CP.PCM.PN ---
Subjective - Date & Time of Evaluation Date of Evaluation: 06/07/17 Time of Evaluation: 13:11 - Subjective Subjective: PATIENT WAS ADMITTING FOR RESPIRATORY FAILURE AND HYPOTENSION AAOX3; DENIES CHEST PAIN OR SOB NO SIGN OF DISTRESS NOTED Objective - Vital Signs/Intake and Output Vital Signs (last 24 hours): Temp Pulse Resp BP Pulse Ox 98.0 F 60 20 165/82 H 95 06/07/17 01:06 06/07/17 10:00 06/07/17 01:06 06/07/17 10:01 06/07/17 01:06 Intake and Output: 06/07/17 06/07/17 06:59 18:59 Output Total 300 Balance -300 - Medications Medications: Current Medications Acetaminophen (Tylenol 325mg Tab) 650 mg PO Q6 PRN PRN Reason: Pain, moderate (4-7) Last Admin: 06/06/17 22:41 Dose: 650 mg Amlodipine Besylate (Norvasc) 10 mg PO DAILY [facility] Last Admin: 06/07/17 10:02 Dose: 10 mg Apixaban (Eliquis) 5 mg PO BID [facility] Last Admin: 06/04/17 09:56 Dose: 5 mg Benzocaine/Menthol (Cepacol Sore Throat) 1 sarkis MT Q4H PRN PRN Reason: Sore Throat Last Admin: 06/04/17 23:21 Dose: 1 sarkis Clonidine HCl (Catapres) 0.1 mg PO BID [facility] Last Admin: 06/07/17 10:01 Dose: 0.1 mg Dicyclomine HCl (Bentyl) 10 mg PO Q6 PRN PRN Reason: STOMACH PAIN Last Admin: 06/07/17 01:09 Dose: 10 mg Enalapril Maleate (Vasotec) 20 mg PO BID [facility] Last Admin: 06/07/17 10:01 Dose: 20 mg Hydralazine HCl (Apresoline) 100 mg PO Q8 [facility] Last Admin: 06/07/17 06:11 Dose: 100 mg Hydralazine HCl (Apresoline) 25 mg PO Q4 PRN PRN Reason: Other Hydrochlorothiazide (Hydrodiuril) 25 mg PO DAILY [facility] Last Admin: 06/07/17 10:02 Dose: 25 mg Doxycycline Hyclate 100 mg/ (Sodium Chloride) 100 mls @ 100 mls/hr IVPB Q12H [facility] Last Admin: 06/07/17 06:11 Dose: 100 mls/hr Ceftriaxone Sodium 1 gm/ (Sodium Chloride) 100 mls @ 100 mls/hr IVPB DAILY [facility] Last Admin: 06/07/17 10:02 Dose: 100 mls/hr Insulin Aspart (Novolog) 0 unit SC ACHS [facility] PRN Reason: Protocol Last Admin: 06/07/17 12:49 Dose: Not Given Methylprednisolone (Solu-Medrol) 40 mg IV Q12 [facility] Last Admin: 06/07/17 10:01 Dose: 40 mg Metoprolol Tartrate (Lopressor) 50 mg PO BIDCC [facility] Last Admin: 06/07/17 09:14 Dose: 50 mg Pantoprazole Sodium (Protonix Susp) 40 mg PO 0600 [facility] Last Admin: 06/07/17 06:11 Dose: 40 mg - Labs Labs: 06/07/17 11:29 06/07/17 11:29 PT 11.9 SECONDS (9.7-12.2) 06/03/17 08:48 INR 1.1 06/03/17 08:48 APTT 64 SECONDS (21-34) H D 06/03/17 08:48 Assessment and Plan - Assessment and Plan (Free Text) Assessment: PATIENT SEEN AND EXAMINED AT THE BEDSIDE LUNG SOUND CLEAR CARDIAC CATH DONE FOR DIAGNOSTIC PURPOSE RENAL FUNCTION IMPROVE DISCUSS WITH DR COLVIN WHO CLEAR PATIENT FOR DC FOLLOW UP WITH DR COLVIN AT HIS OFFICE IN A 1-2 WEEK ---CALL FOR APPOINTMENT CONTINUE ALL YOUR HOME MEDICATION ORDER NEW PRESCRIPTION GIVEN LIPITOR 20 MG BY MOUTH DAILY CLONIPINE 0.1 MG BY MOUTH ONE TAB TWICE A DAY MEDROL DOSE FORTINO DAILY INSTRUCTED ELIQUIS 5 MG BY MOUTH ONE TAB TWICE A DAY ACTIVITY TOLERATED CALL DR DR COLVIN OR GO TO THE EMERGENCY ROOM IF SYMPTOMS RETURN OR WORSENING DISCUSS WITH PATIENT WHO AGREE AND VERBALIZED UNDERSTANDING
[2017-06-07 16:15] VITALS: BP 163/76; PULSE 68; TEMP 97.9
--- NOTE | 2017-06-07 22:53 | CP.PCM.DIS ---
Provider - Provider Date of Admission: 06/01/17 00:44 Attending physician: David Vera MD Time Spent in preparation of Discharge (in minutes): 20 Hospital Course - Lab Results Lab Results: Micro Results 06/06/17 Unknown Sputum Gram Stain - Final 06/04/17 22:34 Stool Stool Culture - Final NO SALMONELLA, SHIGELLA OR CAMPYLOBACTER ISOLATED. 06/05/17 04:00 Blood Blood Culture - Preliminary NO GROWTH AFTER 48 HOURS 05/31/17 21:45 Blood Blood Culture - Final NO GROWTH AFTER 5 DAYS 05/31/17 21:45 Blood Gram Stain - Final TEST NOT PERFORMED 06/04/17 22:34 Stool Ova and Parasite Concentrate Exam - Final 05/31/17 22:00 Blood S.aureus & Coag-Neg Staph PNA FISH - Final 05/31/17 22:00 Blood Blood Culture - Final Coagulase Neg Staphylococcus 05/31/17 22:00 Blood Gram Stain - Final 06/01/17 07:48 Stool Stool Culture - Final NO SALMONELLA, SHIGELLA OR CAMPYLOBACTER ISOLATED. 06/02/17 20:15 Naris MRSA Culture - Final MRSA NOT DETECTED 06/01/17 03:04 Naris MRSA Culture (Admit) - Final MRSA NOT DETECTED Most Recent Lab Values WBC 11.9 K/uL (4.8-10.8) H 06/07/17 11:29 RBC 4.66 Mil/uL (4.40-5.90) 06/07/17 11:29 Hgb 11.3 g/dL (12.0-18.0) L 06/07/17 11:29 Hct 34.2 % (35.0-51.0) L 06/07/17 11:29 MCV 73.4 fL (80.0-94.0) L 06/07/17 11:29 MCH 24.1 pg (27.0-31.0) L 06/07/17 11:29 MCHC 32.9 g/dL (33.0-37.0) L 06/07/17 11:29 RDW 17.5 % (11.5-14.5) H 06/07/17 11:29 Plt Count 109 K/uL (130-400) L 06/07/17 11:29 MPV 9.3 fL (7.2-11.7) 06/07/17 11:29 Neut % (Auto) 88.2 % (50.0-75.0) H 06/07/17 11:29 Lymph % (Auto) 4.4 % (20.0-40.0) L 06/07/17 11:29 [place] % (Auto) 7.3 % (0.0-10.0) 06/07/17 11:29 Eos % (Auto) 0.0 % (0.0-4.0) 06/07/17 11:29 Baso % (Auto) 0.1 % (0.0-2.0) 06/07/17 11:29 Neut # (Auto) 10.5 K/uL (1.8-7.0) H 06/07/17 11: Lymph # (Auto) 0.5 K/uL (1.0-4.3) L 06/07/17 11:29 [place] # (Auto) 0.9 K/uL (0.0-0.8) H 06/07/17 11: Eos # (Auto) 0.0 K/uL (0.0-0.7) 06/07/17 11: Baso # (Auto) 0.0 K/uL (0.0-0.2) 06/07/17 11:29 Neutrophils % (Manual) 91 % (50-75) H 06/07/17 11:29 Band Neutrophils % 2 % (0-2) 06/04/17 08:28 Lymphocytes % (Manual) 4 % (20-40) L 06/07/17 11:29 Monocytes % (Manual) 5 % (0-10) 06/07/17 11:29 Eosinophils % (Manual) 1 % (0-4) 05/31/17 22:29 Platelet Estimate Slightly decreased (NORMAL) L 06/07/17 11:29 Polychromasia Slight 06/07/17 11:29 Hypochromasia (manual) Slight 06/07/17 11:29 Poikilocytosis (manual Slight 06/04/17 08:28 Anisocytosis (manual) Slight 06/07/17 11:29 Microcytosis (manual) Slight 06/07/17 11:29 Spherocytes Slight 06/03/17 22:46 Ovalocytes Slight 06/07/17 11:29 Soumya Cells Slight 06/03/17 22:46 PT 11.9 SECONDS (9.7-12.2) 06/03/17 08:48 INR 1.1 06/03/17 08:48 APTT 64 SECONDS (21-34) H D 06/03/17 08:48 Puncture Site Rr 05/31/17 22:05 pCO2 39 mm/Hg (35-45) 05/31/17 22:05 pO2 190 mm/Hg (80-100) H 05/31/17 22:05 HCO3 24.6 mmol/L (21-28) 05/31/17 22:05 ABG pH 7.40 (7.35-7.45) 05/31/17 22:05 ABG Total CO2 25.4 mmol/L (22-28) 05/31/17 22:05 ABG O2 Saturation 100.2 % (95-98) H 05/31/17 22:05 ABG Base Excess -0.5 mmol/L (-2.0-3.0) 05/31/17 22:05 Marty Test P 05/31/17 22:05 ABG Potassium 3.3 mmol/L (3.6-5.2) L 05/31/17 22:05 VBG pH 7.36 (7.32-7.43) 05/31/17 22:00 VBG pCO2 42 mmHg (40-60) 05/31/17 22:00 VBG HCO3 23.3 mmol/L 05/31/17 22:00 VBG Total CO2 25.0 mmol/L (22-28) 05/31/17 22:00 VBG O2 Sat (Calc) 93.5 % (40-65) H 05/31/17 22:00 VBG Base Excess -1.8 mmol/L (0.0-2.0) L 05/31/17 22:00 VBG Potassium 3.4 mmol/L (3.6-5.2) L 05/31/17 22:00 A-a O2 Difference 474.0 mm/Hg 05/31/17 22:05 Respiratory Index 2.5 05/31/17 22:05 Sodium 134.0 mmol/l (132-148) 05/31/17 22:05 Chloride 103.0 mmol/L (98-107) 05/31/17 22:05 Glucose 212 mg/dl (75-110) H 05/31/17 22:05 Lactate 1.2 mmol/L (0.7-2.1) 05/31/17 22:05 Vent Mode Bipap 05/31/17 22:05 FiO2 100.0 % 05/31/17 22:05 Inspiratory BiPAP 12 05/31/17 22:05 Expiratory BiPAP 6 05/31/17 22:05 Sodium 136 mmol/L (132-148) 06/07/17 11:29 Potassium 3.8 mmol/L (3.6-5.2) 06/07/17 11:29 Chloride 97 mmol/L (98-107) L 06/07/17 11:29 Carbon Dioxide 29 mmol/L (22-30) 06/07/17 11:29 Anion Gap 13 (10-20) 06/07/17 11:29 BUN 36 mg/dL (9-20) H 06/07/17 11:29 Creatinine 1.1 mg/dL (0.8-1.5) 06/07/17 11:29 Est GFR ( Amer) > 60 06/07/17 11:29 Est GFR (Non-Af Amer) > 60 06/07/17 11:29 POC Glucose (mg/dL) 128 mg/dL (65-110) H 06/07/17 11:20 Random Glucose 127 mg/dL (75-110) H 06/07/17 11:29 Hemoglobin A1c 6.7 % (4.2-6.5) H 06/02/17 10:20 Calcium 9.0 mg/dl (8.6-10.4) 06/07/17 11:29 Phosphorus 3.9 mg/dL (2.5-4.5) 06/06/17 07:55 Magnesium 2.4 mg/dL (1.6-2.3) H 06/01/17 06:22 Total Bilirubin 0.5 mg/dL (0.2-1.3) 06/06/17 07:55 AST 41 U/L (17-59) 06/06/17 07:55 ALT 65 U/L (21-72) 06/06/17 07:55 Alkaline Phosphatase 66 U/L (38-126) 06/06/17 07:55 Total Creatine Kinase < 20 U/L (55-170) L 06/02/17 10:20 CK-MB (Mass) 0.94 ng/mL (0.0-3.38) 06/02/17 10:20 Troponin I 0.0190 ng/mL (0.00-0.120) 06/02/17 10:20 NT-Pro-B Natriuret Pep 3840 pg/mL (0-900) H 05/31/17 22:29 Total Protein 5.7 g/dL (6.3-8.3) L 06/06/17 07:55 Albumin 3.3 g/dL (3.5-5.0) L D 06/06/17 07:55 Globulin 2.4 gm/dL (2.2-3.9) 06/06/17 07:55 Albumin/Globulin Ratio 1.3 (1.0-2.1) 06/06/17 07:55 Procalcitonin < 0.06 NG/ML (0.19-0.49) L 06/06/17 07:55 Arterial Blood Potassium 3.3 mmol/L (3.6-5.2) L 05/31/17 22:05 Venous Blood Potassium 3.4 mmol/L (3.6-5.2) L 05/31/17 22:00 Urine Color Yellow (YELLOW) 06/02/17 06:26 Urine Clarity Hazy (Clear) 06/02/17 06:26 Urine pH 5.0 (5.0-8.0) 06/02/17 06:26 Ur Specific [place] 1.017 (1.003-1.030) 06/02/17 06:26 Urine Protein Negative mg/dL (NEGATIVE) 06/02/17 06:26 Urine Glucose (UA) Normal mg/dL (Normal) 06/02/17 06:26 Urine Ketones Negative mg/dL (NEGATIVE) 06/02/17 06:26 Urine Blood Negative (NEGATIVE) 06/02/17 06:26 Urine Nitrate Negative (NEGATIVE) 06/02/17 06:26 Urine Bilirubin Negative (NEGATIVE) 06/02/17 06:26 Urine Urobilinogen Normal mg/dL (0.2-1.0) 06/02/17 06:26 Ur Leukocyte Esterase Trace Nico/uL (Negative) 06/02/17 06:26 Urine WBC (Auto) 11 /hpf (0-5) H 06/02/17 06:26 Ur Squamous Epith Cells 4 /hpf (0-5) 06/02/17 06:26 Amorphous Sediment Occ /ul (<OCC) H 06/02/17 06:26 Urine Bacteria Rare (<OCC) 06/01/17 02:16 Granular Casts (Auto) 179 /lpf (0-1) 06/01/17 02:16 Urine Eosinophils Negative (NEGATIVE) 06/01/17 06:55 Ur Random Creatinine 359.2 mg/dL 06/01/17 02:16 Ur Random Sodium 11 mmol/L 06/01/17 02:16 Urine Microalbumin 43.4 mg/L (0.0-16.6) H 06/02/17 08:56 Stool Leukocytes, Qual Negative (NEGATIVE) 06/01/17 07:48 Random Vancomycin < 5.00 ug/mL 06/06/17 07:55 Urine Opiates Screen Positive (NEGATIVE) H 06/01/17 02:16 Urine Methadone Screen Positive (NEGATIVE) H 06/01/17 02:16 Ur Barbiturates Screen Negative (NEGATIVE) 06/01/17 02:16 Ur Phencyclidine Scrn Negative (NEGATIVE) 06/01/17 02:16 Ur Amphetamines Screen Negative (NEGATIVE) 06/01/17 02:16 U Benzodiazepines Scrn Positive (NEGATIVE) 06/01/17 02:16 U Oth Cocaine Metabols Negative (NEGATIVE) 06/01/17 02:16 U Cannabinoids Screen Negative (NEGATIVE) 06/01/17 02:16 Cryoglobulin None detected (None Detected) 06/02/17 06:21 Rheumatoid Factor IgG <5 U (<=6) 06/02/17 06:21 Rheumatoid Factor IgA <5 U (<=6) 06/02/17 06:21 Rheumatoid Factor IgM 5 U (<=6) 06/02/17 06:21 ANCA Screen Negative (NEGATIVE) 06/02/17 06:21 c-ANCA Titer TNP 06/02/17 06:21 Proteinase 3 (PR3) <1.0 AI (<1.0) 06/02/17 06:21 p-ANCA Titer TNP 06/02/17 06:21 Atypical p-ANCA Titer TNP 06/02/17 06:21 Myeloperoxidase Ab <1.0 AI (<1.0) 06/02/17 06:21 Complement C3 66.0 mg/dL (88.0-165.0) L 06/02/17 06:21 Complement C4 32.6 mg/dL (14.0-44.0) 06/02/17 06:21 C. difficile Ag & Toxin Negative (NEGATIVE) 06/04/17 22:14 Influenza Typ A,B (EIA) Negative for flu a/b (NEGATIVE) 05/31/17 23:48 Discharge Exam - Head Exam Head Exam: NORMOCEPHALIC Discharge Plan - Discharge Medications Prescriptions: cloNIDine [Catapres] 0.1 mg PO BID #60 tab Apixaban [Eliquis] 5 mg PO BID #60 tab Atorvastatin [Lipitor] 20 mg PO DAILY #30 tab Methylprednisolone [Medrol Dose Pack (21 tabs)] 4 mg PO DAILY #21 mg - Follow Up Plan Condition: GUARDED Disposition: HOME/ ROUTINE Instructions: Acute Kidney Failure (DC), Quitting Smoking, Apixaban, Atorvastatin, Clonidine, Prednisone, Low Blood Pressure, Leukocytosis (DC) Additional Instructions: FOLLOW UP WITH DR VERA AT HIS OFFICE IN A 1-2 WEEK ---CALL FOR APPOINTMENT CONTINUE ALL YOUR HOME MEDICATION ORDER NEW PRESCRIPTION GIVEN LIPITOR 20 MG BY MOUTH DAILY CLONIPINE 0.1 MG BY MOUTH ONE TAB TWICE A DAY MEDROL DOSE FORTINO DAILY INSTRUCTED ELIQUIS 5 MG BY MOUTH ONE TAB TWICE A DAY ACTIVITY TOLERATED CALL DR DR VERA OR GO TO THE EMERGENCY ROOM IF SYMPTOMS RETURN OR WORSENING Referrals: Phillip Larios MD [Staff Provider] - David Vera MD [Medical Doctor] -
--- NOTE | 2017-06-07 22:53 | CP.PCM.PN ---
Subjective - Date & Time of Evaluation Date of Evaluation: 06/06/17 Time of Evaluation: 17:00 Objective - Vital Signs/Intake and Output Vital Signs (last 24 hours): Temp Pulse Resp BP Pulse Ox 97.9 F 68 20 163/76 H 95 06/07/17 16:14 06/07/17 16:14 06/07/17 16:14 06/07/17 16:14 06/07/17 16:14 Intake and Output: 06/07/17 06/08/17 18:59 06:59 Intake Total 400 Balance 400 - Labs Labs: 06/07/17 11:29 06/07/17 11:29 PT 11.9 SECONDS (9.7-12.2) 06/03/17 08:48 INR 1.1 06/03/17 08:48 APTT 64 SECONDS (21-34) H D 06/03/17 08:48
--- NOTE | 2017-06-21 10:41 | PROCN ---
DATE: 06/10/2017 INDICATIONS: Raymundo Rowland is a 61-year-old male with past medical history significant for hypertension, dyslipidemia, remote history of smoking, drug abuse, who presented with complaint of atypical chest pain. The patient had undergone a stress test in the past, which was mildly positive. This was a recurrent admission. He was therefore brought to the dental lab technician for further evaluation and treatment for underlying CAD. PROCEDURES PERFORMED: Left heart catheterization with selective left and right coronary angiogram via radial approach, 6-Welsh left radial arterial access, wristband for hemostasis, left ventriculogram. TECHNIQUES OF PROCEDURE: After obtaining informed consent, the patient was brought to the cardiac catheterization suite in post-absorptive and non-sedated state. The patient was prepped and draped in the usual sterile fashion. A 2% lidocaine was used for infiltration of anesthesia. Using modified Seldinger technique, 6-Welsh sheath was introduced into the left femoral artery. Subsequently, over a J-wire, JR-4 and JL-4 diagnostic catheters were used to engage the left and right coronary systems. Angiograms were obtained in different orthogonal views. Subsequently, an LV gram was obtained in the NUNEZ view. Hemodynamics were obtained and pullback gradients were noted. 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 Right coronary artery: Large-sized vessel, hyperdominant right circulation gives off the right PD and PLV branches, which wraps around the apex of the heart. LAD arises from the right coronary cusp just anterior to the ostium of the right coronary artery. Left circumflex comes from the left coronary cusp, a large-sized vessel, gives off the SA donn branch and large obtuse marginal branch. Left circumflex has proximal 30% stenosis, distal 40% stenosis. LAD, nonobstructive disease. Right coronary artery, proximal 30, distal 40. 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 RECOMMENDATIONS: Guideline-directed therapy for risk factor modification and aggressive medical management. Jakob Carranza MD [facility] # [id number]
== END 2017-06-07 15:30 | disposition home or self-care (01) | DRG 121 ==
LOC: C.ER 21:16 → C.9I 06-01 00:44 → C.5S 06-02 18:15
PROVIDERS: ADMIT Internal Medicine; ATTEND Internal Medicine
PROC: 5A09457 Assistance with Respiratory Ventilation, 24-96 Consecutive Hours, Continuous Positive Airway Pressure (ICD-10-PCS; principal; 2017-06-01)
PROC: 4A023N7 Measurement of Cardiac Sampling and Pressure, Left Heart, Percutaneous Approach (ICD-10-PCS; 2017-06-06)
PROC: B2111ZZ Fluoroscopy of Multiple Coronary Arteries using Low Osmolar Contrast (ICD-10-PCS; 2017-06-06)
PROC: B2151ZZ Fluoroscopy of Left Heart using Low Osmolar Contrast (ICD-10-PCS; 2017-06-06)
DX: I21.4 Non-ST elevation (NSTEMI) myocardial infarction (principal); J18.9 Pneumonia, unspecified organism; N17.0 Acute kidney failure with tubular necrosis; J96.91 Respiratory failure, unspecified with hypoxia; E11.9 Type 2 diabetes mellitus without complications; I11.9 Hypertensive heart disease without heart failure; I48.91 Unspecified atrial fibrillation; D64.9 Anemia, unspecified; B18.2 Chronic viral hepatitis C; E87.6 Hypokalemia; F11.23 Opioid dependence with withdrawal; Z72.0 Tobacco use; E78.5 Hyperlipidemia, unspecified; I25.10 Atherosclerotic heart disease of native coronary artery without angina pectoris

== ENCOUNTER 2018-02-05 10:37 | Inpatient (IN) | payer MEDICAID ==
[2018-02-05 11:37] VITALS: BMI 31.6
[2018-02-05 12:42] LABS: BASO # 0.1 K/uL (0.0-0.2); EOS # 0.1 K/uL (0.0-0.7); EOS % 1.3 % (0.0-4.0); HEMOGLOBIN 12.4 g/dL (12.0-18.0); LYMPH # 1.4 K/uL (1.0-4.3); LYMPH % 14.8 % (20.0-40.0); MEAN CORPUSCULAR HEMOGLOBIN 26.5 pg (27.0-31.0); MEAN CORPUSCULAR HGB CONC 32.6 g/dL (33.0-37.0); MEAN PLATELET VOLUME 9.7 fL (7.2-11.7); MONO # 0.6 K/uL (0.0-0.8); MONO % 6.6 % (0.0-10.0); NEUT # 7.3 K/uL (1.8-7.0); NEUT % 76.3 % (50.0-75.0); NRBC % 0.1 % (0.0-2.0); RBC 4.7 Mil/uL (4.40-5.90); RED CELL DISTRIBUTION WIDTH 15.4 % (11.5-14.5); WHITE BLOOD COUNT 9.6 K/uL (4.8-10.8)
[2018-02-05 12:50] LABS: MEAN CELL VOLUME 81.1 fL (80.0-94.0)
[2018-02-05 12:54] LABS: ALB/GLOB RATIO 1.4 (1.0-2.1); ALT/SGPT 38 U/L (21-72); AST/SGOT 32 U/L (17-59); BLOOD UREA NITROGEN 20 mg/dL (9-20); CALCIUM 9.4 mg/dl (8.6-10.4); GFR NON-AFRICAN AMERICAN 56
[2018-02-05 13:05] LABS: B-TYPE NATRIURETIC PEPTIDE 5430 pg/mL (0-900)
--- NOTE | 2018-02-05 13:06 | RAD ---
Date of service: 02/05/2018 PROCEDURE: CHEST RADIOGRAPH, 1 VIEW HISTORY: SOB COMPARISON: 06/02/2017 FINDINGS: LUNGS: Clear. PLEURA: No pneumothorax or pleural fluid seen. CARDIOVASCULAR: Atherosclerotic calcifications identified primarily aortic arch. No radiographic findings to suggest acute or significant cardiovascular disease. OSSEOUS STRUCTURES: No significant abnormalities. VISUALIZED UPPER ABDOMEN: Normal. OTHER FINDINGS: None. IMPRESSION: No active disease.No significant interval change compared to the prior examination(s).
--- NOTE | 2018-02-05 13:10 | C.PDOC ---
History Of Present Illness 62 year old male with a history of heroine abuse presents to the ED for evaluation of shortness of breath and elevated blood pressure for 2 days. Patient reports only taking Metoprolol for his blood pressure which he did not take today. Also notes he is in a methadone program, woke up late this morning, and missed the meeting. Denies fever, chills, chest pain, and any other associated symptoms. Time Seen by Provider: 02/05/18 12:10 Chief Complaint (Nursing): Shortness Of Breath History Per: Patient History/Exam Limitations: no limitations Onset/Duration Of Symptoms: Days Current Symptoms Are (Timing): Still Present Past Medical History Reviewed: Historical Data, Nursing Documentation, Vital Signs Vital Signs: Last Vital Signs Temp 97.8 F 02/05/18 10:39 Pulse 72 02/05/18 10:39 Resp 22 02/05/18 10:50 BP 197/89 H 02/05/18 12:39 Pulse Ox 100 02/05/18 12:06 - Medical History PMH: Atrial Fibrillation, COPD, HTN, Pneumonia Denies: Chronic Kidney Disease - [place] Procedures ASSISTANCE WITH RESPIRATORY VENTILATION, 24-96 HRS, CPAP (06/01/17) DETOXIFICATION SERVICES FOR SUBSTANCE ABUSE TREATMENT (02/21/15) FLUOROSCOPY OF LEFT HEART USING LOW OSMOLAR CONTRAST (06/01/17) FLUOROSCOPY OF MULT COR ART USING L OSM CONTRAST (06/01/17) INSERTION OF INFUSION DEV INTO SUP VENA CAVA, PERC APPROACH (05/16/17) MEASURE OF CARDIAC SAMPL & PRESSURE, L HEART, PERC APPROACH (06/01/17) MEDS MGMT FOR SUBSTANCE ABUSE TREATMENT, METHADONE MAINT (02/21/15) Family History: States: Unknown Family Hx - Social History Hx Tobacco Use: No Hx Alcohol Use: No Hx Substance Use: Yes (heroin) - Immunization History Hx Tetanus Toxoid Vaccination: No Hx Influenza Vaccination: Yes Hx Pneumococcal Vaccination: No Review Of Systems Except As Marked, All Systems Reviewed And Found Negative. Constitutional: Positive for: Other (elevated blood pressure. ). Negative for: Fever, Chills Cardiovascular: Negative for: Chest Pain Respiratory: Positive for: Shortness of Breath Physical Exam - Physical Exam Appears: No Acute Distress Skin: Warm, Dry, Other ((+) extensive scars on the hands bilaterally. (-) active wounds. ) Head: Atraumatic, Normacephalic Eye(s): bilateral: Normal Inspection Oral Mucosa: Moist Neck: Normal ROM, Supple Cardiovascular: Rhythm Regular, No Murmur Respiratory: Normal Breath Sounds, No Rales, No Rhonchi Gastrointestinal/Abdominal: Normal Exam, Soft, No Tenderness Neurological/Psych: Oriented x3, Normal Speech, Normal Motor ED Course And Treatment - Laboratory Results Result Diagrams: 02/05/18 12:38 02/05/18 12:38 Lab Interpretation: Abnormal (trop neg, BNP 5400 H) ECG: Interpreted By Me ECG Rhythm: Sinus Rhythm ECG Interpretation: Normal Rate From EC O2 Sat by Pulse Oximetry: 100 (RA) Pulse Ox Interpretation: Normal - Radiology CXR: Interpreted by Me CXR Interpretation: Yes: Heart Size, Other (+CHF) - Other Rad CXR X-Ray: Viewed By Me, Read By Radiologist Interpretation: IMPRESSION: No active disease.No significant interval change compared to the prior examination(s). Reevaluation Time: 13:37 Reassessment Condition: Improved - Physician Consult Information Outcome Of Conversation: 1330: d/w Dr. Garcia, Medicine Hand Candle Molder covering pt's for Dr. Boucher, ok to Tele Adm Medical Decision Making Medical Decision Making: Plan: -EKG Blood sent. CXR Catapres Vasotec uncontrolled htn, h/o cocaine, and cigarette use + JVD, + venous congestion on CXR, + 3/4 leg edema, + BNP 5400 no h/o CHF Vasotec and lasix for chf/HTN Clonidine helpful for both missing methadone dose today and acute bp control. Disposition Doctor Will See Patient In The: Hospital Counseled Patient/Family Regarding: Studies Performed, Diagnosis - Disposition Disposition: HOSPITALIZED Disposition Time: 13:39 Condition: GOOD Forms: [employer] (Malagasy) - Clinical Impression Clinical Impression: Chronic congestive heart failure, Methadone maintenance therapy patient - Scribe Statement The provider has reviewed the documentation as recorded by the Scribe (Kim Arnett) Provider Attestation: All medical record entries made by the Scribe were at my direction and personally dictated by me. I have reviewed the chart and agree that the record accurately reflects my personal performance of the history, physical exam, medical decision making, and the department course for this patient. I have also personally directed, reviewed, and agree with the discharge instructions and disposition.
[2018-02-05 13:29] LABS: INR 1.1; PROTHROMBIN TIME 12.2 SECONDS (9.7-12.2)
--- NOTE | 2018-02-05 14:18 | CP.PCM.HP ---
History of Present Illness - History of Present Illness History of Present Illness: COMPREHENSIVE HISTORY & PHYSICAL EXAM HPI Patient is admitted from emergency room complaining of shortness of breath and high blood pressure. Patient is noncompliant with his blood pressure medications and has missed multiple doses. Patient is on methadone program. Patient was recently admitted in the beginning part of this year for acute respiratory failure hypertension and patient was intubated. Cardiac workup was negative with normal left ventricle ejection fraction with mild pulmonary hypertension. Patient also had a cardiac catheterization done and the report is pending but the previous stress test was normal PAST HIST. Hypertension type 2 diabetes, substance abuse COPD and CHF PERSONAL HIST: Smoking. N Alcohol. N Allergy N Travel_- . FAMILY HIST : ROS : Constitutional: Negative for weight change, chills, night sweats, fatigue and usage of assist device. Eyes: Negative for redness, swelling, itching, discharge, vision changes, blurry vision, double vision, glaucoma, cataracts, Ears: Negative for hearing loss, ringing, , tinnitus, vertigo Nose: Negative for rhinorrhea, stuffiness, sniffing, itching, postnasal drip, discoloration, nasal congestion and epistaxis. Throat: Negative for throat clearing, sore throat, hoarseness, difficulty swallowing and difficulty speaking. Respiratory: Negative for cough, , sputum production, , pleuritic chest pain ,daytime somnolence, chronic cough, hemoptysis, snoring at night, Cardiovascular: Negative for chest pain, palpitations, Neurology: Negative for irritability, muscle weakness, numbness and tingling, seizures, tremors, migraines, slurred speech, syncope, memory loss, mood changes, recurrent headaches Gastrointestinal: Negative for difficulty swallowing, diarrhea, constipation, black stools, rectal bleeding, nausea, flatulence, reflux, poor appetite, changes in bowel habits, abdominal pain Genitourinary: Negative for frequent urination, hematuria, discharge, incontinence, urinary retention, frequent UTI, Psychiatric: Negative for depression, anxiety/panic, suicidal tendencies, Musculoskeletal: Negative for swollen joints, back pain, , neck pain, morning stiffness of joints, . Skin: Negative for rash, ulcers, itching, dry skin and pigmented lesions. P/E: Constitutional: Appears stated age and in no apparent distress. Head: Normocephalic. Ears: External ear canals patent without inflammation. Tympanic membranes intact with normal light reflex and landmark. Eyes: Pupils are central, bilaterally equal, symmetrical and reacts to light with normal movements and no icterus or pallor. Nose: External nares are patent. Mucosa is pink Mouth-Throat: Good general appearance and condition. No post-pharyngeal/oropharyngeal erythema and tonsillar hypertrophy. Good dental hygiene. Neck-Lymphatic: Neck is supple with normal ROM, no thyromegaly, lymph nodes or masses. JVD is normal with no carotid bruit. Lungs: Clear to percussion and auscultation with bilateral normal air entry. Basal crackles Cardiovascular: S1 and S2 are normal with no murmurs, gallops and rub. GI Exam: No hepatomegaly. Abdomen is soft and non-tender. No Organomegaly , masses or hernias are evident and bowel sounds are normal and active. Neurology: Higher function and all cranial nerves intact, with no gross motor or sensory deficit. Superficial and deep reflexes are normal with downwards planters. No cerebellar deficit with normal gait. Musculoskeletal: No tender spots with normal curvature of the spine with no swelling or restricted ROM of the small and large joints. Extremities: Homans sign absent. Intact pulses with no pitting edema, calf tenderness or skin color changes. Skin: No rash, eruptions or abnormal skin pigmentation LAB/RADIOLOGY: ASSESMENT : Acute on chronic diastolic heart failure with normal left ventricle ejection fraction Accelerated hypertension Type 2 diabetes History of heroine abuse on methadone program PLAN: See orders Present on Admission - Present on Admission Any Indicators Present on Admission: No Past Patient History - Past Medical History & Family History Past Medical History?: Yes - Past Social History Smoking Status: Light Smoker < 10 Cigarettes Daily - CARDIAC Hx Atrial Fibrillation: Yes Hx Hypertension: Yes - PULMONARY Hx Chronic Obstructive Pulmonary Disease (COPD): Yes Hx Pneumonia: Yes - NEUROLOGICAL Hx Neurological Disorder: No - HEENT Hx HEENT Problems: No - RENAL Hx Chronic Kidney Disease: No - ENDOCRINE/METABOLIC Hx Endocrine Disorders: No Hx Diabetes Mellitus Type 2: Yes - HEMATOLOGICAL/ONCOLOGICAL Hx Blood Disorders: No - INTEGUMENTARY Hx Dermatological Problems: No - MUSCULOSKELETAL/RHEUMATOLOGICAL Hx Falls: No - GASTROINTESTINAL Hx Nausea: Yes - GENITOURINARY/GYNECOLOGICAL Hx Genitourinary Disorders: No - PSYCHIATRIC Hx Substance Use: Yes (heroin) - SURGICAL HISTORY Hx Surgeries: No - ANESTHESIA Hx Anesthesia: No Hx Anesthesia Reactions: No Meds Allergies/Adverse Reactions: Allergies Allergy/AdvReac Type Severity Reaction Status Date / Time No Known Allergies Allergy Verified 02/05/18 10:39 Results - Vital Signs Recent Vital Signs: Last Vital Signs Temp 97.8 F 02/05/18 10:39 Pulse 72 02/05/18 10:39 Resp 22 02/05/18 10:50 BP 195/93 H 02/05/18 13:30 Pulse Ox 100 02/05/18 13:41 - Labs Result Diagrams: 02/05/18 12:38 02/05/18 12:38 Labs: Laboratory Results - last 24 hr 02/05/18 02/05/18 02/05/18 10:52 12:38 12:38 WBC 9.6 RBC 4.70 Hgb 12.4 Hct 38.1 MCV 81.1 D MCH 26.5 L MCHC 32.6 L RDW 15.4 H Plt Count 133 MPV 9.7 Neut % (Auto) 76.3 H Lymph % (Auto) 14.8 L [place] % (Auto) 6.6 Eos % (Auto) 1.3 Baso % (Auto) 1.0 Neut # (Auto) 7.3 H Lymph # (Auto) 1.4 [place] # (Auto) 0.6 Eos # (Auto) 0.1 Baso # (Auto) 0.1 PT INR APTT Sodium 142 Potassium 4.0 Chloride 100 Carbon Dioxide 30 Anion Gap 15 BUN 20 Creatinine 1.3 Est GFR ( Amer) > 60 Est GFR (Non-Af Amer) 56 POC Glucose (mg/dL) 172 H Random Glucose 116 H Calcium 9.4 Total Bilirubin 1.0 AST 32 ALT 38 Alkaline Phosphatase 82 Troponin I 0.0190 NT-Pro-B Natriuret Pep 5430 H Total Protein 6.8 Albumin 4.0 Globulin 2.8 Albumin/Globulin Ratio 1.4 02/05/18 13:14 WBC RBC Hgb Hct MCV MCH MCHC RDW Plt Count MPV Neut % (Auto) Lymph % (Auto) [place] % (Auto) Eos % (Auto) Baso % (Auto) Neut # (Auto) Lymph # (Auto) [place] # (Auto) Eos # (Auto) Baso # (Auto) PT 12.2 INR 1.1 APTT 32 Sodium Potassium Chloride Carbon Dioxide Anion Gap BUN Creatinine Est GFR ( Amer) Est GFR (Non-Af Amer) POC Glucose (mg/dL) Random Glucose Calcium Total Bilirubin AST ALT Alkaline Phosphatase Troponin I NT-Pro-B Natriuret Pep Total Protein Albumin Globulin Albumin/Globulin Ratio
[2018-02-05] MEDS: (Novolin R) Insulin Human Regular 100 units/ml vial SC SCH ×2 (17:06→22:59)
[2018-02-05 20:38] LABS: CK-MB 0.81 ng/mL (0.0-3.38)
[2018-02-05 20:39] LABS: TROPONIN I 0.025 ng/mL (0.00-0.120)
--- NOTE | 2018-02-05 20:39 | CP.PCM.PCO ---
Addendum entered and electronically signed by Bacilio Salcedo 02/06/18 06:55: House doctor note: Paged for sob. Nurse stated initially patient complained of SOB and she noticed the patient NC was off. She redjusted NC and saw 100% O2 sat. Seen and examined patient. Patient stated he now was feeling fine. Reviewed labs, and noticed elevated BNP in 5000s and previous recorded Chronic diastolic heart failure w/ reserved EF. Physical examination revealed bibaslar crackles. Informed patient for now to drink water in small amount to limited diet to 1000ml fluid restriction. Patient was stable with vitals within normal limits. Original Note:
[2018-02-06 07:21] LABS: CK-MB 0.46 ng/mL (0.0-3.38)
[2018-02-06 07:28] LABS: ALB/GLOB RATIO 1.5 (1.0-2.1); ALBUMIN 3.5 g/dL (3.5-5.0); ALT/SGPT 37 U/L (21-72); AST/SGOT 24 U/L (17-59); BLOOD UREA NITROGEN 24 mg/dL (9-20); CALCIUM 8.8 mg/dl (8.6-10.4); GFR NON-AFRICAN AMERICAN 52
[2018-02-06] MEDS: (Novolin R) Insulin Human Regular 100 units/ml vial SC SCH ×4 (07:50→21:20)
[2018-02-06] MEDS: Methadone 40 mg Tab PO SCH (09:15)
[2018-02-06] MEDS ORDERED: Influenza Vaccine 60 MCG/0.5 ML SYR (3 yr & up) IM ONE (10:00)
--- NOTE | 2018-02-06 14:34 | CP.PCM.PN ---
Subjective - Date & Time of Evaluation Date of Evaluation: 02/06/18 Time of Evaluation: 14:33 - Subjective Subjective: patient has decreased shortness of breath. Blood pressure is elevated. Blood pressures and medications readjusted. Patient had a hypoglycemia in the early part of the morning. Glipizide discontinued and patient is on Januvia. Objective - Vital Signs/Intake and Output Vital Signs (last 24 hours): Temp Pulse Resp BP Pulse Ox 97.8 F 51 L 20 188/90 H 99 02/06/18 09:14 02/06/18 09:14 02/06/18 09:14 02/06/18 09:14 02/06/18 09:14 - Medications Medications: Current Medications Aspirin (Aspirin Chewable) 81 mg PO DAILY [facility] Last Admin: 02/06/18 09:15 Dose: 81 mg Heparin Sodium (Porcine) (Heparin) 5,000 units SC Q12 SUAD Last Admin: 02/06/18 09:16 Dose: 5,000 units Insulin Human Regular (Novolin R) 0 unit SC ACHS [facility]; Protocol Last Admin: 02/06/18 12:30 Dose: Not Given Methadone HCl (Methadose) 40 mg PO DAILY [facility] Last Admin: 02/06/18 09:15 Dose: 40 mg Terazosin HCl (Hytrin) 5 mg PO DAILY [facility] Last Admin: 02/06/18 09:21 Dose: 5 mg - Labs Labs: 02/05/18 12:38 02/06/18 06:44 PT 12.2 SECONDS (9.7-12.2) 02/05/18 13:14 INR 1.1 02/05/18 13:14 APTT 32 SECONDS (21-34) 02/05/18 13:14
[2018-02-07] MEDS: (Novolin R) Insulin Human Regular 100 units/ml vial SC SCH ×4 (07:32→22:22)
[2018-02-07] MEDS: Methadone 40 mg Tab PO SCH (09:55)
[2018-02-07 11:27] LABS: BASO % 0.5 % (0.0-2.0); EOS # 0.2 K/uL (0.0-0.7); HEMOGLOBIN 11.4 g/dL (12.0-18.0); LYMPH % 12.8 % (20.0-40.0); MEAN CELL VOLUME 80.8 fL (80.0-94.0); MEAN CORPUSCULAR HEMOGLOBIN 26.5 pg (27.0-31.0); MEAN CORPUSCULAR HGB CONC 32.8 g/dL (33.0-37.0); MEAN PLATELET VOLUME 10.4 fL (7.2-11.7); MONO # 0.7 K/uL (0.0-0.8); MONO % 8.6 % (0.0-10.0); NEUT # 5.9 K/uL (1.8-7.0); NEUT % 76.1 % (50.0-75.0); RBC 4.32 Mil/uL (4.40-5.90); WHITE BLOOD COUNT 7.8 K/uL (4.8-10.8)
[2018-02-07 11:37] LABS: ALB/GLOB RATIO 1.4 (1.0-2.1); ALBUMIN 3.6 g/dL (3.5-5.0); ALT/SGPT 36 U/L (21-72); AST/SGOT 26 U/L (17-59); BLOOD UREA NITROGEN 27 mg/dL (9-20); CALCIUM 8.7 mg/dl (8.6-10.4); GFR NON-AFRICAN AMERICAN 52
--- NOTE | 2018-02-07 14:17 | CP.PCM.PN ---
Subjective - Date & Time of Evaluation Date of Evaluation: 02/07/18 Time of Evaluation: 14:16 - Subjective Subjective: Patient has a systolic hypertension. Lungs are clear Cardiac TNI levels are normal Adjust blood pressure medication. Objective - Vital Signs/Intake and Output Vital Signs (last 24 hours): Temp Pulse Resp BP Pulse Ox 98.2 F 63 20 180/95 H 98 02/07/18 08:00 02/07/18 09:54 02/07/18 08:00 02/07/18 09:55 02/07/18 08:00 Intake and Output: 02/07/18 02/07/18 11:59 23:59 Intake Total 100 Balance 100 - Medications Medications: Current Medications Aspirin (Aspirin Chewable) 81 mg PO DAILY [facility] Last Admin: 02/07/18 09:56 Dose: 81 mg Furosemide (Lasix) 40 mg PO DAILY [facility] Last Admin: 02/07/18 09:55 Dose: 40 mg Heparin Sodium (Porcine) (Heparin) 5,000 units SC Q12 [facility] Last Admin: 02/07/18 09:56 Dose: 5,000 units Hydralazine HCl (Apresoline) 25 mg PO DAILY [facility] Last Admin: 02/07/18 10:00 Dose: 25 mg Insulin Human Regular (Novolin R) 0 unit SC ACHS [facility]; Protocol Last Admin: 02/07/18 12:30 Dose: 2 units Lisinopril (Zestril) 10 mg PO DAILY [facility] Last Admin: 02/07/18 09:56 Dose: 10 mg Methadone HCl (Methadose) 40 mg PO DAILY [facility] Last Admin: 02/07/18 09:55 Dose: 40 mg Metoprolol Tartrate (Lopressor) 50 mg PO DAILY [facility] Last Admin: 02/07/18 09:56 Dose: 50 mg Sitagliptin Phosphate (Januvia) 50 mg PO DAILY [facility] Last Admin: 02/07/18 09:55 Dose: 50 mg Terazosin HCl (Hytrin) 5 mg PO DAILY [facility] Last Admin: 02/07/18 09:56 Dose: 5 mg - Labs Labs: 02/07/18 11:11 02/07/18 11:11 PT 12.2 SECONDS (9.7-12.2) 02/05/18 13:14 INR 1.1 02/05/18 13:14 APTT 32 SECONDS (21-34) 02/05/18 13:14
[2018-02-08] MEDS: (Novolin R) Insulin Human Regular 100 units/ml vial SC SCH ×2 (07:47→12:05)
[2018-02-08] MEDS: Methadone 40 mg Tab PO SCH (09:24)
--- NOTE | 2018-02-08 15:24 | CP.PCM.DIS ---
Provider - Provider Date of Admission: 02/05/18 13:40 Attending physician: Heidi Garcia MD Time Spent in preparation of Discharge (in minutes): 35 Hospital Course - Lab Results Lab Results: Most Recent Lab Values WBC 7.8 K/uL (4.8-10.8) 02/07/18 11:11 RBC 4.32 Mil/uL (4.40-5.90) L 02/07/18 11:11 Hgb 11.4 g/dL (12.0-18.0) L 02/07/18 11:11 Hct 34.9 % (35.0-51.0) L 02/07/18 11:11 MCV 80.8 fL (80.0-94.0) 02/07/18 11:11 MCH 26.5 pg (27.0-31.0) L 02/07/18 11:11 MCHC 32.8 g/dL (33.0-37.0) L 02/07/18 11:11 RDW 15.0 % (11.5-14.5) H 02/07/18 11:11 Plt Count 114 K/uL (130-400) L 02/07/18 11:11 MPV 10.4 fL (7.2-11.7) 02/07/18 11:11 Neut % (Auto) 76.1 % (50.0-75.0) H 02/07/18 11:11 Lymph % (Auto) 12.8 % (20.0-40.0) L 02/07/18 11:11 [place] % (Auto) 8.6 % (0.0-10.0) 02/07/18 11:11 Eos % (Auto) 2.0 % (0.0-4.0) 02/07/18 11:11 Baso % (Auto) 0.5 % (0.0-2.0) 02/07/18 11:11 Neut # (Auto) 5.9 K/uL (1.8-7.0) 02/07/18 11:11 Lymph # (Auto) 1.0 K/uL (1.0-4.3) 02/07/18 11:11 [place] # (Auto) 0.7 K/uL (0.0-0.8) 02/07/18 11:11 Eos # (Auto) 0.2 K/uL (0.0-0.7) 02/07/18 11:11 Baso # (Auto) 0.0 K/uL (0.0-0.2) 02/07/18 11:11 Differential Comment 02/07/18 11:11 PT 12.2 SECONDS (9.7-12.2) 02/05/18 13:14 INR 1.1 02/05/18 13:14 APTT 32 SECONDS (21-34) 02/05/18 13:14 Sodium 141 mmol/L (132-148) 02/07/18 11:11 Potassium 3.7 mmol/L (3.6-5.2) 02/07/18 11:11 Chloride 97 mmol/L (98-107) L 02/07/18 11:11 Carbon Dioxide 35 mmol/L (22-30) H 02/07/18 11:11 Anion Gap 13 (10-20) 02/07/18 11:11 BUN 27 mg/dL (9-20) H 02/07/18 11:11 Creatinine 1.4 mg/dL (0.8-1.5) 02/07/18 11:11 Est GFR ( Amer) > 60 02/07/18 11:11 Est GFR (Non-Af Amer) 52 02/07/18 11:11 POC Glucose (mg/dL) 89 mg/dL (65-110) 02/07/18 21:20 Random Glucose 170 mg/dL (75-110) H 02/07/18 11:11 Calcium 8.7 mg/dl (8.6-10.4) 02/07/18 11:11 Total Bilirubin 1.1 mg/dL (0.2-1.3) 02/07/18 11:11 AST 26 U/L (17-59) 02/07/18 11:11 ALT 36 U/L (21-72) 02/07/18 11:11 Alkaline Phosphatase 84 U/L (38-126) 02/07/18 11:11 Total Creatine Kinase 34 U/L (55-170) L 02/06/18 06:44 CK-MB (Mass) 0.46 ng/mL (0.0-3.38) 02/06/18 06:44 Troponin I 0.0250 ng/mL (0.00-0.120) 02/06/18 06:44 NT-Pro-B Natriuret Pep 5430 pg/mL (0-900) H 02/05/18 12:38 Total Protein 6.1 g/dL (6.3-8.3) L 02/07/18 11:11 Albumin 3.6 g/dL (3.5-5.0) 02/07/18 11:11 Globulin 2.6 gm/dL (2.2-3.9) 02/07/18 11:11 Albumin/Globulin Ratio 1.4 (1.0-2.1) 02/07/18 11:11 - Hospital Course Hospital Course: Patient is admitted from emergency room complaining of shortness of breath and high blood pressure. Patient is noncompliant with his blood pressure medications and has missed multiple doses. Patient is on methadone program. Patient was recently admitted in the beginning part of this year for acute respiratory failure hypertension and patient was intubated. Cardiac workup was negative with normal left ventricle ejection fraction with mild pulmonary hypertension. Patient also had a cardiac catheterization done and the report is pending but the previous stress test was normal Patient was admitted on the telemetry bed serial cardiac enzymes were negative. Chest x-ray showed no CHF. Echocardiogram which was recently done showed normal left and a good ejection fraction. Patient continued to have systolic hypertension in the hospital which required triple antihypertensive medication. Currently patient is stable will be discharged and counseled to take his medications and follow-up with the clinic. Discharge Plan - Discharge Medications Prescriptions: hydrALAZINE [Apresoline] 25 mg PO TID #90 tab cloNIDine [Catapres] 0.1 mg PO BID #60 tab Potassium Chloride [K-Dur 20] 20 meq PO DAILY #30 tab Furosemide [Lasix] 40 mg PO DAILY #40 tab Metoprolol Tartrate 25 mg PO BID #60 tablet Lisinopril [Zestril] 10 mg PO DAILY #30 tab - Follow Up Plan Condition: GOOD Disposition: HOME/ ROUTINE Instructions: Heart Healthy Diet, Heart Failure, Adult (DC) Referrals: Heidi Garcia MD [Staff Provider] -
[2018-02-08 15:32] VITALS: BP 170/82; PULSE 59; RESP 20; TEMP 97.6; O2SAT 97
--- NOTE | 2018-02-10 07:32 | CARD ---
APPROVED REPORT Date of service: 02/05/2018 EKG Measurement Heart [id number] <Conclusion> Sinus bradycardia T wave abnormality, consider inferior ischemia Abnormal ECG
--- NOTE | 2018-02-10 08:06 | CARD ---
APPROVED REPORT Date of service: 02/05/2018 EKG Measurement Heart [id number] <Conclusion> Sinus bradycardia Nonspecific ST and T wave abnormality Abnormal ECG
== END 2018-02-08 16:28 | disposition home or self-care (01) | DRG 127 ==
LOC: C.ER 10:37 → C.9E 13:40 → C.5S 14:19
PROVIDERS: ADMIT Internal Medicine Cardiovascular Disease; ATTEND Internal Medicine Cardiovascular Disease
DX: I11.0 Hypertensive heart disease with heart failure (principal); E11.649 Type 2 diabetes mellitus with hypoglycemia without coma; J44.9 Chronic obstructive pulmonary disease, unspecified; F11.20 Opioid dependence, uncomplicated; I50.33 Acute on chronic diastolic (congestive) heart failure; I48.91 Unspecified atrial fibrillation; I27.20 Pulmonary hypertension, unspecified; Z91.14 Patient's other noncompliance with medication regimen; F17.210 Nicotine dependence, cigarettes, uncomplicated; Z87.01 Personal history of pneumonia (recurrent); Z79.4 Long term (current) use of insulin

== ENCOUNTER 2018-02-13 00:36 | Inpatient (IN) | payer MEDICAID ==
[2018-02-13 00:37] VITALS: BMI 31.6
--- NOTE | 2018-02-13 01:00 | C.PDOC ---
History Of Present Illness 62 year old male presents to the ED c/o SOB since Saturday. Patient is able to speak in complete sentences. Patient denies fever, chills, nausea, vomit, rash, CP, palpitations, headache, dizziness. Time Seen by Provider: 02/13/18 00:59 Chief Complaint (Nursing): Respiratory Distress History Per: Patient History/Exam Limitations: no limitations Onset/Duration Of Symptoms: Days Current Symptoms Are (Timing): Still Present Severity: Moderate Pain Scale Rating Of: 5 Reports Recently: Seen In ED (02/05/18), Treated By A Physician, Hospitalized Recent travel outside of the [place]: No Additional History Per: Patient Past Medical History Reviewed: Historical Data, Nursing Documentation, Vital Signs Vital Signs: Last Vital Signs Temp 98.7 F 02/13/18 00:47 Pulse 82 02/13/18 00:47 Resp 20 02/13/18 00:47 BP 234/114 H 02/13/18 00:47 Pulse Ox 93 L 02/13/18 00:47 - Medical History PMH: Atrial Fibrillation, COPD, HTN, Pneumonia Denies: Chronic Kidney Disease Surgical History: No Surg Hx - [facility] ASSISTANCE WITH RESPIRATORY VENTILATION, 24-96 HRS, CPAP (06/01/17) DETOXIFICATION SERVICES FOR SUBSTANCE ABUSE TREATMENT (02/21/15) FLUOROSCOPY OF LEFT HEART USING LOW OSMOLAR CONTRAST (06/01/17) FLUOROSCOPY OF MULT COR ART USING L OSM CONTRAST (06/01/17) INSERTION OF INFUSION DEV INTO SUP VENA CAVA, PERC APPROACH (05/16/17) MEASURE OF CARDIAC SAMPL & PRESSURE, L HEART, PERC APPROACH (06/01/17) MEDS MGMT FOR SUBSTANCE ABUSE TREATMENT, METHADONE MAINT (02/21/15) Family History: States: Unknown Family Hx - Social History Hx Tobacco Use: No Hx Alcohol Use: Yes Hx Substance Use: Yes (heroin) - Immunization History Hx Tetanus Toxoid Vaccination: No Hx Influenza Vaccination: Yes Hx Pneumococcal Vaccination: No Review Of Systems Constitutional: Negative for: Fever, Chills Eyes: Negative for: Vision Change ENT: Negative for: Throat Pain Cardiovascular: Negative for: Chest Pain Respiratory: Positive for: Shortness of Breath. Negative for: Cough Gastrointestinal: Negative for: Nausea, Vomiting Musculoskeletal: Negative for: Back Pain Skin: Negative for: Rash Neurological: Negative for: Weakness, Numbness Psych: Negative for: Anxiety Physical Exam - Physical Exam Appears: Non-toxic, Other (moderate distress) Skin: Warm, Dry Head: Normacephalic Eye(s): bilateral: Normal Inspection Oral Mucosa: Moist Neck: Supple Chest: Symmetrical Cardiovascular: Rhythm Regular Respiratory: Decreased Breath Sounds, Rales, Rhonchi (scattered), No Wheezing Gastrointestinal/Abdominal: Bowel Sounds (active), Soft, No Tenderness, No Guarding, No Rebound Back: Normal Inspection Extremity: Pedal Edema (bilateral trace), Capillary Refill (< 2 seconds), Other (bilateral arms multiple surgical scars) Extremity: Bilateral: Normal Color And Temperature, Normal ROM Pulses: Left Radial: Normal, Right Radial: Normal, Left Dorsalis Pedis: Normal, Right Dorsalis Pedis: Normal Neurological/Psych: Oriented x3, Normal Speech, Normal Motor, Normal Sensation Gait: Steady ED Course And Treatment - Laboratory Results Result Diagrams: 02/13/18 01:47 02/13/18 01:47 ECG: Interpreted By Me, Viewed By Me ECG Rhythm: Sinus Rhythm (69), Nonspecific Changes O2 Sat by Pulse Oximetry: 93 Pulse Ox Interpretation: Abnormal - Radiology CXR: Interpreted by Me, Viewed By Me Progress Note: Plan: - ABG. - EKG. - Labs. - CXR Disposition Discussed With Dr.: Heidi Garcia Comment: accepted the pt on his service and took over the care at 4:10 AM Doctor Will See Patient In The: Hospital Counseled Patient/Family Regarding: Studies Performed, Diagnosis - Disposition Disposition: HOSPITALIZED Disposition Time: 01:00 Condition: FAIR Forms: [facility] (Iraqi) - POA Present On Arrival: Poor Glycemic Control - Clinical Impression Clinical Impression: Dyspnea, Congestive heart failure - Scribe Statement The provider has reviewed the documentation as recorded by the Scribe Natalio Olson All medical record entries made by the Scribe were at my direction and personally dictated by me. I have reviewed the chart and agree that the record accurately reflects my personal performance of the history, physical exam, medical decision making, and the department course for this patient. I have also personally directed, reviewed, and agree with the discharge instructions and disposition. Decision To Admit - Pt Status Changed To: Hospital Disposition Of: Inpatient - Admit Certification Admit to Inpatient:: After my assessment, the patient will require hospitalization for at least two midnights. This is because of the severity of symptoms shown, intensity of services needed, and/or the medical risk in this patient being treated as an outpatient. - InPatient: Physician Admission Certification: I certify that this patient requires 2 or more midnights of care for the following reason:: After my assessment, the patient will require hospitalization for at least two midnights. This is because of the severity of symptoms shown, intensity of services needed, and/or the medical risk in this patient being treated as an outpatient. - . Bed Request Type: Telemetry Admitting Physician: Heidi Garcia Patient Diagnosis: Dyspnea, Congestive heart failure
[2018-02-13 01:30] LABS: ABG ALLEN TEST POS; ARTERIAL BLOOD GAS HCO3 27.6 mmol/L (21-28); ARTERIAL BLOOD GAS O2 SAT 98.3 % (95-98); ARTERIAL BLOOD GAS PCO2 40 mm/Hg (35-45); ARTERIAL BLOOD GAS PH 7.45 (7.35-7.45); ARTERIAL BLOOD GAS PO2 81 mm/Hg (80-100)
[2018-02-13 01:57] LABS: BASO # 0.1 K/uL (0.0-0.2); BASO % 0.8 % (0.0-2.0); EOS % 0.2 % (0.0-4.0); HEMOGLOBIN 11.2 g/dL (12.0-18.0); LYMPH # 0.7 K/uL (1.0-4.3); LYMPH % 8.4 % (20.0-40.0); MEAN CORPUSCULAR HEMOGLOBIN 27.1 pg (27.0-31.0); MEAN PLATELET VOLUME 10.7 fL (7.2-11.7); MONO # 0.2 K/uL (0.0-0.8); MONO % 1.8 % (0.0-10.0); NEUT # 7.5 K/uL (1.8-7.0); NEUT % 88.8 % (50.0-75.0); NRBC % 0.1 % (0.0-2.0); PLATELET COUNT 149 K/uL (130-400); RBC 4.15 Mil/uL (4.40-5.90); RED CELL DISTRIBUTION WIDTH 15.8 % (11.5-14.5); WHITE BLOOD COUNT 8.4 K/uL (4.8-10.8)
[2018-02-13 02:16] LABS: B-TYPE NATRIURETIC PEPTIDE 5790 pg/mL (0-900)
[2018-02-13 02:22] LABS: ALB/GLOB RATIO 1.5 (1.0-2.1); ALBUMIN 4.1 g/dL (3.5-5.0); ALT/SGPT 40 U/L (21-72); AST/SGOT 32 U/L (17-59); BLOOD UREA NITROGEN 21 mg/dL (9-20); GFR NON-AFRICAN AMERICAN > 60
[2018-02-13 02:38] LABS: ANISOCYTOSIS SLIGHT; LYMPHOCYTE 9 % (20-40); MONOCYTE 3 % (0-10); NEUTROPHIL 88 % (50-75); OVALOCYTES SLIGHT; PLATELET ESTIMATE NORMAL (NORMAL); TEARDROP CELLS SLIGHT; TOTAL CELLS COUNTED 100
[2018-02-13 02:39] LABS: POLYCHROMIC SLIGHT
[2018-02-13 02:40] LABS: GIANT PLATELETS PRESENT; MICROCYTOSIS SLIGHT; ROULEAUX FORMATION SLIGHT
[2018-02-13] MEDS ORDERED: Nitroglycerin 2% Ointment Foilpak UD TOP ONE (05:02)
[2018-02-13] MEDS ORDERED: Enalaprilat 2.5 MG/2 ML IV ONE (05:57)
[2018-02-13] MEDS ORDERED: Nitroglycerin 50mg in D5W 50 MG/250 ML BOTTLE IV SCH (07:30)
--- NOTE | 2018-02-13 07:46 | RAD ---
Date of service: 02/13/2018 PROCEDURE: CHEST RADIOGRAPH, 1 VIEW HISTORY: SOB COMPARISON: 02/05/2018 FINDINGS: LUNGS: Vague homogeneous low-density airspace opacities each mid lung zone with right peribronchial. PLEURA: No pneumothorax or pleural fluid seen. CARDIOVASCULAR: Cardiomegaly. Prominent soft tissues right greater left yet similar earlier studies from 2018. Atherosclerotic vascular calcification of the aortic arch is present on radiograph. Pulmonary venous congestion suggested. OSSEOUS STRUCTURES: No significant abnormalities. VISUALIZED UPPER ABDOMEN: Normal. OTHER FINDINGS: None. IMPRESSION: Cardiomegaly and pulmonary venous congestion. Hilar anatomy. The mid lung zone homogeneous low densities are compatible with concomitant coalescing areas of pulmonary edema. However an element of tissue summation regarding the left breast is also likely. Concomitant underlying infiltrates possible. Correlate clinically. Follow-up recommended.
--- NOTE | 2018-02-13 07:49 | CP.PCM.CON ---
Addendum entered and electronically signed by Edilberto Sheehan DO 02/13/18 17:07: Addendum to Assessment and Plan: HSV results * Hepatitis C antibody is reactive Edilberto Sheehan PGY1 Original Note: <Edilberto Sheehan - Last Filed: 02/13/18 16:53> History of Present Illness - History of Present Illness History of Present Illness: PGY1 Critical Care Consult Note for Dr. Horn Patient is a 62-year-old male with PMH of HTN, CHF, DMT2, intubation 2/2 ARDS, IV Drug Use, on methadone, Hepatitis C who was BIBA yesterday 02/12 for dizziness and shortness of breath. Per patient, he attempted to walk to the bathroom yesterday, when he suddenly felt short of breath and felt too dizzy to walk. Patient states he called his sister for help, who ultimately called EMS. Patient admits to shortness of breath and sore throat. Otherwise denies chest pain, weakness in upper and/or lower extremities, nausea, vomiting, fever, chills, diarrhea, blurry vision, and/or headache. Upon arrival to the ED, patient was found to have a Max Systolic FU=576 and Max diastolic ZS=253. Patient was treated with home medications, however blood pressure remained elevated > 200 systolic. Thus, patient is transferred to ICU for closer monitoring and was started on a Nitro drip. Of note, patient was recently admitted for similar complaint. Per Discharge Summary, patient is noncompliant with his blood pressure medications and has missed multiple doses. Home Medications: Glipizide 10mg PO daily Lisinopril 10mg PO daily Lasix 40mg PO daily Motrin Metoprolol Tartrate 50mg PO BID K-Dur 20meq PO daily Terazosin 5mg PO daily Clonidine 0.1.mg PO BID Hydralazine 25mg PO TID ASA 81mg PO daily Methadone 40mg PO daily Review of Systems - Review of Systems All systems: reviewed and no additional remarkable complaints except - Constitutional Constitutional: As Per HPI - EENT Eyes: As Per HPI Nose/Mouth/Throat: As Per HPI - Cardiovascular Cardiovascular: As Per HPI - Respiratory Respiratory: As Per HPI - Gastrointestinal Gastrointestinal: As Per HPI - Genitourinary Genitourinary: As Per HPI - Musculoskeletal Musculoskeletal: As Per HPI - Integumentary Integumentary: As Per HPI - Neurological Neurological: As Per HPI - Psychiatric Psychiatric: As Per HPI - Endocrine Endocrine: As Per HPI - Hematologic/Lymphatic Hematologic: As Per HPI Past Patient History - Past Medical History & Family History Past Medical History?: Yes - Past Social History Smoking Status: Current Some Days Smoker - CARDIAC Hx Atrial Fibrillation: Yes Hx Hypertension: Yes - PULMONARY Hx Chronic Obstructive Pulmonary Disease (COPD): Yes Hx Pneumonia: Yes - NEUROLOGICAL Hx Neurological Disorder: No - HEENT Hx HEENT Problems: No - RENAL Hx Chronic Kidney Disease: No - ENDOCRINE/METABOLIC Hx Endocrine Disorders: Yes Hx Diabetes Mellitus Type 2: Yes - HEMATOLOGICAL/ONCOLOGICAL Hx Blood Disorders: No - INTEGUMENTARY Hx Dermatological Problems: No - MUSCULOSKELETAL/RHEUMATOLOGICAL Hx Musculoskeletal Disorders: No Hx Falls: No - GASTROINTESTINAL Hx Gastrointestinal Disorders: Yes Hx Nausea: Yes - GENITOURINARY/GYNECOLOGICAL Hx Genitourinary Disorders: No - PSYCHIATRIC Hx Substance Use: Yes (heroin) - SURGICAL HISTORY Hx Surgeries: No - ANESTHESIA Hx Anesthesia: No Hx Anesthesia Reactions: No Hx Malignant Hyperthermia: No Meds Allergies/Adverse Reactions: Allergies Allergy/AdvReac Type Severity Reaction Status Date / Time No Known Allergies Allergy Verified 02/05/18 10:39 - Medications Medications: Current Medications Aspirin (Aspirin Chewable) 81 mg PO DAILY [facility] Clonidine HCl (Catapres) 0.1 mg PO BID [facility] Enoxaparin Sodium (Lovenox) 40 mg SC DAILY [facility] Furosemide (Lasix) 40 mg IVP DAILY [facility] Last Admin: 02/13/18 04:29 Dose: 40 mg Glipizide (Glucotrol) 10 mg PO DAILY [facility] Hydralazine HCl (Apresoline) 25 mg PO TID [facility] Nitroglycerin/Dextrose (Nitroglycerin 50 Mg/250 Ml D5w) 50 mg in 250 mls @ 1.5 mls/hr IV .Q24H [facility]; Protocol Last Admin: 02/13/18 07:37 Dose: 5 mcg/min, 1.5 mls/hr Ibuprofen (Motrin Tab) 800 mg PO TID PRN PRN Reason: Pain, Mild (1-3) Insulin Human Regular (Novolin R) 0 unit SC [facility]; Protocol Lisinopril (Zestril) 10 mg PO DAILY [facility] Methadone HCl (Methadose) 40 mg PO DAILY [facility] Metoprolol Tartrate (Lopressor) 50 mg PO BID [facility] Potassium Chloride (K-Dur 20 Meq Er Tab) 20 meq PO DAILY [facility] Terazosin HCl (Hytrin) 5 mg PO DAILY [facility] Physical Exam - Head Exam Head Exam: ATRAUMATIC, NORMAL INSPECTION, NORMOCEPHALIC - Eye Exam Eye Exam: EOMI, Normal appearance - ENT Exam ENT Exam: Mucous Membranes Moist, Normal Exam - Neck Exam Neck exam: Positive for: Normal Inspection - Respiratory Exam Respiratory Exam: Clear to Auscultation Bilateral, NORMAL BREATHING PATTERN. absent: Chest Wall Tenderness, Decreased Breath Sounds, Rales, Stridor - Cardiovascular Exam Cardiovascular Exam: Bradycardia Additional comments: Bradycardia at 55 bpm - GI/Abdominal Exam GI & Abdominal Exam: Normal Bowel Sounds Results - Vital Signs Recent Vital Signs: Last Vital Signs Temp 98.2 F 02/13/18 05:51 Pulse 55 L 02/13/18 07:37 Resp 20 02/13/18 07:37 BP 203/101 H 02/13/18 07:37 Pulse Ox 100 02/13/18 07:37 - Labs Result Diagrams: 02/13/18 01:47 02/13/18 01:47 Labs: Laboratory Results - last 24 hr 02/13/18 02/13/18 02/13/18 01:25 01:47 01:47 WBC 8.4 RBC 4.15 L Hgb 11.2 L Hct 34.0 L MCV 82.0 MCH 27.1 MCHC 33.0 RDW 15.8 H Plt Count 149 MPV 10.7 Neut % (Auto) 88.8 H Lymph % (Auto) 8.4 L [place] % (Auto) 1.8 Eos % (Auto) 0.2 Baso % (Auto) 0.8 Neut # (Auto) 7.5 H Lymph # (Auto) 0.7 L [place] # (Auto) 0.2 Eos # (Auto) 0.0 Baso # (Auto) 0.1 Neutrophils % (Manual) 88 H Lymphocytes % (Manual) 9 L Monocytes % (Manual) 3 Platelet Estimate Normal Giant Platelets Present Polychromasia Slight Anisocytosis (manual) Slight Microcytosis (manual) Slight Tear Drop Cells Slight Ovalocytes Slight Rouleaux Slight Puncture Site Rr pCO2 40 pO2 81 HCO3 27.6 ABG pH 7.45 ABG Total CO2 29.0 H ABG O2 Saturation 98.3 H ABG Base Excess 3.5 H Marty Test Pos ABG Potassium 3.5 L A-a O2 Difference 154.0 Respiratory Index 1.9 Sodium 144.0 142 Chloride 112.0 H 105 Glucose 167 H Lactate 1.0 Liter Flow 4.0 FiO2 40.0 Potassium 4.5 Carbon Dioxide 28 Anion Gap 14 BUN 21 H Creatinine 1.2 Est GFR ( Amer) > 60 Est GFR (Non-Af Amer) > 60 Random Glucose 158 H Calcium 9.0 Total Bilirubin 1.0 AST 32 ALT 40 Alkaline Phosphatase 74 Troponin I 0.0140 NT-Pro-B Natriuret Pep 5790 H Total Protein 6.7 Albumin 4.1 Globulin 2.6 Albumin/Globulin Ratio 1.5 Arterial Blood Potassium 3.5 L Assessment & Plan - Assessment and Plan (Free Text) Assessment: Patient is a 62-year-old male with PMH of HTN, CHF, DMT2, intubation 2/2 ARDS, IV Drug Use, on methadone, Hepatitis C who was BIBA yesterday 02/12 for dizzine ss and shortness of breath. Upon arrival to the ED, patient was found to have a Max Systolic LX=308 and Max diastolic FG=874. Patient was treated with home medications, however blood pressure remained elevated > 200 systolic. Thus, patient is transferred to ICU for closer monitoring and was started on a Nitro drip. CV: Diastolic CHF, acute - ECHO pending repeat - Prior ECHO: normal left ventral ejection fraction. - Work-up performed this year: cardiac cath and IV Lexiscan which did not reveal any coronary artery disease - Continue lasix IV - Continue home meds Uncontrolled HTN - Continue home meds - continue lasix IV - Discontinue nitro drip - Start nitro ointment applied 2-inches Q6H Pulm: Shortness of breath - likely secondary to HTN urgency vs CHF - ECHO pending - BP monitored - Nitro drip discontinued - Nitro ointment applied 2-inches Q6H - O2 via NC (2L) PRN - Maintain SaO2 > 92 ID: History of Hepatitis C - Acute Hepatitis Panel: negative - HIV 1/2 antibodies: negative - No acute issues Neuro: On Methadone Maintenance - 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 Selwyn Sheehan PGY1 <Debbie Samano - Last Filed: 02/14/18 11:29> Meds - Medications Medications: Current Medications Albuterol/Ipratropium (Duoneb 3 Mg/0.5 Mg (3 Ml) Ud) 3 ml INH RQ6 [facility] Last Admin: 02/14/18 07:38 Dose: 3 ml Aspirin (Aspirin Chewable) 81 mg PO DAILY [facility] Last Admin: 02/14/18 09:31 Dose: 81 mg Clonidine HCl (Catapres) 0.1 mg PO Q8H [facility] Last Admin: 02/14/18 06:25 Dose: 0.1 mg Enoxaparin Sodium (Lovenox) 40 mg SC DAILY [facility] Last Admin: 02/14/18 09:30 Dose: 40 mg Furosemide (Lasix) 40 mg IVP DAILY [facility] Last Admin: 02/14/18 09:31 Dose: 40 mg Glipizide (Glucotrol) 10 mg PO DAILY [facility] Last Admin: 02/14/18 09:31 Dose: 10 mg Hydralazine HCl (Apresoline) 75 mg PO TID [facility] Hydralazine HCl (Apresoline) 10 mg PO Q6H PRN PRN Reason: Other Ibuprofen (Motrin Tab) 800 mg PO TID PRN PRN Reason: Pain, Mild (1-3) Influenza Virus Vaccine (Fluzone Quad [id number]) 60 mcg IM .ONCE ONE Stop: 02/15/18 10:01 Insulin Human Regular (Novolin R) 0 unit SC [facility]; Protocol Last Admin: 02/14/18 07:30 Dose: Not Given Lisinopril (Zestril) 10 mg PO DAILY [facility] Last Admin: 02/14/18 09:30 Dose: Not Given Methadone HCl (Methadose) 40 mg PO DAILY [facility] Last Admin: 02/14/18 09:30 Dose: 40 mg Metoprolol Tartrate (Lopressor) 50 mg PO BID [facility] Last Admin: 02/14/18 09:32 Dose: Not Given Nitroglycerin (Nitro-Bid 2% Oint) 1 ea TOP Q6 [facility] Last Admin: 02/14/18 06:25 Dose: 1 ea Potassium Chloride (K-Dur 20 Meq Er Tab) 20 meq PO DAILY [facility] Last Admin: 02/14/18 09:31 Dose: 20 meq Terazosin HCl (Hytrin) 5 mg PO DAILY [facility] Last Admin: 02/14/18 09:32 Dose: Not Given Results - Vital Signs Recent Vital Signs: Last Vital Signs Temp 98.7 F 02/14/18 08:00 Pulse 46 L 02/14/18 11:00 Resp 11 L 02/14/18 11:00 BP 159/87 H 02/14/18 10:48 Pulse Ox 99 02/14/18 08:48 - Labs Result Diagrams: 02/14/18 07:35 02/14/18 07:35 Labs: Laboratory Results - last 24 hr 02/13/18 02/13/18 02/13/18 11:23 11:33 14:15 WBC RBC Hgb Hct MCV MCH MCHC RDW Plt Count MPV Neut % (Auto) Lymph % (Auto) [place] % (Auto) Eos % (Auto) Baso % (Auto) Neut # (Auto) Lymph # (Auto) [place] # (Auto) Eos # (Auto) Baso # (Auto) Sodium Potassium Chloride Carbon Dioxide Anion Gap BUN Creatinine Est GFR ( Amer) Est GFR (Non-Af Amer) POC Glucose (mg/dL) 114 H Random Glucose Calcium Phosphorus Magnesium Total Bilirubin AST ALT Alkaline Phosphatase Total Creatine Kinase 35 L CK-MB (Mass) 1.02 Troponin I 0.0260 Total Protein Albumin Globulin Albumin/Globulin Ratio Urine Opiates Screen Negative Urine Methadone Screen Positive H Ur Barbiturates Screen Negative Ur Phencyclidine Scrn Negative Ur Amphetamines Screen Negative U Benzodiazepines Scrn Negative U Oth Cocaine Metabols Negative U Cannabinoids Screen Negative Hepatitis A IgM Ab Hep Bs Antigen Hep B Core IgM Ab Hepatitis C Antibody HIV 1&2 Antibody Screen 02/13/18 02/13/18 02/13/18 14:15 14:15 16:05 WBC RBC Hgb Hct MCV MCH MCHC RDW Plt Count MPV Neut % (Auto) Lymph % (Auto) [place] % (Auto) Eos % (Auto) Baso % (Auto) Neut # (Auto) Lymph # (Auto) [place] # (Auto) Eos # (Auto) Baso # (Auto) Sodium Potassium Chloride Carbon Dioxide Anion Gap BUN Creatinine Est GFR ( Amer) Est GFR (Non-Af Amer) POC Glucose (mg/dL) 80 Random Glucose Calcium Phosphorus Magnesium Total Bilirubin AST ALT Alkaline Phosphatase Total Creatine Kinase CK-MB (Mass) Troponin I Total Protein Albumin Globulin Albumin/Globulin Ratio Urine Opiates Screen Urine Methadone Screen Ur Barbiturates Screen Ur Phencyclidine Scrn Ur Amphetamines Screen U Benzodiazepines Scrn U Oth Cocaine Metabols U Cannabinoids Screen Hepatitis A IgM Ab Negative Hep Bs Antigen Negative Hep B Core IgM Ab Negative Hepatitis C Antibody Reactive HIV 1&2 Antibody Screen Negative 02/13/18 02/13/18 02/14/18 21:17 21:20 07:35 WBC 10.7 RBC 4.11 L Hgb 11.3 L Hct 33.4 L MCV 81.3 MCH 27.4 MCHC 33.7 RDW 16.1 H Plt Count 150 MPV 10.2 Neut % (Auto) 69.0 Lymph % (Auto) 18.8 L [place] % (Auto) 9.4 Eos % (Auto) 2.1 Baso % (Auto) 0.7 Neut # (Auto) 7.4 H Lymph # (Auto) 2.0 [place] # (Auto) 1.0 H Eos # (Auto) 0.2 Baso # (Auto) 0.1 Sodium Potassium Chloride Carbon Dioxide Anion Gap BUN Creatinine Est GFR ( Amer) Est GFR (Non-Af Amer) POC Glucose (mg/dL) 80 Random Glucose Calcium Phosphorus Magnesium Total Bilirubin AST ALT Alkaline Phosphatase Total Creatine Kinase 47 L CK-MB (Mass) 1.01 Troponin I 0.0220 Total Protein Albumin Globulin Albumin/Globulin Ratio Urine Opiates Screen Urine Methadone Screen Ur Barbiturates Screen Ur Phencyclidine Scrn Ur Amphetamines Screen U Benzodiazepines Scrn U Oth Cocaine Metabols U Cannabinoids Screen Hepatitis A IgM Ab Hep Bs Antigen Hep B Core IgM Ab Hepatitis C Antibody HIV 1&2 Antibody Screen 02/14/18 02/14/18 07:35 07:36 WBC RBC Hgb Hct MCV MCH MCHC RDW Plt Count MPV Neut % (Auto) Lymph % (Auto) [place] % (Auto) Eos % (Auto) Baso % (Auto) Neut # (Auto) Lymph # (Auto) [place] # (Auto) Eos # (Auto) Baso # (Auto) Sodium 139 Potassium 4.3 Chloride 99 Carbon Dioxide 31 H Anion Gap 14 BUN 32 H Creatinine 1.6 H Est GFR ( Amer) 54 Est GFR (Non-Af Amer) 44 POC Glucose (mg/dL) 144 H Random Glucose 133 H Calcium 9.0 Phosphorus 4.2 Magnesium 2.4 H Total Bilirubin 0.8 AST 26 ALT 34 Alkaline Phosphatase 61 Total Creatine Kinase CK-MB (Mass) Troponin I Total Protein 6.2 L Albumin 3.7 Globulin 2.4 Albumin/Globulin Ratio 1.5 Urine Opiates Screen Urine Methadone Screen Ur Barbiturates Screen Ur Phencyclidine Scrn Ur Amphetamines Screen U Benzodiazepines Scrn U Oth Cocaine Metabols U Cannabinoids Screen Hepatitis A IgM Ab Hep Bs Antigen Hep B Core IgM Ab Hepatitis C Antibody HIV 1&2 Antibody Screen Assessment & Plan - Assessment and Plan (Free Text) Plan: Patient with h/o HTN (uncontrolled 2nd non-compliance), h/o opoid abuse presents to [facility] hostpiral with SOB -HTN emergency: start patient's home medications: clonidine/hydralaine/lisinopril -at risk of CAD: will benefit fron asa + statin -off nitro ggt -continue to monitor BP, gradual decrease in BP -feels better -will benefit from cardiology eval - Date & Time Date: 02/13/18 Time: 19:00
[2018-02-13] MEDS: (Novolin R) Insulin Human Regular 100 units/ml vial SC SCH ×4 (08:24→22:00)
[2018-02-13] MEDS ORDERED: GlipiZIDE 2.5 mg Tab PO SCH (10:00)
[2018-02-13] MEDS: Enoxaparin 40 mg Syringe SC SCH (11:11)
[2018-02-13] MEDS: Potassium Chloride 20 mEq ER Tab PO SCH (11:12)
[2018-02-13] MEDS: Methadone 40 mg Tab PO SCH (11:15)
[2018-02-13] MEDS: Nitroglycerin 2% Ointment Foilpak UD TOP SCH ×3 (11:24→23:00)
[2018-02-13] MEDS ORDERED: Potassium Chloride 20 mEq ER Tab PO ONE (12:17)
[2018-02-13 12:29] LABS: BARBITURATES, UR NEGATIVE (NEGATIVE); BENZODIAZEPINES, UR NEGATIVE (NEGATIVE); OPIATES, UR NEGATIVE (NEGATIVE); PHENCYCLIDINE, UR NEGATIVE (NEGATIVE)
--- NOTE | 2018-02-13 14:31 | CP.PCM.HP ---
History of Present Illness - History of Present Illness History of Present Illness: 62 years old male with a history of hypertension and diastolic heart failure presented to [facility] with acute shortness of breath and congestive heart failure. Patient initially responded with IV Lasix but subsequently patient had a high systolic and diastolic pressure of 230/126 mmHg multiple medication was tried and ultimately patient's blood pressure responded with IV Tridil. Patient was recently admitted in [facility] for CHF. Primary cardiac workup was negative echo showed normal left ventral ejection fraction. At the beginning part of the year patient had a complete cardiac workup of cardiac catheterization and IV Lexiscan which did not reveal any coronary artery disease. Patient is currently on methadone and previously patient has been noncompliant with medication. Present on Admission - Present on Admission Any Indicators Present on Admission: No Review of Systems - Constitutional Constitutional: absent: As Per HPI, Anorexia, Chills, Daytime Sleepiness, Exc essive Sweating, Fatigue, Fever, Frequent Falls, Headache, Increased Appetite, Lethargy, Malaise, Night Sweats, Snoring, Sleep Apnea, Weight Gain, Weight Loss, Weakness, Other - EENT Eyes: absent: As Per HPI, Blind Spots, Blurred Vision, Change in Vision, Decre ased Night Vision, Diplopia, Discharge, Dry Eye, Exophthalmos, Floaters, Irritation, Itchy Eyes, Loss of Peripheral Vision, Pain, Photophobia, Requires Corrective Lenses, Sees Flashes, Spots in Vision, Tunnel Vision, Other Visual Disturbances, Loss of Vision, Other Ears: absent: As Per HPI, Decreased Hearing, Ear Discharge, Ear Pain, Tinnitus, Abnormal Hearing, Disequilibrium, Dizziness, Other - Cardiovascular Cardiovascular: Diaphoresis, Dyspnea, Dyspnea on Exertion, Edema, Pedal Edema. absent: Chest Pain - Respiratory Respiratory: Dyspnea. absent: Hemoptysis - Gastrointestinal Gastrointestinal: absent: As Per HPI, Abdominal Pain, Belching, Bloating, Change in Bowel Habits, Change in Stool Character, Coffee Ground Emesis, Constipation, Cramping, Diarrhea, Dyspepsia, Dysphagia, Early Satiety, Excessive Flatus, Fecal Incontinence, Heartburn, Hematemesis, Hematochezia, Loose Stools, Melena, Nausea, Odynophagia, Temesmus, Vomiting, Other - Genitourinary Genitourinary: absent: As Per HPI, Change in Urinary Stream, Difficulty Urinating, Dysuria, Flank Pain, Hematuria, Pyuria, Nocturia, Urinary Incontinenc e, Urinary Frequency, Urinary Hesitance, Urinary Urgency, Voiding Freq/Small Amts, Freq UTI, Hx Renal/Bladder Calculi, Hx /Renal Surgery, Bladder Distension, Other Past Patient History - Past Medical History & Family History Past Medical History?: Yes - Past Social History Smoking Status: Current Some Days Smoker - CARDIAC Hx Atrial Fibrillation: Yes Hx Hypertension: Yes - PULMONARY Hx Chronic Obstructive Pulmonary Disease (COPD): Yes Hx Pneumonia: Yes - NEUROLOGICAL Hx Neurological Disorder: No - HEENT Hx HEENT Problems: No - RENAL Hx Chronic Kidney Disease: No - ENDOCRINE/METABOLIC Hx Endocrine Disorders: Yes Hx Diabetes Mellitus Type 2: Yes - HEMATOLOGICAL/ONCOLOGICAL Hx Blood Disorders: No - INTEGUMENTARY Hx Dermatological Problems: No - MUSCULOSKELETAL/RHEUMATOLOGICAL Hx Musculoskeletal Disorders: No Hx Falls: No - GASTROINTESTINAL Hx Gastrointestinal Disorders: Yes Hx Nausea: Yes - GENITOURINARY/GYNECOLOGICAL Hx Genitourinary Disorders: No - PSYCHIATRIC Hx Substance Use: Yes (heroin) - SURGICAL HISTORY Hx Surgeries: No - ANESTHESIA Hx Anesthesia: No Hx Anesthesia Reactions: No Hx Malignant Hyperthermia: No Meds Allergies/Adverse Reactions: Allergies Allergy/AdvReac Type Severity Reaction Status Date / Time No Known Allergies Allergy Verified 02/05/18 10:39 Physical Exam - Constitutional Appears: Well - Head Exam Head Exam: ATRAUMATIC, NORMAL INSPECTION, NORMOCEPHALIC - Eye Exam Eye Exam: EOMI, Normal appearance, PERRL - ENT Exam ENT Exam: Mucous Membranes Moist, Normal Exam - Neck Exam Neck exam: Positive for: Normal Inspection - Respiratory Exam Respiratory Exam: Rales, Respiratory Distress - Cardiovascular Exam Cardiovascular Exam: +S1, +S2 - GI/Abdominal Exam GI & Abdominal Exam: Normal Bowel Sounds, Soft. absent: Tenderness - Extremities Exam Extremities exam: Positive for: normal inspection, pedal edema Results - Vital Signs Recent Vital Signs: Last Vital Signs Temp 98.6 F 02/13/18 12:00 Pulse 58 L 02/13/18 13:30 Resp 16 02/13/18 13:30 BP 169/87 H 02/13/18 12:52 Pulse Ox 100 02/13/18 13:30 - Labs Result Diagrams: 02/13/18 01:47 02/13/18 01:47 Labs: Laboratory Results - last 24 hr 02/13/18 02/13/1818 00:46 01:25 01:47 WBC 8.4 RBC 4.15 L Hgb 11.2 L Hct 34.0 L MCV 82.0 MCH 27.1 MCHC 33.0 RDW 15.8 H Plt Count 149 MPV 10.7 Neut % (Auto) 88.8 H Lymph % (Auto) 8.4 L [place] % (Auto) 1.8 Eos % (Auto) 0.2 Baso % (Auto) 0.8 Neut # (Auto) 7.5 H Lymph # (Auto) 0.7 L [place] # (Auto) 0.2 Eos # (Auto) 0.0 Baso # (Auto) 0.1 Neutrophils % (Manual) 88 H Lymphocytes % (Manual) 9 L Monocytes % (Manual) 3 Platelet Estimate Normal Giant Platelets Present Polychromasia Slight Anisocytosis (manual) Slight Microcytosis (manual) Slight Tear Drop Cells Slight Ovalocytes Slight Rouleaux Slight Puncture Site Rr pCO2 40 pO2 81 HCO3 27.6 ABG pH 7.45 ABG Total CO2 29.0 H ABG O2 Saturation 98.3 H ABG Base Excess 3.5 H Marty Test Pos ABG Potassium 3.5 L A-a O2 Difference 154.0 Respiratory Index 1.9 Sodium 144.0 Chloride 112.0 H Glucose 167 H Lactate 1.0 Liter Flow 4.0 FiO2 40.0 Potassium Carbon Dioxide Anion Gap BUN Creatinine Est GFR ( Amer) Est GFR (Non-Af Amer) POC Glucose (mg/dL) 180 H Random Glucose Calcium Total Bilirubin AST ALT Alkaline Phosphatase Troponin I NT-Pro-B Natriuret Pep Total Protein Albumin Globulin Albumin/Globulin Ratio Arterial Blood Potassium 3.5 L Urine Opiates Screen Urine Methadone Screen Ur Barbiturates Screen Ur Phencyclidine Scrn Ur Amphetamines Screen U Benzodiazepines Scrn U Oth Cocaine Metabols U Cannabinoids Screen Influenza Typ A,B (EIA) 02/13/18 02/13/18 02/13/18 01:47 08:16 09:38 WBC RBC Hgb Hct MCV MCH MCHC RDW Plt Count MPV Neut % (Auto) Lymph % (Auto) [place] % (Auto) Eos % (Auto) Baso % (Auto) Neut # (Auto) Lymph # (Auto) [place] # (Auto) Eos # (Auto) Baso # (Auto) Neutrophils % (Manual) Lymphocytes % (Manual) Monocytes % (Manual) Platelet Estimate Giant Platelets Polychromasia Anisocytosis (manual) Microcytosis (manual) Tear Drop Cells Ovalocytes Rouleaux Puncture Site pCO2 pO2 HCO3 ABG pH ABG Total CO2 ABG O2 Saturation ABG Base Excess Marty Test ABG Potassium A-a O2 Difference Respiratory Index Sodium 142 Chloride 105 Glucose Lactate Liter Flow FiO2 Potassium 4.5 Carbon Dioxide 28 Anion Gap 14 BUN 21 H Creatinine 1.2 Est GFR ( Amer) > 60 Est GFR (Non-Af Amer) > 60 POC Glucose (mg/dL) 147 H Random Glucose 158 H Calcium 9.0 Total Bilirubin 1.0 AST 32 ALT 40 Alkaline Phosphatase 74 Troponin I 0.0140 NT-Pro-B Natriuret Pep 5790 H Total Protein 6.7 Albumin 4.1 Globulin 2.6 Albumin/Globulin Ratio 1.5 Arterial Blood Potassium Urine Opiates Screen Urine Methadone Screen Ur Barbiturates Screen Ur Phencyclidine Scrn Ur Amphetamines Screen U Benzodiazepines Scrn U Oth Cocaine Metabols U Cannabinoids Screen Influenza Typ A,B (EIA) Negative for flu a/b 02/13/18 02/13/18 11:23 11:33 WBC RBC Hgb Hct MCV MCH MCHC RDW Plt Count MPV Neut % (Auto) Lymph % (Auto) [place] % (Auto) Eos % (Auto) Baso % (Auto) Neut # (Auto) Lymph # (Auto) [place] # (Auto) Eos # (Auto) Baso # (Auto) Neutrophils % (Manual) Lymphocytes % (Manual) Monocytes % (Manual) Platelet Estimate Giant Platelets Polychromasia Anisocytosis (manual) Microcytosis (manual) Tear Drop Cells Ovalocytes Rouleaux Puncture Site pCO2 pO2 HCO3 ABG pH ABG Total CO2 ABG O2 Saturation ABG Base Excess Marty Test ABG Potassium A-a O2 Difference Respiratory Index Sodium Chloride Glucose Lactate Liter Flow FiO2 Potassium Carbon Dioxide Anion Gap BUN Creatinine Est GFR ( Amer) Est GFR (Non-Af Amer) POC Glucose (mg/dL) 114 H Random Glucose Calcium Total Bilirubin AST ALT Alkaline Phosphatase Troponin I NT-Pro-B Natriuret Pep Total Protein Albumin Globulin Albumin/Globulin Ratio Arterial Blood Potassium Urine Opiates Screen Negative Urine Methadone Screen Positive H Ur Barbiturates Screen Negative Ur Phencyclidine Scrn Negative Ur Amphetamines Screen Negative U Benzodiazepines Scrn Negative U Oth Cocaine Metabols Negative U Cannabinoids Screen Negative Influenza Typ A,B (EIA) Assessment & Plan (1) Diastolic CHF, acute Status: Acute Comment: control the blood pressure and IV Lasix would probably stabilize the patient's congestive heart failure (2) Hepatitis C Status: Chronic (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
[2018-02-13 14:46] LABS: CK-MB 1.02 ng/mL (0.0-3.38); TROPONIN I 0.026 ng/mL (0.00-0.120)
[2018-02-13 15:05] LABS: HEPATITIS B SURFACE AG Negative (NEGATIVE)
[2018-02-13 15:11] LABS: HEPATITIS A IGM NEGATIVE (NEGATIVE); HEPATITIS B CORE AB NEGATIVE (NEGATIVE)
[2018-02-13 16:35] LABS: HEPATITIS C ANTIBODY REACTIVE (NEGATIVE)
--- NOTE | 2018-02-13 17:15 | CP.PCM.CON ---
History of Present Illness - History of Present Illness History of Present Illness: Patient is a 62-year-old male with PMHx of HTN, CHF, DM2, IV drug use, and Hep C who was admitted to dizziness and shortness of breath. Patient states that his symptoms started on Saturday, and when he got too dizzy to walk yesterday, he called his sister for help who called for EMS. Patient had elevated BP upon admission at 234/123. Currently, he is lying comfortably in bed, and denies any shortness of breath, dizziness, lightheadedness, fevers, chills, or any cough. CXR 02/13 - Cardiomegaly and pulmonary venous congestion. Hilar anatomy. The mid lung zone homogeneous low densities are compatible with concomitant coalescing rodney of pulmonary edema. However and element of tissue summation regarding the left breast is also likely. Concomitant underlying infiltrates possible. Correlate clinically. PMHx: HTN, CHF, DM2, substance use, Hep C PSHx: denies Allergies: denies Social Hx: smokes 2-5 cigarettes/day x30 years, denies alcohol use, admits to heroin use (last used 8 months ago) Family Hx: Father in 80s from heart disease, mother due to old age at 80. Past Patient History - Past Medical History & Family History Past Medical History?: Yes - Past Social History Smoking Status: Current Some Days Smoker - CARDIAC Hx Atrial Fibrillation: Yes Hx Hypertension: Yes - PULMONARY Hx Chronic Obstructive Pulmonary Disease (COPD): Yes Hx Pneumonia: Yes - NEUROLOGICAL Hx Neurological Disorder: No - HEENT Hx HEENT Problems: No - RENAL Hx Chronic Kidney Disease: No - ENDOCRINE/METABOLIC Hx Endocrine Disorders: Yes Hx Diabetes Mellitus Type 2: Yes - HEMATOLOGICAL/ONCOLOGICAL Hx Blood Disorders: No - INTEGUMENTARY Hx Dermatological Problems: No - MUSCULOSKELETAL/RHEUMATOLOGICAL Hx Musculoskeletal Disorders: No Hx Falls: No - GASTROINTESTINAL Hx Gastrointestinal Disorders: Yes Hx Nausea: Yes - GENITOURINARY/GYNECOLOGICAL Hx Genitourinary Disorders: No - PSYCHIATRIC Hx Substance Use: Yes (heroin) - SURGICAL HISTORY Hx Surgeries: No - ANESTHESIA Hx Anesthesia: No Hx Anesthesia Reactions: No Hx Malignant Hyperthermia: No Meds Allergies/Adverse Reactions: Allergies Allergy/AdvReac Type Severity Reaction Status Date / Time No Known Allergies Allergy Verified 02/05/18 10:39 - Medications Medications: Current Medications Aspirin (Aspirin Chewable) 81 mg PO DAILY [facility] Last Admin: 02/13/18 11:12 Dose: 81 mg Clonidine HCl (Catapres) 0.1 mg PO TID [facility] Last Admin: 02/13/18 14:33 Dose: 0.1 mg Enoxaparin Sodium (Lovenox) 40 mg SC DAILY [facility] Last Admin: 02/13/18 11:11 Dose: 40 mg Furosemide (Lasix) 40 mg IVP DAILY [facility] Last Admin: 02/13/18 11:11 Dose: 40 mg Glipizide (Glucotrol) 10 mg PO DAILY [facility] Hydralazine HCl (Apresoline) 25 mg PO TID [facility] Last Admin: 02/13/18 14:33 Dose: 25 mg Ibuprofen (Motrin Tab) 800 mg PO TID PRN PRN Reason: Pain, Mild (1-3) Insulin Human Regular (Novolin R) 0 unit SC ACHS [facility]; Protocol Last Admin: 02/13/18 12:26 Dose: Not Given Lisinopril (Zestril) 10 mg PO DAILY [facility] Last Admin: 02/13/18 11:20 Dose: 10 mg Methadone HCl (Methadose) 40 mg PO DAILY [facility] Last Admin: 02/13/18 11:15 Dose: 40 mg Metoprolol Tartrate (Lopressor) 50 mg PO BID [facility] Nitroglycerin (Nitro-Bid 2% Oint) 1 ea TOP Q6 [facility] Last Admin: 02/13/18 11:24 Dose: 1 ea Potassium Chloride (K-Dur 20 Meq Er Tab) 20 meq PO DAILY [facility] Last Admin: 02/13/18 11:12 Dose: 20 meq Terazosin HCl (Hytrin) 5 mg PO DAILY [facility] Last Admin: 02/13/18 11:33 Dose: 5 mg Physical Exam - Head Exam Head Exam: ATRAUMATIC, NORMOCEPHALIC - Neck Exam Neck exam: Positive for: Normal Inspection - Respiratory Exam Respiratory Exam: Rales - Cardiovascular Exam Cardiovascular Exam: REGULAR RHYTHM - GI/Abdominal Exam GI & Abdominal Exam: Normal Bowel Sounds, Soft - Extremities Exam Extremities exam: Positive for: pedal edema Results - Vital Signs Recent Vital Signs: Last Vital Signs Temp 97.7 F 02/13/18 16:00 Pulse 60 02/13/18 16:00 Resp 20 02/13/18 16:00 BP 178/82 H 02/13/18 15:53 Pulse Ox 98 02/13/18 16:00 - Labs Result Diagrams: 02/13/18 01:47 02/13/18 01:47 Labs: Laboratory Results - last 24 hr 02/13/18 02/13/18 02/13/18 00:46 01:25 01:47 WBC 8.4 RBC 4.15 L Hgb 11.2 L Hct 34.0 L MCV 82.0 MCH 27.1 MCHC 33.0 RDW 15.8 H Plt Count 149 MPV 10.7 Neut % (Auto) 88.8 H Lymph % (Auto) 8.4 L [place] % (Auto) 1.8 Eos % (Auto) 0.2 Baso % (Auto) 0.8 Neut # (Auto) 7.5 H Lymph # (Auto) 0.7 L [place] # (Auto) 0.2 Eos # (Auto) 0.0 Baso # (Auto) 0.1 Neutrophils % (Manual) 88 H Lymphocytes % (Manual) 9 L Monocytes % (Manual) 3 Platelet Estimate Normal Giant Platelets Present Polychromasia Slight Anisocytosis (manual) Slight Microcytosis (manual) Slight Tear Drop Cells Slight Ovalocytes Slight Rouleaux Slight Puncture Site Rr pCO2 40 pO2 81 HCO3 27.6 ABG pH 7.45 ABG Total CO2 29.0 H ABG O2 Saturation 98.3 H ABG Base Excess 3.5 H Marty Test Pos ABG Potassium 3.5 L A-a O2 Difference 154.0 Respiratory Index 1.9 Sodium 144.0 Chloride 112.0 H Glucose 167 H Lactate 1.0 Liter Flow 4.0 FiO2 40.0 Potassium Carbon Dioxide Anion Gap BUN Creatinine Est GFR ( Amer) Est GFR (Non-Af Amer) POC Glucose (mg/dL) 180 H Random Glucose Calcium Total Bilirubin AST ALT Alkaline Phosphatase Total Creatine Kinase CK-MB (Mass) Troponin I NT-Pro-B Natriuret Pep Total Protein Albumin Globulin Albumin/Globulin Ratio Arterial Blood Potassium 3.5 L Urine Opiates Screen Urine Methadone Screen Ur Barbiturates Screen Ur Phencyclidine Scrn Ur Amphetamines Screen U Benzodiazepines Scrn U Oth Cocaine Metabols U Cannabinoids Screen Hepatitis A IgM Ab Hep Bs Antigen Hep B Core IgM Ab Hepatitis C Antibody HIV 1&2 Antibody Screen Influenza Typ A,B (EIA) 02/13/18 02/13/18 02/13/18 01:47 08:16 09:38 WBC RBC Hgb Hct MCV MCH MCHC RDW Plt Count MPV Neut % (Auto) Lymph % (Auto) [place] % (Auto) Eos % (Auto) Baso % (Auto) Neut # (Auto) Lymph # (Auto) [place] # (Auto) Eos # (Auto) Baso # (Auto) Neutrophils % (Manual) Lymphocytes % (Manual) Monocytes % (Manual) Platelet Estimate Giant Platelets Polychromasia Anisocytosis (manual) Microcytosis (manual) Tear Drop Cells Ovalocytes Rouleaux Puncture Site pCO2 pO2 HCO3 ABG pH ABG Total CO2 ABG O2 Saturation ABG Base Excess Marty Test ABG Potassium A-a O2 Difference Respiratory Index Sodium 142 Chloride 105 Glucose Lactate Liter Flow FiO2 Potassium 4.5 Carbon Dioxide 28 Anion Gap 14 BUN 21 H Creatinine 1.2 Est GFR ( Amer) > 60 Est GFR (Non-Af Amer) > 60 POC Glucose (mg/dL) 147 H Random Glucose 158 H Calcium 9.0 Total Bilirubin 1.0 AST 32 ALT 40 Alkaline Phosphatase 74 Total Creatine Kinase CK-MB (Mass) Troponin I 0.0140 NT-Pro-B Natriuret Pep 5790 H Total Protein 6.7 Albumin 4.1 Globulin 2.6 Albumin/Globulin Ratio 1.5 Arterial Blood Potassium Urine Opiates Screen Urine Methadone Screen Ur Barbiturates Screen Ur Phencyclidine Scrn Ur Amphetamines Screen U Benzodiazepines Scrn U Oth Cocaine Metabols U Cannabinoids Screen Hepatitis A IgM Ab Hep Bs Antigen Hep B Core IgM Ab Hepatitis C Antibody HIV 1&2 Antibody Screen Influenza Typ A,B (EIA) Negative for flu a/b 02/13/18 02/13/18 02/13/18 11:23 11:33 14:15 WBC RBC Hgb Hct MCV MCH MCHC RDW Plt Count MPV Neut % (Auto) Lymph % (Auto) [place] % (Auto) Eos % (Auto) Baso % (Auto) Neut # (Auto) Lymph # (Auto) [place] # (Auto) Eos # (Auto) Baso # (Auto) Neutrophils % (Manual) Lymphocytes % (Manual) Monocytes % (Manual) Platelet Estimate Giant Platelets Polychromasia Anisocytosis (manual) Microcytosis (manual) Tear Drop Cells Ovalocytes Rouleaux Puncture Site pCO2 pO2 HCO3 ABG pH ABG Total CO2 ABG O2 Saturation ABG Base Excess Marty Test ABG Potassium A-a O2 Difference Respiratory Index Sodium Chloride Glucose Lactate Liter Flow FiO2 Potassium Carbon Dioxide Anion Gap BUN Creatinine Est GFR ( Amer) Est GFR (Non-Af Amer) POC Glucose (mg/dL) 114 H Random Glucose Calcium Total Bilirubin AST ALT Alkaline Phosphatase Total Creatine Kinase 35 L CK-MB (Mass) 1.02 Troponin I 0.0260 NT-Pro-B Natriuret Pep Total Protein Albumin Globulin Albumin/Globulin Ratio Arterial Blood Potassium Urine Opiates Screen Negative Urine Methadone Screen Positive H Ur Barbiturates Screen Negative Ur Phencyclidine Scrn Negative Ur Amphetamines Screen Negative U Benzodiazepines Scrn Negative U Oth Cocaine Metabols Negative U Cannabinoids Screen Negative Hepatitis A IgM Ab Hep Bs Antigen Hep B Core IgM Ab Hepatitis C Antibody HIV 1&2 Antibody Screen Influenza Typ A,B (EIA) 02/13/18 02/13/18 02/13/18 14:15 14:15 16:05 WBC RBC Hgb Hct MCV MCH MCHC RDW Plt Count MPV Neut % (Auto) Lymph % (Auto) [place] % (Auto) Eos % (Auto) Baso % (Auto) Neut # (Auto) Lymph # (Auto) [place] # (Auto) Eos # (Auto) Baso # (Auto) Neutrophils % (Manual) Lymphocytes % (Manual) Monocytes % (Manual) Platelet Estimate Giant Platelets Polychromasia Anisocytosis (manual) Microcytosis (manual) Tear Drop Cells Ovalocytes Rouleaux Puncture Site pCO2 pO2 HCO3 ABG pH ABG Total CO2 ABG O2 Saturation ABG Base Excess Marty Test ABG Potassium A-a O2 Difference Respiratory Index Sodium Chloride Glucose Lactate Liter Flow FiO2 Potassium Carbon Dioxide Anion Gap BUN Creatinine Est GFR ( Amer) Est GFR (Non-Af Amer) POC Glucose (mg/dL) 80 Random Glucose Calcium Total Bilirubin AST ALT Alkaline Phosphatase Total Creatine Kinase CK-MB (Mass) Troponin I NT-Pro-B Natriuret Pep Total Protein Albumin Globulin Albumin/Globulin Ratio Arterial Blood Potassium Urine Opiates Screen Urine Methadone Screen Ur Barbiturates Screen Ur Phencyclidine Scrn Ur Amphetamines Screen U Benzodiazepines Scrn U Oth Cocaine Metabols U Cannabinoids Screen Hepatitis A IgM Ab Negative Hep Bs Antigen Negative Hep B Core IgM Ab Negative Hepatitis C Antibody Reactive HIV 1&2 Antibody Screen Negative Influenza Typ A,B (EIA) Assessment & Plan (1) Diastolic CHF, acute Status: Acute (2) Pneumonia Status: Acute Comment: CT of the chest consistent with CHF/consolidation. Consider starting antibiotics. Nebulizer treatment because of long history of smoking (3) Uncontrolled hypertension Status: Acute (4) Hepatitis C Status: Chronic
[2018-02-13 21:50] LABS: CK-MB 1.01 ng/mL (0.0-3.38); TROPONIN I 0.022 ng/mL (0.00-0.120)
[2018-02-13] MEDS: Albuterol-Ipratrop 3 mg / 0.5 (3 ml) UD INH SCH (22:49)
[2018-02-14] MEDS: Albuterol-Ipratrop 3 mg / 0.5 (3 ml) UD INH SCH ×4 (01:21→19:28)
[2018-02-14] MEDS: Nitroglycerin 2% Ointment Foilpak UD TOP SCH ×3 (06:25→17:48)
[2018-02-14] MEDS: (Novolin R) Insulin Human Regular 100 units/ml vial SC SCH ×4 (07:30→21:38)
[2018-02-14 07:58] LABS: BASO # 0.1 K/uL (0.0-0.2); BASO % 0.7 % (0.0-2.0); EOS # 0.2 K/uL (0.0-0.7); EOS % 2.1 % (0.0-4.0); HEMOGLOBIN 11.3 g/dL (12.0-18.0); LYMPH % 18.8 % (20.0-40.0); MEAN CELL VOLUME 81.3 fL (80.0-94.0); MEAN CORPUSCULAR HEMOGLOBIN 27.4 pg (27.0-31.0); MEAN CORPUSCULAR HGB CONC 33.7 g/dL (33.0-37.0); MEAN PLATELET VOLUME 10.2 fL (7.2-11.7); MONO % 9.4 % (0.0-10.0); NEUT # 7.4 K/uL (1.8-7.0); RBC 4.11 Mil/uL (4.40-5.90); RED CELL DISTRIBUTION WIDTH 16.1 % (11.5-14.5); WHITE BLOOD COUNT 10.7 K/uL (4.8-10.8)
[2018-02-14 08:07] LABS: ALB/GLOB RATIO 1.5 (1.0-2.1); ALBUMIN 3.7 g/dL (3.5-5.0)
--- NOTE | 2018-02-14 08:23 | RAD ---
Date of service: 02/14/2018 HISTORY: shortness of breath COMPARISON: 02/13/2018 FINDINGS: LUNGS: The lungs are well inflated. There is moderate pulmonary venous congestion. PLEURA: No pleural effusions or pneumothorax. CARDIOVASCULAR: There is moderate cardiomegaly. No aortic atherosclerotic calcification present. OSSEOUS STRUCTURES: Within normal limits for the patient's age. VISUALIZED UPPER ABDOMEN: Normal. OTHER FINDINGS: None. IMPRESSION: No active pulmonary disease. Moderate cardiomegaly and pulmonary venous congestion.
[2018-02-14] MEDS: Methadone 40 mg Tab PO SCH (09:30)
[2018-02-14] MEDS: Enoxaparin 40 mg Syringe SC SCH (09:30)
[2018-02-14] MEDS: Potassium Chloride 20 mEq ER Tab PO SCH (09:31)
--- NOTE | 2018-02-14 10:23 | CP.CCUPN ---
Addendum entered and electronically signed by Debbie Samano MD 02/14/18 11:32: Creatinine increased: will hold lisinopril, start hydralazine + nitrates Original Note: <Edilberto Sheehan - Last Filed: 02/14/18 10:20> CCU Subjective - Physician Review Events Since Last Encounter (Free Text): 02/14/18 10:20 No acute events overnight Subjective (Free Text): 02/14/18 10:20 Patient seen and evaluated at bedside this morning. Patient states he feels better today and denies shortness of breath and/or dizziness. Patient also denies chest pain, diaphoresis, headache, rash, dysuria, nausea, and/or vomiting. Critical Care Time Spent (in minutes): 35 CCU Objective - Vital Signs / Intake & Output Vital Signs (Last 4 hours): Vital Signs Pulse Resp BP Pulse Ox 02/14/18 09:31 165/82 H 02/14/18 07:04 173/107 H 02/14/18 07:00 50 L 23 98 Intake and Output (Last 8hrs): Intake & Output 02/13/18 02/14/18 02/14/18 22:59 06:59 14:59 Intake Total 800 480 0 Output Total 200 300 Balance 600 180 0 Weight 191 lb 2.252 oz Intake: Intake, IV Amount 0 0 0 Left Chest 0 0 0 Oral 800 480 Output: Urine 200 300 Urine, Voided 200 300 Emesis 0 Other: # Voids Urine, Voided 1 1 # Bowel Movements 0 - Physical Exam Other physical findings (Free Text): - Head Exam Head Exam: ATRAUMATIC, NORMAL INSPECTION, NORMOCEPHALIC - Eye Exam Eye Exam: EOMI, Normal appearance - ENT Exam ENT Exam: Mucous Membranes Moist, Normal Exam - Neck Exam Neck exam: Positive for: Normal Inspection - Respiratory Exam Respiratory Exam: Clear to Auscultation Bilateral, NORMAL BREATHING PATTERN. absent: Chest Wall Tenderness, Decreased Breath Sounds, Rales, Stridor - Cardiovascular Exam Cardiovascular Exam: Bradycardia Additional comments: Bradycardia at 50 bpm - GI/Abdominal Exam GI & Abdominal Exam: Normal Bowel Sounds - Medications Active Medications: Active Medications Generic Name Dose Route Start Last Admin Trade Name Freq PRN Reason Stop Dose Admin Albuterol/Ipratropium 3 ml 02/13/18 20:00 02/14/18 07:38 Duoneb 3 Mg/0.5 Mg (3 Ml) Ud INH 3 ml RQ6 SUAD Administration Aspirin 81 mg 02/13/18 10:00 02/14/18 09:31 Aspirin Chewable PO 81 mg DAILY SUAD Administration Clonidine HCl 0.1 mg 02/13/18 22:00 02/14/18 06:25 Catapres PO 0.1 mg Q8H SUAD Administration Enoxaparin Sodium 40 mg 02/13/18 10:00 02/14/18 09:30 Lovenox SC 40 mg DAILY SUAD Administration Furosemide 40 mg 02/13/18 04:15 02/14/18 09:31 Lasix IVP 40 mg DAILY SUAD Administration Glipizide 10 mg 02/14/18 10:00 02/14/18 09:31 Glucotrol PO 10 mg DAILY SUAD Administration Hydralazine HCl 75 mg 02/14/18 10:00 Apresoline PO TID SUAD Hydralazine HCl 10 mg 02/14/18 08:44 Apresoline IVP Q6H PRN Systolic Blood Pressure Ibuprofen 800 mg 02/13/18 05:55 Motrin Tab PO TID PRN Pain, Mild (1-3) Insulin Human Regular 0 unit 02/13/18 07:30 02/14/18 07:30 Novolin R SC Not Given ACHS COUNTS INCLUDE 234 BEDS AT THE [facility] Protocol Lisinopril 10 mg 02/13/18 10:00 02/14/18 09:30 Zestril PO Not Given DAILY SUAD Methadone HCl 40 mg 02/13/18 10:00 02/14/18 09:30 Methadose PO 40 mg DAILY COUNTS INCLUDE 234 BEDS AT THE [facility] Administration Metoprolol Tartrate 50 mg 02/13/18 18:00 02/14/18 09:32 Lopressor PO Not Given BID COUNTS INCLUDE 234 BEDS AT THE [facility] Nitroglycerin 1 ea 02/13/18 12:00 02/14/18 06:25 Nitro-Bid 2% Oint TOP 1 ea Q6 SUAD Administration Potassium Chloride 20 meq 02/13/18 10:00 02/14/18 09:31 K-Dur 20 Meq Er Tab PO 20 meq DAILY SUAD Administration Terazosin HCl 5 mg 02/13/18 10:00 02/14/18 09:32 Hytrin PO Not Given DAILY SUAD - Patient Studies Lab Studies: Lab Studies 11/02/18 11/02/18 11/02/18 Range/Units 07:36 07:35 07:35 WBC 10.7 (4.8-10.8) K/uL RBC 4.11 L (4.40-5.90) Mil/uL Hgb 11.3 L (12.0-18.0) g/dL Hct 33.4 L (35.0-51.0) % MCV 81.3 (80.0-94.0) fL MCH 27.4 (27.0-31.0) pg MCHC 33.7 (33.0-37.0) g/dL RDW 16.1 H (11.5-14.5) % Plt Count 150 (130-400) K/uL MPV 10.2 (7.2-11.7) fL Neut % (Auto) 69.0 (50.0-75.0) % Lymph % (Auto) 18.8 L (20.0-40.0) % Borden % (Auto) 9.4 (0.0-10.0) % Eos % (Auto) 2.1 (0.0-4.0) % Baso % (Auto) 0.7 (0.0-2.0) % Neut # (Auto) 7.4 H (1.8-7.0) K/uL Lymph # (Auto) 2.0 (1.0-4.3) K/uL Borden # (Auto) 1.0 H (0.0-0.8) K/uL Eos # (Auto) 0.2 (0.0-0.7) K/uL Baso # (Auto) 0.1 (0.0-0.2) K/uL Sodium 139 (132-148) mmol/L Potassium 4.3 (3.6-5.2) mmol/L Chloride 99 (98-107) mmol/L Carbon Dioxide 31 H (22-30) mmol/L Anion Gap 14 (10-20) BUN 32 H (9-20) mg/dL Creatinine 1.6 H (0.8-1.5) mg/dL Est GFR ( Amer) 54 Est GFR (Non-Af Amer) 44 POC Glucose (mg/dL) 144 H (65-110) mg/dL Random Glucose 133 H (75-110) mg/dL Calcium 9.0 (8.6-10.4) mg/dl Phosphorus 4.2 (2.5-4.5) mg/dL Magnesium 2.4 H (1.6-2.3) mg/dL Total Bilirubin 0.8 (0.2-1.3) mg/dL AST 26 (17-59) U/L ALT 34 (21-72) U/L Alkaline Phosphatase 61 (38-126) U/L Total Creatine Kinase (55-170) U/L CK-MB (Mass) (0.0-3.38) ng/mL Troponin I (0.00-0.120) ng/mL Total Protein 6.2 L (6.3-8.3) g/dL Albumin 3.7 (3.5-5.0) g/dL Globulin 2.4 (2.2-3.9) gm/dL Albumin/Globulin Ratio 1.5 (1.0-2.1) Urine Opiates Screen (NEGATIVE) Urine Methadone Screen (NEGATIVE) Ur Barbiturates Screen (NEGATIVE) Ur Phencyclidine Scrn (NEGATIVE) Ur Amphetamines Screen (NEGATIVE) U Benzodiazepines Scrn (NEGATIVE) U Oth Cocaine Metabols (NEGATIVE) U Cannabinoids Screen (NEGATIVE) Hepatitis A IgM Ab (NEGATIVE) Hep Bs Antigen (NEGATIVE) Hep B Core IgM Ab (NEGATIVE) Hepatitis C Antibody (NEGATIVE) HIV 1&2 Antibody Screen (NEGATIVE) 02/13/18 02/13/18 02/13/18 Range/Units 21:20 21:17 16:05 WBC (4.8-10.8) K/uL RBC (4.40-5.90) Mil/uL Hgb (12.0-18.0) g/dL Hct (35.0-51.0) % MCV (80.0-94.0) fL MCH (27.0-31.0) pg MCHC (33.0-37.0) g/dL RDW (11.5-14.5) % Plt Count (130-400) K/uL MPV (7.2-11.7) fL Neut % (Auto) (50.0-75.0) % Lymph % (Auto) (20.0-40.0) % Borden % (Auto) (0.0-10.0) % Eos % (Auto) (0.0-4.0) % Baso % (Auto) (0.0-2.0) % Neut # (Auto) (1.8-7.0) K/uL Lymph # (Auto) (1.0-4.3) K/uL Borden # (Auto) (0.0-0.8) K/uL Eos # (Auto) (0.0-0.7) K/uL Baso # (Auto) (0.0-0.2) K/uL Sodium (132-148) mmol/L Potassium (3.6-5.2) mmol/L Chloride (98-107) mmol/L Carbon Dioxide (22-30) mmol/L Anion Gap (10-20) BUN (9-20) mg/dL Creatinine (0.8-1.5) mg/dL Est GFR ( Amer) Est GFR (Non-Af Amer) POC Glucose (mg/dL) 80 80 (65-110) mg/dL Random Glucose (75-110) mg/dL Calcium (8.6-10.4) mg/dl Phosphorus (2.5-4.5) mg/dL Magnesium (1.6-2.3) mg/dL Total Bilirubin (0.2-1.3) mg/dL AST (17-59) U/L ALT (21-72) U/L Alkaline Phosphatase (38-126) U/L Total Creatine Kinase 47 L (55-170) U/L CK-MB (Mass) 1.01 (0.0-3.38) ng/mL Troponin I 0.0220 (0.00-0.120) ng/mL Total Protein (6.3-8.3) g/dL Albumin (3.5-5.0) g/dL Globulin (2.2-3.9) gm/dL Albumin/Globulin Ratio (1.0-2.1) Urine Opiates Screen (NEGATIVE) Urine Methadone Screen (NEGATIVE) Ur Barbiturates Screen (NEGATIVE) Ur Phencyclidine Scrn (NEGATIVE) Ur Amphetamines Screen (NEGATIVE) U Benzodiazepines Scrn (NEGATIVE) U Oth Cocaine Metabols (NEGATIVE) U Cannabinoids Screen (NEGATIVE) Hepatitis A IgM Ab (NEGATIVE) Hep Bs Antigen (NEGATIVE) Hep B Core IgM Ab (NEGATIVE) Hepatitis C Antibody (NEGATIVE) HIV 1&2 Antibody Screen (NEGATIVE) 02/13/18 02/13/18 02/13/18 Range/Units 14:15 14:15 14:15 WBC (4.8-10.8) K/uL RBC (4.40-5.90) Mil/uL Hgb (12.0-18.0) g/dL Hct (35.0-51.0) % MCV (80.0-94.0) fL MCH (27.0-31.0) pg MCHC (33.0-37.0) g/dL RDW (11.5-14.5) % Plt Count (130-400) K/uL MPV (7.2-11.7) fL Neut % (Auto) (50.0-75.0) % Lymph % (Auto) (20.0-40.0) % Borden % (Auto) (0.0-10.0) % Eos % (Auto) (0.0-4.0) % Baso % (Auto) (0.0-2.0) % Neut # (Auto) (1.8-7.0) K/uL Lymph # (Auto) (1.0-4.3) K/uL Borden # (Auto) (0.0-0.8) K/uL Eos # (Auto) (0.0-0.7) K/uL Baso # (Auto) (0.0-0.2) K/uL Sodium (132-148) mmol/L Potassium (3.6-5.2) mmol/L Chloride (98-107) mmol/L Carbon Dioxide (22-30) mmol/L Anion Gap (10-20) BUN (9-20) mg/dL Creatinine (0.8-1.5) mg/dL Est GFR ( Amer) Est GFR (Non-Af Amer) POC Glucose (mg/dL) (65-110) mg/dL Random Glucose (75-110) mg/dL Calcium (8.6-10.4) mg/dl Phosphorus (2.5-4.5) mg/dL Magnesium (1.6-2.3) mg/dL Total Bilirubin (0.2-1.3) mg/dL AST (17-59) U/L ALT (21-72) U/L Alkaline Phosphatase (38-126) U/L Total Creatine Kinase 35 L (55-170) U/L CK-MB (Mass) 1.02 (0.0-3.38) ng/mL Troponin I 0.0260 (0.00-0.120) ng/mL Total Protein (6.3-8.3) g/dL Albumin (3.5-5.0) g/dL Globulin (2.2-3.9) gm/dL Albumin/Globulin Ratio (1.0-2.1) Urine Opiates Screen (NEGATIVE) Urine Methadone Screen (NEGATIVE) Ur Barbiturates Screen (NEGATIVE) Ur Phencyclidine Scrn (NEGATIVE) Ur Amphetamines Screen (NEGATIVE) U Benzodiazepines Scrn (NEGATIVE) U Oth Cocaine Metabols (NEGATIVE) U Cannabinoids Screen (NEGATIVE) Hepatitis A IgM Ab Negative (NEGATIVE) Hep Bs Antigen Negative (NEGATIVE) Hep B Core IgM Ab Negative (NEGATIVE) Hepatitis C Antibody Reactive (NEGATIVE) HIV 1&2 Antibody Screen Negative (NEGATIVE) 02/13/18 02/13/18 Range/Units 11:33 11:23 WBC (4.8-10.8) K/uL RBC (4.40-5.90) Mil/uL Hgb (12.0-18.0) g/dL Hct (35.0-51.0) % MCV (80.0-94.0) fL MCH (27.0-31.0) pg MCHC (33.0-37.0) g/dL RDW (11.5-14.5) % Plt Count (130-400) K/uL MPV (7.2-11.7) fL Neut % (Auto) (50.0-75.0) % Lymph % (Auto) (20.0-40.0) % Borden % (Auto) (0.0-10.0) % Eos % (Auto) (0.0-4.0) % Baso % (Auto) (0.0-2.0) % Neut # (Auto) (1.8-7.0) K/uL Lymph # (Auto) (1.0-4.3) K/uL Borden # (Auto) (0.0-0.8) K/uL Eos # (Auto) (0.0-0.7) K/uL Baso # (Auto) (0.0-0.2) K/uL Sodium (132-148) mmol/L Potassium (3.6-5.2) mmol/L Chloride (98-107) mmol/L Carbon Dioxide (22-30) mmol/L Anion Gap (10-20) BUN (9-20) mg/dL Creatinine (0.8-1.5) mg/dL Est GFR ( Amer) Est GFR (Non-Af Amer) POC Glucose (mg/dL) 114 H (65-110) mg/dL Random Glucose (75-110) mg/dL Calcium (8.6-10.4) mg/dl Phosphorus (2.5-4.5) mg/dL Magnesium (1.6-2.3) mg/dL Total Bilirubin (0.2-1.3) mg/dL AST (17-59) U/L ALT (21-72) U/L Alkaline Phosphatase (38-126) U/L Total Creatine Kinase (55-170) U/L CK-MB (Mass) (0.0-3.38) ng/mL Troponin I (0.00-0.120) ng/mL Total Protein (6.3-8.3) g/dL Albumin (3.5-5.0) g/dL Globulin (2.2-3.9) gm/dL Albumin/Globulin Ratio (1.0-2.1) Urine Opiates Screen Negative (NEGATIVE) Urine Methadone Screen Positive H (NEGATIVE) Ur Barbiturates Screen Negative (NEGATIVE) Ur Phencyclidine Scrn Negative (NEGATIVE) Ur Amphetamines Screen Negative (NEGATIVE) U Benzodiazepines Scrn Negative (NEGATIVE) U Oth Cocaine Metabols Negative (NEGATIVE) U Cannabinoids Screen Negative (NEGATIVE) Hepatitis A IgM Ab (NEGATIVE) Hep Bs Antigen (NEGATIVE) Hep B Core IgM Ab (NEGATIVE) Hepatitis C Antibody (NEGATIVE) HIV 1&2 Antibody Screen (NEGATIVE) Laboratory Results - last 24 hr 02/13/18 02/13/18 02/13/18 11:23 11:33 14:15 WBC RBC Hgb Hct MCV MCH MCHC RDW Plt Count MPV Neut % (Auto) Lymph % (Auto) Borden % (Auto) Eos % (Auto) Baso % (Auto) Neut # (Auto) Lymph # (Auto) Borden # (Auto) Eos # (Auto) Baso # (Auto) Sodium Potassium Chloride Carbon Dioxide Anion Gap BUN Creatinine Est GFR ( Amer) Est GFR (Non-Af Amer) POC Glucose (mg/dL) 114 H Random Glucose Calcium Phosphorus Magnesium Total Bilirubin AST ALT Alkaline Phosphatase Total Creatine Kinase 35 L CK-MB (Mass) 1.02 Troponin I 0.0260 Total Protein Albumin Globulin Albumin/Globulin Ratio Urine Opiates Screen Negative Urine Methadone Screen Positive H Ur Barbiturates Screen Negative Ur Phencyclidine Scrn Negative Ur Amphetamines Screen Negative U Benzodiazepines Scrn Negative U Oth Cocaine Metabols Negative U Cannabinoids Screen Negative Hepatitis A IgM Ab Hep Bs Antigen Hep B Core IgM Ab Hepatitis C Antibody HIV 1&2 Antibody Screen 02/13/18 02/13/18 02/13/18 14:15 14:15 16:05 WBC RBC Hgb Hct MCV MCH MCHC RDW Plt Count MPV Neut % (Auto) Lymph % (Auto) Borden % (Auto) Eos % (Auto) Baso % (Auto) Neut # (Auto) Lymph # (Auto) Borden # (Auto) Eos # (Auto) Baso # (Auto) Sodium Potassium Chloride Carbon Dioxide Anion Gap BUN Creatinine Est GFR ( Amer) Est GFR (Non-Af Amer) POC Glucose (mg/dL) 80 Random Glucose Calcium Phosphorus Magnesium Total Bilirubin AST ALT Alkaline Phosphatase Total Creatine Kinase CK-MB (Mass) Troponin I Total Protein Albumin Globulin Albumin/Globulin Ratio Urine Opiates Screen Urine Methadone Screen Ur Barbiturates Screen Ur Phencyclidine Scrn Ur Amphetamines Screen U Benzodiazepines Scrn U Oth Cocaine Metabols U Cannabinoids Screen Hepatitis A IgM Ab Negative Hep Bs Antigen Negative Hep B Core IgM Ab Negative Hepatitis C Antibody Reactive HIV 1&2 Antibody Screen Negative 02/13/18 02/13/18 02/14/18 21:17 21:20 07:35 WBC 10.7 RBC 4.11 L Hgb 11.3 L Hct 33.4 L MCV 81.3 MCH 27.4 MCHC 33.7 RDW 16.1 H Plt Count 150 MPV 10.2 Neut % (Auto) 69.0 Lymph % (Auto) 18.8 L Borden % (Auto) 9.4 Eos % (Auto) 2.1 Baso % (Auto) 0.7 Neut # (Auto) 7.4 H Lymph # (Auto) 2.0 Borden # (Auto) 1.0 H Eos # (Auto) 0.2 Baso # (Auto) 0.1 Sodium Potassium Chloride Carbon Dioxide Anion Gap BUN Creatinine Est GFR ( Amer) Est GFR (Non-Af Amer) POC Glucose (mg/dL) 80 Random Glucose Calcium Phosphorus Magnesium Total Bilirubin AST ALT Alkaline Phosphatase Total Creatine Kinase 47 L CK-MB (Mass) 1.01 Troponin I 0.0220 Total Protein Albumin Globulin Albumin/Globulin Ratio Urine Opiates Screen Urine Methadone Screen Ur Barbiturates Screen Ur Phencyclidine Scrn Ur Amphetamines Screen U Benzodiazepines Scrn U Oth Cocaine Metabols U Cannabinoids Screen Hepatitis A IgM Ab Hep Bs Antigen Hep B Core IgM Ab Hepatitis C Antibody HIV 1&2 Antibody Screen 02/14/18 02/14/18 07:35 07:36 WBC RBC Hgb Hct MCV MCH MCHC RDW Plt Count MPV Neut % (Auto) Lymph % (Auto) Borden % (Auto) Eos % (Auto) Baso % (Auto) Neut # (Auto) Lymph # (Auto) Borden # (Auto) Eos # (Auto) Baso # (Auto) Sodium 139 Potassium 4.3 Chloride 99 Carbon Dioxide 31 H Anion Gap 14 BUN 32 H Creatinine 1.6 H Est GFR ( Amer) 54 Est GFR (Non-Af Amer) 44 POC Glucose (mg/dL) 144 H Random Glucose 133 H Calcium 9.0 Phosphorus 4.2 Magnesium 2.4 H Total Bilirubin 0.8 AST 26 ALT 34 Alkaline Phosphatase 61 Total Creatine Kinase CK-MB (Mass) Troponin I Total Protein 6.2 L Albumin 3.7 Globulin 2.4 Albumin/Globulin Ratio 1.5 Urine Opiates Screen Urine Methadone Screen Ur Barbiturates Screen Ur Phencyclidine Scrn Ur Amphetamines Screen U Benzodiazepines Scrn U Oth Cocaine Metabols U Cannabinoids Screen Hepatitis A IgM Ab Hep Bs Antigen Hep B Core IgM Ab Hepatitis C Antibody HIV 1&2 Antibody Screen Fingerstick Blood Sugar Results: 80 Review of Systems - Review of Systems All systems: reviewed and no additional remarkable complaints except - EENT Eyes: As Per HPI - Cardiovascular Cardiovascular: As Per HPI - Respiratory Respiratory: As Per HPI - Gastrointestinal Gastrointestinal: As Per HPI - Genitourinary Genitourinary: As Per HPI - Musculoskeletal Musculoskeletal: As Par HPI - Integumentary Integumentary: As Per HPI - Neurological Neurological: As Per HPI - Psychiatric Psychiatric: As Per HPI - Endocrine Endocrine: As Per HPI - Hematologic/Lymphatic Hematologic: As Per HPI Critical Care Progress Note - Nutrition Nutrition: Nutrition Category Date Time Status Heart Healthy Diet [DIET] Diets 02/13/18 Breakfast Active Assessment/Plan - Assessment and Plan (Free Text) Assessment: Patient is a 62-year-old male with PMH of HTN, CHF, DMT2, intubation 2/2 ARDS, IV Drug Use, on methadone, Hepatitis C who was BIBA yesterday 02/12 for dizziness and shortness of breath. Upon arrival to the ED, patient was found to have a Max Systolic CP=587 and Max diastolic DN=917. Patient was treated with home medications, however blood pressure remained elevated > 200 systolic. Thus, patient is transferred to ICU for closer monitoring and was started on a Nitro drip. CV: Uncontrolled HTN - Continue all home meds - Continue lasix IV - Discontinue nitro drip - Start nitro ointment applied 2-inches Q6H - Start Hydralazine 10mg IVP PRN. Hold for systolic BP < 140 Diastolic CHF, acute - ECHO completed: report pending - Prior ECHO: normal left ventral ejection fraction. 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 Selwyn Sheehan PGY1 <Debbie Samano - Last Filed: 02/14/18 11:30> CCU Objective - Vital Signs / Intake & Output Vital Signs (Last 4 hours): Vital Signs Temp Pulse Resp BP Pulse Ox 02/14/18 11:00 46 L 11 L 02/14/18 10:48 47 L 16 159/87 H 02/14/18 10:18 46 L 19 172/91 H 02/14/18 10:00 52 L 24 02/14/18 09:48 52 L 27 H 163/85 H 02/14/18 09:31 165/82 H 02/14/18 09:28 58 L 23 165/82 H 02/14/18 09:27 60 21 02/14/18 08:48 53 L 17 162/94 H 99 02/14/18 08:15 53 L 23 189/98 H 99 02/14/18 08:01 49 L 25 H 99 02/14/18 08:00 98.7 F 45 L 20 99 Intake and Output (Last 8hrs): Intake & Output 02/13/18 02/14/18 02/14/18 22:59 06:59 14:59 Intake Total 800 480 840 Output Total 200 300 600 Balance 600 180 240 Weight 191 lb 2.252 oz Intake: Intake, IV Amount 0 0 840 Left Chest 0 0 840 Oral 800 480 Output: Urine 200 300 600 Urine, Voided 200 300 600 Emesis 0 Other: # Voids Urine, Voided 1 1 # Bowel Movements 0 1 - Medications Active Medications: Active Medications Generic Name Dose Route Start Last Admin Trade Name Freq PRN Reason Stop Dose Admin Albuterol/Ipratropium 3 ml 02/13/18 20:00 02/14/18 07:38 Duoneb 3 Mg/0.5 Mg (3 Ml) Ud INH 3 ml RQ6 SUAD Administration Aspirin 81 mg 02/13/18 10:00 02/14/18 09:31 Aspirin Chewable PO 81 mg DAILY SUAD Administration Clonidine HCl 0.1 mg 02/13/18 22:00 02/14/18 06:25 Catapres PO 0.1 mg Q8H SUAD Administration Enoxaparin Sodium 40 mg 02/13/18 10:00 02/14/18 09:30 Lovenox SC 40 mg DAILY SUAD Administration Furosemide 40 mg 02/13/18 04:15 02/14/18 09:31 Lasix IVP 40 mg DAILY SUAD Administration Glipizide 10 mg 02/14/18 10:00 02/14/18 09:31 Glucotrol PO 10 mg DAILY SUAD Administration Hydralazine HCl 75 mg 02/14/18 10:00 Apresoline PO TID SUAD Hydralazine HCl 10 mg 02/14/18 10:35 Apresoline PO Q6H PRN Other Ibuprofen 800 mg 02/13/18 05:55 Motrin Tab PO TID PRN Pain, Mild (1-3) Influenza Virus Vaccine 60 mcg 02/15/18 10:00 Fluzone Quad [id number] IM 02/15/18 10:01 .ONCE ONE Insulin Human Regular 0 unit 02/13/18 07:30 02/14/18 07:30 Novolin R SC Not Given ACHS COUNTS INCLUDE 234 BEDS AT THE [facility] Protocol Lisinopril 10 mg 02/13/18 10:00 02/14/18 09:30 Zestril PO Not Given DAILY COUNTS INCLUDE 234 BEDS AT THE [facility] Methadone HCl 40 mg 02/13/18 10:00 02/14/18 09:30 Methadose PO 40 mg DAILY SUAD Administration Metoprolol Tartrate 50 mg 02/13/18 18:00 02/14/18 09:32 Lopressor PO Not Given BID SUAD Nitroglycerin 1 ea 02/13/18 12:00 02/14/18 06:25 Nitro-Bid 2% Oint TOP 1 ea Q6 SUAD Administration Potassium Chloride 20 meq 02/13/18 10:00 02/14/18 09:31 K-Dur 20 Meq Er Tab PO 20 meq DAILY SUAD Administration Terazosin HCl 5 mg 02/13/18 10:00 02/14/18 09:32 Hytrin PO Not Given DAILY SUAD - Patient Studies Lab Studies: Microbiology Studies 02/13/18 10:02 MRSA Culture (Admit) - Final Naris MRSA NOT DETECTED Lab Studies 02/14/18 02/14/18 02/14/18 Range/Units 07:36 07:35 07:35 WBC 10.7 (4.8-10.8) K/uL RBC 4.11 L (4.40-5.90) Mil/uL Hgb 11.3 L (12.0-18.0) g/dL Hct 33.4 L (35.0-51.0) % MCV 81.3 (80.0-94.0) fL MCH 27.4 (27.0-31.0) pg MCHC 33.7 (33.0-37.0) g/dL RDW 16.1 H (11.5-14.5) % Plt Count 150 (130-400) K/uL MPV 10.2 (7.2-11.7) fL Neut % (Auto) 69.0 (50.0-75.0) % Lymph % (Auto) 18.8 L (20.0-40.0) % Borden % (Auto) 9.4 (0.0-10.0) % Eos % (Auto) 2.1 (0.0-4.0) % Baso % (Auto) 0.7 (0.0-2.0) % Neut # (Auto) 7.4 H (1.8-7.0) K/uL Lymph # (Auto) 2.0 (1.0-4.3) K/uL Borden # (Auto) 1.0 H (0.0-0.8) K/uL Eos # (Auto) 0.2 (0.0-0.7) K/uL Baso # (Auto) 0.1 (0.0-0.2) K/uL Sodium 139 (132-148) mmol/L Potassium 4.3 (3.6-5.2) mmol/L Chloride 99 (98-107) mmol/L Carbon Dioxide 31 H (22-30) mmol/L Anion Gap 14 (10-20) BUN 32 H (9-20) mg/dL Creatinine 1.6 H (0.8-1.5) mg/dL Est GFR ( Amer) 54 Est GFR (Non-Af Amer) 44 POC Glucose (mg/dL) 144 H (65-110) mg/dL Random Glucose 133 H (75-110) mg/dL Calcium 9.0 (8.6-10.4) mg/dl Phosphorus 4.2 (2.5-4.5) mg/dL Magnesium 2.4 H (1.6-2.3) mg/dL Total Bilirubin 0.8 (0.2-1.3) mg/dL AST 26 (17-59) U/L ALT 34 (21-72) U/L Alkaline Phosphatase 61 (38-126) U/L Total Creatine Kinase (55-170) U/L CK-MB (Mass) (0.0-3.38) ng/mL Troponin I (0.00-0.120) ng/mL Total Protein 6.2 L (6.3-8.3) g/dL Albumin 3.7 (3.5-5.0) g/dL Globulin 2.4 (2.2-3.9) gm/dL Albumin/Globulin Ratio 1.5 (1.0-2.1) Urine Opiates Screen (NEGATIVE) Urine Methadone Screen (NEGATIVE) Ur Barbiturates Screen (NEGATIVE) Ur Phencyclidine Scrn (NEGATIVE) Ur Amphetamines Screen (NEGATIVE) U Benzodiazepines Scrn (NEGATIVE) U Oth Cocaine Metabols (NEGATIVE) U Cannabinoids Screen (NEGATIVE) Hepatitis A IgM Ab (NEGATIVE) Hep Bs Antigen (NEGATIVE) Hep B Core IgM Ab (NEGATIVE) Hepatitis C Antibody (NEGATIVE) HIV 1&2 Antibody Screen (NEGATIVE) 02/13/18 02/13/18 02/13/18 Range/Units 21:20 21:17 16:05 WBC (4.8-10.8) K/uL RBC (4.40-5.90) Mil/uL Hgb (12.0-18.0) g/dL Hct (35.0-51.0) % MCV (80.0-94.0) fL MCH (27.0-31.0) pg MCHC (33.0-37.0) g/dL RDW (11.5-14.5) % Plt Count (130-400) K/uL MPV (7.2-11.7) fL Neut % (Auto) (50.0-75.0) % Lymph % (Auto) (20.0-40.0) % Borden % (Auto) (0.0-10.0) % Eos % (Auto) (0.0-4.0) % Baso % (Auto) (0.0-2.0) % Neut # (Auto) (1.8-7.0) K/uL Lymph # (Auto) (1.0-4.3) K/uL Borden # (Auto) (0.0-0.8) K/uL Eos # (Auto) (0.0-0.7) K/uL Baso # (Auto) (0.0-0.2) K/uL Sodium (132-148) mmol/L Potassium (3.6-5.2) mmol/L Chloride (98-107) mmol/L Carbon Dioxide (22-30) mmol/L Anion Gap (10-20) BUN (9-20) mg/dL Creatinine (0.8-1.5) mg/dL Est GFR ( Amer) Est GFR (Non-Af Amer) POC Glucose (mg/dL) 80 80 (65-110) mg/dL Random Glucose (75-110) mg/dL Calcium (8.6-10.4) mg/dl Phosphorus (2.5-4.5) mg/dL Magnesium (1.6-2.3) mg/dL Total Bilirubin (0.2-1.3) mg/dL AST (17-59) U/L ALT (21-72) U/L Alkaline Phosphatase (38-126) U/L Total Creatine Kinase 47 L (55-170) U/L CK-MB (Mass) 1.01 (0.0-3.38) ng/mL Troponin I 0.0220 (0.00-0.120) ng/mL Total Protein (6.3-8.3) g/dL Albumin (3.5-5.0) g/dL Globulin (2.2-3.9) gm/dL Albumin/Globulin Ratio (1.0-2.1) Urine Opiates Screen (NEGATIVE) Urine Methadone Screen (NEGATIVE) Ur Barbiturates Screen (NEGATIVE) Ur Phencyclidine Scrn (NEGATIVE) Ur Amphetamines Screen (NEGATIVE) U Benzodiazepines Scrn (NEGATIVE) U Oth Cocaine Metabols (NEGATIVE) U Cannabinoids Screen (NEGATIVE) Hepatitis A IgM Ab (NEGATIVE) Hep Bs Antigen (NEGATIVE) Hep B Core IgM Ab (NEGATIVE) Hepatitis C Antibody (NEGATIVE) HIV 1&2 Antibody Screen (NEGATIVE) 02/13/18 02/13/18 02/13/18 Range/Units 14:15 14:15 14:15 WBC (4.8-10.8) K/uL RBC (4.40-5.90) Mil/uL Hgb (12.0-18.0) g/dL Hct (35.0-51.0) % MCV (80.0-94.0) fL MCH (27.0-31.0) pg MCHC (33.0-37.0) g/dL RDW (11.5-14.5) % Plt Count (130-400) K/uL MPV (7.2-11.7) fL Neut % (Auto) (50.0-75.0) % Lymph % (Auto) (20.0-40.0) % Borden % (Auto) (0.0-10.0) % Eos % (Auto) (0.0-4.0) % Baso % (Auto) (0.0-2.0) % Neut # (Auto) (1.8-7.0) K/uL Lymph # (Auto) (1.0-4.3) K/uL Borden # (Auto) (0.0-0.8) K/uL Eos # (Auto) (0.0-0.7) K/uL Baso # (Auto) (0.0-0.2) K/uL Sodium (132-148) mmol/L Potassium (3.6-5.2) mmol/L Chloride (98-107) mmol/L Carbon Dioxide (22-30) mmol/L Anion Gap (10-20) BUN (9-20) mg/dL Creatinine (0.8-1.5) mg/dL Est GFR ( Amer) Est GFR (Non-Af Amer) POC Glucose (mg/dL) (65-110) mg/dL Random Glucose (75-110) mg/dL Calcium (8.6-10.4) mg/dl Phosphorus (2.5-4.5) mg/dL Magnesium (1.6-2.3) mg/dL Total Bilirubin (0.2-1.3) mg/dL AST (17-59) U/L ALT (21-72) U/L Alkaline Phosphatase (38-126) U/L Total Creatine Kinase 35 L (55-170) U/L CK-MB (Mass) 1.02 (0.0-3.38) ng/mL Troponin I 0.0260 (0.00-0.120) ng/mL Total Protein (6.3-8.3) g/dL Albumin (3.5-5.0) g/dL Globulin (2.2-3.9) gm/dL Albumin/Globulin Ratio (1.0-2.1) Urine Opiates Screen (NEGATIVE) Urine Methadone Screen (NEGATIVE) Ur Barbiturates Screen (NEGATIVE) Ur Phencyclidine Scrn (NEGATIVE) Ur Amphetamines Screen (NEGATIVE) U Benzodiazepines Scrn (NEGATIVE) U Oth Cocaine Metabols (NEGATIVE) U Cannabinoids Screen (NEGATIVE) Hepatitis A IgM Ab Negative (NEGATIVE) Hep Bs Antigen Negative (NEGATIVE) Hep B Core IgM Ab Negative (NEGATIVE) Hepatitis C Antibody Reactive (NEGATIVE) HIV 1&2 Antibody Screen Negative (NEGATIVE) 02/13/18 02/13/18 Range/Units 11:33 11:23 WBC (4.8-10.8) K/uL RBC (4.40-5.90) Mil/uL Hgb (12.0-18.0) g/dL Hct (35.0-51.0) % MCV (80.0-94.0) fL MCH (27.0-31.0) pg MCHC (33.0-37.0) g/dL RDW (11.5-14.5) % Plt Count (130-400) K/uL MPV (7.2-11.7) fL Neut % (Auto) (50.0-75.0) % Lymph % (Auto) (20.0-40.0) % [place] % (Auto) (0.0-10.0) % Eos % (Auto) (0.0-4.0) % Baso % (Auto) (0.0-2.0) % Neut # (Auto) (1.8-7.0) K/uL Lymph # (Auto) (1.0-4.3) K/uL [place] # (Auto) (0.0-0.8) K/uL Eos # (Auto) (0.0-0.7) K/uL Baso # (Auto) (0.0-0.2) K/uL Sodium (132-148) mmol/L Potassium (3.6-5.2) mmol/L Chloride (98-107) mmol/L Carbon Dioxide (22-30) mmol/L Anion Gap (10-20) BUN (9-20) mg/dL Creatinine (0.8-1.5) mg/dL Est GFR ( Amer) Est GFR (Non-Af Amer) POC Glucose (mg/dL) 114 H (65-110) mg/dL Random Glucose (75-110) mg/dL Calcium (8.6-10.4) mg/dl Phosphorus (2.5-4.5) mg/dL Magnesium (1.6-2.3) mg/dL Total Bilirubin (0.2-1.3) mg/dL AST (17-59) U/L ALT (21-72) U/L Alkaline Phosphatase (38-126) U/L Total Creatine Kinase (55-170) U/L CK-MB (Mass) (0.0-3.38) ng/mL Troponin I (0.00-0.120) ng/mL Total Protein (6.3-8.3) g/dL Albumin (3.5-5.0) g/dL Globulin (2.2-3.9) gm/dL Albumin/Globulin Ratio (1.0-2.1) Urine Opiates Screen Negative (NEGATIVE) Urine Methadone Screen Positive H (NEGATIVE) Ur Barbiturates Screen Negative (NEGATIVE) Ur Phencyclidine Scrn Negative (NEGATIVE) Ur Amphetamines Screen Negative (NEGATIVE) U Benzodiazepines Scrn Negative (NEGATIVE) U Oth Cocaine Metabols Negative (NEGATIVE) U Cannabinoids Screen Negative (NEGATIVE) Hepatitis A IgM Ab (NEGATIVE) Hep Bs Antigen (NEGATIVE) Hep B Core IgM Ab (NEGATIVE) Hepatitis C Antibody (NEGATIVE) HIV 1&2 Antibody Screen (NEGATIVE) Laboratory Results - last 24 hr 02/13/18 02/13/18 02/13/18 11:23 11:33 14:15 WBC RBC Hgb Hct MCV MCH MCHC RDW Plt Count MPV Neut % (Auto) Lymph % (Auto) [place] % (Auto) Eos % (Auto) Baso % (Auto) Neut # (Auto) Lymph # (Auto) [place] # (Auto) Eos # (Auto) Baso # (Auto) Sodium Potassium Chloride Carbon Dioxide Anion Gap BUN Creatinine Est GFR ( Amer) Est GFR (Non-Af Amer) POC Glucose (mg/dL) 114 H Random Glucose Calcium Phosphorus Magnesium Total Bilirubin AST ALT Alkaline Phosphatase Total Creatine Kinase 35 L CK-MB (Mass) 1.02 Troponin I 0.0260 Total Protein Albumin Globulin Albumin/Globulin Ratio Urine Opiates Screen Negative Urine Methadone Screen Positive H Ur Barbiturates Screen Negative Ur Phencyclidine Scrn Negative Ur Amphetamines Screen Negative U Benzodiazepines Scrn Negative U Oth Cocaine Metabols Negative U Cannabinoids Screen Negative Hepatitis A IgM Ab Hep Bs Antigen Hep B Core IgM Ab Hepatitis C Antibody HIV 1&2 Antibody Screen 02/13/18 02/13/18 02/13/18 14:15 14:15 16:05 WBC RBC Hgb Hct MCV MCH MCHC RDW Plt Count MPV Neut % (Auto) Lymph % (Auto) [place] % (Auto) Eos % (Auto) Baso % (Auto) Neut # (Auto) Lymph # (Auto) [place] # (Auto) Eos # (Auto) Baso # (Auto) Sodium Potassium Chloride Carbon Dioxide Anion Gap BUN Creatinine Est GFR ( Amer) Est GFR (Non-Af Amer) POC Glucose (mg/dL) 80 Random Glucose Calcium Phosphorus Magnesium Total Bilirubin AST ALT Alkaline Phosphatase Total Creatine Kinase CK-MB (Mass) Troponin I Total Protein Albumin Globulin Albumin/Globulin Ratio Urine Opiates Screen Urine Methadone Screen Ur Barbiturates Screen Ur Phencyclidine Scrn Ur Amphetamines Screen U Benzodiazepines Scrn U Oth Cocaine Metabols U Cannabinoids Screen Hepatitis A IgM Ab Negative Hep Bs Antigen Negative Hep B Core IgM Ab Negative Hepatitis C Antibody Reactive HIV 1&2 Antibody Screen Negative 02/13/18 02/13/18 02/14/18 21:17 21:20 07:35 WBC 10.7 RBC 4.11 L Hgb 11.3 L Hct 33.4 L MCV 81.3 MCH 27.4 MCHC 33.7 RDW 16.1 H Plt Count 150 MPV 10.2 Neut % (Auto) 69.0 Lymph % (Auto) 18.8 L [place] % (Auto) 9.4 Eos % (Auto) 2.1 Baso % (Auto) 0.7 Neut # (Auto) 7.4 H Lymph # (Auto) 2.0 [place] # (Auto) 1.0 H Eos # (Auto) 0.2 Baso # (Auto) 0.1 Sodium Potassium Chloride Carbon Dioxide Anion Gap BUN Creatinine Est GFR ( Amer) Est GFR (Non-Af Amer) POC Glucose (mg/dL) 80 Random Glucose Calcium Phosphorus Magnesium Total Bilirubin AST ALT Alkaline Phosphatase Total Creatine Kinase 47 L CK-MB (Mass) 1.01 Troponin I 0.0220 Total Protein Albumin Globulin Albumin/Globulin Ratio Urine Opiates Screen Urine Methadone Screen Ur Barbiturates Screen Ur Phencyclidine Scrn Ur Amphetamines Screen U Benzodiazepines Scrn U Oth Cocaine Metabols U Cannabinoids Screen Hepatitis A IgM Ab Hep Bs Antigen Hep B Core IgM Ab Hepatitis C Antibody HIV 1&2 Antibody Screen 02/14/18 02/14/18 07:35 07:36 WBC RBC Hgb Hct MCV MCH MCHC RDW Plt Count MPV Neut % (Auto) Lymph % (Auto) [place] % (Auto) Eos % (Auto) Baso % (Auto) Neut # (Auto) Lymph # (Auto) [place] # (Auto) Eos # (Auto) Baso # (Auto) Sodium 139 Potassium 4.3 Chloride 99 Carbon Dioxide 31 H Anion Gap 14 BUN 32 H Creatinine 1.6 H Est GFR ( Amer) 54 Est GFR (Non-Af Amer) 44 POC Glucose (mg/dL) 144 H Random Glucose 133 H Calcium 9.0 Phosphorus 4.2 Magnesium 2.4 H Total Bilirubin 0.8 AST 26 ALT 34 Alkaline Phosphatase 61 Total Creatine Kinase CK-MB (Mass) Troponin I Total Protein 6.2 L Albumin 3.7 Globulin 2.4 Albumin/Globulin Ratio 1.5 Urine Opiates Screen Urine Methadone Screen Ur Barbiturates Screen Ur Phencyclidine Scrn Ur Amphetamines Screen U Benzodiazepines Scrn U Oth Cocaine Metabols U Cannabinoids Screen Hepatitis A IgM Ab Hep Bs Antigen Hep B Core IgM Ab Hepatitis C Antibody HIV 1&2 Antibody Screen Critical Care Progress Note - Nutrition Nutrition: Nutrition Category Date Time Status Heart Healthy Diet [DIET] Diets 02/13/18 Breakfast Active Assessment/Plan - Assessment and Plan (Free Text) Plan: Above resident documents my clinical management and physical exam -PAtient feeling better. -off Nasal canula oxygen -walking -optimize chronic diastolice heart failure meds. -cardiology follo wup - Date & Time Date: 02/14/18 Time: 11:30
--- NOTE | 2018-02-14 14:18 | CP.PCM.PN ---
Subjective - Date & Time of Evaluation Date of Evaluation: 02/14/18 Time of Evaluation: 14:16 - Subjective Subjective: currently patient has no complaints. Vital signs are stable blood pressure is now stabilized fluctuates between 150/80 mmHg. Patient had a previous cardiac workup which was negative for coronary artery disease. We will monitor the patient's renal function and adjust the medication. Patient is still in sinus bradycardia Objective - Vital Signs/Intake and Output Vital Signs (last 24 hours): Temp Pulse Resp BP Pulse Ox 98.2 F 49 L 18 156/78 H 98 02/14/18 12:00 02/14/18 13:07 02/14/18 13:07 02/14/18 13:07 02/14/18 12:00 Intake and Output: 02/14/18 02/14/18 11:59 23:59 Intake Total 1200 Output Total 900 Balance 300 - Medications Medications: Current Medications Albuterol/Ipratropium (Duoneb 3 Mg/0.5 Mg (3 Ml) Ud) 3 ml INH RQ6 [facility] Last Admin: 02/14/18 13:26 Dose: 3 ml Aspirin (Aspirin Chewable) 81 mg PO DAILY [facility] Last Admin: 02/14/18 09:31 Dose: 81 mg Clonidine HCl (Catapres) 0.1 mg PO Q8H [facility] Last Admin: 02/14/18 13:15 Dose: 0.1 mg Enoxaparin Sodium (Lovenox) 40 mg SC DAILY [facility] Last Admin: 02/14/18 09:30 Dose: 40 mg Furosemide (Lasix) 40 mg IVP DAILY [facility] Last Admin: 02/14/18 09:31 Dose: 40 mg Glipizide (Glucotrol) 10 mg PO DAILY [facility] Last Admin: 02/14/18 09:31 Dose: 10 mg Hydralazine HCl (Apresoline) 75 mg PO TID [facility] Last Admin: 02/14/18 13:12 Dose: 75 mg Hydralazine HCl (Apresoline) 10 mg PO Q6H PRN PRN Reason: Other Ibuprofen (Motrin Tab) 800 mg PO TID PRN PRN Reason: Pain, Mild (1-3) Influenza Virus Vaccine (Fluzone Quad [id number]) 60 mcg IM .ONCE ONE Stop: 02/15/18 10:01 Insulin Human Regular (Novolin R) 0 unit SC [facility]; Protocol Last Admin: 02/14/18 11:30 Dose: Not Given Isosorbide Mononitrate (Imdur Er) 30 mg PO DAILY [facility] Last Admin: 02/14/18 12:40 Dose: 30 mg Methadone HCl (Methadose) 40 mg PO DAILY [facility] Last Admin: 02/14/18 09:30 Dose: 40 mg Metoprolol Tartrate (Lopressor) 50 mg PO BID [facility] Last Admin: 02/14/18 09:32 Dose: Not Given Nitroglycerin (Nitro-Bid 2% Oint) 1 ea TOP Q6 [facility] Last Admin: 02/14/18 12:50 Dose: 1 ea Potassium Chloride (K-Dur 20 Meq Er Tab) 20 meq PO DAILY [facility] Last Admin: 02/14/18 09:31 Dose: 20 meq Rosuvastatin Calcium (Crestor) 10 mg PO HS [facility] Terazosin HCl (Hytrin) 5 mg PO DAILY [facility] Last Admin: 02/14/18 09:32 Dose: Not Given - Labs Labs: 02/14/18 07:35 02/14/18 07:35 Assessment and Plan (1) Diastolic CHF, acute Status: Acute (2) Hepatitis C Status: Chronic (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
--- NOTE | 2018-02-14 21:23 | CARD ---
APPROVED REPORT Date of service: 02/13/2018 EKG Measurement Heart [id number] <Conclusion> Normal sinus rhythm Nonspecific ST and T wave abnormality Prolonged QT Abnormal ECG
[2018-02-15] MEDS: Nitroglycerin 2% Ointment Foilpak UD TOP SCH ×3 (00:51→12:53)
[2018-02-15 07:29] LABS: ALB/GLOB RATIO 1.4 (1.0-2.1); ALBUMIN 3.2 g/dL (3.5-5.0); CALCIUM 8.3 mg/dl (8.6-10.4)
[2018-02-15] MEDS: (Novolin R) Insulin Human Regular 100 units/ml vial SC SCH ×2 (08:15→12:30)
[2018-02-15] MEDS: Albuterol-Ipratrop 3 mg / 0.5 (3 ml) UD INH SCH ×2 (09:03→13:49)
[2018-02-15] MEDS ORDERED: Influenza Vaccine 60 MCG/0.5 ML SYR (3 yr & up) IM ONE (10:00)
[2018-02-15] MEDS: Methadone 40 mg Tab PO SCH (10:03)
[2018-02-15] MEDS: Potassium Chloride 20 mEq ER Tab PO SCH (10:03)
[2018-02-15] MEDS: Enoxaparin 40 mg Syringe SC SCH (10:04)
[2018-02-15] MEDS ORDERED: Potassium Chloride 20 mEq ER Tab PO ONE (13:00)
--- NOTE | 2018-02-15 14:40 | CP.PCM.DIS ---
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 Hospital Course - Lab Results Lab Results: Micro Results 02/13/18 10:02 Naris MRSA Culture (Admit) - Final MRSA NOT DETECTED Most Recent Lab Values WBC 10.7 K/uL (4.8-10.8) 02/14/18 07:35 RBC 4.11 Mil/uL (4.40-5.90) L 02/14/18 07:35 Hgb 11.3 g/dL (12.0-18.0) L 02/14/18 07:35 Hct 33.4 % (35.0-51.0) L 02/14/18 07:35 MCV 81.3 fL (80.0-94.0) 02/14/18 07:35 MCH 27.4 pg (27.0-31.0) 02/14/18 07:35 MCHC 33.7 g/dL (33.0-37.0) 02/14/18 07:35 RDW 16.1 % (11.5-14.5) H 02/14/18 07:35 Plt Count 150 K/uL (130-400) 02/14/18 07:35 MPV 10.2 fL (7.2-11.7) 02/14/18 07:35 Neut % (Auto) 69.0 % (50.0-75.0) 02/14/18 07:35 Lymph % (Auto) 18.8 % (20.0-40.0) L 02/14/18 07:35 [place] % (Auto) 9.4 % (0.0-10.0) 02/14/18 07:35 Eos % (Auto) 2.1 % (0.0-4.0) 02/14/18 07:35 Baso % (Auto) 0.7 % (0.0-2.0) 02/14/18 07:35 Neut # (Auto) 7.4 K/uL (1.8-7.0) H 02/14/18 07:35 Lymph # (Auto) 2.0 K/uL (1.0-4.3) 02/14/18 07:35 [place] # (Auto) 1.0 K/uL (0.0-0.8) H 02/14/18 07:35 Eos # (Auto) 0.2 K/uL (0.0-0.7) 02/14/18 07:35 Baso # (Auto) 0.1 K/uL (0.0-0.2) 02/14/18 07:35 Neutrophils % (Manual) 88 % (50-75) H 02/13/18 01:47 Lymphocytes % (Manual) 9 % (20-40) L 02/13/18 01:47 Monocytes % (Manual) 3 % (0-10) 02/13/18 01:47 Platelet Estimate Normal (NORMAL) 02/13/18 01:47 Giant Platelets Present 02/13/18 01:47 Polychromasia Slight 02/13/18 01:47 Anisocytosis (manual) Slight 02/13/18 01:47 Microcytosis (manual) Slight 02/13/18 01:47 Tear Drop Cells Slight 02/13/18 01:47 Ovalocytes Slight 02/13/18 01:47 Rouleaux Slight 02/13/18 01:47 Puncture Site Rr 02/13/18 01:25 pCO2 40 mm/Hg (35-45) 02/13/18 01:25 pO2 81 mm/Hg (80-100) 02/13/18 01:25 HCO3 27.6 mmol/L (21-28) 02/13/18 01:25 ABG pH 7.45 (7.35-7.45) 02/13/18 01:25 ABG Total CO2 29.0 mmol/L (22-28) H 02/13/18 01:25 ABG O2 Saturation 98.3 % (95-98) H 02/13/18 01:25 ABG Base Excess 3.5 mmol/L (-2.0-3.0) H 02/13/18 01:25 Marty Test Pos 02/13/18 01:25 ABG Potassium 3.5 mmol/L (3.6-5.2) L 02/13/18 01:25 A-a O2 Difference 154.0 mm/Hg 02/13/18 01:25 Respiratory Index 1.9 02/13/18 01:25 Sodium 144.0 mmol/l (132-148) 02/13/18 01:25 Chloride 112.0 mmol/L (98-107) H 02/13/18 01:25 Glucose 167 mg/dl (75-110) H 02/13/18 01:25 Lactate 1.0 mmol/L (0.7-2.1) 02/13/18 01:25 Liter Flow 4.0 02/13/18 01:25 FiO2 40.0 % 02/13/18 01:25 Sodium 139 mmol/L (132-148) 02/15/18 07:01 Potassium 3.5 mmol/L (3.6-5.2) L 02/15/18 07:01 Chloride 102 mmol/L (98-107) 02/15/18 07:01 Carbon Dioxide 31 mmol/L (22-30) H 02/15/18 07:01 Anion Gap 10 (10-20) 02/15/18 07:01 BUN 32 mg/dL (9-20) H 02/15/18 07:01 Creatinine 1.5 mg/dL (0.8-1.5) 02/15/18 07:01 Est GFR ( Amer) 58 02/15/18 07:01 Est GFR (Non-Af Amer) 48 02/15/18 07:01 POC Glucose (mg/dL) 94 mg/dL (65-110) 02/15/18 06:21 Random Glucose 107 mg/dL (75-110) 02/15/18 07:01 Calcium 8.3 mg/dl (8.6-10.4) L 02/15/18 07:01 Phosphorus 4.0 mg/dL (2.5-4.5) 02/15/18 07:01 Magnesium 2.4 mg/dL (1.6-2.3) H 02/15/18 07:01 Total Bilirubin 0.6 mg/dL (0.2-1.3) 02/15/18 07:01 AST 21 U/L (17-59) 02/15/18 07:01 ALT 32 U/L (21-72) 02/15/18 07:01 Alkaline Phosphatase 63 U/L (38-126) 02/15/18 07:01 Total Creatine Kinase 47 U/L (55-170) L 02/13/18 21:17 CK-MB (Mass) 1.01 ng/mL (0.0-3.38) 02/13/18 21:17 Troponin I 0.0220 ng/mL (0.00-0.120) 02/13/18 21:17 NT-Pro-B Natriuret Pep 5790 pg/mL (0-900) H 02/13/18 01:47 Total Protein 5.6 g/dL (6.3-8.3) L 02/15/18 07:01 Albumin 3.2 g/dL (3.5-5.0) L 02/15/18 07:01 Globulin 2.4 gm/dL (2.2-3.9) 02/15/18 07:01 Albumin/Globulin Ratio 1.4 (1.0-2.1) 02/15/18 07:01 Arterial Blood Potassium 3.5 mmol/L (3.6-5.2) L 02/13/18 01:25 Urine Opiates Screen Negative (NEGATIVE) 02/13/18 11:33 Urine Methadone Screen Positive (NEGATIVE) H 02/13/18 11:33 Ur Barbiturates Screen Negative (NEGATIVE) 02/13/18 11:33 Ur Phencyclidine Scrn Negative (NEGATIVE) 02/13/18 11:33 Ur Amphetamines Screen Negative (NEGATIVE) 02/13/18 11:33 U Benzodiazepines Scrn Negative (NEGATIVE) 02/13/18 11:33 U Oth Cocaine Metabols Negative (NEGATIVE) 02/13/18 11:33 U Cannabinoids Screen Negative (NEGATIVE) 02/13/18 11:33 Hepatitis A IgM Ab Negative (NEGATIVE) 02/13/18 14:15 Hep Bs Antigen Negative (NEGATIVE) 02/13/18 14:15 Hep B Core IgM Ab Negative (NEGATIVE) 02/13/18 14:15 Hepatitis C Antibody Reactive (NEGATIVE) 02/13/18 14:15 HIV 1&2 Antibody Screen Negative (NEGATIVE) 02/13/18 14:15 Influenza Typ A,B (EIA) Negative for flu a/b (NEGATIVE) 02/13/18 09:38 - Hospital Course Hospital Course: 62 years old male with a history of hypertension and diastolic heart failure presented to [facility] with acute shortness of breath and congestive heart failure. Patient initially responded with IV Lasix but subsequently patient had a high systolic and diastolic pressure of 230/126 mmHg multiple medication was tried and ultimately patient's blood pressure responded with IV Tridil. Patient was recently admitted in [facility] for CHF. Primary cardiac workup was negative echo showed normal left ventral ejection fraction. At the beginning part of the year patient had a complete cardiac workup of cardiac catheterization and IV Lexiscan which did not reveal any coronary artery disease. Patient is currently on methadone and previously patient has been noncompliant with medication. Patient was admitted in ICU. Blood pressure responded with IV Tridil. Blood pressure stabilized Tridil were discontinued and patient continued taking his regular medications. Cardiac enzymes were negative there was no any neurological deficits. Patient is stable will be discharged on the medications given in the hospital and on previous discharge. Patient was counseled to take the medication and abstain from salt in the diet. . Discharge Exam - Head Exam Head Exam: ATRAUMATIC, NORMOCEPHALIC Discharge Plan - Discharge Medications Prescriptions: hydrALAZINE [Apresoline] 75 mg PO TID 30 Days tab Rosuvastatin Calcium [Crestor] 10 mg PO HS 30 Days tab Isosorbide Mononitrate ER [Imdur ER] 30 mg PO DAILY 30 Days tab - Follow Up Plan Condition: FAIR Disposition: HOME/ ROUTINE Additional Instructions: FOLLOW UP WITH DR STONE IN HIS OFFICE -----CALL FOR APPOINTMENT CONTINUE HOME MEDICATION NEW PRESCRIPTION GIVEN CRESTOER 10 MG PO AT NIGHT HYDRALAZINE IS INCREASE TO 75 MG PO THREE TIME A DAY IMDUR 30 MG PO DAILY STOP TAKING THE LISINOPRIL FOR NOW ADDRESS WITH DR GARCIA AT YOUR VISIT ACTIVITY TOLERATED CALL DR GARCIA OR GO TO THE EMERGENCY ROOM IF SYMPTOM RETURN OR WORSENING Referrals: Heidi Garcia MD [Staff Provider] -
--- NOTE | 2018-02-15 14:56 | CP.PCM.PN ---
Subjective - Date & Time of Evaluation Date of Evaluation: 02/15/18 Time of Evaluation: 14:56 - Subjective Subjective: PATIENT SEEN AND EXAMINED AT THE BEDSIDE Objective - Vital Signs/Intake and Output Vital Signs (last 24 hours): Temp Pulse Resp BP Pulse Ox 98.7 F 56 L 18 162/81 H 99 02/15/18 08:26 02/15/18 13:44 02/15/18 08:26 02/15/18 13:44 02/15/18 08:26 - Medications Medications: Current Medications Albuterol/Ipratropium (Duoneb 3 Mg/0.5 Mg (3 Ml) Ud) 3 ml INH RQ6 [facility] Last Admin: 02/15/18 13:49 Dose: 3 ml Aspirin (Aspirin Chewable) 81 mg PO DAILY [facility] Last Admin: 02/15/18 10:03 Dose: 81 mg Clonidine HCl (Catapres) 0.1 mg PO Q8H [facility] Last Admin: 02/15/18 13:45 Dose: 0.1 mg Enoxaparin Sodium (Lovenox) 40 mg SC DAILY [facility] Last Admin: 02/15/18 10:04 Dose: 40 mg Furosemide (Lasix) 40 mg IVP DAILY [facility] Last Admin: 02/15/18 10:02 Dose: 40 mg Glipizide (Glucotrol) 10 mg PO DAILY [facility] Last Admin: 02/15/18 10:03 Dose: 10 mg Hydralazine HCl (Apresoline) 75 mg PO TID [facility] Last Admin: 02/15/18 13:45 Dose: 75 mg Hydralazine HCl (Apresoline) 10 mg PO Q6H PRN PRN Reason: Other Ibuprofen (Motrin Tab) 800 mg PO TID PRN PRN Reason: Pain, Mild (1-3) Last Admin: 02/15/18 00:53 Dose: 800 mg Insulin Human Regular (Novolin R) 0 unit SC [facility]; Protocol Last Admin: 02/15/18 12:30 Dose: Not Given Isosorbide Mononitrate (Imdur Er) 30 mg PO DAILY [facility] Last Admin: 02/15/18 10:02 Dose: 30 mg Methadone HCl (Methadose) 40 mg PO DAILY [facility] Last Admin: 02/15/18 10:03 Dose: 40 mg Metoprolol Tartrate (Lopressor) 50 mg PO BID [facility] Last Admin: 02/15/18 10:04 Dose: Not Given Nitroglycerin (Nitro-Bid 2% Oint) 1 ea TOP Q6 [facility] Last Admin: 02/15/18 12:53 Dose: 1 ea Rosuvastatin Calcium (Crestor) 10 mg PO HS [facility] Last Admin: 02/14/18 21:44 Dose: 10 mg Terazosin HCl (Hytrin) 5 mg PO DAILY [facility] Last Admin: 02/15/18 10:03 Dose: 5 mg - Labs Labs: 02/14/18 07:35 02/15/18 07:01 Assessment and Plan - Assessment and Plan (Free Text) Assessment: FOLLOW UP WITH DR STONE IN HIS OFFICE -----CALL FOR APPOINTMENT CONTINUE HOME MEDICATION NEW PRESCRIPTION GIVEN CRESTOER 10 MG PO AT NIGHT HYDRALAZINE IS INCREASE TO 75 MG PO THREE TIME A DAY IMDUR 30 MG PO DAILY STOP TAKING THE LISINOPRIL FOR NOW ADDRESS WITH DR EARLY AT YOUR VISIT ACTIVITY TOLERATED CALL DR EARLY OR GO TO THE EMERGENCY ROOM IF SYMPTOM RETURN OR WORSENING
--- NOTE | 2018-02-15 15:03 | CP.PCM.PN ---
Subjective - Date & Time of Evaluation Date of Evaluation: 02/15/18 Time of Evaluation: 14:20 - Subjective Subjective: Patient seen and examined Breathing and cough much improved Afebrile No chest pain Discharge home Continue bronchodilator Follow up in the office Objective - Vital Signs/Intake and Output Vital Signs (last 24 hours): Temp Pulse Resp BP Pulse Ox 98.7 F 56 L 18 162/81 H 99 02/15/18 08:26 02/15/18 13:44 02/15/18 08:26 02/15/18 13:44 02/15/18 08:26 - Medications Medications: Current Medications Albuterol/Ipratropium (Duoneb 3 Mg/0.5 Mg (3 Ml) Ud) 3 ml INH RQ6 [facility] Last Admin: 02/15/18 13:49 Dose: 3 ml Aspirin (Aspirin Chewable) 81 mg PO DAILY [facility] Last Admin: 02/15/18 10:03 Dose: 81 mg Clonidine HCl (Catapres) 0.1 mg PO Q8H [facility] Last Admin: 02/15/18 13:45 Dose: 0.1 mg Enoxaparin Sodium (Lovenox) 40 mg SC DAILY [facility] Last Admin: 02/15/18 10:04 Dose: 40 mg Furosemide (Lasix) 40 mg IVP DAILY [facility] Last Admin: 02/15/18 10:02 Dose: 40 mg Glipizide (Glucotrol) 10 mg PO DAILY [facility] Last Admin: 02/15/18 10:03 Dose: 10 mg Hydralazine HCl (Apresoline) 75 mg PO TID [facility] Last Admin: 02/15/18 13:45 Dose: 75 mg Hydralazine HCl (Apresoline) 10 mg PO Q6H PRN PRN Reason: Other Ibuprofen (Motrin Tab) 800 mg PO TID PRN PRN Reason: Pain, Mild (1-3) Last Admin: 02/15/18 00:53 Dose: 800 mg Insulin Human Regular (Novolin R) 0 unit SC [facility]; Protocol Last Admin: 02/15/18 12:30 Dose: Not Given Isosorbide Mononitrate (Imdur Er) 30 mg PO DAILY [facility] Last Admin: 02/15/18 10:02 Dose: 30 mg Methadone HCl (Methadose) 40 mg PO DAILY [facility] Last Admin: 02/15/18 10:03 Dose: 40 mg Metoprolol Tartrate (Lopressor) 50 mg PO BID [facility] Last Admin: 02/15/18 10:04 Dose: Not Given Nitroglycerin (Nitro-Bid 2% Oint) 1 ea TOP Q6 [facility] Last Admin: 02/15/18 12:53 Dose: 1 ea Rosuvastatin Calcium (Crestor) 10 mg PO HS [facility] Last Admin: 02/14/18 21:44 Dose: 10 mg Terazosin HCl (Hytrin) 5 mg PO DAILY [facility] Last Admin: 02/15/18 10:03 Dose: 5 mg - Labs Labs: 02/14/18 07:35 02/15/18 07:01 Assessment and Plan (1) Diastolic CHF, acute Status: Acute (2) Pneumonia Status: Acute (3) Uncontrolled hypertension Status: Acute (4) Hepatitis C Status: Chronic
[2018-02-15 15:34] VITALS: BP 164/77; PULSE 52; RESP 20; TEMP 97.5; O2SAT 97
--- NOTE | 2018-02-18 13:18 | CARD ---
APPROVED REPORT Date of service: 02/13/2018 EXAM: Two-dimensional and M-mode echocardiogram with Doppler and color Doppler. Other Information Quality : ExcellentGoodRhythm : INDICATION Congestive Heart Failure Lower extremity edema, Pulmonary edema 2D DIMENSIONS IVSd1.5 (0.7-1.1cm)LVDd5.0 (3.9-5.9cm) PWd1.0 (0.7-1.1cm)LA Naewgz692 (18-58mL) LVDs4.3 (2.5-4.0cm)FS (%) 13.9 % LVEF (%)45.0 (>50%)LVEF (Moul[place]'s)55 % M-Mode DIMENSIONS Left Atrium (MM)5.33 (2.5-4.0cm)IVSd1.36 (0.7-1.1cm) Aortic Root3.38 (2.2-3.7cm)LVDd5.20 (4.0-5.6cm) Aortic Cusp Exc.2.18 (1.5-2.0cm)PWd1.10 (0.7-1.1cm) FS (%) 24 %LVDs3.97 (2.0-3.8cm) LVEF (%)50 (>50%) Mitral Valve MV E Vwsakqgu77.7cm/sMV A Ymxedvhd64.2cm/sE/A ratio2.1 ZJPK712.95 cm/s TDI Lateral E' Peak V5.38cm/sMedial E' Peak V3.25cm/sE/Lateral E'14.6 E/Medial E'24.2 Tricuspid Valve TR Peak Dpjobjcd610tu/sTR Peak Gr.[id number] LEFT VENTRICLE The left ventricle is normal size. There is mild concentric left ventricular hypertrophy. The Ejection Fraction is 50-55%. Transmitral Doppler flow pattern is Grade II-pseudonormal filling dynamics. The left atrial pressure is mildly elevated. markedly elevated la volume index. RIGHT VENTRICLE The right ventricle is normal size. The right ventricular systolic function is normal. ATRIA The left atrium is severely dilated. The right atrium size is normal. The interatrial septum is intact with no evidence for an atrial septal defect. AORTIC VALVE The aortic valve is normal in structure. No aortic regurgitation is present. MITRAL VALVE The mitral valve is normal in structure. Mitral regurgitation is moderate. TRICUSPID VALVE The tricuspid valve is normal in structure. There is mild to moderate tricuspid regurgitation. Right ventricular systolic pressure is estimated at 74 mmHg. There is severe pulmonary hypertension. PULMONIC VALVE The pulmonary valve is normal in structure. There is mild pulmonic valvular regurgitation. GREAT VESSELS The aortic root is normal in size. Dilated IVC with poor inspiration collapse is consistent with elevated right atrial pressure. PERICARDIAL EFFUSION There is no pericardial effusion. <Conclusion> The left ventricle is normal size. There is mild concentric left ventricular hypertrophy. The Ejection Fraction is 50-55%. Transmitral Doppler flow pattern is Grade II-pseudonormal filling dynamics. The left atrial pressure is mildly elevated. markedly elevated la volume index. The left atrium is severely dilated. Mitral regurgitation is moderate. There is mild to moderate tricuspid regurgitation. Right ventricular systolic pressure is estimated at 74 mmHg. There is severe pulmonary hypertension. The aortic root is normal in size. Dilated IVC with poor inspiration collapse is consistent with elevated right atrial pressure. There is no pericardial effusion.
--- NOTE | 2018-02-19 17:03 | IP.NPCORE ---
Heart Failure Core Measure - Heart Failure Ejection Fraction: 40 % or Greater JUDITH Inhibitor Prescribed: No Contraindication/Reason for not providing: NOT INDICATED BY THE [employer] Beta-Shayne Prescribed: Metoprolol Succinate Angiotensin II Receptor Shayne Prescribed: No Contraindication/Reason for not providing: NOT INDICATED BY THE [employer] AnticoagulationTherapy for Atrial Fibrillation/Atrialflutter: No Contraindication/Reason for not providing: NO HX OF AFIB Aldosterone Antagonist Prescribed: No Contraindication/Reason for not providing: NOT INDICATED BY THE [employer] Hydralazine Nitrate Prescribed: Yes Implantable Cardioverter Defibrillator Therapy: No Contraindication/Reason for not providing: EF IS GREATER THAN 40 Cardiac Resynchronization Therapy Prescribed: No Contraindication/Reason for not providing: EF IS GREATER THAN 40 - Follow up Follow Up Date (must be within 7 days from discharge): 02/20/18 Follow Up Time: 13:00
== END 2018-02-15 18:03 | disposition home or self-care (01) | DRG 194 ==
LOC: C.ER 00:36 → C.6T 04:09 → C.9I 09:07 → C.5S 02-14 18:53
PROVIDERS: ADMIT Internal Medicine Cardiovascular Disease; ATTEND Internal Medicine Cardiovascular Disease
PROC: 05HB33Z Insertion of Infusion Device into Right Basilic Vein, Percutaneous Approach (ICD-10-PCS; principal; 2018-02-14)
DX: I11.0 Hypertensive heart disease with heart failure (principal); F11.20 Opioid dependence, uncomplicated; B19.20 Unspecified viral hepatitis C without hepatic coma; J44.9 Chronic obstructive pulmonary disease, unspecified; I50.33 Acute on chronic diastolic (congestive) heart failure; E11.9 Type 2 diabetes mellitus without complications; I48.91 Unspecified atrial fibrillation; F17.210 Nicotine dependence, cigarettes, uncomplicated; Z91.14 Patient's other noncompliance with medication regimen; R00.1 Bradycardia, unspecified